=== PATIENT | female | born 1950 | race Caucasian/White ===

== ENCOUNTER 2020-04-04 06:54 | Outpatient (NON) | payer MEDICARE, OTHER, SELFPAY ==
[2020-04-04 18:28] LABS: SARS-CoV-2 RNA PCR Negative
== END 2020-04-04 06:55 ==
PROVIDERS: PCP Internal Medicine; Visit Provider Internal Medicine
DX: R68.89 Other general symptoms and signs (principal); Z20.828 Contact with and (suspected) exposure to other viral communicable diseases
CPT/HCPCS: 87635; C9803; U0003

== ENCOUNTER → 2020-04-06 13:54 | Outpatient (CLI) | payer MEDICARE, OTHER, SELFPAY ==
--- NOTE | ~2020-04-06 | XR_ITS ---
EXAMINATION: XR chest 2V DATE: 04/06/2020 14:58 INDICATION: Shortness of breath. TECHNIQUE: Frontal and lateral views of the chest were obtained. COMPARISON: Chest 2 views 04/06/2019, chest CT 11/01/2013 FINDINGS: A calcified left lung nodule is consistent with old granulomatous disease. There is mild at electasis in left lower lobe. No pleural effusion or pneumothorax. There is a large hiatal hernia. Th e heart size is normal. There is mild chronic anterior wedging of multiple lower thoracic vertebral b odies. IMPRESSION: 1. Large hiatal hernia. 2. Mild atelectasis in left lower lobe. Reviewed, dictated and finalized at location A.
== END ==
PROVIDERS: PCP Internal Medicine; Visit Provider Nurse Practitioner
DX: R06.02 Shortness of breath (principal)
CPT/HCPCS: 71046

== ENCOUNTER 2021-03-23 10:23 | Outpatient (CLI) | payer MEDICARE, OTHER, SELFPAY ==
--- NOTE | ~2021-03-23 | MR_ITS ---
EXAMINATION: MR brain IAC wo con DATE: 03/23/2021 11:34 INDICATION: Facial weakness. TECHNIQUE: Magnetic resonance imaging (MRI) of the brain, brainstem, and internal auditory canals was performed without intravenous contrast. Sequences included sagittal and axial T1-weighted FSE, axial diffusion-weighted FS EPI, axial T2*-weighted GRE, axial T2-weighted FLAIR Propeller, axial T2-weigh natalia Propeller, small [id number] coronal FIESTA, small bcifk-dw-lyrk coronal T1-weighted FSE, and s mall [id number] axial T1-weighted SPGR. Apparent diffusion coefficient (ADC) maps were created. COMPARISON: Brain MRI 06/17/2010 FINDINGS: There are scattered areas of nonspecific increased T2-weighted signal intensity in the cere bral white matter. There are old infarcts in right frontal and parietal lobes. There is old infarct i n left occipital lobe. There are old infarcts in the right cerebellum. There is no intracranial hemor rhage, acute infarction, or abnormal intracranial mass lesion. The ventricles are normal in size. The orbits are normal. The paranasal sinuses are clear. The mastoid air cells are normal. The trigeminal nerves are normal. No vascular loop compression. The internal auditory canals are normal. IMPRESSION: 1. 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 2. Mild nonspecific cerebral white matter disease, which likely represents chronic small vessel ische karma disease. Reviewed, dictated and finalized at location A. IMPRESSION: 1. 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 2. 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
== END 2021-03-23 10:24 | disposition home or self-care (01) ==
LOC: ANHIMG 10:25
PROVIDERS: PCP Internal Medicine; Visit Provider Psychiatry & Neurology Neurology
DX: R90.82 White matter disease, unspecified (principal); R29.810 Facial weakness; Z86.73 Personal history of transient ischemic attack (TIA), and cerebral infarction without residual deficits
CPT/HCPCS: 70551

== ENCOUNTER 2021-04-04 09:58 | Outpatient (CLI) | payer MEDICARE, OTHER, SELFPAY ==
--- NOTE | ~2021-04-04 | XR_ITS ---
EXAMINATION: XR lumbar spine 2-3V EXAM DATE: 04/04/2021 11:37 INDICATION: M54.5 - Low back pain . TECHNIQUE: Lumber spine frontal, lateral, lateral L5-S1 projections for interpretation. There is no prior study for comparison. FINDINGS: There is severe disc disease L4-5 with grade 2 anterolisthesis, but no L4 spondylolysis johnson spected. There may be partial or unilateral L5 spondylolysis. Moderate to severe disc disease L5-S1. Suspect partial fusion of the T12-L1 vertebral bodies. Moderate mid and lower lumbar facet arthropath y. Sacrum, sacroiliac joints, sacral arcuate lines are intact. There is left hip replacement. Moderat e right hip primary osteoarthritis. Sacrum, sacroiliac joints, sacral arcuate lines are intact. Sudhakar poonam soft tissue is unremarkable. Impression: lumbar spondylosis as above. Reviewed, dictated and finalized at location G. Impression: lumbar spondylosis as above.
--- NOTE | ~2021-04-04 | XR_ITS ---
EXAMINATION: XR_CERV2-3V_CR EXAM DATE: 04/04/2021 11:37 INDICATION: Spondylosis without myelopathy. TECHNIQUE: Cervical spine frontal, lateral, lateral swimmers, and open-mouth odontoid projections. There is no prior study for comparison. FINDINGS: There is osseous partial fusion of the C5-6 vertebral bodies. There is severe disc disease at C6-7. There is 3 mm anterolisthesis C4 on C5, degenerative. There is severe cervical arthropathy. Left upper lobe granuloma. Prevertebral soft tissue and pre-dens space are within normal limits. The odontoid process is intact. The lateral masses of C1 line up with C2. There are no acute fractures i dentified. IMPRESSION: Severe cervical arthropathy and C6-7 disc disease. Reviewed, dictated and finalized at location G.
--- NOTE | ~2021-04-04 | XR_ITS ---
EXAMINATION: XR thoracic spine 3V EXAM DATE: 04/04/2021 11:37 INDICATION: Thoracic back pain. TECHNIQUE: Frontal and lateral projections of the thoracic spine as well as lateral swimmers projecti on of the upper thoracic spine for interpretation. There is no prior study for comparison. FINDINGS: Massive hiatal hernia appears to contain transverse colon and probably the stomach. There is moderate to severe mid and lower thoracic disc disease. No endplate acute erosive change suspecte d. Vertebral body heights are maintained. There are no acute fractures identified. Paraspinal soft ti ssue is unremarkable. IMPRESSION: 1. Massive hiatal hernia. 2. Moderate to severe thoracolumbar spondylosis. Reviewed, dictated and finalized at location G.
--- NOTE | 2021-04-04 10:24 | ECHO_ITS ---
Patient Info Name: Lyndsey Mclean Age: 70 years : 1950 Gender: Female Ht: 60 in Wt: 195 lbs BSA: 1.98 m2 HR: 70 bpm BP: 158 / 85 mmHg Technical Quality: Good Exam Date: 04/04/2021 10:36 AM Exam Location: [facility] Patient Status: Outpatient Admit Date: 04/04/2021 Staff Ordering Physician: Blade Foster MD Mail Forwarding System Markup Clerk: Summer Vivas RDCS Attending Provider: Blade Foster MD Exam Type: CA echo doppler color flow Study Info Indications R01.1 - Cardiac murmur, unspecified Complete two-dimensional, color flow and Doppler transthoracic echocardiogram is performed. Summary 1. Complete two-dimensional, color flow and Doppler transthoracic echocardiogram is performed. 2. Left ventricular chamber dimension is mildly enlarged. 3. Left ventricular systolic function is normal, estimated at 60-65%. 4. The left ventricular diastolic function is grade I diastolic dysfunction. 5. E/e' 8 is minimally elevated. 6. Left atrial chamber dimension is severely enlarged. 7. There is moderate aortic valve sclerosis. 8. There is mild to moderate aortic valve stenosis with a peak velocity of 265 cm/s, mean gradient of 18 mmHg, and aortic valve area of 1.4 cm2. 9. There is moderate aortic valve regurgitation. 10. The mitral valve has moderately calcified annulus. 11. There is mild mitral valve regurgitation. 12. There is mild tricuspid valve regurgitation. 13. No pulmonary hypertension, estimated pulmonary arterial systolic pressure is 32 mmHg. Left Ventricle E/e' 8 is minimally elevated. Left ventricular chamber dimension is mildly enlarged. Left ventricular systolic function is normal, estimated at 60-65%. The left ventricular diastolic function is grade I diastolic dysfunction. Right Ventricle Right ventricular chamber dimension is normal. Right ventricular systolic function is normal. Left Atria Left atrial chamber dimension is severely enlarged. Right Atria Right atrial chamber dimension is normal. Aortic Valve The aortic valve is trileaflet. There is moderate aortic valve sclerosis. There is mild to moderate aortic valve stenosis with a peak velocity of 265 cm/s, mean gradient of 18 mmHg, and aortic valve area of 1.4 cm2. There is moderate aortic valve regurgitation. Pulmonic Valve There is no pulmonic regurgitation. Mitral Valve The mitral valve has moderately calcified annulus. There is no mitral valve stenosis. There is mild mitral valve regurgitation. Tricuspid Valve There is mild tricuspid valve regurgitation. No pulmonary hypertension, estimated pulmonary arterial systolic pressure is 32 mmHg. Pericardium/Pleural There is no pericardial effusion. Inferior Vena Cava Normal inferior vena cava with >50% collapse upon inspiration consistent with normal right atrial pressure, 5 mmHg. Aorta The aortic root size at the sinus of Valsalva is normal. Left Ventricular Outflow Tract Name Value Normal LVOT 2D LVOT Diameter 2.0 cm LVOT Doppler LVOT Peak Gradient 5 mmHg LVOT Mean Gradient 3 mmHg LVOT VTI
== END 2021-04-04 09:59 | disposition home or self-care (01) ==
LOC: ANHCARD 10:02
PROVIDERS: PCP Internal Medicine; Visit Provider Psychiatry & Neurology Neurology
DX: R01.1 Cardiac murmur, unspecified (principal); I34.0 Nonrheumatic mitral (valve) insufficiency; I36.1 Nonrheumatic tricuspid (valve) insufficiency; M47.817 Spondylosis without myelopathy or radiculopathy, lumbosacral region; K44.9 Diaphragmatic hernia without obstruction or gangrene; M47.815 Spondylosis without myelopathy or radiculopathy, thoracolumbar region; M47.813 Spondylosis without myelopathy or radiculopathy, cervicothoracic region
CPT/HCPCS: 72040; 72072; 72100; 93306

== ENCOUNTER 2021-07-09 15:22 | Emergency (ER) | payer MEDICARE, OTHER, SELFPAY ==
--- NOTE | ~2021-07-09 | XR_ITS ---
EXAMINATION: XR foot RT min 3V DATE: 07/09/2021 22:19 INDICATION: Lateral right foot pain and swelling TECHNIQUE: Dorsoplantar, two oblique and lateral views of the right foot were obtained. COMPARISON: Right ankle radiographs dated 02/23/2007 FINDINGS: Mild hallux valgus. Alignment is otherwise normal. No fracture. Again seen is severe osteoarthritis a t the poorly profiled subtalar joint. Additional mild osteoarthritis at the ankle and first metatarso phalangeal joints. There are scattered lucencies including at the posterior tuberosity of the calcane us, the medial head of the first metatarsal and at several of the tarsal bones including the cuboid, talus, calcaneus and distal fibula. Appearance of several suggests erosion such as in the setting of gout. Soft tissue swelling about the ankle and over the dorsum of the forefoot. No ankle joint effusi on. IMPRESSION: 1. No acute osseous abnormality. 2. Polyarticular osteoarthritis, severe at the subtalar joint and mild at the ankle and first metatar sophalangeal joints. 3. Few scattered lucent lesions throughout the foot, few with appearance suggesting erosions in the s etting of gout. Reviewed, dictated and finalized at location H. INE CAPTAIN IMPRESSION: 1. No acute osseous abnormality. 2. Polyarticular osteoarthritis, severe at the subtalar joint and mild at the a nkle and first metatarsophalangeal joints. 3. Few scattered lucent lesions throughout the foot, few with appearance sugges ting erosions in the setting of gout.
[2021-07-09 15:25] VITALS: BP 143/85; PULSE 82; RESP 16; TEMP 36.5; O2SAT 98
[2021-07-09 18:58] VITALS: BP 158/57; PULSE 82; RESP 16; O2SAT 97
[2021-07-09 21:40] LABS: Basophils Percent Auto 0.4 % (0.2-1.2); Eosinophils Percent Auto 0.4 % (0-4.4); Hematocrit 33.9 % (37.0-47.0); Hemoglobin 10.9 g/dL (12.0-15.0); Immature Granulocyte Absolute 0.02 K/mm3 (0.00-0.031); Immature Granulocyte Percent A 0.3 % (0-0.5); Lymphocytes Absolute Auto 0.75 K/mm3 (0.9-3.2); Lymphocytes Percent Auto 9.5 % (18.3-44.2); Mean Corpuscular HGB Conc 32.2 g/dl (32-36); Mean Corpuscular Hemoglobin 30.1 pg (26-34); Mean Corpuscular Volume 93.6 fl (80-100); Mean Platelet Volume 9.3 fl (7.4-10.4); Monocytes Absolute Auto 0.8 K/mm3 (0.1-0.6); Monocytes Percent Auto 10.4 % (2.6-8.5); Neutrophils Absolute Auto 6.3 K/mm3 (1.3-6.7); Platelet Count Result 325 k/mm3 (150-375); Red Blood Count 3.62 M/mm3 (4.2-5.4); Red Cell Distribution Width 13.3 % (11.5-14.5); White Blood Count 7.9 K/mm3 (4.5-10.0)
[2021-07-09 21:51] LABS: Alanine Aminotransferase 19 U/L (4-35); Albumin Level 4.1 g/dL (3.5-5.1); Alkaline Phosphatase 119 U/L (38-126); Anion Gap 7 mmol/L (8-16); Aspartate Amino Transferase 30 U/L (14-36); Bilirubin,Total 0.5 mg/dL (0.2-1.3); Blood Urea Nitrogen 21 mg/dL (7-17); Calcium 9.1 mg/dL (8.4-10.2); Carbon Dioxide 28 mmol/L (22-30); Chloride 95 mmol/L (98-107); Estimated CRCL calculation 45 ml/min; Estimated Glomerular Filt Rate 55; Glucose 102 mg/dL (65-110); Sodium 130 mmol/L (137-145)
--- NOTE | 2021-07-09 21:56 | ED.EXTPRO ---
HPI - Extremity Problem General Chief complaint: Extremity Problem,Nontraumatic Stated complaint: red, swollen foot Time Seen by Provider: 07/09/21 21:09 Source: patient Mode of arrival: ambulatory Limitations: no limitations History of Present Illness HPI Narrative: Patient is a 7-year-old female complaining of right foot redness and swelling that started 1 week ago. Patient denies any pain. Patient states that she spoke to her telecommunications specialist today and was told that she could have cellulitis and to go to the emergency room. Patient denies any calf pain or swelling. Patient denies any chest pain, shortness of breath, fever or chills. Related Data Home Medications Medication Instructions Recorded Confirmed estradiol 1 mg tablet 1 mg PO DAILY 06/22/19 07/03/21 gabapentin 100 mg capsule 100 mg PO DAILY 04/16/21 07/03/21 apixaban 5 mg tablet 5 mg PO BID 07/03/21 07/03/21 apixaban [Eliquis] mg 07/09/21 Allergies Allergy/AdvReac Type Severity Reaction Status Date / Time prednisone AdvReac Palpitation Verified 07/09/21 20:41 s Review of Systems Review of Systems: All systems reviewed & are unremarkable except as noted in HPI and below Constitutional: Constitutional: Denies body ache(s), Denies chills, Denies excessive sweating, Denies fatigue, Denies fever(s), Denies headache(s), Denies lethargy, Denies malaise, Denies weakness and Denies weight loss Eyes: Eyes: Denies blurry vision, Denies change in vision and Denies loss of vision ENT: Denies dizziness, Denies ear discharge, Denies headache(s), Denies lip swelling, Denies epistaxis, Denies nasal congestion, Denies neck pain, Denies throat swelling and Denies tongue swelling Cardiovascular: Cardiovascular: Denies chest pain, Denies chest pain at rest, Denies chest pain with activity, Denies diaphoresis, Denies rapid heart rate, Denies edema, Denies irregular heart rhythm, Denies lightheadedness, Denies palpitations, Denies dyspnea and Denies dyspnea on exertion Respiratory: Respiratory: Denies chest congestion, Denies cough, Denies hemoptysis, Denies dyspnea and Denies dyspnea on exertion Gastrointestinal: Gastrointestinal: Denies abdominal pain, Denies melena, Denies hematochezia, Denies diarrhea, Denies nausea, Denies vomiting and Denies hematemesis Musculoskeletal: Musculoskeletal: Denies abnormal gait, Denies deformity, Denies limited range of motion, Denies neck pain and Denies numbness Neurologic: Denies Abnormal speech present, Denies abnormal gait, Denies confusion, Denies dizziness, Denies headache(s), Denies focal weakness, Denies loss of vision, Denies numbness, Denies Other visual disturbances, Denies Sensory deficit (Neuro) and Denies weakness Psychiatric: Psychiatric: Denies confusion, Denies depression, Denies auditory hallucinations, Denies homicidal ideation and Denies suicidal ideation Endocrine: Endocrine: Denies cold intolerance, Denies excessive sweating, Denies fatigue, Denies heat intolerance and Denies palpitations Hematologic/Lymphatic: Hematologic/Lymphatic: Denies easy bleeding and Denies easy bruising Allergic/Immunologic: Allergic/Immunologic: Denies lip swelling, Denies throat swelling and Denies tongue swelling PMFSH Past Medical History Medical History Aortic stenosis, mild CVA (cerebral vascular accident) Diverticulosis of large intestine without hemorrhage Essential (primary) hypertension Iron deficiency anemia Paroxysmal atrial fibrillation Violaceous color toes Surgical History Surgical History History of left hip replacement Presence of unspecified artificial knee joint Family History Family History Mother Family history of diabetes mellitus in first degree relative Social History Social History Smoking sta
[2021-07-09] MEDS: CLINDAMYCIN 600 MG/D5W 50 ML 600 MG/50 ML PIGGYBACK 100 MG IVPB (22:37)
[2021-07-09 22:40] VITALS: BP 139/63; PULSE 83; RESP 17; O2SAT 97
== END 2021-07-09 23:38 | disposition home or self-care (01) ==
PROVIDERS: Emergency Provider Emergency Medicine; PCP Internal Medicine
DX: L03.115 Cellulitis of right lower limb (principal); I35.0 Nonrheumatic aortic (valve) stenosis; Z86.73 Personal history of transient ischemic attack (TIA), and cerebral infarction without residual deficits; I10 Essential (primary) hypertension; D50.9 Iron deficiency anemia, unspecified; I48.0 Paroxysmal atrial fibrillation; Z96.642 Presence of left artificial hip joint; Z96.659 Presence of unspecified artificial knee joint; Z79.01 Long term (current) use of anticoagulants
CPT/HCPCS: 36415; 73630; 80053; 85025; 96365; 99284

== ENCOUNTER → 2022-01-03 05:02 | Outpatient (CLI) | payer MEDICARE, OTHER, SELFPAY ==
[2022-01-03 12:00] LABS: SARS-CoV-2 RNA PCR Positive
== END ==
PROVIDERS: PCP Internal Medicine; Visit Provider Internal Medicine
DX: U07.1 COVID-19 (principal)
CPT/HCPCS: C9803; U0003; U0005

== ENCOUNTER 2022-05-22 16:22 | Outpatient (CLI) | payer MEDICARE, OTHER, SELFPAY ==
--- NOTE | ~2022-05-22 | XR_ITS ---
XR cervical spine 4-5V DATE: 05/22/2022 17:26 INDICATION: Neck pain TECHNIQUE: AP, lateral, open-mouth and swimmer views COMPARISON: None FINDINGS: There is straightening of cervical spine which may be due to muscle spasm. C1 and C2 are normally aligned and the odontoid process is intact. No fracture or dislocation or lock ed facet or prevertebral soft tissue swelling. There is 2 mm anterolisthesis at C3-4 and 3 mm anterolisthesis at C4-5. There is interbody spinal fusion at C5-6. There is severe degenerative disc disease at C6-7. There is degenerative change at the apophyseal joints. IMPRESSION: Straightening of the cervical spine 2 mm anterolisthesis at C3-4, 3 mm anterolisthesis at C4-5 Interbody fusion at C5-6 Severe degenerative disc disease at C6-7 Reviewed, dictated and finalized at location A.
--- NOTE | ~2022-05-22 | XR_ITS ---
XR shoulder RT min 2V DATE: 05/22/2022 17:26 INDICATION: Right shoulder pain. History of arthritis. TECHNIQUE: 4 views COMPARISON: None FINDINGS: There is obliteration of the right glenohumeral joint space, with spurring, consistent with severe osteoarthritis. There is evidence of rotator cuff atrophy No fracture or dislocation, periosteal reaction or bone destruction or abnormal soft tissue calcifica tion. IMPRESSION: Severe right glenohumeral osteoarthritis Rotator cuff atrophy Reviewed, dictated and finalized at location A.
--- NOTE | ~2022-05-22 | XR_ITS ---
XR lumbar spine min 4V DATE: 05/22/2022 17:26 INDICATION: Back pain TECHNIQUE: AP, lateral, coned lateral lumbosacral and bilateral oblique views COMPARISON: None FINDINGS: There is moderate right lumbar levoscoliosis. There is prominent degenerative disc disease in the lower thoracic spine. There is prominent degenerative change at the apophyseal joints. There is associated grade 2 anteroli sthesis at L4-5. There is severe degenerative disc disease at T12-L1, L4-5 and L5-S1 with obliteration of the interver tebral disc spaces at these 3 levels. No fracture or bone destruction is evident. The lumbar and included lower thoracic pedicles appear in tact. There is prominent degenerative change of the sacral iliac joints bilaterally. Status post left total hip arthroplasty. Prominent osteophytic change at the right hip joint. IMPRESSION: Severe degenerative disc disease of the lower thoracic and lower lumbar spine Grade 2 anterolisthesis at L4-5 Prominent right hip osteoid arthritis Status post left total hip arthroplasty Reviewed, dictated and finalized at location A. IMPRESSION: Severe degenerative disc disease of the lower thoracic and lower alicia mbar spine Grade 2 anterolisthesis at L4-5 Prominent right hip osteoid arthritis Status post left total hip arthroplasty
[2022-05-22 17:20] LABS: CRP 0.8 mg/dL (<1.0); Creatine Kinase 68 U/L (30-135)
[2022-05-22 17:31] LABS: Erythrocyte Sedimentation Rate 21 mm/hr (0-20)
[2022-05-27 01:16] LABS: Aldolase 3.9 U/L (<=8.1)
== END 2022-05-22 16:23 | disposition home or self-care (01) ==
PROVIDERS: PCP Internal Medicine; Visit Provider Internal Medicine
DX: M54.9 Dorsalgia, unspecified (principal); M19.90 Unspecified osteoarthritis, unspecified site; G89.29 Other chronic pain; M25.611 Stiffness of right shoulder, not elsewhere classified; M25.511 Pain in right shoulder; M62.81 Muscle weakness (generalized); M51.34 Other intervertebral disc degeneration, thoracic region; M51.36 Other intervertebral disc degeneration, lumbar region; M43.16 Spondylolisthesis, lumbar region; M16.11 Unilateral primary osteoarthritis, right hip; Z96.642 Presence of left artificial hip joint; M19.011 Primary osteoarthritis, right shoulder; M62.511 Muscle wasting and atrophy, not elsewhere classified, right shoulder; M53.82 Other specified dorsopathies, cervical region; M43.12 Spondylolisthesis, cervical region; Z98.1 Arthrodesis status; M50.323 Other cervical disc degeneration at C6-C7 level
CPT/HCPCS: 36415; 72050; 72110; 73030; 82085; 82550; 85652; 86140

== ENCOUNTER 2022-06-10 15:28 | Outpatient (CLI) | payer MEDICARE, OTHER, SELFPAY ==
--- NOTE | ~2022-06-10 | MR_ITS ---
EXAMINATION: MR shoulder LT wo con DATE: 06/10/2022 17:10 INDICATION: Chronic left shoulder pain TECHNIQUE: Magnetic resonance imaging (MRI) of the left shoulder was performed without intravenous co ntrast. Sequences included axial PD-weighted FS FSE, coronal oblique PD-weighted FS FSE, coronal obli que T2-weighted FS FSE, sagittal PD-weighted FS FSE, and sagittal T1-weighted SE. COMPARISON: None. FINDINGS: Coracoacromial arch: The acromion undersurface is flat in morphology (type I). The coracoacromial ligament is normal. Mild acromioclavicular osteoarthritis. Rotator cuff: The supraspinatus, infraspinatus and teres minor tendons are normal. The subscapularis tendon is norm al. Normal rotator cuff muscle bulk and signal. Biceps tendon, glenoid labrum and glenohumeral cartilage: Long head of the biceps tendon is normal. Advanced left glenohumeral osteoarthritis with remodeling o f the articular surfaces and prominent underlying subarticular cystic changes at both the humeral hea d and glenoid. There is diffuse degenerative tearing of the left glenoid labrum. Fluid: Small left glenohumeral joint effusion. Physiologic amount of fluid in the biceps tendon sheath. No loose osteochondral bodies. Small amount of fluid in the subacromial/subdeltoid bursa consistent with minimal bursitis. Bones: No fracture or pathologic marrow replacing process. IMPRESSION: 1. Advanced left glenohumeral osteoarthritis with diffuse labral degeneration. 2. Mild acromioclavicular osteoarthritis and minimal underlying subacromial/subdeltoid bursitis. Reviewed, dictated and finalized at location A. DER LOADER IMPRESSION: 1. Advanced left glenohumeral osteoarthritis with diffuse labral degeneration. 2. Mild acromioclavicular osteoarthritis and minimal underlying subacromial/sub deltoid bursitis.
--- NOTE | ~2022-06-10 | MR_ITS ---
EXAMINATION: MR shoulder RT wo con DATE: 06/10/2022 17:10 INDICATION: Chronic right shoulder pain TECHNIQUE: Magnetic resonance imaging (MRI) of the right shoulder was performed without intravenous c ontrast. Sequences included axial PD-weighted FS FSE, coronal oblique PD-weighted FS FSE, coronal obl ique T2-weighted FS FSE, sagittal PD-weighted FS FSE, and sagittal T1-weighted SE. COMPARISON: None. FINDINGS: Coracoacromial arch: The acromion undersurface is curved in morphology (type II). Small anterior subacromial spur at the a cromial insertion of the otherwise normal coracoacromial ligament. Moderate acromioclavicular osteoar thritis. Rotator cuff: Moderate supraspinatus tendinopathy with small full-thickness tear along the superior facet footplate measuring 7 mm AP and 1.2 cm medial to lateral. Mild tendinopathy without tear of the distal subscap ularis tendon and anterior infraspinatus tendon. The teres minor tendon is normal. Mild supraspinatus muscle atrophy with concave cephalad margin at level of the supraspinatus fossa. Biceps tendon, glenoid labrum and glenohumeral cartilage: Mild tendinopathy intra-articular portion of the long head biceps tendon. Advanced right glenohumeral osteoarthritis with articular surface remodeling and prominent subarticular changes at both the tianna oid and humeral head. Diffuse degenerative tearing of the glenoid labrum sparing the inferior labrum. Fluid: Moderate amount of fluid and mild synovitis in the subacromial/subdeltoid bursa likely combination of bursitis and extension of reactive glenohumeral joint effusion through the full-thickness rotator cu ff tear defect. Synovitis without significant fluid at the axillary and deep subscapular recess of th e glenohumeral joint space. No loose osteochondral bodies. Bones: No fracture or pathologic marrow replacing process. IMPRESSION: 1. Advanced right glenohumeral osteoarthritis with diffuse labral degeneration. 2. Moderate supraspinatus and mild subscapularis and infraspinatus tendinopathy with small full-thick ness tear of the distal supraspinatus tendon. 3. Mild tendinopathy without tear of the long head biceps tendon. 4. Moderate acromioclavicular osteoarthritis. 5. Mild synovitis a moderate amount of fluid at the subacromial/subdeltoid bursa likely combination o f bursitis and decompression of reactive glenohumeral joint effusion through the full-thickness rotat or cuff tear defect. Reviewed, dictated and finalized at location A. RECORDER IMPRESSION: 1. Advanced right glenohumeral osteoarthritis with diffuse labral degeneration. 2. Moderate supraspinatus and mild subscapularis and infraspinatus tendinopathy with small full-thickness tear of the distal supraspinatus tendon. 3. Mild tendinopathy without tear of the long head biceps tendon. 4. Moderate acromioclavicular osteoarthritis. 5. Mild synovitis a moderate amount of fluid at the subacromial/subdeltoid burs a likely combination of bursitis and decompression of reactive glenohumeral rosa nt effusion through the full-thickness rotator cuff tear defect.
== END 2022-06-10 15:29 | disposition home or self-care (01) ==
PROVIDERS: PCP Internal Medicine; Visit Provider Internal Medicine
DX: M19.012 Primary osteoarthritis, left shoulder (principal); M19.011 Primary osteoarthritis, right shoulder; M75.82 Other shoulder lesions, left shoulder; M75.81 Other shoulder lesions, right shoulder; M65.811 Other synovitis and tenosynovitis, right shoulder
CPT/HCPCS: 73221

== ENCOUNTER 2022-06-17 12:32 | Outpatient (CLI) | payer MEDICARE, OTHER, SELFPAY ==
--- NOTE | ~2022-06-17 | MR_ITS ---
EXAMINATION: MR cervical spine wo con DATE: 06/17/2022 14:01 INDICATION: Neck pain. Back pain. TECHNIQUE: Magnetic resonance imaging (MRI) of the cervical spine was performed without intravenous c ontrast. Sequences included sagittal T2-weighted FSE, sagittal T2-weighted FS FSE, sagittal T1-weight ed FSE, axial MERGE, and axial T2-weighted FSE. COMPARISON: Cervical spine radiographs 05/22/2022 FINDINGS: There is 8 degrees levocurvature of cervicothoracic spine. There is 2 mm anterolisthesis of C4 on C5 and 2 mm retrolisthesis of C5 on C6 and C6 on C7. There is mildly decreased disc height at C3-C4 and C4-C5. There is severely decreased disc height at C5-C6 with interbody fusion. There is sev erely decreased disc height at C6-C7 with endplate remodeling. The spinal cord signal intensity is no rmal, but motion artifact moderately decreased in sensitivity. The following disc levels are specific ally discussed: C2-C3: There is a central protrusion. There is no uncovertebral joint osteoarthritis. There is mild b ilateral facet joint osteoarthritis. There is no neural foraminal stenosis. There is no central canal stenosis. C3-C4: The disc is bulging. There is no uncovertebral joint osteoarthritis. There is severe right and moderate left facet joint osteoarthritis. There is mild bilateral neural foraminal stenosis. There i s mild central canal stenosis. C4-C5: The disc is bulging. There is no uncovertebral joint osteoarthritis. There is severe bilateral facet joint osteoarthritis. There is mild lateral neural foraminal stenosis. There is mild central c anal stenosis. C5-C6: There is mild bilateral uncovertebral joint hypertrophy. There is mild right and moderate left facet joint osteoarthritis. There is mild left neural foraminal stenosis. There is mild central brad l stenosis. C6-C7: The disc is bulging. There is severe bilateral uncovertebral joint osteoarthritis. There is se ko bilateral facet joint osteoarthritis. There is mild bilateral neural foraminal stenosis. There i s mild central canal stenosis. C7-T1: The disc does not extend beyond the endplate margin. There is no uncovertebral joint osteoarth ritis. There is severe right and moderate left facet joint osteoarthritis. There is mild right neural foraminal stenosis. There is no central canal stenosis. IMPRESSION: 1. Severe cervical spondylosis. 2. Anterior fusion at C5-C6. Reviewed, dictated and finalized at location A. NGUAL SPEECH LANGUAGE PATHOLOGIST
--- NOTE | ~2022-06-17 | MR_ITS ---
EXAMINATION: MR lumbar spine wo con DATE: 06/17/2022 14:01 INDICATION: Low back pain. TECHNIQUE: Magnetic resonance imaging (MRI) of the lumbar spine was performed without intravenous con trast. Sequences included sagittal T2-weighted FSE, sagittal T2-weighted FS FSE, sagittal T1-weighted FSE, and axial T2-weighted FSE. COMPARISON: None. FINDINGS: There is 7 mm anterolisthesis of L4 on L5 and 5 mm anterolisthesis of L5 on S1. There is mi ld chronic anterior wedging of T8-L1 vertebral bodies. There is moderately decreased disc height at T 7-T8 and T8-T9. There is severely decreased disc height from T9-T10 through T12-L1 with interbody fus ion at T9-T10 and T12-L1. There is severely decreased disc height at L4-L5 and L5-S1 with endplate re modeling. The distal spinal cord signal intensity is normal. The conus medullaris is at L2. The follo wing disc levels are specifically discussed: L1-L2: There is a central protrusion. There is mild bilateral facet joint osteoarthritis. There is no neural foraminal stenosis. There is mild central canal stenosis. L2-L3: The disc is bulging. There is mild bilateral facet joint osteoarthritis. There is mild bilater al neural foraminal stenosis. There is mild central canal stenosis. L3-L4: The disc is bulging. There is moderate bilateral facet joint osteoarthritis. There is mild irvin ateral neural foraminal stenosis. There is mild central canal stenosis. L4-L5: The disc is bulging and has an annular fissure. There is severe bilateral facet joint osteoart hritis. There is moderate right and mild left neural foraminal stenosis. There is mild central canal stenosis. L5-S1: The disc is bulging and has an annular fissure. There is severe bilateral facet joint osteoart hritis. There is mild bilateral neural foraminal stenosis. There is mild central canal stenosis. IMPRESSION: 1. Severe lumbar and thoracic spondylosis. Reviewed, dictated and finalized at location A. NEERING TEST MECHANIC
== END 2022-06-17 12:33 | disposition home or self-care (01) ==
PROVIDERS: PCP Internal Medicine; Visit Provider Internal Medicine
DX: M47.816 Spondylosis without myelopathy or radiculopathy, lumbar region (principal); M47.812 Spondylosis without myelopathy or radiculopathy, cervical region; Z98.1 Arthrodesis status; M43.04 Spondylolysis, thoracic region
CPT/HCPCS: 72141; 72148

== ENCOUNTER 2022-08-18 15:18 | Outpatient (CLI) | payer MEDICARE, OTHER, SELFPAY ==
[2022-08-18 16:11] LABS: Anion Gap 9 mmol/L (8-16); Blood Urea Nitrogen 32 mg/dL (7-17); Calcium 8.5 mg/dL (8.4-10.2); Carbon Dioxide 33 mmol/L (22-30); Chloride 79 mmol/L (98-107); Estimated Glomerular Filt Rate > 60; Glucose 111 mg/dL (65-110); Potassium 3.3 mmol/L (3.4-5.0); Sodium 121 mmol/L (137-145)
== END 2022-08-18 15:19 | disposition home or self-care (01) ==
PROVIDERS: PCP Internal Medicine; Visit Provider Internal Medicine
DX: I89.0 Lymphedema, not elsewhere classified (principal); Z79.899 Other long term (current) drug therapy
CPT/HCPCS: 36415; 80048

== ENCOUNTER 2022-08-25 17:09 | Inpatient (IN) | payer MEDICARE, OTHER, SELFPAY ==
[2022-08-25] VITALS (16 sets, daily range): BP systolic 90–141; BP diastolic 52–79; PULSE 95–111; RESP 14–27; TEMP 35–36.6; O2SAT 94–99; BMI 33.5
--- NOTE | ~2022-08-25 | XR_ITS ---
XR abdomen/kub 1V 09/04/2022 17:33 INDICATION: OG tube insertion TECHNIQUE: KUB COMPARISON: None FINDINGS: Bowel gas pattern is normal. Moderate gas throughout the colon. NG tube tip in the stomach. There is no evidence of free air, mass, organomegaly, ascites or obstruction. No abnormal calculi a re seen. The bones appear intact. There is a partially visualized catheter in the right pelvis. Ther e is a left hip arthroplasty. IMPRESSION: 1: No acute abdominal abnormality identified. 2: NG tube tip in the stomach. Reviewed, dictated and finalized at location A. AT OPERATOR
--- NOTE | ~2022-08-25 | CT_ITS ---
EXAMINATION: CT brain wo con DATE: 08/25/2022 18:17 INDICATION: Altered mental status TECHNIQUE: Computed tomography (CT) of the head was performed without intravenous contrast. Sagittal and coronal reconstructions were performed. The mA was adjusted according to patient size. Iterative reconstruction technique was employed. The dose-length product was 605.33 mGy-cm. COMPARISON: head CT dated 06/17/2010 and brain MR dated 04/22/2021 FINDINGS: Small regions of encephalomalacia in the right frontal lobe, right parietal lobe and at the head of t he right caudate nucleus consistent with sequela small old infarcts. No acute intracranial hemorrhage , acute infarction or abnormal extra axial fluid collection. There is additional mild to moderate sca ttered white matter hypoattenuation consistent with chronic small vessel ischemic disease. Symmetric prominence of the sulci consistent with mild age-appropriate diffuse cerebral volume loss. Ventricle s are normal and symmetric. No mass/mass effect. Intracranial calcified cerebral atherosclerosis is n oted. The orbits, paranasal sinuses and mastoid air cells are normal. IMPRESSION: 1. 3 small old infarcts in the right frontal and parietal lobes and at the head of the right caudate nucleus. No acute intracranial process. 2. Age-related changes including mild diffuse volume loss and mild to moderate scattered white matter hypoattenuation consistent with chronic small vessel ischemic disease. Reviewed, dictated and finalized at location A. NER OPERATOR IMPRESSION: 1. 3 small old infarcts in the right frontal and parietal lobes and at the head of the right caudate nucleus. No acute intracranial process. 2. Age-related changes including mild diffuse volume loss and mild to moderate scattered white matter hypoattenuation consistent with chronic small vessel isc hemic disease.
--- NOTE | ~2022-08-25 | CT_ITS ---
EXAMINATION: CT chest abdomen pelvis wo con DATE: 09/02/2022 15:34 INDICATION: Respiratory failure. Abdominal pain. TECHNIQUE: Computed tomography (CT) of the chest, abdomen, and pelvis was performed without intraveno us contrast. Automated exposure control and iterative reconstruction technique were employed. The dos e-length product was 1496.72 mGy-cm. COMPARISON: Chest CT 11/01/2013 FINDINGS: CHEST CT: There are patchy groundglass and airspace opacities and septal thickening involving all lobes. There are dependent airspace opacities in the lower lobes with volume loss, likely predominantly atelectasi s. There are moderate-sized right and small left pleural effusions. There is a large sliding hiatal h ernia that contains a portion of the colon. The nasogastric tube tip is in the stomach within the her manav. The endotracheal tube tip is in expected position above the keyla. The heart size is normal. Th ere are coronary artery calcifications. No pericardial effusion. There is severe thoracic spondylosis . There is mild chronic anterior wedging of multiple vertebral bodies. ABDOMEN/PELVIS CT: The liver is normal. Calcifications in the spleen are consistent with old granulomatous disease. Ther e is a gallstone in the gallbladder, which is normal in size. The pancreas and right adrenal gland ar e normal. There is chronic thickening of left adrenal gland, likely benign. There is cortical thinnin g of the kidneys. There is fat stranding adjacent to posterior aspect of right kidney, which may be e cecilio or fat necrosis. There is a catheter in the bladder. There is diverticulosis of the colon withou t evidence of diverticulitis. There are no dilated loops of bowel. The appendix is not visualized. Th ere are no pathologically enlarged lymph nodes. There is no free intraperitoneal fluid. There is miguel a in the perirectal fat. There is widespread edema in the body wall. There is a right groin catheter with tip in right external iliac vein. There is a total left hip arthroplasty. There is severe lumbar spondylosis. IMPRESSION: 1. Diffuse lung disease, consistent with pulmonary edema versus pneumonia. 2. Moderate-sized right and small left pleural effusions. 3. Large sliding hiatal hernia. Reviewed, dictated and finalized at location A. CLOSER
--- NOTE | ~2022-08-25 | XR_ITS ---
MODIFIED ESOPHAGRAM HISTORY: Possible aspiration TECHNIQUE: Modified barium esophagram was performed on 09/12/2022. I administered fluoroscopy and perf ormed the exam with speech pathologist. Patient was seated for lateral fluoroscopic imaging for flori stion of thin liquids, pudding, solids and quantified amounts, followed by thin liquids in uncontroll ed amounts. This was recorded on tape. A single fluoroscopic spot image was also recorded. The DAP fo r this procedure was 1.688 Gycm2. The amount of fluoroscopy time used during this procedure was 1.7 m inutes. FINDINGS: Oral stage: Adequate function. Pharyngeal stage: Pharyngeal dysphagia with reduced laryngeal elevation and adduction and reduced ton richar base retraction. There is moderate laryngeal penetration with some associated silent aspiration w ith uncontrolled thin and nectar thick liquids. Cervical/esophageal stage: Adequate function. IMPRESSION: Pharyngeal dysphagia with laryngeal penetration and silent aspiration with uncontrolled t hin and nectar thick liquids. Please correlate with speech pathologist findings and specific feeding recommendations. Reviewed, dictated and finalized at location A. OBEDIENCE INSTRUCTOR IMPRESSION: Pharyngeal dysphagia with laryngeal penetration and silent aspirati on with uncontrolled thin and nectar thick liquids. Please correlate with jacob vazquez pathologist findings and specific feeding recommendations.
--- NOTE | ~2022-08-25 | XR_ITS ---
EXAMINATION: XR chest 1V portable Exam Date/Time: 09/01/2022 17:17 DRAWING FRAME TENDER HISTORY: hypoxia Comparison: 08/28/2022. RESULT: Lines, tubes, and devices: None. Lungs and pleura: Patchy, diffuse bilateral airspace disease. Bilateral costophrenic angle blunting. Cardiomediastinal silhouette: Stable. Large hiatal hernia. Other: No acute osseous or upper abdominal finding. IMPRESSION: Increasing bilateral airspace disease, may represent worsening edema and/or pneumonia. Small bilatera l effusions. Reviewed, dictated and finalized at location K. ING FRAME TENDER IMPRESSION: Increasing bilateral airspace disease, may represent worsening edema and/or pne umonia. Small bilateral effusions.
--- NOTE | ~2022-08-25 | XR_ITS ---
EXAMINATION: XR chest 1V portable DATE: 09/04/2022 05:35 INDICATION: Intubated. TECHNIQUE: A single frontal view of the chest was obtained. COMPARISON: Chest single view 09/03/2022, chest CT 05/02/2023 FINDINGS: There are airspace opacities in all lung zones bilaterally. There is a small left pleural e ffusion. No pneumothorax. The heart size is normal. The endotracheal tube tip is 2.3 cm above the car fortino. There is a large hiatal hernia. The nasogastric tube tip is in the stomach. IMPRESSION: 1. Stable diffuse lung disease, consistent with pulmonary edema versus pneumonia. 2. Stable small left pleural effusion. 3. Large hiatal hernia. Reviewed, dictated and finalized at location A. NE ENGINE MACHINIST IMPRESSION: 1. Stable diffuse lung disease, consistent with pulmonary edema versus pneumoni a. 2. Stable small left pleural effusion. 3. Large hiatal hernia.
--- NOTE | ~2022-08-25 | XR_ITS ---
XR chest 1V portable 09/03/2022 06:23 Indication: Respiratory distress Procedure: AP portable chest Comparison: Comparison to multiple prior studies sequentially, with oldest reviewed study dated 08/28/2022. Findings: Endotracheal tube tip 2.2 cm above the keyla. There is bilateral airspace disease which ma y represent edema or pneumonia. No significant change. Elevated left diaphragm with large hiatal tim ia containing colon. NG tube in the stomach. No pneumothorax. Advanced osteoarthritis of the shoulder s. Impression: 1: Persistent bilateral airspace disease which may represent edema or pneumonia. Reviewed, dictated and finalized at location A. FOLDER Impression: 1: Persistent bilateral airspace disease which may represent edema or pneumonia .
--- NOTE | ~2022-08-25 | CT_ITS ---
CT head without contrast Indication: Altered mental status COMPARISON: 08/25/2019 Technique: Serial scans were obtained through the brain without the administration of contrast. Dose reduction technique was used on this scan by utilizing automated exposure control and iterative recon struction technique. The dose-length product (DLP) was 756.67 mGy-cm. Findings: There is no evidence of intracranial hemorrhage, mass lesion, or acute infarct. Probable fo khoa right frontal lobe infarct, unchanged. The ventricles and subarachnoid spaces are dilated, consis tent with mild atrophy. Low attenuation regions are seen within the periventricular white matter irvin aterally, likely representing changes from chronic microvascular ischemic disease. There is no eviden ce of edema, mass effect or midline shift. The visualized paranasal sinuses and mastoid air cells a re clear. Impression: No intracranial hemorrhage, mass, or acute infarct. Stable small chronic right frontal lobe infarct. Atrophy and chronic white matter changes, as above. Reviewed, dictated and finalized at location . CISE PHYSIOLOGIST Impression: No intracranial hemorrhage, mass, or acute infarct. Stable small chronic right frontal lobe infarct. Atrophy and chronic white matter changes, as above.
--- NOTE | ~2022-08-25 | XR_ITS ---
Portable chest x-ray Comparison: 09/10/2022 Clinical History: CHF Findings: Advanced pulmonary edema pattern is present, with small bilateral pleural effusions. Card iomediastinal silhouette is stable. Bones and soft tissues are unremarkable. Impression: Advanced pulmonary edema, with small pleural effusions. Reviewed, dictated and finalized at [facility]. F INVESTIGATOR Impression: Advanced pulmonary edema, with small pleural effusions.
--- NOTE | ~2022-08-25 | XR_ITS ---
Portable chest x-ray Comparison: 09/08/2022 Clinical History: CHF Findings: Endotracheal tube and NG tube are unchanged. Minimal left pleural effusion present. Modera te pulmonary edema pattern is unchanged. Cardiomediastinal silhouette is stable. Bones and soft tiss ues are unremarkable. Impression: Moderate pulmonary edema pattern is unchanged, probable minimal left pleural effusion. Support tubes are unchanged. NG tube is probably within a moderate to large hiatal hernia. Reviewed, dictated and finalized at location . E EXAMINER Impression: Moderate pulmonary edema pattern is unchanged, probable minimal left pleural ef fusion. Support tubes are unchanged. NG tube is probably within a moderate to large hia eben hernia.
--- NOTE | ~2022-08-25 | XR_ITS ---
XR chest ET placement DATE: 09/02/2022 00:20 INDICATION: Intubation TECHNIQUE: Portable AP chest on September 02, 2022 at 00 16 hours COMPARISON: September 01, 2022 portable AP chest at 1723 hours FINDINGS: ET tube in satisfactory position 2.6 cm above keyla. NG tube in gastric fundus. Diffuse prominent bilateral pulmonary infiltrates, increased since September 01, 2022 1723 hours, sugg esting pulmonary edema. Pneumonia is not excluded. Heart size is not optimally evaluated on AP projection because of magnification. Minimal if any pleur al effusion. No pneumothorax. Severe osteoarthritic change at both glenohumeral joints with evidence of bilateral rotator cuff atro phy. IMPRESSION: Diffuse increased bilateral pulmonary infiltrates since September 01, 2022 suggesting pulm onary edema ET and NG tubes in satisfactory position Reviewed, dictated and finalized at Location A. Reviewed, dictated and finalized at location A. T LICENSING CLERK IMPRESSION: Diffuse increased bilateral pulmonary infiltrates since August suggesting pulmonary edema ET and NG tubes in satisfactory position
--- NOTE | ~2022-08-25 | XR_ITS ---
EXAMINATION: XR chest 1V DATE: 08/25/2022 18:22 INDICATION: Altered mental status TECHNIQUE: frontal view of the chest was obtained. COMPARISON: Chest radiograph dated 04/06/20 FINDINGS: Bilateral perihilar opacities and more prominent airspace opacity right midlung zone. No pleural effu eric or pneumothorax. Cardiac silhouette is within normal limits for AP technique. Loop of gas contai vinay bowel extends into a large hiatal hernia. Severe left glenohumeral osteoarthritis. IMPRESSION: 1. Opacities in the right mid lung zone and bilateral perihilar regions which could represent pneumon ia or asymmetric pulmonary edema. 2. Large hiatal hernia. Reviewed, dictated and finalized at location A. ARCH PROGRAM COORDINATOR IMPRESSION: 1. Opacities in the right mid lung zone and bilateral perihilar regions which c ould represent pneumonia or asymmetric pulmonary edema. 2. Large hiatal hernia.
--- NOTE | ~2022-08-25 | XR_ITS ---
EXAMINATION: XR chest 1V portable DATE: 09/05/2022 06:28 INDICATION: Intubated. TECHNIQUE: A single frontal view of the chest was obtained. COMPARISON: Chest single view 09/04/2022 FINDINGS: There is a large hiatal hernia. There are airspace opacities in all lung zones bilaterally. There are small pleural effusions. No pneumothorax. The heart size is normal. The nasogastric tube t ip is in the stomach in the hiatal hernia. The endotracheal tube tip is 2.0 cm above the keyla. IMPRESSION: 1. Worsened diffuse lung disease, consistent with pulmonary edema versus pneumonia. 2. Worsened small pleural effusions. 3. Large hiatal hernia. Reviewed, dictated and finalized at location A. IGERATION ENGINEER IMPRESSION: 1. Worsened diffuse lung disease, consistent with pulmonary edema versus pneumo manav. 2. Worsened small pleural effusions. 3. Large hiatal hernia.
--- NOTE | ~2022-08-25 | XR_ITS ---
Portable chest x-ray Comparison: 09/14/2022 Clinical History: Pulmonary edema Findings: Right-sided PICC line is unchanged. Diffuse groundglass pulmonary disease unchanged. Card iomediastinal silhouette is stable. Stable large hiatal hernia containing transverse colon. Impression: Moderate to advanced pulmonary edema pattern is unchanged. Stable PICC line. Stable large hiatal hernia. Reviewed, dictated and finalized at [facility]. ECT CONSULTANT Impression: Moderate to advanced pulmonary edema pattern is unchanged. Stable PICC line. Stable large hiatal hernia.
--- NOTE | ~2022-08-25 | XR_ITS ---
EXAMINATION: XR chest 1V portable DATE: 09/22/2022 06:03 INDICATION: Shortness of breath TECHNIQUE: frontal view of the chest was obtained. COMPARISON: Chest radiograph dated 09/19/2022 FINDINGS: Right upper extremity peripherally inserted central venous catheter (PICC) tip at the superior cavoa trial junction. Persistent patchy bilateral perihilar predominant airspace opacities. Tiny right pleu ral effusion. No pneumothorax or definite left pleural effusion. The cardiomediastinal silhouette is within normal limits for AP technique. Oral contrast material within the transverse colon which exten ds into a large hiatal hernia. IMPRESSION: 1. Patchy bilateral perihilar predominant opacities which could represent pulmonary edema or pneumoni a. 2. Tiny right pleural effusion. 3. Large hiatal hernia. Reviewed, dictated and finalized at location A. UME DESIGNER IMPRESSION: 1. Patchy bilateral perihilar predominant opacities which could represent pulmo nary edema or pneumonia. 2. Tiny right pleural effusion. 3. Large hiatal hernia.
--- NOTE | ~2022-08-25 | XR_ITS ---
EXAMINATION: XR chest 1V portable INDICATION: Pneumonia TECHNIQUE: Portable AP chest at 1044 hours COMPARISON: 08/25/2022 FINDINGS: There is a large hiatal hernia. Diffuse opacities persist throughout all lung zones with sl ight improvement in the right upper lung zone. No pleural effusion or pneumothorax. The heart size is normal. IMPRESSION: 1. Diffuse lung disease with slight improvement in the right upper lung zone, consistent with pneumon ia versus pulmonary edema. 2. Large hiatal hernia. Reviewed, dictated and finalized at location L. ER HELPER IMPRESSION: 1. Diffuse lung disease with slight improvement in the right upper lung zone, c onsistent with pneumonia versus pulmonary edema. 2. Large hiatal hernia.
--- NOTE | ~2022-08-25 | XR_ITS ---
Portable chest x-ray Comparison: 09/11/2022 Clinical History: Pulmonary edema Findings: There is mild pulmonary edema pattern, significantly improved from prior exam. Probable mi nimal pleural effusions. Cardiomediastinal silhouette is stable. Hiatal hernia noted, containing port ion of the presumed transverse colon. Impression: Mild pulmonary edema, significantly improved from prior exam. Minimal pleural effusions. Moderate hiatal hernia, probably containing portion of the transverse colon. Reviewed, dictated and finalized at [facility]. SPECIALIST Impression: Mild pulmonary edema, significantly improved from prior exam. Minimal pleural effusions. Moderate hiatal hernia, probably containing portion of the transverse colon.
--- NOTE | ~2022-08-25 | XR_ITS ---
Portable chest x-ray Comparison: 09/16/2022 Clinical History: Shortness of breath Findings: Stable right-sided central venous catheter noted. There is central congestive change and mi ld to moderate pulmonary edema, with probable minimal improvement from prior exam. Probable minimal p leural effusions. Cardiomediastinal silhouette is stable. Stable large hiatal hernia. Impression: Mild to moderate pulmonary edema, minimally improved from prior exam. Minimal pleural effusions. Stable large hiatal hernia. Reviewed, dictated and finalized at location M. CH MAKER Impression: Mild to moderate pulmonary edema, minimally improved from prior exam. Minimal pleural effusions. Stable large hiatal hernia.
--- NOTE | ~2022-08-25 | XR_ITS ---
Portable chest x-ray Comparison: 09/07/2022 Clinical History: CHF Findings: Endotracheal tube in satisfactory position. NG tube is coiled over lower chest, personally contained within a moderate to large hiatal hernia. Extensive airspace disease compatible with moder ate pulmonary edema. Cardiomediastinal silhouette is stable. Bones and soft tissues are unremarkable . Impression: Moderate pulmonary edema. NG tube presumably within a moderate to large hiatal hernia. ET tube in satisfactory position. Reviewed, dictated and finalized at location . COATER Impression: Moderate pulmonary edema. NG tube presumably within a moderate to large hiatal hernia. ET tube in satisfactory position.
--- NOTE | ~2022-08-25 | XR_ITS ---
XR chest 1V portable 09/06/2022 08:25 Indication: Respiratory failure. Procedure: AP portable chest Comparison: Comparison to multiple prior studies sequentially, with oldest reviewed study dated 09/02. Findings: Improved diffuse bilateral airspace disease, likely resolving edema. NG tube in the stomach . There is a hiatal hernia. No pneumothorax. Moderate cardiomegaly is stable. There are degenerative changes of the shoulders. Impression: 1: Improving bilateral airspace disease, most likely resolving edema. 2: Cardiomegaly. Reviewed, dictated and finalized at location A. EMENT CLERKS MANAGER Impression: 1: Improving bilateral airspace disease, most likely resolving edema. 2: Cardiomegaly.
--- NOTE | ~2022-08-25 | XR_ITS ---
Portable chest x-ray Comparison: 09/09/2022 Clinical History: CHF Findings: Severe pulmonary edema pattern is present, worsened from prior exam. Probable small bilate ral pleural effusions. Cardiomediastinal silhouette is stable. Osseous structures are intact. There is an apparent large hiatal hernia, with transverse colon projecting over the heart.. Impression: Severe pulmonary edema pattern, worsened from prior exam. Small bilateral pleural effusions. Probable large hiatal hernia containing transverse colon. Reviewed, dictated and finalized at [facility]. AVING PATTERNMAKER Impression: Severe pulmonary edema pattern, worsened from prior exam. Small bilateral pleural effusions. Probable large hiatal hernia containing transverse colon.
--- NOTE | ~2022-08-25 | XR_ITS ---
XR chest 1V portable DATE: 09/13/2022 06:00 INDICATION: Pulmonary vascular congestion/edema TECHNIQUE: Portable upright AP chest on September 13, 2022 0519 hours COMPARISON: September 12, 2022 portable AP chest at 0444 hours FINDINGS: Severe bilateral pulmonary alveolar infiltrates, increased since September 12, 2022, likely due to pulmonary edema. Pneumonia is not excluded. Cardiomegaly. Aortic atherosclerosis. Possible small pleural effusions. No pneumothorax. Right upper extremity PIC catheter tip overlies upper right atrium. Osteoarthritis at the glenohumeral joints, more severe on the left. IMPRESSION: Severe bilateral pulmonary alveolar infiltrates suggesting pulmonary edema, increased in severity since September 12, 2022. Pneumonia is not excluded. Reviewed, dictated and finalized at location A. TMAN IMPRESSION: Severe bilateral pulmonary alveolar infiltrates suggesting pulmonar y edema, increased in severity since September 12, 2022. Pneumonia is not exclud ed.
--- NOTE | ~2022-08-25 | XR_ITS ---
EXAMINATION: XR foot RT min 3V DATE: 08/26/2022 14:23 INDICATION: Right foot hammertoes and cellulitis. TECHNIQUE: 4 views of right foot were obtained. COMPARISON: Right foot radiographs 07/09/2021 FINDINGS: There is mild valgus. No fracture. There is mild osteoarthritis of first metatarsophalangea l joint and some of the interphalangeal joints. There is severe osteoarthritis of subtalar joint. IMPRESSION: 1. Polyarticular osteoarthritis. 2. Mild hallux valgus. Reviewed, dictated and finalized at location A. LED TRADES TEACHER
--- NOTE | ~2022-08-25 | XR_ITS ---
EXAMINATION: XR barium swallow modified DATE: 09/18/2022 12:01 INDICATION: Dysphagia. TECHNIQUE: The patient was given barium-containing material of multiple consistencies to swallow by t jose speech pathologist while I performed fluoroscopy. Fluoroscopy exposure time was 1.2 minutes. The n umber of fluoroscopy images saved to the PACS was 1. Dose-area product was 1.18 Gy-cm^2. FINDINGS: There is reduced laryngeal elevation. There is inconsistent laryngeal penetration with uncontrolled t hin liquids. IMPRESSION: 1. Inconsistent laryngeal penetration with uncontrolled thin liquids. 2. Please refer to the speech therapy report for recommendations. Reviewed, dictated and finalized at location A. ATRIST
--- NOTE | ~2022-08-25 | XR_ITS ---
XR chest 1V portable DATE: 09/02/2022 06:13 INDICATION: Mechanical ventilation TECHNIQUE: Portable AP chest on September 02, 2022 at 0545 hours COMPARISON: September 02, 2022 portable AP chest at 0016 hours FINDINGS: ET tube in satisfactory position 2.5 cm above keyla. NG tube in gastric fundus. Large hiatal hernia containing transverse colon. Extensive bilateral pulmonary infiltrates with central prominence, suggesting pulmonary edema, mildly improved since 0016 hours. Pneumonia is not excluded. Heart size appears within normal range. Is aortic arch calcification. Bilateral severe glenohumeral osteoarthritis and probable bilateral chronic rotator cuff atrophy. IMPRESSION: Prominent bilateral pulmonary infiltrates, which more prominent centrally, but mildly imp roved since 0016 hours. Pulmonary edema is favored. Pneumonia is not excluded Large hiatal hernia containing transverse colon Aortic atherosclerosis ET and NG tubes Reviewed, dictated and finalized at location A. ROL ENGINEER IMPRESSION: Prominent bilateral pulmonary infiltrates, which more prominent char trally, but mildly improved since 0016 hours. Pulmonary edema is favored. Pneum onia is not excluded Large hiatal hernia containing transverse colon Aortic atherosclerosis ET and NG tubes
--- NOTE | ~2022-08-25 | XR_ITS ---
XR chest 1V portable 09/07/2022 06:03 Indication: CHF Procedure: AP portable chest Comparison: Comparison to multiple prior studies sequentially, with oldest reviewed study dated 09/03. Findings: Large hiatal hernia. NG tube contained in the stomach. Stable cardiomediastinal silhouette. No significant change to bilateral airspace disease, consistent with edema. Endotracheal tube tip 2.5 cm above the keyla. Impression: 1: Stable chest. No significant interval change. Reviewed, dictated and finalized at location A. TING AND SHIPPING SUPERVISOR Impression: 1: Stable chest. No significant interval change.
--- NOTE | ~2022-08-25 | XR_ITS ---
Portable chest x-ray Comparison: 09/15/2022 Clinical History: Pulmonary edema Findings: Right-sided PICC line unchanged. Moderate to severe pulmonary edema unchanged. Cardiomedi astinal silhouette is stable. Stable large hiatal hernia containing transverse colon. Impression: Moderate to severe pulmonary edema, unchanged. Stable support line. Stable large hiatal hernia. Reviewed, dictated and finalized at [facility]. NSTER RUG SETTER Impression: Moderate to severe pulmonary edema, unchanged. Stable support line. Stable large hiatal hernia.
--- NOTE | ~2022-08-25 | XR_ITS ---
XR chest 1V portable DATE: 09/14/2022 06:33 INDICATION: Pulmonary vascular congestion/edema TECHNIQUE: Portable upright AP chest on September 14, 2022 at 0533 hours COMPARISON: September 13, 2022 portable AP chest at 0519 hours FINDINGS: Extensive bilateral pulmonary infiltrates, more prominent centrally, suggesting pulmonary e cecilio. Bilateral pneumonia is not excluded. Small pleural effusions. Cardiomegaly. No pneumothorax. Right upper extremity PIC catheter tip is situated near the superior cavoatrial junction. Large hiatal hernia containing colon. IMPRESSION: Cardiomegaly, pulmonary edema, relatively stable since September 13, 2022 Large hiatal hernia containing colon Right upper extremity PIC catheter tip near superior cavoatrial junction Reviewed, dictated and finalized at location A. NG CONSULTANT
--- NOTE | ~2022-08-25 | XR_ITS ---
EXAMINATION: XR foot LT min 3V DATE: 08/26/2022 14:22 INDICATION: Left foot hammertoes and cellulitis. TECHNIQUE: 4 views of left foot were obtained. COMPARISON: None. FINDINGS: There is moderate hallux valgus. No fracture. There is severe osteoarthritis of subtalar reji int, fourth and fifth tarsometatarsal joints, and second metatarsophalangeal joint. There is mild ost eoarthritis of many of the midfoot joints and interphalangeal joints. There is moderate osteoarthriti s of first metatarsophalangeal joint. There are enthesophytes at the posterior and plantar aspects of calcaneal tuberosity. There is soft tissue swelling of the foot. IMPRESSION: 1. Polyarticular osteoarthritis. Reviewed, dictated and finalized at location A. INAL ATTORNEY
--- NOTE | ~2022-08-25 | XR_ITS ---
EXAM: XR abdomen NG/feed tube insert DATE: 09/07/2022 20:55 HISTORY: OG placement . COMPARISON: X-ray chest 09/07/2022, x-ray abdomen 09/04/2022, CT chest abdomen and pelvis 09/02/2022. FINDINGS: The tip and side port of the NG tube likely project over the lower thorax, likely within i n the intrathoracic stomach. Patchy bilateral pulmonary opacities. Intrathoracic bowel gas, otherwise normal bowel gas pattern. No organomegaly. No abnormal abdominal calcification. Regional bones and s oft tissues normal for age. IMPRESSION: Patchy bilateral pulmonary opacities. The NG tube appears to terminate in the intrathorac ic stomach. Reviewed, dictated and finalized at location K. TRONICS PARTS SALES REPRESENTATIVE IMPRESSION: Patchy bilateral pulmonary opacities. The NG tube appears to termin ate in the intrathoracic stomach.
--- NOTE | 2022-08-25 17:17 | ECG_ITS ---
Measurements Intervals Atkins Rate: 97 P: 65 OK: 215 QRS: 17 QRSD: 98 T: 109 QT: 358 QTc: 456 Interpretive Statements SINUS RHYTHM WITH FIRST DEGREE AV BLOCK WITH FREQUENT SUPRAVENTRICULAR PREMATURE COMPLEXES NONSPECIFIC T-WAVE ABNORMALITY COMPARED TO ECG 04/06/2019 12:52:05 SINUS RHYTHM NOW PRESENT FIRST DEGREE AV BLOCK NOW PRESENT Electronically Signed On 08-26-2022 14:48:02 APPRENTICE PAINTER HAND by Junior Iraheta M.D.
--- NOTE | 2022-08-25 17:34 | ED.GENADULT ---
HPI - General Adult General Chief complaint: Altered Mental Status Stated complaint: WEAKNESS Time Seen by Provider: 08/25/22 17:12 Source: RN notes reviewed History of Present Illness HPI narrative: Patient presents emergency department from home via EMS for weakness. Patient states he has been progressively more weak over the past several days. States that she has been generally fatigued and that secondary to this her called EMS today. She states that she has been feeling cold but always feels cold she denies any known fever she denies any chest pain shortness of breath abdominal pain nausea or vomiting. Patient does note some discoloration to her extremities and states that she is on Eliquis and is followed by Dr. Murray for atrial fibrillation Related Data Home Medications Medication Instructions Recorded Confirmed apixaban 5 mg tablet (Eliquis) 5 mg PO BID 07/03/21 08/19/22 acetaminophen 500 mg tablet 1,000 mg PO Q8H PRN 04/28/22 08/19/22 (Tylenol Extra Strength) black cohosh 200 mg capsule 200 mg PO DAILY 04/28/22 08/19/22 evening primrose oil 500 mg capsule 500 mg PO 4-6XD PRN 04/28/22 08/19/22 aspirin 81 mg tablet,delayed 81 mg PO DAILY 05/15/22 08/19/22 release (Adult Low Dose Aspirin) Allergies Allergy/AdvReac Type Severity Reaction Status Date / Time prednisone AdvReac Palpitation Verified 08/18/22 14:10 s Review of Systems Review of Systems: Gen.: Denies fevers or chills reports feeling cold ENT: Denies congestion Respiratory: Denies shortness of breath or cough CV: Denies chest pain GI: Denies abdominal pain nausea, emesis Musculoskeletal: Reports distal extremity pain Neuro: Reports weakness Skin: Denies rash Except as documented, all other systems reviewed and negative PMFSH Past Medical History Medical History A-fib BMI 34.0-34.9,adult BMI 35.0-35.9,adult BMI 36.0-36.9,adult BMI 38.0-38.9,adult BMI 39.0-39.9,adult Bruises easily Chronic edema COVID-19 CVA (cerebral vascular accident) Diverticulosis of large intestine without hemorrhage Encounter for Medicare annual wellness exam Encounter to establish care Essential (primary) hypertension Follow up Hypertension Impaired functional mobility, balance, gait, and endurance Iron deficiency anemia Iron deficiency anemia Low serum potassium level Low serum sodium Lymphedema Osteoporosis Paroxysmal atrial fibrillation Peripheral neuropathy Personal history of COVID-19 Right shoulder pain Violaceous color toes Vitamin B deficiency Surgical History Surgical History History of ankle surgery History of colonoscopy History of left hip replacement Presence of unspecified artificial knee joint Family History Family History Mother Family history of diabetes mellitus in first degree relative Social History Social History Smoking status: Never smoker Second hand tobacco smoke exposure: No Alcohol intake: never Substance use: never Substance use type: does not use Lack of Transportation: No Lack of Food: Never True Current Housing: I Have Housing Concerned About Future Housing: No Difficulty Paying Gas/Electric Bills: No Difficulty Paying for Meds: No Currently Unemployed: No Education: High School Diploma/GED Difficulty w/ Childcare or Family Care: No Gender identity (if verbalized by the patient): Female Exam Narrative: APPEARANCE: No acute distress, nontoxic, resting in bed EYES: EOMI PERRL HEENT: Normocephalic, atraumatic, OMM RESPIRATORY: No respiratory distress Clear to auscultation bilaterally with no rhonchi wheezing or rales. CARDIOVASCULAR: Regular rate and rhythm without murmurs rubs or gallops. ABDOMINAL: Soft, nontender, nondistended, no rebound or
[2022-08-25 17:52] LABS: Base Excess ABG 6.3 mEq/l (+/-2.0); Carboxyhemoglobin 1.7 % THb (0-2.0); Fractional Inspired Oxygen 21 %; HCO3 ABG 31.5 mEq/l (22.0-26.0); Methemoglobin ABG 0.2 %THb (0-1.5); Oxygen Saturation ABG 91.6 % (95.0-100.0); PO2 ABG 60.3 mmHg (80.0-100.0); PO2 FiO2 Ratio Arterial Blood 2.87 %; Reduced Hemoglobin 10.3 %THb (0-5.0); Total Hemoglobin 11.3 g/dL (12.0-18.0); pH ABG 7.435 (7.350-7.450)
[2022-08-25 17:54] LABS: Device ROOM AIR; Oxyhemoglobin 87.8 % THb (90.0-100.0); Site Drawn RIGHT BRACHIAL
[2022-08-25 18:16] LABS: Basophils Percent Auto 0.1 % (0.2-1.2); Eosinophils Percent Auto 0.2 % (0-4.4); Hematocrit 31.4 % (37.0-47.0); Hemoglobin 10.1 g/dL (12.0-15.0); Immature Granulocyte Percent A 0.9 % (0-0.5); Lymphocytes Absolute Auto 0.09 K/mm3 (0.9-3.2); Lymphocytes Percent Auto 0.8 % (18.3-44.2); Mean Corpuscular HGB Conc 32.2 g/dl (32-36); Mean Corpuscular Hemoglobin 25.9 pg (26-34); Mean Corpuscular Volume 80.5 fl (80-100); Mean Platelet Volume 8.8 fl (7.4-10.4); Monocytes Absolute Auto 0.8 K/mm3 (0.1-0.6); Monocytes Percent Auto 6.8 % (2.6-8.5); Neutrophils Absolute Auto 10.2 K/mm3 (1.3-6.7); Neutrophils Percent Auto 91.2 % (45.5-73.1); Nucleated Red Blood Cells Absolute Auto 0.4 K/mm3 (0.0-0.012); Nucleated Red Blood Cells Perc 3.4 % (0.0-0.2); Platelet Count Result 506 k/mm3 (150-375); Red Cell Distribution Width 17.2 % (11.5-14.5); White Blood Count 11.2 K/mm3 (4.5-10.0)
[2022-08-25 18:22] LABS: Appearance Urine Slightly Cloudy (Clear); Bilirubin Urine 1+ (Negative); Blood Urine Negative (Negative); Color Urine Yellow (Yellow); Glucose Urine UA Negative (Negative); Ketones Urine Trace mg/dL (Negative); Leukocyte Esterase Ur Negative LEU/UL (Negative); Nitrate Urine Negative (Negative); Protein Urine 1+ mg/dL (Negative); Urobilinogen Urine 0.2 mg/dL (<2.0); pH Urine 5.5 (5.0-9.0)
[2022-08-25 18:25] LABS: Lactic Acid Reflex 1.7 mmol/L (0.7-2.0)
--- NOTE | 2022-08-25 18:26 | PC.NURSE ---
Patient back from CT
[2022-08-25] MEDS: SODIUM CHLORIDE 0.9% IV 1,000 ML 999 ML IV CONT (18:27)
[2022-08-25 18:31] LABS: Alanine Aminotransferase 56 U/L (6-35); Albumin Level 4.3 g/dL (3.5-5.1); Alkaline Phosphatase 111 U/L (38-126); Anion Gap 9 mmol/L (8-16); Aspartate Amino Transferase 65 U/L (14-36); Bilirubin,Total 1.8 mg/dL (0.2-1.3); Blood Urea Nitrogen 36 mg/dL (7-17); Calcium 9.1 mg/dL (8.4-10.2); Carbon Dioxide 31 mmol/L (22-30); Chloride 76 mmol/L (98-107); Creatine Kinase 182 U/L (30-135); Estimated Glomerular Filt Rate > 60; Glucose 98 mg/dL (65-110); Lipase 152 U/L (23-300); Sodium 116 mmol/L (137-145)
[2022-08-25 18:38] LABS: NT Pro B Type Natriuretic Pept 6550 pg/mL (19.9-100); Troponin I 0.022 ng/mL (0.000-0.034)
[2022-08-25 18:39] LABS: Prothrombin Time 13.2 Seconds (11.1-14.7)
[2022-08-25 18:40] LABS: Partial Thromboplastin Time 29.5 SECONDS (22.3-36.8); Platelet Estimate Increased (Adequate)
[2022-08-25 18:41] LABS: Ovalocytes 1+ (NORMAL); Schistocytes None Seen (NORMAL)
--- NOTE | 2022-08-25 18:45 | PC.NURSE ---
Multiple blankets and steven huggar on remain on patient.
[2022-08-25 18:51] LABS: Influenza A QL RT-PCR Negative (Negative); Influenza B QL RT-PCR Negative (Negative); RSV RNA, RT-PCR Negative (Negative); SARS-CoV-2 RNA PCR Negative
[2022-08-25 19:17] LABS: Bacteria Urine Trace /hpf; Mucus Urine Rare /lpf; RBC Urine 0-2 /hpf (0-2); Squamous Epithelial Cell Urine Occasional /hpf (Few); WBC Urine 0-3 /hpf
[2022-08-25 19:20] LABS: Add Urine Microscopic? YES
--- NOTE | 2022-08-25 20:01 | PM.IMHP ---
H&P: HPI History of Present Illness Date/Time: 08/25/22 20:01 Chief Complaint: Generalized weakness Narrative: This is a 71-year-old female with past medical history significant for atrial fibrillation, chronic hyponatremia, patient is on chronic anticoagulation, rate control. Presents today to the emergency room due to generalized weakness, altered mentation according to the who is at bedside however patient was able to give me a good history states that she has been feeling weak for the last several days she uses a walker as an aid for ambulation but was too weak to get out of bed, patient denies any nausea, vomiting, diarrhea she has been having constipation on lately, denies any cough, sputum production, no chest pain, no lightheadedness, no syncope, no near syncope has had bilateral lower extremity swelling for the last 6 months or so and has been worse in the last few days. Preliminary workup was significant for chemistry panel with a sodium of 119 a brain natriuretic peptide was 6550, chest x-ray was reported as: FINDINGS: Bilateral perihilar opacities and more prominent airspace opacity right midlung zone. No pleural effusion or pneumothorax. Cardiac silhouette is within normal limits for AP technique. Loop of gas containing bowel extends into a large hiatal hernia. Severe left glenohumeral osteoarthritis. IMPRESSION: 1. Opacities in the right mid lung zone and bilateral perihilar regions which could represent pneumonia or asymmetric pulmonary edema. 2. Large hiatal hernia. Review of Systems Review of Systems: Generalized weakness, altered mental status, poor appetite. Constitutional: Constitutional: Denies chills, Reports daytime sleepiness, Denies fever(s), Denies frequent falls, Reports lethargy, Denies night sweats, Reports poor appetite and Reports weakness Eyes: Eyes: Denies change in vision ENT: Denies dysphagia, Denies vertigo, Denies dizziness, Denies nasal congestion, Denies nasal discharge and Denies odynophagia Cardiovascular: Cardiovascular: Denies chest pain, Denies syncope, Reports leg edema, Denies lightheadedness and Denies palpitations Respiratory: Respiratory: Denies chest congestion, Denies cough, Denies pain on inspiration and Denies dyspnea on exertion Gastrointestinal: Gastrointestinal: Denies abdominal pain, Reports constipation, Denies dyspepsia, Denies heartburn, Denies diarrhea, Denies nausea and Denies vomiting Genitourinary: Genitourinary: Denies dysuria Musculoskeletal: Musculoskeletal: Denies back pain, Denies joint swelling and Reports muscle weakness Integumentary/Breasts: Skin/Breast: Denies rash Neurologic: Denies focal weakness and Denies Sensory deficit (Neuro) Psychiatric: Psychiatric: Reports no additional psychiatric complaints and Reports as per HPI Endocrine: Endocrine: Denies cold intolerance, Denies flushing, Denies heat intolerance, Denies polyphagia, Denies polydipsia and Denies palpitations Hematologic/Lymphatic: Hematologic/Lymphatic: Reports no additional hematologic/lymphatic complaints and Reports as per HPI Allergic/Immunologic: Allergic/Immunologic: Reports no additional allergic/immunologic complaints and Reports as per HPI PMF Past Medical History Medical History A-fib BMI 34.0-34.9,adult BMI 35.0-35.9,adult BMI 36.0-36.9,adult BMI 38.0-38.9,adult BMI 39.0-39.9,adult Bruises easily Chronic edema COVID-19 CVA (cerebral vascular accident) Diverticulosis of large intestine without hemorrhage Encounter for Medicare annual wellness exam Encounter to establish care Essential (primary) hypertension Follow up Hypertension Impaired functional mobility, balance, gait, and endurance Iron deficiency anemia Iron deficiency anemia Low serum potassium level Low serum sodium Lymphedema Osteoporosis Paroxysmal atrial fibrillation Peripheral neuropathy Personal history of COVID-19 Right shoulder pain Violac
--- NOTE | 2022-08-25 21:33 | ADMGEN ---
This patient, Lyndsey Mclean, was admitted to IMU Room 206-02 at 2133. Patient/family oriented to hospital policies and general routines including ID bracelet, bed and alarms, visiting hours, pain management, procedures, bathroom and other care routines, personal items, smoking policy, room service/diet, and visiting hours. Information on how to activate the Rapid Response Team has been discussed. Patient/Family are encouraged to report perceived risks to care and to ask questions if they do not understand what they are told or what they should do.
[2022-08-25 22:08] LABS: Anion Gap 8 mmol/L (8-16); Blood Urea Nitrogen 34 mg/dL (7-17); Calcium 8.1 mg/dL (8.4-10.2); Carbon Dioxide 30 mmol/L (22-30); Chloride 81 mmol/L (98-107); Estimated CRCL calculation 66 ml/min; Estimated Glomerular Filt Rate > 60; Glucose 113 mg/dL (65-110); Potassium 3.8 mmol/L (3.4-5.0); Sodium 119 mmol/L (137-145)
[2022-08-26] VITALS (14 sets, daily range): BP systolic 114–131; BP diastolic 56–85; PULSE 63–105; RESP 16–21; TEMP 35.6–36.6; O2SAT 95–100
--- NOTE | 2022-08-26 | ECHO_ITS ---
Patient Info Name: Lyndsey Mclean Age: 71 years : 1950 Gender: Female Ht: 63 in Wt: 188 lbs BSA: 1.98 m2 HR: 96 bpm BP: 114 / 56 mmHg Heart Rhythm: Atrial Fibrillation Technical Quality: Fair Exam Date: 08/26/2022 9:54 AM Exam Location: [facility] Card Pulmonary Patient Status: Inpatient Admit Date: 08/26/2022 Staff Ordering Physician: Spencer Benavidez MD Lathe Set Up Operator: Eli Reyes RDCS Attending Provider: Shira Mcclellan MD Referring Physician: Pramod TUCKER; Exam Type: CA echo dop color flow w con Study Info Indications - elevated bnp Complete two-dimensional, color flow and Doppler transthoracic echocardiogram is performed with contrast to opacify the left ventricle and to improve the deliniation of the left ventricle endocardial borders. Contrast/Agitated Saline Contrast/Ag. Saline: Definity Amount: 3.00 ml Administered By: Eli Reyes RDCS Existing IV Access: Yes IV Access Condition: patent with no signs of infiltration Summary 1. Left ventricular chamber dimension is moderately enlarged. 2. Definity contrast administered improved wall motion interpretation. 3. Left ventricular systolic function is moderately globally reduced, estimated at 35-40%. 4. The left ventricular diastolic function is normal. 5. E/e' 9 is minimally elevated. 6. Left atrial chamber dimension is moderately enlarged. 7. Right atrial chamber dimension is mildly enlarged. 8. The aortic valve is not well visualized. Cannot determine number of aortic valve leaflets. 9. There is moderate aortic valve sclerosis. 10. There is moderate to severe aortic valve stenosis based on a peak velocity of 279.27 cm/s, mean gradient of 19 mmHg, and aortic valve area of 0.91 cm2. 11. There is moderate aortic valve regurgitation. 12. The mitral valve has mildly thickened leaflets and moderately calcified annulus. 13. There is moderate mitral valve regurgitation. 14. There is mild tricuspid valve regurgitation. 15. Moderate pulmonary hypertension, estimated pulmonary arterial systolic pressure is 51 mmHg. 16. Small atheroma in anterior and posterior aortic root. 17. Dilated inferior vena cava with <50% collapse upon inspiration consistent with significantly elevated right atrial pressure, 15 mmHg. Left Ventricle Left ventricular systolic function is moderately globally reduced, estimated at 35-40%. E/e' 9 is minimally elevated. Definity contrast administered improved wall motion interpretation. Left ventricular chamber dimension is moderately enlarged. The left ventricular diastolic function is normal. Right Ventricle Right ventricular systolic function is normal and with normal TAPSE 1.8 cm. Right ventricular chamber dimension is normal. Left Atria Left atrial chamber dimension is moderately enlarged. Right Atria Right atrial chamber dimension is mildly enlarged. Aortic Valve The aortic valve is not well visualized. Cannot determine number of aortic valve leaflets. There is moderate to severe aortic valve stenosis based on a peak velocity of 279.27 cm/s, mean gradient of 19 mmHg, and aortic valve area of 0.91 cm2. There is moderate aortic valve sclerosis. There is moderate aortic valve regurgitation. Pulmonic Valve There is no pulmonic regurgitation. Mitral Valve The mitral valve has mildly thickened leaflets and moderately calcified annulus. There is no mitral valve stenosis. There is moderate mitral valve regurgitation.
[2022-08-26] MEDS: SODIUM CHLORIDE 0.9% IV 1,000 ML 75 ML IV CONT (00:28)
[2022-08-26] MEDS: APIXABAN 5 MG TABLET PO ×3 (00:28→20:02)
--- NOTE | 2022-08-26 00:54 | ECG_ITS ---
Measurements Intervals [place] Rate: 97 P: ID: 0 QRS: 29 QRSD: 103 T: 111 QT: 364 QTc: 464 Interpretive Statements WANDERING ATRIAL PACEMAKER NONSPECIFIC T-WAVE ABNORMALITY ABNORMAL ECG COMPARED TO ECG 08/25/2022 17:17:38 WANDERING ATRIAL PACEMAKER IS PRESENT Electronically Signed On 08-27-2022 14:59:18 ELECTRIC WELDER by Hardik Naranjo M.D.
[2022-08-26 05:14] LABS: Eosinophils Percent Auto 0.1 % (0-4.4); Hematocrit 29.6 % (37.0-47.0); Hemoglobin 9.5 g/dL (12.0-15.0); Immature Granulocyte Absolute 0.09 K/mm3 (0.00-0.031); Lymphocytes Absolute Auto 0.26 K/mm3 (0.9-3.2); Lymphocytes Percent Auto 2.9 % (18.3-44.2); Mean Corpuscular HGB Conc 32.1 g/dl (32-36); Mean Corpuscular Volume 81.1 fl (80-100); Mean Platelet Volume 8.8 fl (7.4-10.4); Monocytes Absolute Auto 0.9 K/mm3 (0.1-0.6); Monocytes Percent Auto 10.5 % (2.6-8.5); Neutrophils Absolute Auto 7.6 K/mm3 (1.3-6.7); Neutrophils Percent Auto 85.5 % (45.5-73.1); Nucleated Red Blood Cells Absolute Auto 0.3 K/mm3 (0.0-0.012); Nucleated Red Blood Cells Perc 3.3 % (0.0-0.2); Platelet Count Result 439 k/mm3 (150-375); Red Blood Count 3.65 M/mm3 (4.2-5.4); Red Cell Distribution Width 17.3 % (11.5-14.5); White Blood Count 8.9 K/mm3 (4.5-10.0)
[2022-08-26 05:35] LABS: Albumin Level 3.8 g/dL (3.5-5.1); Anion Gap 6 mmol/L (8-16); Blood Urea Nitrogen 30 mg/dL (7-17); Calcium 8.5 mg/dL (8.4-10.2); Carbon Dioxide 34 mmol/L (22-30); Chloride 79 mmol/L (98-107); Estimated CRCL calculation 52 ml/min; Estimated Glomerular Filt Rate > 60; Glucose 88 mg/dL (65-110); Phosphorus 4.1 mg/dL (2.5-4.5); Potassium 3.9 mmol/L (3.4-5.0); Sodium 119 mmol/L (137-145)
[2022-08-26 05:42] LABS: Alanine Aminotransferase 52 U/L (6-35); Aspartate Amino Transferase 56 U/L (14-36); Bilirubin,Total 1.2 mg/dL (0.2-1.3)
[2022-08-26 05:43] LABS: Alkaline Phosphatase 98 U/L (38-126); Total Protein 6.5 g/dL (6.3-8.2)
[2022-08-26 09:18] LABS: Calcium 8.6 mg/dL (8.4-10.2); Chloride 79 mmol/L (98-107); Estimated Glomerular Filt Rate > 60; Potassium 4.1 mmol/L (3.4-5.0)
--- NOTE | 2022-08-26 09:55 | PM.CNNEP ---
Assessment and Plan Assessment and plan (1) Hyponatremia: Code(s): E87.1 - Hypo-osmolality and hyponatremia Status: Acute Assessment and Plan: apparently a new finding/issue related to diuretics versus heart failure versus volume depletion possible intravascularly dry despite evidence of volume overload (swelling/edema)? sodium did improve with IVF bolus in ER.... check urine electrolytes, TSH, cortisol, UPEP, SPEP, and serum/urine osmo no culprit medications noted (SSRIs, narcotics, thiazide diuretics....etc) no reported history of malignancy no overt lung disease noted fluid restriction consider normal saline IVFs depending on urine studies.... follow trend of repeat sodium levels (2) Community acquired pneumonia: Code(s): J18.9 - Pneumonia, unspecified organism Status: Acute Assessment and Plan: as suggested by CXR this could be partly responsible for #1 on antibiotics follow culture data (3) Paroxysmal atrial fibrillation: Code(s): I48.0 - Paroxysmal atrial fibrillation Status: Acute Assessment and Plan: rate control strategy on anticoagulation (4) Impaired functional mobility, balance, gait, and endurance: Code(s): Z74.09 - Other reduced mobility Status: Acute Assessment and Plan: suspect related to acute medical issues PT/OT as tolerated Will continue to follow. History of Present Illness Reason for Consult Consult date: 08/26/22 Reason for consult: hyponatremia Chief Complaint Chief complaint: Hyponatremia,Community-acquired Pneumonia,[place] History of Present Illness Narrative: The patient is a 71-year-old female with a past medical history as outlined below who presented to [facility] Emergency room due to generalized weakness and altered mental status. According to the patient and review of the electronic medical records, the patient has been feeling weak for last several days. She is usually able to use a walker and cane for ambulation but recently has been too weak to even get out of bed to even ambulate. She denies any other subjective symptoms with regard to fevers, chills, nausea, vomiting, diarrhea, cough, lightheadedness, syncope, or palpitations. She does report bilateral lower extremity edema/swelling for last six months or so and thinks it may be a bit worse in the last few days. Her reported in the ER that her mental status is also somewhat altered but the patient did not report this at the time of my visit. Given these constellation of symptoms, she presented to the ER for further assessment. Workup and evaluation in the emergency room demonstrated the patient to be hemodynamically stable and routine blood tests were significant for a sodium of 119 in association with an elevated BNP of 6550. Her CBC was unremarkable and she had no other critical electrolyte abnormalities. Her chest x-ray demonstrated opacities in the right mid lung zone and bilateral perihilar regions which could represent pneumonia or asymmetric pulmonary edema. Given her laboratory abnormalities and the concern for possible pneumonia, appropriate cultures were obtained and she was started on an IV antibiotic therapy with subsequent close monitoring of her sodium level with ongoing further evaluation and therapy. Renal consultation was requested due to her acute hyponatremia.. There was concern that her hyponatremia may account for the a for mentioned altered mental status as noted by her . Since her admission, her hyponatremia has not changed significantly but her mentation seems relatively stable at least on my visit with her but I am unclear on what her baseline mentation normally runs. As far as the patient is aware, she has never had this issue or problem in the past and she has not entirely clear on what cause in the 1st place although as mentioned recently, given her issues with lower extremity swel
[2022-08-26] MEDS: PERFLUTREN LIPID MICROSPHERES 1.5 ML VIAL DILUTED TO 10 ML TOTAL VOLUME IV PUSH (10:48)
--- NOTE | 2022-08-26 10:49 | IVDEFINITY ---
Prior to administration of IV Definity the patient was educated on the risks and benefits of the imaging enhancing agent including potential adverse side effects. The patient verbalized understanding. Allergies were verified. No exclusion criteria were identified and at least one of the following inclusion criteria were met: 1) physician request, 2) patient technically difficult to image (per the [place] [employer] guidelines of two or more segments not discernable within the apical view), or 3) questionable left ventricular function. ?
[2022-08-26] MEDS: ASPIRIN 81 MG ENTERIC TABLET PO (12:46)
[2022-08-26 13:25] LABS: Anion Gap 9 mmol/L (8-16); Blood Urea Nitrogen 31 mg/dL (7-17); Carbon Dioxide 30 mmol/L (22-30); Estimated CRCL calculation 58 ml/min; Glucose 78 mg/dL (65-110); Sodium 118 mmol/L (137-145)
[2022-08-26] MEDS: cefTRIAXone 2 GM in SODIUM CHLORIDE 0.9% IV 100 ML 200 ML IVPB ×2 (13:32→20:00)
[2022-08-26 13:56] LABS: Anion Gap 6 mmol/L (8-16); Blood Urea Nitrogen 31 mg/dL (7-17); Calcium 8.5 mg/dL (8.4-10.2); Carbon Dioxide 32 mmol/L (22-30); Chloride 79 mmol/L (98-107); Estimated CRCL calculation 66 ml/min; Estimated Glomerular Filt Rate > 60; Glucose 73 mg/dL (65-110); Potassium 4.2 mmol/L (3.4-5.0); Sodium 117 mmol/L (137-145)
--- NOTE | 2022-08-26 16:05 | PM.IMPN ---
Progress Note: A&P Assessment and Plan (1) Infiltrate of lung present on chest x-ray: Code(s): R91.8 - Other nonspecific abnormal finding of lung field Status: Acute Assessment and Plan: Patient started on Rocephin and Zithromax Cultures in progress 08/26/2022 interval history: patient continued to complain to be weak and tired patient does have hyponatremia and chest x-ray showing pneumonia most likely patient has community-acquired pneumonia and being treated ceftriaxone and azithromycin, upon arrival patient has significant hyponatremia sodium of 116 most likely cause of generalized weakness, and seen by Nephrology workup is in progress continue to monitor, patient bilateral toes appears erythematous will continue ceftriaxone will consult Orthopedic further recommendation, will have a PT OT evaluate the patient patient will benefit going to acute rehab. (2) Paroxysmal atrial fibrillation: Code(s): I48.0 - Paroxysmal atrial fibrillation Status: Acute Assessment and Plan: Patient is rate controlled and anticoagulated (3) Aortic stenosis: Code(s): I35.0 - Nonrheumatic aortic (valve) stenosis Status: Acute Assessment and Plan: Moderate aortic stenosis as per echocardiogram Follow-up in outpatient setting (4) Hyponatremia: Code(s): E87.1 - Hypo-osmolality and hyponatremia Status: Acute Assessment and Plan: I believe this is multifactorial as patient has acute on chronic congestive heart failure however also on diuretics at home Patient also has 3rd spacing however appears dry in her mucosa Will give NS 0.9% Daily BMP (5) Acute on chronic congestive heart failure: Code(s): I50.9 - Heart failure, unspecified Status: Acute Assessment and Plan: Gentle diuresis Repeat echocardiogram in a.m. (6) Lymphedema: Code(s): I89.0 - Lymphedema, not elsewhere classified Status: Acute Assessment and Plan: Compression stocking (7) Impaired functional mobility, balance, gait, and endurance: Code(s): Z74.09 - Other reduced mobility Status: Acute Assessment and Plan: Patient uses walker at home Subjective Date/time seen: 08/26/22 16:05 Generalized weakness Narrative: This is a 71-year-old female with past medical history significant for atrial fibrillation, chronic hyponatremia, patient is on chronic anticoagulation, rate control.? Presents today to the emergency room due to generalized weakness, altered mentation according to the who is at bedside however patient was able to give me a good history states that she has been feeling weak for the last several days she uses a walker as an aid for ambulation but was too weak to get out of bed, patient denies any nausea, vomiting, diarrhea she has been having constipation on lately, denies any cough, sputum production, no chest pain, no lightheadedness, no syncope, no near syncope has had bilateral lower extremity swelling for the last 6 months or so and has been worse in the last few days.? Preliminary workup was significant for chemistry panel with a sodium of 119 a brain natriuretic peptide was 6550, chest x-ray was reported as: FINDINGS: Bilateral perihilar opacities and more prominent airspace opacity right midlung zone. No pleural effusion or pneumothorax. Cardiac silhouette is within normal limits for AP technique. Loop of gas containing bowel extends into a large hiatal hernia. Severe left glenohumeral osteoarthritis. IMPRESSION: 1. Opacities in the right mid lung zone and bilateral perihilar regions which could represent pneumonia or asymmetric pulmonary edema. 2. Large hiatal hernia. 08/26/2022 interval history: patient continued to complain to be weak and tired patient does have hyponatremia and chest x-ray showing pneumonia most likely patient has community-acquired pneumonia and being treated ceftriaxone and azithromycin, upon arrival patient has significa
[2022-08-26 18:38] LABS: Sodium 118 mmol/L (137-145)
[2022-08-26 19:32] LABS: Creatinine Urine 75.1 mg/dL; Total Protein Urine Random 84 mg/dL; Ur Ttl Prot Creatinine Ratio 1.12 mg/mg (0-0.20); Urea Random Urine 1025 MG/DL
[2022-08-26] MEDS: SODIUM CHLORIDE 0.9% IV 1,000 ML 50 ML IV CONT (19:56)
[2022-08-26 20:00] LABS: Sodium Urine Random < 5 meq/L
[2022-08-27] VITALS (13 sets, daily range): BP systolic 109–138; BP diastolic 63–93; PULSE 88–114; RESP 16–24; TEMP 36.1–36.6; O2SAT 93–100; BMI 29.8
[2022-08-27 01:08] LABS: Sodium 118 mmol/L (137-145)
[2022-08-27 05:10] LABS: Hematocrit 28.7 % (37.0-47.0); Hemoglobin 8.9 g/dL (12.0-15.0); Mean Corpuscular Hemoglobin 26.3 pg (26-34); Mean Corpuscular Volume 84.7 fl (80-100); Mean Platelet Volume 8.7 fl (7.4-10.4); Platelet Count Result 417 k/mm3 (150-375); Red Blood Count 3.39 M/mm3 (4.2-5.4); Red Cell Distribution Width 17.5 % (11.5-14.5)
[2022-08-27 05:26] LABS: Albumin Level 3.5 g/dL (3.5-5.1); Anion Gap 9 mmol/L (8-16); Blood Urea Nitrogen 25 mg/dL (7-17); Calcium 8.4 mg/dL (8.4-10.2); Carbon Dioxide 33 mmol/L (22-30); Chloride 83 mmol/L (98-107); Estimated CRCL calculation 58 ml/min; Estimated Glomerular Filt Rate > 60; Glucose 90 mg/dL (65-110); Phosphorus 3.3 mg/dL (2.5-4.5); Potassium 3.8 mmol/L (3.4-5.0); Sodium 125 mmol/L (137-145)
[2022-08-27 09:05] LABS: Sodium 120 mmol/L (137-145)
--- NOTE | 2022-08-27 09:26 | PCOTNOTE ---
Attempted to see patient for OT evaluation. Patient adamantly declining any/all activity despite encouragement and education on benefits of therapy. Will continue to attempt.
[2022-08-27] MEDS: SODIUM CHLORIDE 0.9% IV 1,000 ML 50 ML IV CONT (10:10)
[2022-08-27] MEDS: cefTRIAXone 2 GM in SODIUM CHLORIDE 0.9% IV 100 ML 200 ML IVPB ×2 (10:11→20:00)
--- NOTE | 2022-08-27 10:54 | PM.IMPN ---
Progress Note: A&P Assessment and Plan (1) Infiltrate of lung present on chest x-ray: Code(s): R91.8 - Other nonspecific abnormal finding of lung field Status: Acute Assessment and Plan: Patient started on Rocephin and Zithromax Cultures in progress 08/27/2022 interval history: today patient is more Somnolent, patient continued to complain to be weak and tired patient does have hyponatremia and chest x-ray showing pneumonia most likely patient has community-acquired pneumonia and being treated ceftriaxone and azithromycin, upon arrival patient has significant hyponatremia sodium of 116 most likely cause of generalized weakness, and seen by Nephrology workup is in progress continue to monitor, a sodium today is 120, patient being gently hydrated, patient bilateral toes appears erythematous will continue ceftriaxone, x-ray of the toe shows severe osteoarthritis, will consult Orthopedic further recommendation, will have a PT OT evaluate the patient patient will benefit going to acute rehab. (2) Paroxysmal atrial fibrillation: Code(s): I48.0 - Paroxysmal atrial fibrillation Status: Acute Assessment and Plan: Patient is rate controlled and anticoagulated (3) Aortic stenosis: Code(s): I35.0 - Nonrheumatic aortic (valve) stenosis Status: Acute Assessment and Plan: Moderate aortic stenosis as per echocardiogram Follow-up in outpatient setting (4) Hyponatremia: Code(s): E87.1 - Hypo-osmolality and hyponatremia Status: Acute Assessment and Plan: I believe this is multifactorial as patient has acute on chronic congestive heart failure however also on diuretics at home Patient also has 3rd spacing however appears dry in her mucosa Will give NS 0.9% Daily BMP (5) Acute on chronic congestive heart failure: Code(s): I50.9 - Heart failure, unspecified Status: Acute Assessment and Plan: Gentle diuresis Repeat echocardiogram in a.m. (6) Lymphedema: Code(s): I89.0 - Lymphedema, not elsewhere classified Status: Acute Assessment and Plan: Compression stocking (7) Impaired functional mobility, balance, gait, and endurance: Code(s): Z74.09 - Other reduced mobility Status: Acute Assessment and Plan: Patient uses walker at home Subjective Date/time seen: 08/27/22 10:54 08/27/2022 interval history: today patient is more Somnolent, patient continued to complain to be weak and tired patient does have hyponatremia and chest x-ray showing pneumonia most likely patient has community-acquired pneumonia and being treated ceftriaxone and azithromycin, upon arrival patient has significant hyponatremia sodium of 116 most likely cause of generalized weakness, and seen by Nephrology workup is in progress continue to monitor, a sodium today is 120, patient being gently hydrated, patient bilateral toes appears erythematous will continue ceftriaxone, x-ray of the toe shows severe osteoarthritis, will consult Orthopedic further recommendation, will have a PT OT evaluate the patient patient will benefit going to acute rehab. Exam Narrative: moderately obese Patient is comfortable, NAD HEENT: eyes are clear and none icteric LUNGS: normal respiratory effort ABD:ditended Lower extremities: no edema SKIN: nonjaundiced Neuro: grossly intact. Objective Data Vital Signs Vital Signs: Vital Signs - 24 hr 08/26/22 12:00 08/26/22 12:00 08/26/22 12:00 Temperature 97.5 F L Pulse Rate 63 95 82 Respiratory Rate 20 21 H Blood Pressure 126/69 Pulse Oximetry 100 97 Oxygen Delivery Nasal Cannula Oxygen Flow Rate 2 08/26/22 14:00 08/26/22 16:00 08/26/22 16:00 Temperature 97.9 F Pulse Rate 85 69 100 Respiratory Rate 16 Blood Pressure 131/80 Pulse Oximetry 100 Oxygen Delivery Oxygen Flow Rate 08/26/22 16:00 08/26/22 18:00 08/26/22 20:00 Temperature 97.1 F L Pulse Rate 82 90 100 Resp
--- NOTE | 2022-08-27 13:00 | P.PNNP_ITS ---
Progress Note: A&P Assessment and Plan (1) Hyponatremia: Code(s): E87.1 - Hypo-osmolality and hyponatremia Status: Acute Assessment and Plan: * slow improvement * apparently a new finding/issue * related to diuretics versus heart failure versus volume depletion * possible intravascularly dry despite evidence of volume overload (swelling/edema)? * sodium did improve with IVF bolus in ER.... * evaluation to date: * TSH and cortisol okay * urine electrolytes prerenal * SPEP, UPEP, and serum/urine osmo pending * no culprit medications noted (SSRIs, narcotics, thiazide diuretics....etc) * no reported history of malignancy * no overt lung disease noted * CXR and head CT noted * reate of change of 6 - 8mmol/L in 24 hours being achieved * fluid restriction * gentle normal saline IVFs. * follow trend of repeat sodium levels (2) Community acquired pneumonia: Code(s): J18.9 - Pneumonia, unspecified organism Status: Acute Assessment and Plan: * as suggested by CXR * this could be partly responsible for #1 * on antibiotics * follow culture data (3) Altered mental status: Code(s): R41.82 - Altered mental status, unspecified Status: Acute Assessment and Plan: * etiology not clear * initially thought to be secondary to #1 (but not clear if this is really the case) * follow mentation * head CT noted * consider Neurology consultation (?) (4) Paroxysmal atrial fibrillation: Code(s): I48.0 - Paroxysmal atrial fibrillation Status: Acute Assessment and Plan: * rate control strategy * on anticoagulation (5) Impaired functional mobility, balance, gait, and endurance: Code(s): Z74.09 - Other reduced mobility Status: Acute Assessment and Plan: * suspect related to acute medical issues * PT/OT as tolerated Will continue to follow. Subjective Date/time seen: 08/27/22 13:00 Mentation seems to wax and wane; improvement in sodium with fluid restriction and normal saline IVFs; no other acute issues noted; at bedside and we discussed the situation. Exam Narrative: General: WD/WN female in NAD Heart: normal S1 and S2; no rub Lungs: decreased at bases Abdomen: soft, nontender, nondistended, positive bowel sounds Extremities: no cyanosis or clubbing; trace - 1+ edema Skin: warm and dry Objective Data Vital Signs Vital Signs: Vital Signs Temp Pulse Resp BP Pulse Ox O2 Del Method O2 Flow Rate 08/27/22 12:00 96 Nasal Cannula 2 08/27/22 12:00 96 08/27/22 12:00 97.1 F L 96 20 109/93 H 100 08/27/22 10:00 98 08/27/22 08:00 98 08/27/22 10:32 93 Nasal Cannula 2 08/27/22 08:00 97.0 F L 99 24 H 112/63 100 08/27/22 06:00 90 08/27/22 04:00 96.9 F L 91 16 138/72 96 08/27/22 04:00 102 H 08/27/22 02:00 88 08/27/22 00:00 108 H 08/26/22 22:00 99 08/27/22 00:00 97.9 F 114 H 16 120/68 98 08/26/22 20:00 105 H 08/26/22 20:00 97.1 F L 100 18 119/76 99 08/26/22 18:00 90 Intake/Output Intake/Output: Intake & Output 08/24/22 08/25/22 08/26/22 08/27/22
--- NOTE | 2022-08-27 13:00 | PM.PNNEP ---
Progress Note: A&P Assessment and Plan (1) Hyponatremia: Code(s): E87.1 - Hypo-osmolality and hyponatremia Status: Acute Assessment and Plan: slow improvement apparently a new finding/issue related to diuretics versus heart failure versus volume depletion possible intravascularly dry despite evidence of volume overload (swelling/edema)? sodium did improve with IVF bolus in ER.... evaluation to date: TSH and cortisol okay urine electrolytes prerenal SPEP, UPEP, and serum/urine osmo pending no culprit medications noted (SSRIs, narcotics, thiazide diuretics....etc) no reported history of malignancy no overt lung disease noted CXR and head CT noted reate of change of 6 - 8mmol/L in 24 hours being achieved fluid restriction gentle normal saline IVFs. follow trend of repeat sodium levels (2) Community acquired pneumonia: Code(s): J18.9 - Pneumonia, unspecified organism Status: Acute Assessment and Plan: as suggested by CXR this could be partly responsible for #1 on antibiotics follow culture data (3) Altered mental status: Code(s): R41.82 - Altered mental status, unspecified Status: Acute Assessment and Plan: etiology not clear initially thought to be secondary to #1 (but not clear if this is really the case) follow mentation head CT noted consider Neurology consultation (?) (4) Paroxysmal atrial fibrillation: Code(s): I48.0 - Paroxysmal atrial fibrillation Status: Acute Assessment and Plan: rate control strategy on anticoagulation (5) Impaired functional mobility, balance, gait, and endurance: Code(s): Z74.09 - Other reduced mobility Status: Acute Assessment and Plan: suspect related to acute medical issues PT/OT as tolerated Will continue to follow. Subjective Date/time seen: 08/27/22 13:00 Mentation seems to wax and wane; improvement in sodium with fluid restriction and normal saline IVFs; no other acute issues noted; at bedside and we discussed the situation. Exam Narrative: General: WD/WN female in NAD Heart: normal S1 and S2; no rub Lungs: decreased at bases Abdomen: soft, nontender, nondistended, positive bowel sounds Extremities: no cyanosis or clubbing; trace - 1+ edema Skin: warm and dry Objective Data Vital Signs Vital Signs: Vital Signs Temp Pulse Resp BP Pulse Ox O2 Del Method O2 Flow Rate 08/27/22 12:00 96 Nasal Cannula 2 08/27/22 12:00 96 08/27/22 12:00 97.1 F L 96 20 109/93 H 100 08/27/22 10:00 98 08/27/22 08:00 98 08/27/22 10:32 93 Nasal Cannula 2 08/27/22 08:00 97.0 F L 99 24 H 112/63 100 08/27/22 06:00 90 08/27/22 04:00 96.9 F L 91 16 138/72 96 08/27/22 04:00 102 H 08/27/22 02:00 88 08/27/22 00:00 108 H 08/26/22 22:00 99 08/27/22 00:00 97.9 F 114 H 16 120/68 98 08/26/22 20:00 105 H 08/26/22 20:00 97.1 F L 100 18 119/76 99 08/26/22 18:00 90 Intake/Output Intake/Output: Intake & Output 08/24/22 08/25/22 08/26/22 08/27/22 23:59 23:59 23:59 23:59 Intake Total 1050 1180 600 Output Total 850 225 Balance 1050 330 375 Meds/Results Medications: Active Medications Generic Name Dose Route Start Last Admin Trade Name Lauren PRN Reason Stop Dose Admin Acetaminophen 1,000 mg 08/25/22 23:27 Acetaminophen 500 Mg Tablet PO Q8H PRN Pain (Scale Score 1-3) Apixaban 5 mg 08/25/22 23:40 08/26/22 20:02 Apixaban 5 Mg Tablet PO 5 mg Q12HR OLGA Administration Aspirin 81 mg 08/26/22 09:00 08/26/22 12:46 Aspirin 81 Mg Enteric Tablet PO 81 mg DAILY OLGA Administration Azithromycin 500 mg in 250 mls @ 250 mls/hr 08/26/22 21:00 08/26/22 21:57 Zithromax IVPB Infused Q24H OLGA Infusion Ceftriaxone Sodium 2 gm/ 100 mls @ 200 mls/hr
[2022-08-27 13:16] LABS: Sodium 124 mmol/L (137-145)
--- NOTE | 2022-08-27 15:03 | PM.CNOR ---
Assessment and Plan Assessment and plan (1) Foot pain, bilateral: Code(s): M79.671 - Pain in right foot; M79.672 - Pain in left foot Status: Acute Assessment and Plan: asked to see patient for bilateral toe redness. On exam all toes exhibit rubor that is not gravity dependent. There is a fairly clear demarcation line at the distal metatarsal level bilaterally with all toes involved. Unsure of etiology. She has good palpable pulses and arterial insufficiency seems unlikely. She does have a history of lymphedema and this may be sequela from long-term swelling. Does not appear to be infectious in nature or cellulitic as it involves all the toes of both feet and ends at a fairly clear level. May be inflammatory in nature or autoimmune. Radiographs show no acute changes. The color of her skin is certainly not coming from the hammertoe and bunion deformity that she has bilaterally. At this point no further treatment recommendations as unsure of the etiology. It does appear stable and does not appear to be causing any other problems. Agree with prophylactic antibiotic, elevation and observation at this time. Probably okay to be weight-bearing and active. We will continue to see how she does. (2) Lymphedema: Code(s): I89.0 - Lymphedema, not elsewhere classified Status: Acute (3) Hammertoe, bilateral: Code(s): M20.41 - Other hammer toe(s) (acquired), right foot; M20.42 - Other hammer toe(s) (acquired), left foot Status: Acute History of Present Illness HPI Consult date: 08/27/22 Requesting physician: Shira Mcclellan MD Chief complaint: Hyponatremia,Community-acquired Pneumonia,[place] Narrative: Asked to see patient for bilateral toe redness. Patient seen and examined. 71 year old woman admitted for community pneumonia. Found to have bilateral toe redness and deformity. Patient denies injury. No new problems that patient remembers with feet or toes. Not sure when color changes happened. Does not really have any pain associated with it. Review of Systems Constitutional: Constitutional: Denies fever(s) Eyes: Eyes: Denies blurry vision ENT: Reports Normal hearing present Cardiovascular: Cardiovascular: Denies chest pain and Denies dyspnea Respiratory: Respiratory: Denies dyspnea and Denies wheezing Gastrointestinal: Gastrointestinal: Denies abdominal pain Genitourinary: Genitourinary: Denies urinary urgency Musculoskeletal: Musculoskeletal: Reports as per HPI and Denies numbness Integumentary/Breasts: Skin/Breast: Denies changing lesions and Denies sores Neurologic: Reports Normal hearing present, Denies behavioral changes, Denies confusion, Denies numbness and Denies convulsions Psychiatric: Psychiatric: Denies behavioral changes, Denies confusion and Denies hallucinations Endocrine: Endocrine: Denies heat intolerance Hematologic/Lymphatic: Hematologic/Lymphatic: Denies easy bleeding Allergic/Immunologic: Allergic/Immunologic: Denies wheezing PMFSH Past Medical History Medical History (Updated 08/27/22 @ 15:06 by Tavares Gonzalez MD) A-fib BMI 34.0-34.9,adult BMI 35.0-35.9,adult BMI 36.0-36.9,adult BMI 38.0-38.9,adult BMI 39.0-39.9,adult Bruises easily Chronic edema COVID-19 CVA (cerebral vascular accident) Diverticulosis of large intestine without hemorrhage Encounter for Medicare annual wellness exam Encounter to establish care Essential (primary) hypertension Follow up Hammertoe, bilateral Hypertension Impaired functional mobility, balance, gait, and endurance Iron deficiency anemia Iron deficiency anemia Low serum potassium level Low serum sodium Lymphedema Osteoporosis Paroxysmal atrial fibrillation Peripheral neuropathy Personal history of COVID-19 Right shoulder pain Violaceous color toes Vitamin B deficiency Surgical History Surgical History History of ankle surgery History of colonos
[2022-08-27 18:48] LABS: Sodium 125 mmol/L (137-145)
[2022-08-27] MEDS: APIXABAN 5 MG TABLET PO (19:58)
[2022-08-28] VITALS (12 sets, daily range): BP systolic 119–137; BP diastolic 59–82; PULSE 78–114; RESP 16–26; TEMP 36–36.3; O2SAT 97–100
[2022-08-28 00:09] LABS: Sodium 123 mmol/L (137-145)
[2022-08-28 04:47] LABS: Hematocrit 27.1 % (37.0-47.0); Hemoglobin 8.2 g/dL (12.0-15.0); Mean Corpuscular HGB Conc 30.3 g/dl (32-36); Mean Corpuscular Hemoglobin 25.7 pg (26-34); Mean Platelet Volume 8.8 fl (7.4-10.4); Platelet Count Result 343 k/mm3 (150-375); Red Blood Count 3.19 M/mm3 (4.2-5.4); Red Cell Distribution Width 17.5 % (11.5-14.5); White Blood Count 7.7 K/mm3 (4.5-10.0)
[2022-08-28 05:01] LABS: Albumin Level 3.3 g/dL (3.5-5.1); Anion Gap 6 mmol/L (8-16); Blood Urea Nitrogen 21 mg/dL (7-17); Carbon Dioxide 32 mmol/L (22-30); Chloride 86 mmol/L (98-107); Estimated CRCL calculation 62 ml/min; Estimated Glomerular Filt Rate > 60; Glucose 88 mg/dL (65-110); Magnesium 1.9 mg/dL (1.6-2.3); Phosphorus 3.2 mg/dL (2.5-4.5); Potassium 3.8 mmol/L (3.4-5.0); Sodium 124 mmol/L (137-145)
[2022-08-28] MEDS: cefTRIAXone 2 GM in SODIUM CHLORIDE 0.9% IV 100 ML 200 ML IVPB ×2 (08:24→20:00)
[2022-08-28] MEDS: APIXABAN 5 MG TABLET PO (08:24)
[2022-08-28] MEDS: ASPIRIN 81 MG ENTERIC TABLET PO (08:24)
[2022-08-28] MEDS: SODIUM CHLORIDE 500 MG TABLET PO (08:24)
--- NOTE | 2022-08-28 09:43 | P.CDI_ITS ---
CDI Query Clarified Diagnosis Clarified Diagnosis: Documented history of CHF. CHF noted in the assessment and plan. Elevated BNP on 08/25/22 lab work. Chest Xray from 08/25 notes pulmonary edema. Pt takes Furosemide as a home medication. Please specify type and acuity of heart failure if known. 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
[2022-08-28 10:08] LABS: Sodium 124 mmol/L (137-145)
--- NOTE | 2022-08-28 10:09 | PCOTNOTE ---
Attempted OT evaluation this AM. Per nursing, the patent is doing much better today and fed herself breakfast. Attempted to work with patient at 1000 and she is not opening eyes to verbal or tactile stimuli. Eyes are fluttering like she is purposefully keeping them closed. Not responding to passive ROM of the UEs. Not appropriate at this time. Will attempt tomorrow.
--- NOTE | 2022-08-28 13:11 | P.PNNP_ITS ---
Progress Note: A&P Assessment and Plan (1) Hyponatremia: Code(s): E87.1 - Hypo-osmolality and hyponatremia Status: Acute Assessment and Plan: * slow improvement * apparently a new finding/issue * related to diuretics versus heart failure versus volume depletion * possible intravascularly dry despite evidence of volume overload (swelling/edema)? * urine electrolytes seem to support this... * AND, sodium did improve with IVF bolus in ER.... * evaluation to date: * TSH and cortisol okay * urine electrolytes prerenal * SPEP, UPEP, and serum/urine osmo pending * no culprit medications noted (SSRIs, narcotics, thiazide diuretics....etc) * no reported history of malignancy * no overt lung disease noted * CXR and head CT noted * continue fluid restriction * gentle normal saline IVFs * follow trend of repeat sodium levels (2) Community acquired pneumonia: Code(s): J18.9 - Pneumonia, unspecified organism Status: Acute Assessment and Plan: * as suggested by CXR * this could be partly responsible for #1 * on antibiotics * follow culture data (3) Altered mental status: Code(s): R41.82 - Altered mental status, unspecified Status: Acute Assessment and Plan: * etiology not clear * initially thought to be secondary to #1 (but not clear if this is really the case) * follow mentation * head CT noted * consider Neurology consultation (?) (4) Paroxysmal atrial fibrillation: Code(s): I48.0 - Paroxysmal atrial fibrillation Status: Acute Assessment and Plan: * rate control strategy * on anticoagulation (5) Impaired functional mobility, balance, gait, and endurance: Code(s): Z74.09 - Other reduced mobility Status: Acute Assessment and Plan: * suspect related to acute medical issues * PT/OT as tolerated Will continue to follow. Subjective Date/time seen: 08/28/22 13:11 Mentation seems a bit worse -- not really conversing much and per nursing, there times where she almost appears catatonic so it is difficult to give her medications (and hence by default, she is not really taking the salt tablets); sodium relatively stable if not better. Exam Narrative: General: WD/WN female in NAD Heart: normal S1 and S2; no rub Lungs: decreased at bases Abdomen: soft, nontender, nondistended, positive bowel sounds Extremities: no cyanosis or clubbing; trace - 1+ edema Skin: warm and intact Objective Data Vital Signs Vital Signs: Vital Signs Temp Pulse Resp BP Pulse Ox O2 Del Method O2 Flow Rate 08/28/22 12:00 96.8 F L 93 24 H 125/60 100 08/28/22 12:00 96.9 F L 99 20 119/67 100 08/28/22 12:00 Room Air 08/28/22 12:00 97 08/28/22 10:00 78 08/28/22 08:00 Room Air 08/28/22 08:00 99 08/28/22 08:00 96.9 F L 99 20 119/67 100 08/28/22 06:00 93 08/28/22 04:00 97 F L 97 16 137/82 100 08/28/22 04:00 95 08/28/22 02:00 95 08/28/22 00:00 97.4 F L 107 H 18 131/73 97 08/28/22 00:00 104 H 08/27/22 22:00 106 H 08/27/22 20:00 113 H 08/27/22 20:00 96.9 F L 95 20 123/69 100 08/27/22 18:00 91 08/27/22 16:00
--- NOTE | 2022-08-28 13:11 | PM.PNNEP ---
Progress Note: A&P Assessment and Plan (1) Hyponatremia: Code(s): E87.1 - Hypo-osmolality and hyponatremia Status: Acute Assessment and Plan: slow improvement apparently a new finding/issue related to diuretics versus heart failure versus volume depletion possible intravascularly dry despite evidence of volume overload (swelling/edema)? urine electrolytes seem to support this... AND, sodium did improve with IVF bolus in ER.... evaluation to date: TSH and cortisol okay urine electrolytes prerenal SPEP, UPEP, and serum/urine osmo pending no culprit medications noted (SSRIs, narcotics, thiazide diuretics....etc) no reported history of malignancy no overt lung disease noted CXR and head CT noted continue fluid restriction gentle normal saline IVFs follow trend of repeat sodium levels (2) Community acquired pneumonia: Code(s): J18.9 - Pneumonia, unspecified organism Status: Acute Assessment and Plan: as suggested by CXR this could be partly responsible for #1 on antibiotics follow culture data (3) Altered mental status: Code(s): R41.82 - Altered mental status, unspecified Status: Acute Assessment and Plan: etiology not clear initially thought to be secondary to #1 (but not clear if this is really the case) follow mentation head CT noted consider Neurology consultation (?) (4) Paroxysmal atrial fibrillation: Code(s): I48.0 - Paroxysmal atrial fibrillation Status: Acute Assessment and Plan: rate control strategy on anticoagulation (5) Impaired functional mobility, balance, gait, and endurance: Code(s): Z74.09 - Other reduced mobility Status: Acute Assessment and Plan: suspect related to acute medical issues PT/OT as tolerated Will continue to follow. Subjective Date/time seen: 08/28/22 13:11 Mentation seems a bit worse -- not really conversing much and per nursing, there times where she almost appears catatonic so it is difficult to give her medications (and hence by default, she is not really taking the salt tablets); sodium relatively stable if not better. Exam Narrative: General: WD/WN female in NAD Heart: normal S1 and S2; no rub Lungs: decreased at bases Abdomen: soft, nontender, nondistended, positive bowel sounds Extremities: no cyanosis or clubbing; trace - 1+ edema Skin: warm and intact Objective Data Vital Signs Vital Signs: Vital Signs Temp Pulse Resp BP Pulse Ox O2 Del Method O2 Flow Rate 08/28/22 12:00 96.8 F L 93 24 H 125/60 100 08/28/22 12:00 96.9 F L 99 20 119/67 100 08/28/22 12:00 Room Air 08/28/22 12:00 97 08/28/22 10:00 78 08/28/22 08:00 Room Air 08/28/22 08:00 99 08/28/22 08:00 96.9 F L 99 20 119/67 100 08/28/22 06:00 93 08/28/22 04:00 97 F L 97 16 137/82 100 08/28/22 04:00 95 08/28/22 02:00 95 08/28/22 00:00 97.4 F L 107 H 18 131/73 97 08/28/22 00:00 104 H 08/27/22 22:00 106 H 08/27/22 20:00 113 H 08/27/22 20:00 96.9 F L 95 20 123/69 100 08/27/22 18:00 91 08/27/22 16:00 96 Nasal Cannula 2 08/27/22 16:00 106 H 08/27/22 16:00 97.2 F L 91 20 109/74 100 08/27/22 14:00 97 Intake/Output Intake/Output: Intake & Output 08/25/22 08/26/22 08/27/22 08/28/22 23:59 23:59 23:59 23:59 Intake Total 1050 1180 1540 100 Output Total 850 425 200 Balance 1050 129 7375 -100 Meds/Results Medications: Active Medications Generic Name Dose Route Start Last Admin Trade Name Freq PRN Reason Stop Dose Admin Acetaminophen 1,000 mg 08/25/22 23:27 Acetaminophen 500 Mg Tablet PO Q8H PRN Pain (Scale Score 1-3) Apixaban 5 mg 08/25/22 23:40 08/28/22 08:24 Apixaban 5 Mg Tablet PO 5 mg Q12HR OLGA Administration Aspirin 81 mg 02
[2022-08-28 13:48] LABS: Sodium 127 mmol/L (137-145)
--- NOTE | 2022-08-28 14:22 | PM.IMPN ---
Progress Note: A&P Assessment and Plan (1) Infiltrate of lung present on chest x-ray: Code(s): R91.8 - Other nonspecific abnormal finding of lung field Status: Acute Assessment and Plan: Patient started on Rocephin and Zithromax Cultures in progress 08/28/2022 interval history: today patient is little more awake and response appropriately, patient continued to complain to be weak and tired patient does have hyponatremia and chest x-ray showing pneumonia repeat CXR shows improvement but pneumonia still persist, most likely patient has community-acquired pneumonia and being treated ceftriaxone and azithromycin, upon arrival patient has significant hyponatremia sodium of 116 most likely cause of generalized weakness, and seen by Nephrology workup is in progress continue to monitor, a sodium today is 127, patient being gently hydrated, patient bilateral toes appears erythematous will continue ceftriaxone, x-ray of the toe shows severe osteoarthritis, seen by Orthopedic does not need any surgical intervention further recommendation, will have a PT OT evaluate the patient patient will benefit going to acute rehab. (2) Paroxysmal atrial fibrillation: Code(s): I48.0 - Paroxysmal atrial fibrillation Status: Acute Assessment and Plan: Patient is rate controlled and anticoagulated (3) Aortic stenosis: Code(s): I35.0 - Nonrheumatic aortic (valve) stenosis Status: Acute Assessment and Plan: Moderate aortic stenosis as per echocardiogram Follow-up in outpatient setting (4) Hyponatremia: Code(s): E87.1 - Hypo-osmolality and hyponatremia Status: Acute Assessment and Plan: I believe this is multifactorial as patient has acute on chronic congestive heart failure however also on diuretics at home Patient also has 3rd spacing however appears dry in her mucosa Will give NS 0.9% Daily BMP (5) Acute on chronic congestive heart failure: Code(s): I50.9 - Heart failure, unspecified Status: Acute Assessment and Plan: Gentle diuresis Repeat echocardiogram in a.m. (6) Lymphedema: Code(s): I89.0 - Lymphedema, not elsewhere classified Status: Acute Assessment and Plan: Compression stocking (7) Impaired functional mobility, balance, gait, and endurance: Code(s): Z74.09 - Other reduced mobility Status: Acute Assessment and Plan: Patient uses walker at home Subjective Date/time seen: 08/28/22 14:22 08/28/2022 interval history: today patient is little more awake and response appropriately, patient continued to complain to be weak and tired patient does have hyponatremia and chest x-ray showing pneumonia repeat CXR shows improvement but pneumonia still persist, most likely patient has community-acquired pneumonia and being treated ceftriaxone and azithromycin, upon arrival patient has significant hyponatremia sodium of 116 most likely cause of generalized weakness, and seen by Nephrology workup is in progress continue to monitor, a sodium today is 127, patient being gently hydrated, patient bilateral toes appears erythematous will continue ceftriaxone, x-ray of the toe shows severe osteoarthritis, seen by Orthopedic does not need any surgical intervention further recommendation, will have a PT OT evaluate the patient patient will benefit going to acute rehab. Review of Systems Constitutional: Constitutional: Denies chills, Reports daytime sleepiness, Denies fever(s), Denies frequent falls, Reports lethargy, Denies night sweats, Reports poor appetite and Reports weakness Exam Narrative: moderately obese Patient is comfortable, NAD HEENT: eyes are clear and none icteric LUNGS: normal respiratory effort ABD:ditended Lower extremities: no edema SKIN: nonjaundiced Neuro: grossly intact. Objective Data Vital Signs Vital Signs: Vital Signs - 24 hr 08/27/22 16:00 08/27/22 16:00 08/27/22 16:00 Temperature 97.2
[2022-08-28 14:37] LABS: Base Excess ABG 1.6 mEq/l (+/-2.0); Fractional Inspired Oxygen 21 %; HCO3 ABG 28.2 mEq/l (22.0-26.0); Oxygen Content ABG 13.5 %vol (16.0-22.0); Oxygen Saturation ABG 97.2 % (95.0-100.0); Oxyhemoglobin 96.4 % THb (90.0-100.0); PCO2 ABG 55.4 mmHg (35.0-45.0); PO2 FiO2 Ratio Arterial Blood 4.86 %; Total Hemoglobin 9.8 g/dL (12.0-18.0); pH ABG 7.325 (7.350-7.450)
[2022-08-28 14:41] LABS: Modified Allen's Test Pass; Site Drawn RIGHT RADIAL
[2022-08-28] MEDS: SODIUM CHLORIDE 0.9% IV 1,000 ML 75 ML IV CONT (20:04)
[2022-08-28 20:07] LABS: Sodium 128 mmol/L (137-145)
[2022-08-29] VITALS (13 sets, daily range): BP systolic 115–125; BP diastolic 59–75; PULSE 71–132; RESP 16–20; TEMP 36.1–37; O2SAT 97–100; BMI 11.0
--- NOTE | 2022-08-29 01:02 | PC.NURSE ---
Received shift report on patient and told patient has been in what appears to be a catatonic state since 1200 on 08/28/2022. This RN assessed patient with outgoing RN and patient eyes were spontaneously open and closed when this RN tried to assess pupils. Attempted to open eyes, patient shut eyes tight. Patient not following commands but grimaced and withdrew to painful stimuli. Attempted to lift patients arms and legs and patient pulled extremities back to self, not allowing movement. Off-going RN stated dayshift hospitalists and following MDs aware of state. At 0100 08/29/2022 patient still appears to be in a catatonic state with no changes to assessment. Called night hospitalist to update on patient condition and no new orders were received.
[2022-08-29 04:53] LABS: Hematocrit 28.4 % (37.0-47.0); Hemoglobin 8.5 g/dL (12.0-15.0); Mean Corpuscular HGB Conc 29.9 g/dl (32-36); Mean Corpuscular Hemoglobin 26.1 pg (26-34); Mean Corpuscular Volume 87.1 fl (80-100); Mean Platelet Volume 8.9 fl (7.4-10.4); Platelet Count Result 349 k/mm3 (150-375); Red Blood Count 3.26 M/mm3 (4.2-5.4)
[2022-08-29 04:56] LABS: Albumin Level 3.5 g/dL (3.5-5.1); Anion Gap 4 mmol/L (8-16); Blood Urea Nitrogen 20 mg/dL (7-17); Calcium 8.3 mg/dL (8.4-10.2); Carbon Dioxide 33 mmol/L (22-30); Chloride 88 mmol/L (98-107); Estimated CRCL calculation 62 ml/min; Estimated Glomerular Filt Rate > 60; Glucose 102 mg/dL (65-110); Magnesium 1.9 mg/dL (1.6-2.3); Potassium 4.2 mmol/L (3.4-5.0); Sodium 125 mmol/L (137-145)
--- NOTE | 2022-08-29 08:08 | PCOTNOTE ---
Addendum entered by Wesly Blevins, OTR/Tanna, CHT 08/29/22 08:24: Spoke with Dr. Mcclellan who recommends we continue to attempt to see the patient. Will continue to attempt. Original Note: Attempted OT evaluation this AM. Patient continues to be nonresponsive to sternal rubs and verbal stimulation. Today is the 3rd day in a row therapy has been unable to see her. The past two days she has been medically inappropriate. Will be contacting Dr. Mcclellan today to discuss discharge orders until patient is more medically appropriate.
[2022-08-29] MEDS: cefTRIAXone 2 GM in SODIUM CHLORIDE 0.9% IV 100 ML 200 ML IVPB ×2 (08:21→21:04)
--- NOTE | 2022-08-29 09:28 | PCPTNOTE ---
Attempted PT evaluation, pt unarousable/unable to follow therapist instructions to participate in skilled therapy this date. Will follow.
--- NOTE | 2022-08-29 10:32 | PC.NURSE ---
Addendum entered by Jocelyn Alvarado RN 08/29/22 10:39: [address] with this RN and transport. Original Note: 0700 Patient opened eyes and responded to voice after sternal rub during shift change. 07 Patient catatonic again. [address] Mcclellan. No answer. Waiting for call back. 09 updated on condition of . 937 Dr. Mcclellan on floor. Updated on patient status and concern for neuro status. Orders for CT of brain w/o contrast and consult to neurology.
--- NOTE | 2022-08-29 11:15 | PM.PNNEP ---
Progress Note: A&P Assessment and Plan (1) Hyponatremia: Code(s): E87.1 - Hypo-osmolality and hyponatremia Status: Acute Assessment and Plan: slow improvement apparently a new finding/issue related to diuretics +/- heart failure versus volume depletion - favor the later possible intravascularly dry despite evidence of volume overload (swelling/edema)? urine electrolytes seem to support this... AND, sodium did improve with IVF bolus in ER slow improvement in sodium with nornal saline IVFs evaluation to date: TSH and cortisol okay urine electrolytes prerenal SPEP, UPEP, and serum/urine osmo pending no culprit medications noted (SSRIs, narcotics, thiazide diuretics....etc) no reported history of malignancy no overt lung disease noted CXR and head CT noted continue fluid restriction (NPO at this time) gentle normal saline IVFs follow trend of repeat sodium levels (2) Community acquired pneumonia: Code(s): J18.9 - Pneumonia, unspecified organism Status: Acute Assessment and Plan: as suggested by CXR this could be partly responsible for #1 on antibiotics follow culture data (3) Altered mental status: Code(s): R41.82 - Altered mental status, unspecified Status: Acute Assessment and Plan: etiology not clear initially thought to be secondary to #1 (but no improvement with improving sodium level) follow mentation head CT noted Neurology consulted (4) Paroxysmal atrial fibrillation: Code(s): I48.0 - Paroxysmal atrial fibrillation Status: Acute Assessment and Plan: rate control strategy on anticoagulation (5) Impaired functional mobility, balance, gait, and endurance: Code(s): Z74.09 - Other reduced mobility Status: Acute Assessment and Plan: suspect related to acute medical issues PT/OT as tolerated Will continue to follow. Subjective Date/time seen: 08/29/22 11:15 Mentation continues to wax and wane -- more sleepy/lethargic/somnolent at the time of my visit; slow improvement in sodium noted with normal saline IVFs; Neurology consulted due to persistent altered mental status in the last 24 - 48 hours. Exam Narrative: General: WD/WN female in NAD Heart: normal S1 and S2; no rub Lungs: decreased at bases Abdomen: soft, nontender, nondistended, positive bowel sounds Extremities: no cyanosis or clubbing; trace - 1+ edema Skin: no rash Objective Data Vital Signs Vital Signs: Vital Signs Temp Pulse Resp BP Pulse Ox O2 Del Method O2 Flow Rate 08/29/22 10:00 104 H 08/29/22 08:00 122 H 08/29/22 08:00 97.5 F L 115 H 20 120/59 L 100 08/29/22 06:00 100 08/29/22 04:00 97.3 F L 124 H 20 125/67 100 08/29/22 04:00 94 08/29/22 02:00 105 H 08/29/22 00:00 120 H 08/29/22 00:00 97 F L 71 20 118/70 100 08/28/22 22:00 105 H 08/28/22 20:00 101 H 08/28/22 20:00 97.1 F L 114 H 20 126/59 L 100 08/28/22 18:00 106 H 08/28/22 16:00 108 H 08/28/22 14:00 102 H 08/28/22 16:00 98 Nasal Cannula 2 08/28/22 16:00 96.8 F L 110 H 26 H 128/77 100 08/28/22 12:00 96.8 F L 93 24 H 125/60 100 08/28/22 12:00 96.9 F L 99 20 119/67 100 08/28/22 12:00 Room Air 08/28/22 12:00 97 Intake/Output Intake/Output: Intake & Output 08/26/22 08/27/22 08/28/22 08/29/22 23:59 23:59 23:59 23:59 Intake Total 1180 1540 1710 Output Total 850 425 750 250 Balance 330 1115 960 -250 Meds/Results Medications: Active Medications Generic Name Dose Route Start Last Admin Trade Name Freq PRN Reason Stop Dose Admin Acetaminophen 1,000 mg 08/25/22 23:27 Acetaminophen 500 Mg Tablet PO Q8H PRN Pain (Scale Score 1-3) Apixaban 5 mg 08/25/22 23:40 08/29/22 08:23 Apixaban 5 Mg Tablet PO Not Given Q12HR OLGA
--- NOTE | 2022-08-29 11:15 | P.PNNP_ITS ---
Progress Note: A&P Assessment and Plan (1) Hyponatremia: Code(s): E87.1 - Hypo-osmolality and hyponatremia Status: Acute Assessment and Plan: * slow improvement * apparently a new finding/issue * related to diuretics +/- heart failure versus volume depletion - favor the later * possible intravascularly dry despite evidence of volume overload (swelling/edema)? * urine electrolytes seem to support this... * AND, sodium did improve with IVF bolus in ER * slow improvement in sodium with nornal saline IVFs * evaluation to date: * TSH and cortisol okay * urine electrolytes prerenal * SPEP, UPEP, and serum/urine osmo pending * no culprit medications noted (SSRIs, narcotics, thiazide diuretics....etc) * no reported history of malignancy * no overt lung disease noted * CXR and head CT noted * continue fluid restriction (NPO at this time) * gentle normal saline IVFs * follow trend of repeat sodium levels (2) Community acquired pneumonia: Code(s): J18.9 - Pneumonia, unspecified organism Status: Acute Assessment and Plan: * as suggested by CXR * this could be partly responsible for #1 * on antibiotics * follow culture data (3) Altered mental status: Code(s): R41.82 - Altered mental status, unspecified Status: Acute Assessment and Plan: * etiology not clear * initially thought to be secondary to #1 (but no improvement with improving sodium level) * follow mentation * head CT noted * Neurology consulted (4) Paroxysmal atrial fibrillation: Code(s): I48.0 - Paroxysmal atrial fibrillation Status: Acute Assessment and Plan: * rate control strategy * on anticoagulation (5) Impaired functional mobility, balance, gait, and endurance: Code(s): Z74.09 - Other reduced mobility Status: Acute Assessment and Plan: * suspect related to acute medical issues * PT/OT as tolerated Will continue to follow. Subjective Date/time seen: 08/29/22 11:15 Mentation continues to wax and wane -- more sleepy/lethargic/somnolent at the time of my visit; slow improvement in sodium noted with normal saline IVFs; Neurology consulted due to persistent altered mental status in the last 24 - 48 hours. Exam Narrative: General: WD/WN female in NAD Heart: normal S1 and S2; no rub Lungs: decreased at bases Abdomen: soft, nontender, nondistended, positive bowel sounds Extremities: no cyanosis or clubbing; trace - 1+ edema Skin: no rash Objective Data Vital Signs Vital Signs: Vital Signs Temp Pulse Resp BP Pulse Ox O2 Del Method O2 Flow Rate 08/29/22 10:00 104 H 08/29/22 08:00 122 H 08/29/22 08:00 97.5 F L 115 H 20 120/59 L 100 08/29/22 06:00 100 08/29/22 04:00 97.3 F L 124 H 20 125/67 100 08/29/22 04:00 94 08/29/22 02:00 105 H 08/29/22 00:00 120 H 08/29/22 00:00 97 F L 71 20 118/70 100 08/28/22 22:00 105 H 08/28/22 20:00 101 H 08/28/22 20:00 97.1 F L 114 H 20 126/59 L 100 08/28/22 18:00 106 H 08/28/22 16:00 108 H 08/28/22 14:00 102 H 08/28/22 16:00 98 Nasal Cannula 2 08/28/22 16:00 96.8 F L 110 H 26 H 128/77 100
--- NOTE | 2022-08-29 11:56 | WPDNEURCNPN ---
Assessment and Plan Assessment and plan (1) Altered mental status: Code(s): R41.82 - Altered mental status, unspecified Status: Acute (2) Acute on chronic congestive heart failure: Code(s): I50.9 - Heart failure, unspecified Status: Acute (3) Hyponatremia: Code(s): E87.1 - Hypo-osmolality and hyponatremia Status: Acute (4) Aortic stenosis: Code(s): I35.0 - Nonrheumatic aortic (valve) stenosis Status: Acute Plan considering the negative CT scan of the head and the clinical examination will obtain the EEG though she still have sodium only 131, rule out the possibility of paroxysmal phenomenon Consult date: 08/29/22 HPI: Lyndsey Mclean is a 71 year old female admitted to the hospital through the emergency room for the complaints of change in the mental status and also with the information the patient has been progressively getting weak over the last several days and finally EMS were called to the scene by the . Patient has been taking multiple medications such as apixaban 5 mg twice a day in addition to aspirin 81 mg daily he also have ongoing history of left hip replacement but no history of alcohol intake or smoking initial exam in the emergency room was grossly nonfocal vital signs were normal CBC was abnormal so as the BMP with sodium only 116 she was negative for influenza AB and RSV and also COVID a CT scan of the head revealed 3 small old infarct in the right frontal and parietal lobes and at the head of the right caudate nucleus but no bleed and EKG without atrial fibrillation she was admitted to the hospital with the diagnosis of a tree me a hypothermia and acute metabolic encephalopathy with community-acquired pneumonia and congestive heart failure during the hospitalization she has been seen by the medical anthropologist and family preservation officer [facility] Past Medical History Medical History (Updated 08/29/22 @ 05:47 by Melisa Henderson MD) A-fib BMI 34.0-34.9,adult BMI 35.0-35.9,adult BMI 36.0-36.9,adult BMI 38.0-38.9,adult BMI 39.0-39.9,adult Bruises easily Chronic edema COVID-19 CVA (cerebral vascular accident) Diverticulosis of large intestine without hemorrhage Encounter for Medicare annual wellness exam Encounter to establish care Essential (primary) hypertension Follow up [place], bilateral Hypertension Impaired functional mobility, balance, gait, and endurance Iron deficiency anemia Iron deficiency anemia Low serum potassium level Low serum sodium Lymphedema Osteoporosis Paroxysmal atrial fibrillation Peripheral neuropathy Personal history of COVID-19 Right shoulder pain Violaceous color toes Vitamin B deficiency Surgical History Surgical History History of ankle surgery History of colonoscopy History of left hip replacement Presence of unspecified artificial knee joint Family History Family History Mother Family history of diabetes mellitus in first degree relative Sibling Family history of diabetes mellitus in first degree relative Father Pancreatic cancer Social History Social History Smoking status: Never smoker Second hand tobacco smoke exposure: No Alcohol intake: never Substance use: never Substance use type: does not use Lack of Transportation: No Lack of Food: Never True Current Housing: I Have Housing Concerned About Future Housing: No Difficulty Paying Gas/Electric Bills: No Difficulty Paying for Meds: No Currently Unemployed: No Education: High School Diploma/GED Difficulty w/ Childcare or Family Care: No Gender identity (if verbalized by the patient): Female Spiritual care concerns: No Meds Home Medications and Allergies Home Medications Medication Instructions Recorded Confirmed Type apixaban 5 mg tablet (Eliquis) 5 mg PO BID
[2022-08-29 12:03] LABS: Sodium 131 mmol/L (137-145)
--- NOTE | 2022-08-29 13:24 | PM.IMPN ---
Progress Note: A&P Assessment and Plan (1) Infiltrate of lung present on chest x-ray: Code(s): R91.8 - Other nonspecific abnormal finding of lung field Status: Acute Assessment and Plan: Patient started on Rocephin and Zithromax Cultures in progress 08/28/2022 interval history: today patient is little more awake and response appropriately, patient continued to complain to be weak and tired patient does have hyponatremia and chest x-ray showing pneumonia repeat CXR shows improvement but pneumonia still persist, most likely patient has community-acquired pneumonia and being treated ceftriaxone and azithromycin, upon arrival patient has significant hyponatremia sodium of 116 most likely cause of generalized weakness, and seen by Nephrology workup is in progress continue to monitor, a sodium today is 127, patient being gently hydrated, patient bilateral toes appears erythematous will continue ceftriaxone, x-ray of the toe shows severe osteoarthritis, seen by Orthopedic does not need any surgical intervention further recommendation, will have a PT OT evaluate the patient patient will benefit going to acute rehab. (2) Paroxysmal atrial fibrillation: Code(s): I48.0 - Paroxysmal atrial fibrillation Status: Acute Assessment and Plan: Patient is rate controlled and anticoagulated (3) Aortic stenosis: Code(s): I35.0 - Nonrheumatic aortic (valve) stenosis Status: Acute Assessment and Plan: Moderate aortic stenosis as per echocardiogram Follow-up in outpatient setting (4) Hyponatremia: Code(s): E87.1 - Hypo-osmolality and hyponatremia Status: Acute Assessment and Plan: I believe this is multifactorial as patient has acute on chronic congestive heart failure however also on diuretics at home Patient also has 3rd spacing however appears dry in her mucosa Will give NS 0.9% Daily BMP (5) Acute on chronic congestive heart failure: Code(s): I50.9 - Heart failure, unspecified Status: Acute Assessment and Plan: Gentle diuresis Repeat echocardiogram in a.m. (6) Lymphedema: Code(s): I89.0 - Lymphedema, not elsewhere classified Status: Acute Assessment and Plan: Compression stocking (7) Impaired functional mobility, balance, gait, and endurance: Code(s): Z74.09 - Other reduced mobility Status: Acute Assessment and Plan: Patient uses walker at home Subjective Date/time seen: 08/29/22 13:24 08/29/2022 interval history: today today patient remains more summary however she seemed to be awake, with persistent somnolence CT scan of the head was done negative for any acute injury, will consult neurologist for further recommendation, patient continued to complain to be weak and tired patient does have hyponatremia and chest x-ray showing pneumonia repeat CXR shows improvement but pneumonia still persist, most likely patient has community-acquired pneumonia and being treated ceftriaxone and azithromycin, upon arrival patient has significant hyponatremia sodium of 116 most likely cause of generalized weakness, and seen by Nephrology workup is in progress continue to monitor, a sodium today is 131, patient being gently hydrated, patient bilateral toes appears erythematous will continue ceftriaxone, x-ray of the toe shows severe osteoarthritis, seen by Orthopedic does not need any surgical intervention further recommendation, will have a PT OT evaluate the patient patient will benefit going to acute rehab. Exam Narrative: moderately obese Patient is comfortable, NAD HEENT: eyes are clear and none icteric LUNGS: normal respiratory effort ABD:ditended Lower extremities: no edema SKIN: nonjaundiced Neuro: grossly intact. Objective Data Vital Signs Vital Signs: Vital Signs - 24 hr 08/28/22 16:00 08/28/22 16:00 08/28/22 14:00 Temperature 96.8 F L Pulse Rate 110 H 102 H Respiratory Rate 26 H Bloo
--- NOTE | 2022-08-29 14:25 | P.NEURO_ITS ---
Neurology EEG Report General Information Date of Study: 08/29/22 TEST eeg DIAGNOSIS Altered mental status CONDITION OF RECORDING patient did not wake up throughout the whole set up a recording and no particular history was available to the ophthalmology technician EEG NUMBER [id number] CLINICAL HISTORY unresponsive EEG DESCRIPTION whole record consists of 5 to 7 hertz per 2nd theta admixed with 2 to 3 hertz per 2nd delta activity without any evidence of paroxysmal discharge throughout the tracing. Non paroxysmal. Nonfocal. Non lateralizing. IMPRESSION Abnormal record due to the presence of bihemispheric slow activity without any paroxysmal discharge. These abnormalities are suggestive of underlying organic or metabolic encephalopathy in addition to the possibility of the postictal state or neurodegenerative process clinical correlation recommended.
[2022-08-29] MEDS: SODIUM CHLORIDE 0.9% IV 1,000 ML 75 ML IV CONT (15:29)
[2022-08-30] VITALS (19 sets, daily range): BP systolic 98–137; BP diastolic 57–85; PULSE 81–162; RESP 16–28; TEMP 36.4–37.6; O2SAT 90–100
[2022-08-30] MEDS: dilTIAZem HCl INJ 25 MG/5 ML VIAL 20 MG IV PUSH (01:43)
[2022-08-30] MEDS: dilTIAZem 100 MG/100 ML 100 MG/100 ML BAG IV CONT (02:36)
[2022-08-30 04:58] LABS: Hematocrit 28.7 % (37.0-47.0); Hemoglobin 8.5 g/dL (12.0-15.0); Mean Corpuscular HGB Conc 29.6 g/dl (32-36); Mean Corpuscular Hemoglobin 26.3 pg (26-34); Mean Corpuscular Volume 88.9 fl (80-100); Platelet Count Result 339 k/mm3 (150-375); Red Blood Count 3.23 M/mm3 (4.2-5.4); Red Cell Distribution Width 18.2 % (11.5-14.5)
[2022-08-30 05:14] LABS: Albumin Level 3.6 g/dL (3.5-5.1); Anion Gap 10 mmol/L (8-16); Blood Urea Nitrogen 25 mg/dL (7-17); Calcium 8.4 mg/dL (8.4-10.2); Carbon Dioxide 25 mmol/L (22-30); Chloride 92 mmol/L (98-107); Estimated CRCL calculation 63 ml/min; Estimated Glomerular Filt Rate > 60; Glucose 107 mg/dL (65-110); Magnesium 2.1 mg/dL (1.6-2.3); Phosphorus 2.7 mg/dL (2.5-4.5); Potassium 4.8 mmol/L (3.4-5.0); Sodium 127 mmol/L (137-145)
[2022-08-30] MEDS: SODIUM CHLORIDE 0.9% IV 1,000 ML 75 ML IV CONT (06:11)
[2022-08-30] MEDS: cefTRIAXone 2 GM in SODIUM CHLORIDE 0.9% IV 100 ML 200 ML IVPB ×2 (10:00→20:57)
--- NOTE | 2022-08-30 10:00 | P.PNNP_ITS ---
Progress Note: A&P Assessment and Plan (1) Hyponatremia: Code(s): E87.1 - Hypo-osmolality and hyponatremia Status: Acute Assessment and Plan: * Hyponatremia. * apparently a new finding/issue * related to diuretics +/- heart failure versus volume depletion - favor the later * possible intravascularly dry despite evidence of volume overload (swelling/edema)? * urine electrolytes seem to support this... * AND, sodium did improve with IVF bolus in ER * slow improvement in sodium with nornal saline IVFs * evaluation to date: * TSH and cortisol okay * urine electrolytes prerenal * No suspicious medications. * SPEP, UPEP, and serum/urine osmo pending * No pulmonary issues. * Central nervous system imaging is unremarkable * Etiology is most likely related to pre renal azotemia due to dehydration +/- heart failure, pneumonia, and diuretics. Whether her [employer] LO[employer] issues are enough to contribute to the is low-sodium is unclear. * Currently she is getting gentle normal saline IVFs * She is NPO so therefore fluid restricted. * Sodium level is up and down in the high 120s. * She does have some swelling now. She probably is no longer dehydrated, however she does have moderate to severe aortic stenosis and so could have some pre renal azotemia on that basis. If we do not give her IV fluids, since she is NPO, she will become dehydrated again. Will decrease the IV fluids to 50 an hour and add salt tablets to help correct her sodium. (2) Community acquired pneumonia: Code(s): J18.9 - Pneumonia, unspecified organism Status: Acute Assessment and Plan: * as suggested by CXR * Her WBC has come down. * on antibiotics * Blood cultures are negative (3) Altered mental status: Code(s): R41.82 - Altered mental status, unspecified Status: Acute Assessment and Plan: * etiology not clear * initially thought to be secondary to #1 (but no improvement with improving sodium level) * follow mentation * head CT noted * Neurology consulted (4) Paroxysmal atrial fibrillation: Code(s): I48.0 - Paroxysmal atrial fibrillation Status: Acute Assessment and Plan: * rate control strategy * on anticoagulation (5) Impaired functional mobility, balance, gait, and endurance: Code(s): Z74.09 - Other reduced mobility Status: Acute Assessment and Plan: * suspect related to acute medical issues * PT/OT as tolerated Subjective Date/time seen: 08/30/22 10:00 Interval history: Patient is not responsive. Discussed with nursing. This has been her state for the last few days. Exam Narrative: General: WD/WN female unresponsive Heart: normal S1 and S2; no rub or gallop Lungs: decreased at bases Abdomen: soft, nontender, nondistended, positive bowel sounds Extremities: 1+ bilateral edema Skin: no rash or subQ nodules Objective Data Vital Signs Vital Signs: Vital Signs - 24 hr 08/29/22 12:00 08/29/22 12:00 08/29/22 14:00 Temperature 97.0 F L Pulse Rate 119 H 105 H 106 H Respiratory Rate 20 Blood Pressure 120/75 Pulse Oximetry 100 Oxygen Delivery Oxygen Flow Rate 08/29/22 16:00 08/29/22 16:00 08/29/22 18:00 Temperature 98.6 F Pulse Rate 107 H 106 H 118 H Respiratory Rate 20 Bloo
--- NOTE | 2022-08-30 10:00 | PM.PNNEP ---
Progress Note: A&P Assessment and Plan (1) Hyponatremia: Code(s): E87.1 - Hypo-osmolality and hyponatremia Status: Acute Assessment and Plan: Hyponatremia. apparently a new finding/issue related to diuretics +/- heart failure versus volume depletion - favor the later possible intravascularly dry despite evidence of volume overload (swelling/edema)? urine electrolytes seem to support this... AND, sodium did improve with IVF bolus in ER slow improvement in sodium with nornal saline IVFs evaluation to date: TSH and cortisol okay urine electrolytes prerenal No suspicious medications. SPEP, UPEP, and serum/urine osmo pending No pulmonary issues. Central nervous system imaging is unremarkable Etiology is most likely related to pre renal azotemia due to dehydration +/-heart failure, pneumonia, and diuretics. Whether her [employer]UM [employer] issues are enough to contribute to the is low-sodium is unclear. Currently she is getting gentle normal saline IVFs She is NPO so therefore fluid restricted. Sodium level is up and down in the high 120s. She does have some swelling now. She probably is no longer dehydrated, however she does have moderate to severe aortic stenosis and so could have some pre renal azotemia on that basis. If we do not give her IV fluids, since she is NPO, she will become dehydrated again. Will decrease the IV fluids to 50 an hour and add salt tablets to help correct her sodium. (2) Community acquired pneumonia: Code(s): J18.9 - Pneumonia, unspecified organism Status: Acute Assessment and Plan: as suggested by CXR Her WBC has come down. on antibiotics Blood cultures are negative (3) Altered mental status: Code(s): R41.82 - Altered mental status, unspecified Status: Acute Assessment and Plan: etiology not clear initially thought to be secondary to #1 (but no improvement with improving sodium level) follow mentation head CT noted Neurology consulted (4) Paroxysmal atrial fibrillation: Code(s): I48.0 - Paroxysmal atrial fibrillation Status: Acute Assessment and Plan: rate control strategy on anticoagulation (5) Impaired functional mobility, balance, gait, and endurance: Code(s): Z74.09 - Other reduced mobility Status: Acute Assessment and Plan: suspect related to acute medical issues PT/OT as tolerated Subjective Date/time seen: 08/30/22 10:00 Interval history: Patient is not responsive. Discussed with nursing. This has been her state for the last few days. Exam Narrative: General: WD/WN female unresponsive Heart: normal S1 and S2; no rub or gallop Lungs: decreased at bases Abdomen: soft, nontender, nondistended, positive bowel sounds Extremities: 1+ bilateral edema Skin: no rash or subQ nodules Objective Data Vital Signs Vital Signs: Vital Signs - 24 hr 08/29/22 12:00 08/29/22 12:00 08/29/22 14:00 Temperature 97.0 F L Pulse Rate 119 H 105 H 106 H Respiratory Rate 20 Blood Pressure 120/75 Pulse Oximetry 100 Oxygen Delivery Oxygen Flow Rate 08/29/22 16:00 08/29/22 16:00 08/29/22 18:00 Temperature 98.6 F Pulse Rate 107 H 106 H 118 H Respiratory Rate 20 Blood Pressure 118/65 Pulse Oximetry 100 Oxygen Delivery Oxygen Flow Rate 08/29/22 20:00 08/29/22 20:00 08/29/22 23:00 Temperature 97.8 F 97.9 F Pulse Rate 109 H 109 H 130 H Respiratory Rate 16 16 16 Blood Pressure 115/75 118/72 Pulse Oximetry 97 97 98 Oxygen Delivery Nasal Cannula Oxygen Flow Rate 2 08/29/22 20:00 08/29/22 22:00 08/30/22 00:00 Temperature Pulse Rate 119 H 132 H 130 H Respiratory Rate 16 Blood Pressure Pulse Oximetry 98 Oxygen Delivery Nasal Cannula Oxygen Flow Rate 2 08/30/22 00:00 08/30/22 01:28 08/30/22 02:36 Temperature Pulse Rate 125 H 162 H 158 H Respiratory Rate Blood Pressure 118/72
--- NOTE | 2022-08-30 11:49 | PCPTNOTE ---
attempted PT evaluation, pt did not arouse to stimulus/ unresponsive. Unable to perform evaluation. Discussed pt with RN.
--- NOTE | 2022-08-30 12:09 | PM.IMPN ---
Progress Note: A&P Assessment and Plan (1) Infiltrate of lung present on chest x-ray: Code(s): R91.8 - Other nonspecific abnormal finding of lung field Status: Acute Assessment and Plan: Patient started on Rocephin and Zithromax Cultures in progress (2) Paroxysmal atrial fibrillation: Code(s): I48.0 - Paroxysmal atrial fibrillation Status: Acute Assessment and Plan: Rate is not controlled. On Cardizem drip. On anticoagulation. Consult Cardiology (3) Aortic stenosis: Code(s): I35.0 - Nonrheumatic aortic (valve) stenosis Status: Acute Assessment and Plan: Moderate aortic stenosis as per echocardiogram Follow-up in outpatient setting (4) Hyponatremia: Code(s): E87.1 - Hypo-osmolality and hyponatremia Status: Acute Assessment and Plan: Monitor. (5) Acute on chronic congestive heart failure: Code(s): I50.9 - Heart failure, unspecified Status: Acute Assessment and Plan: Monitor volume status. Repeat echocardiogram in a.m. (6) Lymphedema: Code(s): I89.0 - Lymphedema, not elsewhere classified Status: Acute Assessment and Plan: Compression stocking (7) Impaired functional mobility, balance, gait, and endurance: Code(s): Z74.09 - Other reduced mobility Status: Acute Assessment and Plan: Patient uses walker at home Subjective Date/time seen: 08/30/22 12:09 Still not alert Apparently this is her baseline from yesterday. Exam Narrative: moderately obese Patient is comfortable, NAD HEENT: eyes are clear and none icteric LUNGS: normal respiratory effort ABD:ditended Lower extremities: no edema SKIN: nonjaundiced Neuro: grossly intact. Objective Data Vital Signs Vital Signs: Vital Signs - 24 hr 08/29/22 14:00 08/29/22 16:00 08/29/22 16:00 Temperature 98.6 F Pulse Rate 106 H 107 H 106 H Respiratory Rate 20 Blood Pressure 118/65 Pulse Oximetry 100 Oxygen Delivery Oxygen Flow Rate 08/29/22 18:00 08/29/22 20:00 08/29/22 20:00 Temperature 97.8 F Pulse Rate 118 H 109 H 109 H Respiratory Rate 16 16 Blood Pressure 115/75 Pulse Oximetry 97 97 Oxygen Delivery Nasal Cannula Oxygen Flow Rate 2 08/29/22 23:00 08/29/22 20:00 02/10/23 22:00 Temperature 97.9 F Pulse Rate 130 H 119 H 132 H Respiratory Rate 16 Blood Pressure 118/72 Pulse Oximetry 98 Oxygen Delivery Oxygen Flow Rate 08/30/22 00:00 08/30/22 00:00 08/30/22 01:28 Temperature Pulse Rate 130 H 125 H 162 H Respiratory Rate 16 Blood Pressure Pulse Oximetry 98 Oxygen Delivery Nasal Cannula Oxygen Flow Rate 2 08/30/22 02:36 08/30/22 04:00 08/30/22 04:00 Temperature 97.5 F L Pulse Rate 158 H 86 86 Respiratory Rate 20 20 Blood Pressure 118/72 137/85 Pulse Oximetry 99 99 Oxygen Delivery Nasal Cannula Oxygen Flow Rate 2 08/30/22 04:00 08/30/22 05:38 08/30/22 06:12 Temperature Pulse Rate 159 H 157 H 159 H Respiratory Rate Blood Pressure 137/85 Pulse Oximetry Oxygen Delivery Oxygen Flow Rate 08/30/22 08:00 Temperature 99.6 F Pulse Rate 114 H Respiratory Rate 28 H Blood Pressure 98/57 L Pulse Oximetry 96 Oxygen Delivery Oxygen Flow Rate Intake/Output Intake/Output: Intake & Output 08/27/22 08/28/22 08/29/22 08/30/22 23:59 23:59 23:59 23:59 Intake Total 1540 1710 1450 1000 Output Total 425 750 475 150 Balance 1115 960 975 850 Meds/Results Medications: Active Medications Generic Name Dose Route Start Last Admin Trade Name Freq PRN Reason Stop Dose Admin Acetaminophen 1,000 mg 08/25/22 23:27 Acetaminophen 500 Mg Tablet PO Q8H PRN Pain (Scale Score 1-3) Apixaban 5 mg 08/25/22 23:40 08/29/22 21:03 Apixaban 5 Mg Tablet PO Not Given Q12HR OLGA Aspirin 81 mg 08/26/22 09:00 08/29/22 08:22 Aspirin 81 Mg Enteric Tablet PO Not Given DAILY OLGA
[2022-08-30 12:35] LABS: Kappa\\Lambda Light Chains 1.74 (0.26-1.65); Lambda Light Chain 9.8 mg/L (5.7-26.3)
[2022-08-30] MEDS: dilTIAZem 100 MG/100 ML 100 MG/100 ML BAG 10 MG IV CONT ×2 (13:34→23:45)
--- NOTE | 2022-08-30 15:08 | PM.CNCAR ---
Assessment and Plan Assessment and plan (1) Paroxysmal atrial fibrillation: Code(s): I48.0 - Paroxysmal atrial fibrillation Status: Acute Assessment and Plan: history of paroxysmal AFib and atrial flutter, present during this admission, recently with rapid ventricular response. -- Perhaps aggravated by her acute heart failure -- heart rate control with Cardizem 10 mg IV; will continue same since patient is not taking p.o. well. --Try adding metoprolol 25 mg BID; follow BP. -- anticoagulated with Eliquis -- any specific need for the aspirin; can it be discontinued? (2) Acute on chronic combined systolic and diastolic CHF (congestive heart failure): Code(s): I50.43 - Acute on chronic combined systolic (congestive) and diastolic (congestive) heart failure Status: Acute Assessment and Plan: Acute on chronic systolic and diastolic heart failure. Patient has developed a new cardiomyopathy with her ejection fraction Declining from 51% to 35-40%. -- Was given 1 dose of furosemide 40 mg IV push today -- remains on normal saline 50 cc an hour as well as sodium chloride 1 g b.i.d. -- daily BMP -- hopefully her sodium will tolerate the furosemide and we can continue IV diuretics -- agree with fluid restriction but the patient is not eating or drinking anything now anyway. -- Try metoprolol 25 mg BID. -- Later will try adding Entresto 24/26 mg half tablet (3) Low serum sodium: Code(s): R79.89 - Other specified abnormal findings of blood chemistry Status: Acute Assessment and Plan: Severe hyponatremia with mental status changes -- somewhat improved since admission (4) Aortic stenosis, moderate: Code(s): I35.0 - Nonrheumatic aortic (valve) stenosis Status: Inactive Assessment and Plan: Has known moderate aortic stenosis, now moderate to severe for this admission. -- Mean gradient only 19 mmHg , suggesting aortic stenosis more mild to moderate. However her calculated valve area was 0.9 cm2 suggesting severe . On exam she has a well-preserved S2 so I doubt this is severe . -- Not contributing to her heart failure or current situation; will follow-up in the office History of Present Illness History of Present Illness Consult date/time: 08/30/22 15:08 Lyndsey Yeung is a 71-year-old male whom we were asked to see at the request of Dr. Whitehead for our advice and opinion regarding her atrial flutter RVR in consultation. The patient is followed by Dr. Murray for her paroxysmal atrial fibrillation. On her last office appointment on 07/31/2022 she appeared stable and in sinus rhythm clinically; was not on any rate-controlling meds. She has had episodes of PAF which seem to be triggered by COPD exacerbation bronchodilator treatment. Apparently she has had been free of episodes for long time and her anticoagulation was discontinued. she also has aortic stenosis. The patient was admitted on 08/25/2022 for weakness and altered mental status for 2 or 3 days. She was found to be hyponatremic, sodium 117. The patient's , who was at the bedside, said the patient has not awakened or had anything to eat or drink for the last 2 days. No shortness of breath, palpitations or chest pain at home, Just confused and weak. Followed by Dr. Laura , gently hydrated. She is being treated for pneumonia. She went into atrial fibrillation and flutter, which later developed into a RVR and was started on a Cardizem drip at 10 milligrams/hour. heart rate is now in the 80s. Echo showed EF of 35% as below. Chest x-ray suggests CHF. Reason For Visit: Hyponatremia,Community-acquired Pneumonia,[place] Review of Systems Constitutional: Constitutional: Denies fever(s) Eyes: Eyes: Reports no additional eye complaints Cardiovascular: Cardiovascular: Denies chest pain, Denies pedal edema, Denies lightheadedness and Denies dyspnea Respiratory: Respiratory: Denies chest albino
[2022-08-30] MEDS: FUROSEMIDE INJ 40 MG/4 ML VIAL IV PUSH (18:00)
[2022-08-30 20:21] LABS: Albumin 3.4 g/dL (3.8-4.8); Alpha 1 Globulin 0.6 g/dL (0.2-0.3); Alpha 2 Globulin 0.7 g/dL (0.5-0.9); Beta 1 Globulin 0.5 g/dL (0.4-0.6); Gamma Globulin 0.5 g/dL (0.8-1.7); Protein, Total 5.9 g/dL (6.1-8.1)
[2022-08-30] MEDS: APIXABAN 5 MG TABLET PO (21:00)
[2022-08-30] MEDS: METOPROLOL TARTRATE 25 MG TABLET PO (21:00)
[2022-08-31] VITALS (20 sets, daily range): BP systolic 93–127; BP diastolic 48–90; PULSE 63–124; RESP 16–24; TEMP 36.3–36.9; O2SAT 90–99; BMI 10.0
[2022-08-31] MEDS: SODIUM CHLORIDE 0.9% IV 1,000 ML 50 ML IV CONT ×2 (01:38→22:37)
[2022-08-31 04:40] LABS: Hemoglobin 8.8 g/dL (12.0-15.0); Mean Corpuscular HGB Conc 29.3 g/dl (32-36); Mean Corpuscular Hemoglobin 26.2 pg (26-34); Mean Corpuscular Volume 89.3 fl (80-100); Mean Platelet Volume 9.5 fl (7.4-10.4); Platelet Count Result 287 k/mm3 (150-375); Red Blood Count 3.36 M/mm3 (4.2-5.4); Red Cell Distribution Width 18.6 % (11.5-14.5); White Blood Count 9.4 K/mm3 (4.5-10.0)
[2022-08-31 04:50] LABS: Albumin Level 3.6 g/dL (3.5-5.1); Anion Gap 8 mmol/L (8-16); Blood Urea Nitrogen 36 mg/dL (7-17); Calcium 8.3 mg/dL (8.4-10.2); Carbon Dioxide 28 mmol/L (22-30); Chloride 95 mmol/L (98-107); Estimated CRCL calculation 50 ml/min; Estimated Glomerular Filt Rate > 60; Glucose 105 mg/dL (65-110); Magnesium 2.1 mg/dL (1.6-2.3); Phosphorus 3.3 mg/dL (2.5-4.5); Potassium 4.2 mmol/L (3.4-5.0); Sodium 131 mmol/L (137-145)
[2022-08-31] MEDS: dilTIAZem 100 MG/100 ML 100 MG/100 ML BAG 10 MG IV CONT ×2 (10:13→20:51)
[2022-08-31] MEDS: METOPROLOL TARTRATE 25 MG TABLET PO ×2 (10:15→20:54)
[2022-08-31] MEDS: SODIUM CHLORIDE 1 GM TABLET PO ×2 (10:15→16:51)
[2022-08-31] MEDS: cefTRIAXone 2 GM in SODIUM CHLORIDE 0.9% IV 100 ML 200 ML IVPB ×2 (10:15→20:52)
[2022-08-31] MEDS: APIXABAN 5 MG TABLET PO ×2 (10:15→20:54)
--- NOTE | 2022-08-31 11:22 | P.PNNP_ITS ---
Progress Note: A&P Assessment and Plan (1) Hyponatremia: Code(s): E87.1 - Hypo-osmolality and hyponatremia Status: Acute Assessment and Plan: * Hyponatremia. * apparently a new finding/issue * related to diuretics +/- heart failure versus volume depletion - favor the later * possible intravascularly dry despite evidence of volume overload (swelling/edema)? * urine electrolytes seem to support this... * AND, sodium did improve with IVF bolus in ER * slow improvement in sodium with nornal saline IVFs * evaluation to date: * TSH and cortisol okay * urine electrolytes prerenal * No suspicious medications. * SPEP, UPEP, and serum/urine osmo all still pending * No pulmonary issues. * Central nervous system imaging is unremarkable * Etiology is most likely related to pre renal azotemia due to dehydration +/-heart failure, pneumonia, and diuretics. Whether her [employer] issues are enough to contribute to the is low-sodium is unclear. * Currently she is getting gentle normal saline IVFs at50cc an hour, and salt tablets. * She is NPO so therefore fluid restricted. * Sodium level is Improved today. * She does have some swelling now. She probably is no longer dehydrated, however she does have moderate to severe aortic stenosis and so could have some pre renal azotemia on that basis. (2) Community acquired pneumonia: Code(s): J18.9 - Pneumonia, unspecified organism Status: Acute Assessment and Plan: * as suggested by CXR * Her WBC is now normal * on Ceftriaxone * Blood cultures are negative (3) Altered mental status: Code(s): R41.82 - Altered mental status, unspecified Status: Acute Assessment and Plan: * etiology not clear * initially thought to be secondary to #1 (but no improvement with improving s odium level) * follow mentation. Today she is definitely more awake but far from normal. * head CT noted * Neurology consulted (4) Paroxysmal atrial fibrillation: Code(s): I48.0 - Paroxysmal atrial fibrillation Status: Acute Assessment and Plan: * rate control strategy * on anticoagulation (5) Impaired functional mobility, balance, gait, and endurance: Code(s): Z74.09 - Other reduced mobility Status: Acute Assessment and Plan: * suspect related to acute medical issues * PT/OT as tolerated Subjective Date/time seen: 08/31/22 11:22 Interval history: Patient is more awake and talking but repeats the same phrases over and over. Exam Narrative: General: WD/WN female repeating the same phrases. Heart: normal S1 and S2; no rub or gallop Lungs: decreased at bases Abdomen: soft, nontender, nondistended, positive bowel sounds Extremities: 1+ bilateral edema Skin: no rash or subQ nodules Objective Data Vital Signs Vital Signs: Vital Signs - 24 hr 08/30/22 12:00 08/30/22 13:33 08/30/22 13:34 Temperature 98.2 F Pulse Rate 89 102 H 92 Respiratory Rate 28 H Blood Pressure 112/63 Pulse Oximetry 96 Oxygen Delivery Oxygen Flow Rate 08/30/22 13:38 08/30/22 16:00 08/30/22 12:00 Temperature 98.4 F Pulse Rate 88 89 Respiratory Rate 28 H Blood Pressure 115/71 Pulse Oximetry 90 92 Oxygen Delivery Nasal Cannula
--- NOTE | 2022-08-31 11:22 | PM.PNNEP ---
Progress Note: A&P Assessment and Plan (1) Hyponatremia: Code(s): E87.1 - Hypo-osmolality and hyponatremia Status: Acute Assessment and Plan: Hyponatremia. apparently a new finding/issue related to diuretics +/- heart failure versus volume depletion - favor the later possible intravascularly dry despite evidence of volume overload (swelling/edema)? urine electrolytes seem to support this... AND, sodium did improve with IVF bolus in ER slow improvement in sodium with nornal saline IVFs evaluation to date: TSH and cortisol okay urine electrolytes prerenal No suspicious medications. SPEP, UPEP, and serum/urine osmo all still pending No pulmonary issues. Central nervous system imaging is unremarkable Etiology is most likely related to pre renal azotemia due to dehydration +/-heart failure, pneumonia, and diuretics. 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 Currently she is getting gentle normal saline IVFs at50cc an hour, and salt tablets. She is NPO so therefore fluid restricted. Sodium level is Improved today. She does have some swelling now. She probably is no longer dehydrated, however she does have moderate to severe aortic stenosis and so could have some pre renal azotemia on that basis. (2) Community acquired pneumonia: Code(s): J18.9 - Pneumonia, unspecified organism Status: Acute Assessment and Plan: as suggested by CXR Her WBC is now normal on Ceftriaxone Blood cultures are negative (3) Altered mental status: Code(s): R41.82 - Altered mental status, unspecified Status: Acute Assessment and Plan: etiology not clear initially thought to be secondary to #1 (but no improvement with improving sodium level) follow mentation. Today she is definitely more awake but far from normal. head CT noted Neurology consulted (4) Paroxysmal atrial fibrillation: Code(s): I48.0 - Paroxysmal atrial fibrillation Status: Acute Assessment and Plan: rate control strategy on anticoagulation (5) Impaired functional mobility, balance, gait, and endurance: Code(s): Z74.09 - Other reduced mobility Status: Acute Assessment and Plan: suspect related to acute medical issues PT/OT as tolerated Subjective Date/time seen: 08/31/22 11:22 Interval history: Patient is more awake and talking but repeats the same phrases over and over. Exam Narrative: General: WD/WN female repeating the same phrases. Heart: normal S1 and S2; no rub or gallop Lungs: decreased at bases Abdomen: soft, nontender, nondistended, positive bowel sounds Extremities: 1+ bilateral edema Skin: no rash or subQ nodules Objective Data Vital Signs Vital Signs: Vital Signs - 24 hr 08/30/22 12:00 08/30/22 13:33 08/30/22 13:34 Temperature 98.2 F Pulse Rate 89 102 H 92 Respiratory Rate 28 H Blood Pressure 112/63 Pulse Oximetry 96 Oxygen Delivery Oxygen Flow Rate 08/30/22 13:38 08/30/22 16:00 08/30/22 12:00 Temperature 98.4 F Pulse Rate 88 89 Respiratory Rate 28 H Blood Pressure 115/71 Pulse Oximetry 90 92 Oxygen Delivery Nasal Cannula Oxygen Flow Rate 2 08/30/22 16:00 08/30/22 12:00 08/30/22 16:00 Temperature Pulse Rate 88 Respiratory Rate Blood Pressure Pulse Oximetry 98 98 Oxygen Delivery Nasal Cannula Nasal Cannula Oxygen Flow Rate 2 2 08/30/22 18:00 08/30/22 20:00 08/30/22 21:00 Temperature 98.1 F Pulse Rate 88 81 91 Respiratory Rate 20 Blood Pressure 113/64 Pulse Oximetry 100 Oxygen Delivery Oxygen Flow Rate 08/30/22 20:00 08/30/22 20:00 08/30/22 22:00 Temperature Pulse Rate 81 84 93 Respiratory Rate 20 Blood Pressure Pulse Oximetry 100 Oxygen Delivery Nasal Cannula Oxygen Flow Rate 2 08/30/22 23:39 08/30/22 20:00 08/30/22 23:45 Temperature
--- NOTE | 2022-08-31 11:52 | PM.IMPN ---
Progress Note: A&P Assessment and Plan (1) Infiltrate of lung present on chest x-ray: Code(s): R91.8 - Other nonspecific abnormal finding of lung field Status: Acute Assessment and Plan: Patient started on Rocephin and Zithromax Cultures in progress (2) Paroxysmal atrial fibrillation: Code(s): I48.0 - Paroxysmal atrial fibrillation Status: Acute Assessment and Plan: Rate is not controlled. On Cardizem drip. Also on beta-rod On anticoagulation. Appreciate cardiology input (3) Aortic stenosis: Code(s): I35.0 - Nonrheumatic aortic (valve) stenosis Status: Acute Assessment and Plan: Moderate aortic stenosis as per echocardiogram Follow-up in outpatient setting (4) Hyponatremia: Code(s): E87.1 - Hypo-osmolality and hyponatremia Status: Acute Assessment and Plan: Monitor. (5) Acute on chronic congestive heart failure: Code(s): I50.9 - Heart failure, unspecified Status: Acute Assessment and Plan: Monitor volume status. Repeat echocardiogram in a.m. (6) Lymphedema: Code(s): I89.0 - Lymphedema, not elsewhere classified Status: Acute Assessment and Plan: Compression stocking (7) Impaired functional mobility, balance, gait, and endurance: Code(s): Z74.09 - Other reduced mobility Status: Acute Assessment and Plan: Patient uses walker at home Subjective Date/time seen: 08/31/22 11:52 More alert today Heart rate better controlled Exam Narrative: moderately obese Patient is comfortable, NAD HEENT: eyes are clear and none icteric LUNGS: normal respiratory effort ABD:ditended Lower extremities: no edema SKIN: nonjaundiced Neuro: grossly intact. Objective Data Vital Signs Vital Signs: Vital Signs - 24 hr 08/30/22 12:00 08/30/22 13:33 08/30/22 13:34 Temperature 98.2 F Pulse Rate 89 102 H 92 Respiratory Rate 28 H Blood Pressure 112/63 Pulse Oximetry 96 Oxygen Delivery Oxygen Flow Rate 08/30/22 13:38 08/30/22 16:00 08/30/22 12:00 Temperature 98.4 F Pulse Rate 88 89 Respiratory Rate 28 H Blood Pressure 115/71 Pulse Oximetry 90 92 Oxygen Delivery Nasal Cannula Oxygen Flow Rate 2 08/30/22 16:00 08/30/22 12:00 08/30/22 16:00 Temperature Pulse Rate 88 Respiratory Rate Blood Pressure Pulse Oximetry 98 98 Oxygen Delivery Nasal Cannula Nasal Cannula Oxygen Flow Rate 2 2 08/30/22 18:00 08/30/22 20:00 08/30/22 21:00 Temperature 98.1 F Pulse Rate 88 81 91 Respiratory Rate 20 Blood Pressure 113/64 Pulse Oximetry 100 Oxygen Delivery Oxygen Flow Rate 08/30/22 20:00 08/30/22 20:00 08/30/22 22:00 Temperature Pulse Rate 81 84 93 Respiratory Rate 20 Blood Pressure Pulse Oximetry 100 Oxygen Delivery Nasal Cannula Oxygen Flow Rate 2 08/30/22 23:39 08/30/22 20:00 08/30/22 23:45 Temperature Pulse Rate 86 81 86 Respiratory Rate 18 Blood Pressure 113/64 115/60 Pulse Oximetry 100 Oxygen Delivery Nasal Cannula Oxygen Flow Rate 1 08/30/22 23:45 08/31/22 00:00 08/30/22 23:57 Temperature 97.6 F Pulse Rate 86 88 82 Respiratory Rate 18 Blood Pressure 115/60 Pulse Oximetry 100 Oxygen Delivery Oxygen Flow Rate 08/31/22 02:00 08/31/22 04:00 08/31/22 03:38 Temperature 97.4 F L Pulse Rate 76 104 H 104 H Respiratory Rate 20 20 Blood Pressure 106/48 L Pulse Oximetry 99 99 Oxygen Delivery Nasal Cannula Oxygen Flow Rate 1 08/31/22 04:00 08/31/22 05:48 08/31/22 08:00 Temperature 97.9 F Pulse Rate 76 74 124 H Respiratory Rate 24 H Blood Pressure 107/54 L Pulse Oximetry 90 Oxygen Delivery Oxygen Flow Rate 08/31/22 08:00 08/31/22 09:45 08/31/22 10:13 Temperature Pulse Rate 83 82 82 Respiratory Rate 24 H Blood Pressure 107/54 L Pulse Oximetry 90 Oxygen Delivery Nasal Cannula Oxygen Flow Rate 1
[2022-08-31] MEDS: ACETAMINOPHEN 500 MG TABLET 1000 MG PO (13:36)
--- NOTE | 2022-08-31 13:55 | PM.PNCARD ---
Progress Note: A&P Assessment and Plan (1) Paroxysmal atrial fibrillation: Code(s): I48.0 - Paroxysmal atrial fibrillation Status: Acute Assessment and Plan: Paroxysmal AFib and atrial flutter, present during this admission, recently with rapid ventricular response, Perhaps aggravated by her acute heart failure -- anticoagulated with Eliquis -- Converted to sinus rhythm 08/31/2022 -- continue metoprolol 25 mg b.i.d. -- discontinue Cardizem drip (2) Acute on chronic combined systolic and diastolic CHF (congestive heart failure): Code(s): I50.43 - Acute on chronic combined systolic (congestive) and diastolic (congestive) heart failure Status: Acute Assessment and Plan: Acute on chronic systolic and diastolic heart failure. Patient has developed a new cardiomyopathy with her ejection fraction declining from 51% to 35-40%. -- Was given 1 dose of furosemide 40 mg IV push 08/30/2022 with improvement -- remains on normal saline 50 cc an hour as well as sodium chloride 1 g b.i.d. -- daily BMP -- Cont metoprolol. -- BP still soft. Later may try adding other CHF meds such as Entresto 24/26 mg half tablet BID. (3) Low serum sodium: Code(s): R79.89 - Other specified abnormal findings of blood chemistry Status: Acute Assessment and Plan: Severe hyponatremia with mental status changes -- Improved Na+ and mental status, though still not at baseline (4) Aortic stenosis, moderate: Code(s): I35.0 - Nonrheumatic aortic (valve) stenosis Status: Inactive Assessment and Plan: Has known moderate aortic stenosis, now moderate to severe for this admission. -- Mean gradient only 19 mmHg , suggesting aortic stenosis more mild to moderate. However her calculated valve area was 0.9 cm2 suggesting severe . On exam she has a well-preserved S2 so I doubt this is severe . -- Doubt contributing to her heart failure or current situation; will follow-up in the office Subjective Date/time seen: Follow-up for Paroxysmal AFib RVR, acute on chronic combined systolic and diastolic heart failure. EF has declined, from 51% now down to 35-40%. Also admitted with low sodium with altered mental status, down to 117 and has a history of COPD , Possible pneumonia,moderate to severe aortic stenosis, moderate AI/MR. 08/30/2022: Patient very somnolent and not taking p.o. well, heart rate was controlled with IV Cardizem 10 milligrams/hour. Added metoprolol 25 mg b.i.d.. Furosemide 40 mg IV push x1. However also getting normal saline 50 cc/hour. 08/31/22 13:55 Mentation better today. Converted to sinus rhythm this morning, Pulse generally in 80s. On 1 L of O2. Sodium up to 131 today. at the bedside Review of Systems Review of Systems: no chest pain, shortness of breath, abdominal pain, bleeding, but mentation not back to normal. Exam Const: General: comfortable and confusion Orientation/consciousness: oriented to person and confusion HENMT: Mouth: Yes moist mucous membranes Eyes: Sclera: sclerae normal EOM: EOMs intact bilaterally Neck: Neck: supple Resp: Effort & Inspection: normal respiratory effort Auscultation: clear to auscultation bilaterally Cardio: Rate: regular rate Rhythm: regular rhythm Heart sounds: Murmur heart sound present ( 2/6 harsh KATHRIN upper sternal borders, preserved S2) GI: Inspection: normal to inspection Skin: General skin exam: lesion ( ecchymosis over arms, patient's states due to Eliquis) Lesions: lesion noted ( ecchymosis over arms, patient's states due to Eliquis) Neuro: General: No oriented to person, No patient oriented x3 and confusion Cognition (Neuro): abnormal cognition Speech: Abnormal speech present ( Was not making sense ) Other: Awake and smiling, repeats all the way and I do not care frequently. Confused.Can tell me her name and her 's name, follows commands. Extrem: Right
[2022-09-01] VITALS (22 sets, daily range): BP systolic 87–124; BP diastolic 45–65; PULSE 46–90; RESP 18–26; TEMP 36.3–36.6; O2SAT 92–100
[2022-09-01 04:13] LABS: Hematocrit 29.4 % (37.0-47.0); Hemoglobin 8.5 g/dL (12.0-15.0); Mean Corpuscular HGB Conc 28.9 g/dl (32-36); Mean Corpuscular Hemoglobin 25.9 pg (26-34); Mean Corpuscular Volume 89.6 fl (80-100); Mean Platelet Volume 8.8 fl (7.4-10.4); Platelet Count Result 298 k/mm3 (150-375); Red Blood Count 3.28 M/mm3 (4.2-5.4); Red Cell Distribution Width 18.5 % (11.5-14.5); White Blood Count 10.2 K/mm3 (4.5-10.0)
[2022-09-01 04:36] LABS: Albumin Level 3.4 g/dL (3.5-5.1); Anion Gap 7 mmol/L (8-16); Blood Urea Nitrogen 41 mg/dL (7-17); Calcium 8.1 mg/dL (8.4-10.2); Carbon Dioxide 30 mmol/L (22-30); Chloride 102 mmol/L (98-107); Estimated CRCL calculation 41 ml/min; Estimated Glomerular Filt Rate 49; Glucose 115 mg/dL (65-110); Magnesium 2.1 mg/dL (1.6-2.3); Phosphorus 3.2 mg/dL (2.5-4.5); Sodium 139 mmol/L (137-145)
[2022-09-01] MEDS: dilTIAZem 100 MG/100 ML 100 MG/100 ML BAG 10 MG IV CONT (06:31)
--- NOTE | 2022-09-01 08:40 | P.PNNP_ITS ---
Progress Note: A&P Assessment and Plan (1) Hyponatremia: Code(s): E87.1 - Hypo-osmolality and hyponatremia Status: Acute Assessment and Plan: * improved * apparently a new finding/issue * related to diuretics +/- heart failure versus volume depletion - favor the later * possible intravascularly dry despite evidence of volume overload (swelling/edema)? * urine electrolytes seem to support this... * AND, sodium did improve with IVF bolus in ER * slow improvement in sodium with nornal saline IVFs * evaluation to date: * TSH and cortisol okay * urine electrolytes prerenal * no suspicious medications. * SPEP, UPEP, and serum/urine osmo all still pending * no pulmonary issues/overt lung disease. * central nervous system imaging is unremarkable * suspect etiology is most likely related to pre renal azotemia due to dehydration +/- heart failure, pneumonia, and diuretics * despite her swelling, she also has a depressed EF as well as moderate to severe aortic stenosis - likely has pre renal azotemia on that basis * whether her [employer] issues are enough to contribute to the low sodium is unclear. * receiving gentle normal saline IVFs at 50cc an hour + salt tablets * fluid restricted by her NPO status * sodium better - will d/c IVFs * given her depressed EF, suspect eventually she will need to restart diuretic therap (2) Community acquired pneumonia: Code(s): J18.9 - Pneumonia, unspecified organism Status: Acute Assessment and Plan: * as suggested by CXR * Her WBC is now normal * on Ceftriaxone * blood cultures are negative (3) Altered mental status: Code(s): R41.82 - Altered mental status, unspecified Status: Acute Assessment and Plan: * etiology not clear * initially thought to be secondary to #1 (but no improvement with improving sodium level) * follow mentation * head CT noted * Neurology following (4) Acute on chronic combined systolic and diastolic CHF (congestive heart failure): Code(s): I50.43 - Acute on chronic combined systolic (congestive) and diastolic (congestive) heart failure Status: Acute Assessment and Plan: * repeat Echo results noted -- decrease in EF noted * Cardiology following * will likely need to restart diuretics eventually (5) Paroxysmal atrial fibrillation: Code(s): I48.0 - Paroxysmal atrial fibrillation Status: Acute Assessment and Plan: * rate control strategy * on anticoagulation (6) Impaired functional mobility, balance, gait, and endurance: Code(s): Z74.09 - Other reduced mobility Status: Acute Assessment and Plan: * suspect related to acute medical issues * PT/OT as tolerated Will continue to follow. Subjective Date/time seen: 09/01/22 08:40 Chart reviewed since last seen -- seems a bit more awake this AM but not making much sense when I am talking to her (repeat phrases that are not related to the questions I ask her); no acute distress noted. Exam Narrative: General: WD/WN female in NAD Heart: normal S1 and S2; no rub Lungs: decreased at bases Abdomen: soft, nontender, nondistended, positive bowel sounds Extremities: 1+ bilateral edema Skin: warm and dry Objective Data Vital Signs Vital Signs: Vital Signs Temp Pulse Resp BP Pulse Ox O2 Del Method O2 Flow Rate
--- NOTE | 2022-09-01 08:40 | PM.PNNEP ---
Progress Note: A&P Assessment and Plan (1) Hyponatremia: Code(s): E87.1 - Hypo-osmolality and hyponatremia Status: Acute Assessment and Plan: improved apparently a new finding/issue related to diuretics +/- heart failure versus volume depletion - favor the later possible intravascularly dry despite evidence of volume overload (swelling/edema)? urine electrolytes seem to support this... AND, sodium did improve with IVF bolus in ER slow improvement in sodium with nornal saline IVFs evaluation to date: TSH and cortisol okay urine electrolytes prerenal no suspicious medications. SPEP, UPEP, and serum/urine osmo all still pending no pulmonary issues/overt lung disease. 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 receiving gentle normal saline IVFs at 50cc an hour + salt tablets fluid restricted by her NPO status sodium better - will d/c IVFs given her depressed EF, suspect eventually she will need to restart diuretic therap (2) Community acquired pneumonia: Code(s): J18.9 - Pneumonia, unspecified organism Status: Acute Assessment and Plan: as suggested by CXR Her WBC is now normal on Ceftriaxone blood cultures are negative (3) Altered mental status: Code(s): R41.82 - Altered mental status, unspecified Status: Acute Assessment and Plan: etiology not clear initially thought to be secondary to #1 (but no improvement with improving sodium level) follow mentation head CT noted Neurology following (4) Acute on chronic combined systolic and diastolic CHF (congestive heart failure): Code(s): I50.43 - Acute on chronic combined systolic (congestive) and diastolic (congestive) heart failure Status: Acute Assessment and Plan: repeat Echo results noted -- decrease in EF noted Cardiology following will likely need to restart diuretics eventually (5) Paroxysmal atrial fibrillation: Code(s): I48.0 - Paroxysmal atrial fibrillation Status: Acute Assessment and Plan: rate control strategy on anticoagulation (6) Impaired functional mobility, balance, gait, and endurance: Code(s): Z74.09 - Other reduced mobility Status: Acute Assessment and Plan: suspect related to acute medical issues PT/OT as tolerated Will continue to follow. Subjective Date/time seen: 09/01/22 08:40 Chart reviewed since last seen -- seems a bit more awake this AM but not making much sense when I am talking to her (repeat phrases that are not related to the questions I ask her); no acute distress noted. Exam Narrative: General: WD/WN female in NAD Heart: normal S1 and S2; no rub Lungs: decreased at bases Abdomen: soft, nontender, nondistended, positive bowel sounds Extremities: 1+ bilateral edema Skin: warm and dry Objective Data Vital Signs Vital Signs: Vital Signs Temp Pulse Resp BP Pulse Ox O2 Del Method O2 Flow Rate 09/01/22 08:00 97.8 F 90 18 113/62 92 09/01/22 06:31 75 121/63 09/01/22 06:00 68 09/01/22 04:00 74 09/01/22 04:00 67 20 98 Nasal Cannula 2 09/01/22 04:00 97.7 F 67 20 121/63 98 09/01/22 01:34 70 09/01/22 00:00 71 08/31/22 23:36 72 20 99 Nasal Cannula 2 08/31/22 23:30 97.4 F L 72 20 107/58 L 99 08/31/22 22:00 70 08/31/22 20:00 69 08/31/22 20:54 75 08/31/22 20:51 75 113/58 L 08/31/22 20:00 75 20 98 Nasal Cannula 2 08/31/22 20:00 97.4 F L 75 20 113/58 L 98 08/31/22 18:00 80 02
[2022-09-01] MEDS: APIXABAN 5 MG TABLET PO (08:42)
[2022-09-01] MEDS: METOPROLOL TARTRATE 25 MG TABLET PO (08:42)
[2022-09-01] MEDS: cefTRIAXone 2 GM in SODIUM CHLORIDE 0.9% IV 100 ML 200 ML IVPB (08:43)
[2022-09-01] MEDS: SODIUM CHLORIDE 1 GM TABLET PO (08:43)
--- NOTE | 2022-09-01 11:14 | PM.IMPN ---
Progress Note: A&P Assessment and Plan (1) Infiltrate of lung present on chest x-ray: Code(s): R91.8 - Other nonspecific abnormal finding of lung field Status: Acute Assessment and Plan: Currently on antibiotics. Cultures in progress (2) Paroxysmal atrial fibrillation: Code(s): I48.0 - Paroxysmal atrial fibrillation Status: Acute Assessment and Plan: Rate is not controlled. Rate now controlled still a flutter. Will DC Cardizem (3) Aortic stenosis: Code(s): I35.0 - Nonrheumatic aortic (valve) stenosis Status: Acute Assessment and Plan: Moderate aortic stenosis as per echocardiogram Follow-up in outpatient setting (4) Hyponatremia: Code(s): E87.1 - Hypo-osmolality and hyponatremia Status: Acute Assessment and Plan: Monitor. (5) Acute on chronic congestive heart failure: Code(s): I50.9 - Heart failure, unspecified Status: Acute Assessment and Plan: Monitor volume status. Echo shows EF 35-40% Appreciate cardiology input Will start on Entresto DC Cardizem (6) Lymphedema: Code(s): I89.0 - Lymphedema, not elsewhere classified Status: Acute Assessment and Plan: Compression stocking (7) Impaired functional mobility, balance, gait, and endurance: Code(s): Z74.09 - Other reduced mobility Status: Acute Assessment and Plan: Patient uses walker at home Subjective Date/time seen: 09/01/22 11:14 More alert but still not making a whole lot of sense. Question baseline. Vital signs stable. Exam Narrative: moderately obese Patient is comfortable, NAD HEENT: eyes are clear and none icteric LUNGS: normal respiratory effort ABD:ditended Lower extremities: no edema SKIN: nonjaundiced Neuro: grossly intact. Objective Data Vital Signs Vital Signs: Vital Signs - 24 hr 08/31/22 12:00 08/31/22 12:00 08/31/22 12:00 Temperature 98.5 F Pulse Rate 63 78 70 Respiratory Rate 16 Blood Pressure 127/90 Pulse Oximetry 90 90 Oxygen Delivery Nasal Cannula Oxygen Flow Rate 1 08/31/22 14:00 08/31/22 16:00 08/31/22 16:00 Temperature Pulse Rate 71 68 Respiratory Rate Blood Pressure Pulse Oximetry 90 Oxygen Delivery Nasal Cannula Oxygen Flow Rate 1 08/31/22 16:00 08/31/22 18:00 02/12/23 20:00 Temperature 97.3 F L 97.4 F L Pulse Rate 70 80 75 Respiratory Rate 24 H 20 Blood Pressure 93/48 L 113/58 L Pulse Oximetry 91 98 Oxygen Delivery Oxygen Flow Rate 08/31/22 20:00 08/31/22 20:51 08/31/22 20:54 Temperature Pulse Rate 75 75 75 Respiratory Rate 20 Blood Pressure 113/58 L Pulse Oximetry 98 Oxygen Delivery Nasal Cannula Oxygen Flow Rate 2 08/31/22 20:00 08/31/22 22:00 08/31/22 23:30 Temperature 97.4 F L Pulse Rate 69 70 72 Respiratory Rate 20 Blood Pressure 107/58 L Pulse Oximetry 99 Oxygen Delivery Oxygen Flow Rate 08/31/22 23:36 09/01/22 00:00 09/01/22 01:34 Temperature Pulse Rate 72 71 70 Respiratory Rate 20 Blood Pressure Pulse Oximetry 99 Oxygen Delivery Nasal Cannula Oxygen Flow Rate 2 09/01/22 04:00 09/01/22 04:00 09/01/22 04:00 Temperature 97.7 F Pulse Rate 67 67 74 Respiratory Rate 20 20 Blood Pressure 121/63 Pulse Oximetry 98 98 Oxygen Delivery Nasal Cannula Oxygen Flow Rate 2 09/01/22 06:00 09/01/22 06:31 09/01/22 08:00 Temperature 97.8 F Pulse Rate 68 75 90 Respiratory Rate 18 Blood Pressure 121/63 113/62 Pulse Oximetry 92 Oxygen Delivery Oxygen Flow Rate 09/01/22 08:42 Temperature Pulse Rate 77 Respiratory Rate Blood Pressure Pulse Oximetry Oxygen Delivery Oxygen Flow Rate Intake/Output Intake/Output: Intake & Output 08/29/22 08/30/22 08/31/22 09/01/22 23:59 23:59 23:59 23:59 Intake Total 1450 2880 1640 100 Output Total 897 850 5590 200 Balance 975 2430 -410 -100 Meds/Results Medications
--- NOTE | 2022-09-01 13:11 | PCNFU ---
Nutrition Follow-Up Complete: Severe protein calorie malnutrition related to loss of appetite as evidenced by weight loss -9%/3 months and poor intake <75% meals >1 month. Goal: improve PO intake to at least 50% meals and supplement. Pt no meeting goal, continue with current goal Pt current nutrition is heart healthy, Ensure compact BID, 1400ml fluid restriction. Nutrition recommendation: Continue with current plan of care Last recorded weight is 77.6 kg. Bowel Motility: +BM 08/31 Labs Reviewed: Hgb:8.5, HCT:29.4, Alb:3.4, BUN:41, Cr:1.1 Meds Noted: Eliquis Skin: lymphedema Additional Notes: Pt continues on a heart healthy diet, intake decreased to 10% of meals, Ensure compact BID in place and noted 1400ml fluid restriction. Family at bedside assisting with meals. Encourage good po intake, encourage supplements. Monitor intakes, weights, labs, plan of care, supplement tolerance Follow up in 5 days
--- NOTE | 2022-09-01 13:58 | PM.PNCARD ---
Progress Note: A&P Assessment and Plan (1) Paroxysmal atrial fibrillation: Code(s): I48.0 - Paroxysmal atrial fibrillation Status: Acute Assessment and Plan: Paroxysmal AFib and atrial flutter, present during this admission, recently with rapid ventricular response, Perhaps aggravated by her acute heart failure -- anticoagulated with Eliquis -- Converted to sinus rhythm 08/31/2022, not ack in atrial flutter with controlled rate -- continue metoprolol 25 mg b.i.d. (2) Acute on chronic combined systolic and diastolic CHF (congestive heart failure): Code(s): I50.43 - Acute on chronic combined systolic (congestive) and diastolic (congestive) heart failure Status: Acute Assessment and Plan: Acute on chronic systolic and diastolic heart failure. Patient has developed a new cardiomyopathy with her ejection fraction declining from 51% to 35-40%. -- Was given 1 dose of furosemide 40 mg IV push 08/30/2022 with improvement -- daily BMP -- Cont metoprolol. -- BP still soft. Later may try adding other CHF meds such as Entresto 24/26 mg half tablet BID. (3) Low serum sodium: Code(s): R79.89 - Other specified abnormal findings of blood chemistry Status: Acute Assessment and Plan: Severe hyponatremia with mental status changes -- Improved Na+ and mental status, though still not at baseline (4) Aortic stenosis, moderate: Code(s): I35.0 - Nonrheumatic aortic (valve) stenosis Status: Inactive Assessment and Plan: Has known moderate aortic stenosis, now moderate to severe for this admission. -- Mean gradient only 19 mmHg , suggesting aortic stenosis more mild to moderate. However her calculated valve area was 0.9 cm2 suggesting severe . On exam she has a well-preserved S2 so I doubt this is severe . -- Doubt contributing to her heart failure or current situation; will follow-up in the office Subjective Date/time seen: 09/01/22 13:58 Cardiology follow up for atrial flutter Interval history: She is back in atrial flutter today, rate controlled. She is alert but not oriented and repeats the same words and phrases over and over. is at the bedside. Review of Systems Constitutional: Constitutional: Denies fever(s) Eyes: Eyes: Reports no additional eye complaints Cardiovascular: Cardiovascular: Denies chest pain, Denies pedal edema, Denies lightheadedness and Denies dyspnea Respiratory: Respiratory: Denies chest congestion, Denies cough and Denies dyspnea Gastrointestinal: Gastrointestinal: Denies abdominal pain and Denies hematochezia Genitourinary: Genitourinary: Reports no additional female genitourinary complaints Musculoskeletal: Musculoskeletal: Reports no additional musculoskeletal complaints Integumentary/Breasts: Skin/Breast: Reports system reviewed and no additional complaints, except as docu Neurologic: Reports Abnormal speech present ( Was not making sense ), Denies behavioral changes and Reports confusion Psychiatric: Psychiatric: Denies behavioral changes and Reports confusion Exam Const: General: comfortable and confusion Orientation/consciousness: No patient oriented x3 and confusion Limitations: altered mental status HENMT: Mouth: Yes moist mucous membranes Eyes: Sclera: sclerae normal EOM: EOMs intact bilaterally Neck: Neck: supple Resp: Effort & Inspection: normal respiratory effort Auscultation: clear to auscultation bilaterally Cardio: Rate: regular rate Rhythm: abnormal rhythm Heart sounds: Murmur heart sound present systolic harsh and II/ GI: Inspection: normal to inspection Skin: General skin exam: lesion ( ecchymosis over arms, patient's states due to Eliquis) Lesions: lesion noted ( ecchymosis over arms, patient's states due to Eliquis) Neuro: General: No patient oriented x3 and confusion Cognition (Neuro): abnormal cognition Speech: Abnormal speech present ( Was not making se
[2022-09-01] MEDS: SACUBITRIL/VALSARTAN 24-26 MG TABLET 1 TAB PO (14:08)
[2022-09-01 15:53] LABS: Osmolality, Urine 501 mOsm/kg (50-1200)
[2022-09-01 17:40] LABS: Alveolar/Arterial O2 Gradient 242.9 mmHg; Base Excess ABG 3.7 mEq/l (+/-2.0); Fractional Inspired Oxygen 60 %; HCO3 ABG 30.6 mEq/l (22.0-26.0); Oxygen Content ABG 13.5 %vol (16.0-22.0); Oxyhemoglobin 96.3 % THb (90.0-100.0); PCO2 ABG 59.6 mmHg (35.0-45.0); PO2 ABG 119.3 mmHg (80.0-100.0); PO2 FiO2 Ratio Arterial Blood 1.99 %; Total Hemoglobin 9.8 g/dL (12.0-18.0); pH ABG 7.329 (7.350-7.450)
[2022-09-01 17:42] LABS: Device HIGH FLOW NASAL CANN; Modified Allen's Test Pass; Site Drawn RIGHT RADIAL
--- NOTE | 2022-09-01 20:04 | ECG_ITS ---
Measurements Intervals [place] Rate: 90 P: RI: 0 QRS: 44 QRSD: 88 T: 96 QT: 371 QTc: 455 Interpretive Statements ATRIAL FLUTTER/TACHYCARDIA NONSPECIFIC T-WAVE ABNORMALITY ABNORMAL RHYTHM ECG COMPARED TO ECG 08/26/2022 01:03:49 ATRIAL FLUTTER NOW PRESENT Electronically Signed On 09-02-2022 11:26:58 INVENTORY CONTROL SUPERVISOR by Rohini Reyes M.D.
--- NOTE | 2022-09-01 21:17 | PCRCNOTE ---
BIPAP ordered- due to pt status (weak/confused/unable to take off and hypotensive) BIPAP placed in SB in room.
[2022-09-01] MEDS: SODIUM CHLORIDE 0.9% IV 250 ML 100 ML IV CONT (22:54)
[2022-09-01 23:02] LABS: Alveolar/Arterial O2 Gradient 199.4 mmHg; Base Excess ABG 2.8 mEq/l (+/-2.0); Carboxyhemoglobin 0.3 % THb (0-2.0); Fractional Inspired Oxygen 60 %; HCO3 ABG 31.5 mEq/l (22.0-26.0); Methemoglobin ABG 0.4 %THb (0-1.5); Oxygen Saturation ABG 98.3 % (95.0-100.0); Oxyhemoglobin 97.3 % THb (90.0-100.0); PO2 FiO2 Ratio Arterial Blood 2.42 %; Total Hemoglobin 9.3 g/dL (12.0-18.0)
[2022-09-01 23:03] LABS: PCO2 ABG 75.8 mmHg (35.0-45.0); pH ABG 7.236 (7.350-7.450)
[2022-09-01 23:04] LABS: Device NON-INVASIVE VENT; Modified Allen's Test Unable to perform; Non-Invasive Expiratory Pressure 6 CMH2O; Non-Invasive Inspiratory Pressure 18 CMH2O; Non-Invasive Vent Rate 20 /MIN; Site Drawn RIGHT RADIAL
[2022-09-01] MEDS: ETOMIDATE 20 MG/10 ML AMPUL IV PUSH (23:26)
[2022-09-01] MEDS: ROCURONIUM BROMIDE 50 MG/5 ML VIAL 20 MG IV PUSH (23:27)
--- NOTE | 2022-09-01 23:29 | PC.NURSE ---
Patient transferred to ICU. Family notified, belongings sent with patient.
[2022-09-01] MEDS: FENTANYL 2,500MCG/NS250ML(*CRX 2,500 MCG/250 ML BAG IV CONT (23:51)
[2022-09-02] VITALS (44 sets, daily range): BP systolic 74–143; BP diastolic 36–124; PULSE 72–102; RESP 14–22; TEMP 36.6–37.2; O2SAT 95–100; BMI 32.4
[2022-09-02] MEDS: NOREPINEPHRINE 8 MG/D5W 250 ML 8 MG/250 ML BAG 9.38 MG IV CONT
--- NOTE | 2022-09-02 00:10 | PM.CCN ---
Critical Care Event Note Summary Code activated: No Narrative: 09/01/22 0517 the patient continue to deteriorate in IMU. Her heart rate was anywhere from 60 down to 20. The patient was unresponsive. The patient was noted to have purple bruising on her chest. The patient has petechiae to her bilateral growing area. The patient was not responding to verbal stimuli. I placed her on a BiPAP and she was not able to have a tidal volume above 300. She was on 04/01. The patient was having stridor. The patient has a pH is 7.236 pCO2 of 75.8. Patient has pulmonary edema and was unable to receive any Lasix or Entresto due to her low blood pressure patient had a map of 55 her less. The centrifugal station operator was notified and the patient was moved to ICU where she was intubated a central line was placed. Please see documentation for central line and intubation. This case had a high probability of a clinically significant, sudden, or life threatening deterioration of this patient's condition which required my full and direct attention, intervention and personal management. Critical care time: 30 - 74 mins
--- NOTE | 2022-09-02 00:12 | WPDPROCEDUR ---
Procedures Intubation Intubation Date: 09/01/22 Intubation Time: 23:30 Sedative: etomidate Mg given: 20 Paralytic: rocuronium Mg given: 20 Laryngoscope: fiber optic video scope Assist device used: fiber optic device ET tube size: 7.5 Tube secured depth (cm): 22 Tube secured location: lips Tube placement confirmation: visualized tube passing through cords, equal breath sounds bilaterally, no breath sounds over epigastrium and confirmation by capnometry Patient tolerated procedure: well and no complications Intubation complications: none Additional comments: See x-ray for confirmation 3 cm above the keyla
--- NOTE | 2022-09-02 00:14 | WPDPROCEDUR ---
Procedures Central Line Placement Right Femoral: Central Line Date: 09/01/22 Central Line Time: 23:45 Discussed w/ the patient/family/POA,the placement of a central venous catheter, including its clinical necessity/indication & associated potential risks, benifits and alternatives.: Yes Consent: I have discussed with the patient and/or surrogate, the non-emergent placement of a central venous catheter, including its clinical necessity/indication and associated potential risks and complications. The patient and/or surrogate understand(s) and acknowledge(s) the need to proceed with central venous catheter insertion as an important element of the patient's clinical management. Time Out Performed: Yes Patient Position: supine Patient placed on monitor/pulse ox: Yes Provider Prep: Max. sterile barrier precautions Central line prep: 2% Chlorhexidine scrub Local anesthesia used: lidocaine 1% Amount of anesthesia used (ml): 10 Sterile US Technique with sterile gel/sterile probe covers: Yes Central line lumen inserted: triple [place]: 7 Length (cm): 16 Depth of Insertion (cm): 16 Post Procedure: sutured in place, good blood return, all ports aspirated, flushed, capped and transparent dressing Additional comments: No postprocedure x-ray performed as this is a femoral line
[2022-09-02 02:00] LABS: Alveolar/Arterial O2 Gradient 160.3 mmHg; Base Excess ABG 5.9 mEq/l (+/-2.0); Carboxyhemoglobin 0.3 % THb (0-2.0); Fractional Inspired Oxygen 50 %; HCO3 ABG 28.3 mEq/l (22.0-26.0); Methemoglobin ABG 0.4 %THb (0-1.5); Oxygen Content ABG 14.3 %vol (16.0-22.0); Oxygen Saturation ABG 99.3 % (95.0-100.0); PCO2 ABG 32.7 mmHg (35.0-45.0); PO2 ABG 159.4 mmHg (80.0-100.0); PO2 FiO2 Ratio Arterial Blood 3.19 %; Reduced Hemoglobin 1.3 %THb (0-5.0); Total Hemoglobin 10.1 g/dL (12.0-18.0)
[2022-09-02 02:02] LABS: Device VENTILATOR; Modified Allen's Test Unable to perform; Site Drawn RIGHT RADIAL; pH ABG 7.555 (7.350-7.450)
[2022-09-02 02:03] LABS: Arterial Blood Gas Vent Mode CMV; Arterial Blood Gas Ventilator rate 20 /MIN
[2022-09-02 02:04] LABS: Arterial Blood Gas PEEP 20 cmH2O; Arterial Blood Gas Tidal Volume 400 ml
[2022-09-02] MEDS: PIPERACILLIN/TAZOBACTAM SOD 4.5 GM in SODIUM CHLORIDE 0.9% IV 100 ML 200 ML IVPB ×4 (03:08→20:31)
[2022-09-02 05:14] LABS: Hemoglobin 8.3 g/dL (12.0-15.0); Mean Corpuscular HGB Conc 29.6 g/dl (32-36); Mean Corpuscular Hemoglobin 25.9 pg (26-34); Mean Corpuscular Volume 87.2 fl (80-100); Mean Platelet Volume 8.8 fl (7.4-10.4); Platelet Count Result 270 k/mm3 (150-375); Red Blood Count 3.21 M/mm3 (4.2-5.4); Red Cell Distribution Width 18.5 % (11.5-14.5); White Blood Count 9.8 K/mm3 (4.5-10.0)
[2022-09-02 05:25] LABS: Albumin Level 3.1 g/dL (3.5-5.1); Anion Gap 7 mmol/L (8-16); Blood Urea Nitrogen 47 mg/dL (7-17); Calcium 8.4 mg/dL (8.4-10.2); Carbon Dioxide 31 mmol/L (22-30); Chloride 103 mmol/L (98-107); Estimated CRCL calculation 38 ml/min; Estimated Glomerular Filt Rate 44; Glucose 106 mg/dL (65-110); Phosphorus 1.6 mg/dL (2.5-4.5); Potassium 3.3 mmol/L (3.4-5.0); Sodium 141 mmol/L (137-145)
[2022-09-02] MEDS: CENTRAL LINE FLUSH 10 ML IV PUSH ×4 (05:30→20:34)
[2022-09-02 05:39] LABS: Alveolar/Arterial O2 Gradient 81.9 mmHg; Base Excess ABG 6.2 mEq/l (+/-2.0); Carboxyhemoglobin 1.1 % THb (0-2.0); Fractional Inspired Oxygen 30 %; HCO3 ABG 29.6 mEq/l (22.0-26.0); Methemoglobin ABG 0.4 %THb (0-1.5); Oxygen Content ABG 12.9 %vol (16.0-22.0); Oxygen Saturation ABG 97.4 % (95.0-100.0); Oxyhemoglobin 95.4 % THb (90.0-100.0); PCO2 ABG 37.8 mmHg (35.0-45.0); PO2 ABG 87.6 mmHg (80.0-100.0); PO2 FiO2 Ratio Arterial Blood 2.92 %; Reduced Hemoglobin 3.1 %THb (0-5.0); Total Hemoglobin 9.5 g/dL (12.0-18.0)
[2022-09-02 05:40] LABS: Arterial Blood Gas PEEP 5 cmH2O; Arterial Blood Gas Tidal Volume 350 ml; Arterial Blood Gas Vent Mode CMV; Arterial Blood Gas Ventilator rate 16 /MIN; Device VENTILATOR; Modified Allen's Test Unable to perform; Site Drawn RIGHT RADIAL; pH ABG 7.512 (7.350-7.450)
[2022-09-02] MEDS: APIXABAN 5 MG TABLET PO (08:17)
--- NOTE | 2022-09-02 09:30 | P.PNNP_ITS ---
Progress Note: A&P Assessment and Plan (1) Acute kidney injury: Code(s): N17.9 - Acute kidney failure, unspecified Status: Acute Assessment and Plan: * likely due to hypotension in the context of diuretic therapy and CHF * check renal ultrasound and CPK as well as urine electrolytes * follow trend of hemodynamics * follow repeat labs and UOP (2) Acute respiratory failure: Code(s): J96.00 - Acute respiratory failure, unspecified whether with hypoxia or hy percapnia Status: Acute Assessment and Plan: * suspect due to combo of pulmonary edema, CHF, and pneumonia * on empiric antibiotics * follow culture data * repeat imaging ordered (3) Shock: Code(s): R57.9 - Shock, unspecified Status: Acute Assessment and Plan: * etiology? * new infection? * possibly related to CHF and aortic stenosis * on vasopressor support * follow repeat imaging and culture data (4) Hyponatremia: Code(s): E87.1 - Hypo-osmolality and hyponatremia Status: Acute Assessment and Plan: * improved * apparently a new finding/issue * related to diuretics +/- heart failure versus volume depletion.. * evaluation to date: * TSH and cortisol okay * urine electrolytes prerenal * no suspicious medications. * SPEP, UPEP, and serum/urine osmo all still pending * no pulmonary issues/overt lung disease. * central nervous system imaging is unremarkable * suspect etiology is most likely related to pre renal azotemia due to dehydration +/- heart failure, pneumonia, and diuretics * urine electrolytes seem to support this... 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 to contribute to the low sodium is unclear * off IVFs and salt tabs at this time * fluid restricted by her NPO status * given her depressed EF, suspect eventually she will need to restart diuretic therapy (if her hemodynamics can tolerate) (5) Community acquired pneumonia: Code(s): J18.9 - Pneumonia, unspecified organism Status: Acute Assessment and Plan: * as suggested by CXR on admission * was on antibiotics on admission; blood cultures were negative * repeat imaging and culture ordered * restarted on antibioics (6) Altered mental status: Code(s): R41.82 - Altered mental status, unspecified Status: Acute Assessment and Plan: * etiology not clear * initially thought to be secondary to #1 (but no improvement with improving sodium level) * follow mentation * head CT noted * Neurology following (7) Acute on chronic combined systolic and diastolic CHF (congestive heart failure): Code(s): I50.43 - Acute on chronic combined systolic (congestive) and diastolic (congestive) heart failure Status: Acute Assessment and Plan: * repeat Echo results noted -- decrease in EF noted * Cardiology following * will likely need to restart diuretics eventually (8) Paroxysmal atrial fibrillation: Code(s): I48.0 - Paroxysmal atrial fibrillation Status: Acute Assessment and Plan: * rate control strategy but metoprolol on hold currently * on anticoagulation Will continue to follow. Subjective Date/time seen: 09/02/22 09:30 Events noted overnight -
--- NOTE | 2022-09-02 09:30 | PM.PNNEP ---
Progress Note: A&P Assessment and Plan (1) Acute kidney injury: Code(s): N17.9 - Acute kidney failure, unspecified Status: Acute Assessment and Plan: likely due to hypotension in the context of diuretic therapy and CHF check renal ultrasound and CPK as well as urine electrolytes follow trend of hemodynamics follow repeat labs and UOP (2) Acute respiratory failure: Code(s): J96.00 - Acute respiratory failure, unspecified whether with hypoxia or hypercapnia Status: Acute Assessment and Plan: suspect due to combo of pulmonary edema, CHF, and pneumonia on empiric antibiotics follow culture data repeat imaging ordered (3) Shock: Code(s): R57.9 - Shock, unspecified Status: Acute Assessment and Plan: etiology? new infection? possibly related to CHF and aortic stenosis on vasopressor support follow repeat imaging and culture data (4) Hyponatremia: Code(s): E87.1 - Hypo-osmolality and hyponatremia Status: Acute Assessment and Plan: improved apparently a new finding/issue related to diuretics +/- heart failure versus volume depletion.. evaluation to date: TSH and cortisol okay urine electrolytes prerenal no suspicious medications. SPEP, UPEP, and serum/urine osmo all still pending no pulmonary issues/overt lung disease. central nervous system imaging is unremarkable suspect etiology is most likely related to pre renal azotemia due to dehydration +/- heart failure, pneumonia, and diuretics urine electrolytes seem to support this... 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 are enough to contribute to the low sodium is unclear off IVFs and salt tabs at this time fluid restricted by her NPO status given her depressed EF, suspect eventually she will need to restart diuretic therapy (if her hemodynamics can tolerate) (5) Community acquired pneumonia: Code(s): J18.9 - Pneumonia, unspecified organism Status: Acute Assessment and Plan: as suggested by CXR on admission was on antibiotics on admission; blood cultures were negative repeat imaging and culture ordered restarted on antibioics (6) Altered mental status: Code(s): R41.82 - Altered mental status, unspecified Status: Acute Assessment and Plan: etiology not clear initially thought to be secondary to #1 (but no improvement with improving sodium level) follow mentation head CT noted Neurology following (7) Acute on chronic combined systolic and diastolic CHF (congestive heart failure): Code(s): I50.43 - Acute on chronic combined systolic (congestive) and diastolic (congestive) heart failure Status: Acute Assessment and Plan: repeat Echo results noted -- decrease in EF noted Cardiology following will likely need to restart diuretics eventually (8) Paroxysmal atrial fibrillation: Code(s): I48.0 - Paroxysmal atrial fibrillation Status: Acute Assessment and Plan: rate control strategy but metoprolol on hold currently on anticoagulation Will continue to follow. Subjective Date/time seen: 09/02/22 09:30 Events noted overnight -- worsening clinical status with regard to altered mental status, relatively hypotension, and respiratory status; moved to ICU with subsequent intubation and central line placement; requiring vasopressor therapy at this time to maintain MAP/blood pressure; at bedside and we discussed the situation. Exam Narrative: General: WD/WN female intubated and on mechanical ventilation Heart: normal S1 and S2; no rub Lungs: coarse breath sounds Abdomen: soft, nontender, nondistended, positive bowel jesus
[2022-09-02 10:38] LABS: Appearance Urine Clear (Clear); Bilirubin Urine Negative (Negative); Blood Urine 1+ (Negative); Color Urine Yellow (Yellow); Glucose Urine UA Negative (Negative); Ketones Urine Trace mg/dL (Negative); Leukocyte Esterase Ur Negative LEU/UL (Negative); Nitrate Urine Negative (Negative); Protein Urine 1+ mg/dL (Negative); Urobilinogen Urine 0.2 mg/dL (<2.0); pH Urine 5.5 (5.0-9.0)
[2022-09-02 10:41] LABS: Calcium Oxalate Crystals Urine Present /hpf; WBC Urine 0-3 /hpf
[2022-09-02 10:42] LABS: Add Urine Microscopic? YES
[2022-09-02 11:17] LABS: Creatine Kinase 57 U/L (30-135)
[2022-09-02 11:27] LABS: NT Pro B Type Natriuretic Pept 14500 pg/mL (19.9-100)
[2022-09-02 11:43] LABS: Procalcitonin 0.1 ng/mL
--- NOTE | 2022-09-02 11:47 | WPDCNINT ---
Assessment and Plan Assessment and plan (1) Acute respiratory failure: Code(s): J96.00 - Acute respiratory failure, unspecified whether with hypoxia or hypercapnia Status: Acute Assessment and Plan: Acute on chronic hypoxic and hypercarbic Respiratory failure secondary to pulmonary edema with possible pneumonia ABG reviewed and I have decreased tidal volume further down to 300. Is at 16 and FiO2 40% and 5 of PEEP I will repeat ABG Chest x-ray reviewed I ordered CT scan of chest to further evaluate hiatal hernia and lung parenchyma Not a candidate for diuresis at this time due to shock ABG and PCXR reviewed and will repeat in am. She is on empiric antibiotics vanc and Zosyn Sputum culture has been sent (2) Acute on chronic combined systolic and diastolic CHF (congestive heart failure): Code(s): I50.43 - Acute on chronic combined systolic (congestive) and diastolic (congestive) heart failure Status: Acute Assessment and Plan: Echocardiogram done on 08/26 Summary ? 1. Left ventricular chamber dimension is moderately enlarged. ? 3. Left ventricular systolic function is moderately globally reduced, estimated at 35-40%. ? 6. Left atrial chamber dimension is moderately enlarged. ? 7. Right atrial chamber dimension is mildly enlarged. ? 10. There is moderate to severe aortic valve stenosis based on a peak velocity of 279.27 cm/s, mean gradient of 19 mmHg, and aortic valve area of 0.91 cm2. ? 11. There is moderate aortic valve regurgitation. ? 12. The mitral valve has mildly thickened leaflets and moderately calcified annulus. ? 13. There is moderate mitral valve regurgitation. ? 14. There is mild tricuspid valve regurgitation. ? 15. Moderate pulmonary hypertension, estimated pulmonary arterial systolic pressure is 51 mmHg. ? 16. Small atheroma in anterior and posterior aortic root. ? 17. Dilated inferior vena cava with <50% collapse upon inspiration consistent with significantly elevated right atrial pressure, 15 mmHg. Patient has congestive heart failure, pulmonary hypertension him overload and moderate to severe Diuresis has been ineffective till now and now patient is on vasopressors with slightly worse creatinine Will discuss with Cardiology regarding option TAVR (3) Aortic stenosis: Code(s): I35.0 - Nonrheumatic aortic (valve) stenosis Status: Acute Assessment and Plan: See above (4) Hyponatremia: Code(s): E87.1 - Hypo-osmolality and hyponatremia Status: Acute Assessment and Plan: Likely secondary to congestive heart failure Has improved through this hospital stay She is now off of saline tablet (5) Sliding hiatal hernia: Code(s): K44.9 - Diaphragmatic hernia without obstruction or gangrene Status: Acute Assessment and Plan: CT scan ordered (6) Paroxysmal atrial fibrillation: Code(s): I48.0 - Paroxysmal atrial fibrillation Status: Acute Assessment and Plan: Currently rate controlled Off metoprolol due to hypotension On Eliquis for anticoagulation (7) Anasarca: Code(s): R60.1 - Generalized edema Status: Acute Assessment and Plan: See above (8) Shock: Code(s): R57.9 - Shock, unspecified Status: Acute Assessment and Plan: It appears the patient has cardiogenic shock secondary to congestive heart failure and moderate to severe which has been likely exacerbated by sedation and positive pressure ventilation She was already on antibiotics during this hospitalization. Her WBCs normal I have ordered CT scan to further evaluate for any new source of infection. I will check procalcitonin level and lactic acid level She is currently afebrile Continue Levophed. Will discuss with Cardiolog (9) Acute kidney injury: Code(s): N17.9 - Acute kidney failure, unspecified Status: Acute Assessment and Plan: Creatinine increased 1.2 likely cardiogenic secondary to poor flow
[2022-09-02 12:08] LABS: Creatinine, Random Urine 73 mg/dL (20-275); Total Protein/Creatinine Ratio 1479 mg/g creat (24-184)
--- NOTE | 2022-09-02 13:17 | PCNFU ---
Nutrition Follow-Up Complete: Severe protein calorie malnutrition related to loss of appetite as evidenced by weight loss -9%/3 months and poor intake <75% meals >1 month. Goal: Improve PO intake to at least 50% meals and supplement Patient has limited progress towards goal. Pt current nutrition is Vital AF 1.2 at 50 ml/hr. Last recorded weight is 83 kg. Bowel Motility:+BM reported 08/31 Labs Reviewed:Cr 1.2,BUN 47, GFR 44, Alb 3.1 Meds Noted:Eliquis,Fentanyl, Levophed Skin:WNL Additional Notes: Patient current with mechanical vent and tube feedings of Vital AF 1.2. Goal rate at 50 ml/hr, providing 1320 kcals/82 gms protein/892 ml water. Flush 30 ml q 4 hours. Agree with diet orders. Monitor: weights, labs, plan of care, tube feeding tolerance daily in ICU rounds and reassessing every Thursday and Thursday.
[2022-09-02 13:25] LABS: Base Excess ABG 7.4 mEq/l (+/-2.0); Fractional Inspired Oxygen 30 %; HCO3 ABG 32.2 mEq/l (22.0-26.0); Oxygen Content ABG 12.8 %vol (16.0-22.0); Oxygen Saturation ABG 95.9 % (95.0-100.0); Oxyhemoglobin 94.1 % THb (90.0-100.0); PO2 ABG 77.7 mmHg (80.0-100.0); PO2 FiO2 Ratio Arterial Blood 2.59 %; Total Hemoglobin 9.6 g/dL (12.0-18.0); pH ABG 7.454 (7.350-7.450)
[2022-09-02 13:26] LABS: Device VENTILATOR; Modified Allen's Test Pass; Site Drawn RIGHT RADIAL
[2022-09-02 13:27] LABS: Arterial Blood Gas PEEP 5 cmH2O; Arterial Blood Gas Tidal Volume 300 ml; Arterial Blood Gas Vent Mode CMV; Arterial Blood Gas Ventilator rate 16 /MIN
[2022-09-02] MEDS: FENTANYL 2,500MCG/NS250ML(*CRX 2,500 MCG/250 ML BAG 15 MCG IV CONT (14:59)
[2022-09-02 17:52] LABS: Creatinine Urine 58.2 mg/dL
--- NOTE | 2022-09-02 17:58 | PM.PNCARD ---
Progress Note: A&P Assessment and Plan (1) Paroxysmal atrial fibrillation: Code(s): I48.0 - Paroxysmal atrial fibrillation Status: Acute Assessment and Plan: Paroxysmal AFib and atrial flutter, present during this admission, recently with rapid ventricular response, Perhaps aggravated by her acute heart failure -- anticoagulated with Eliquis -- Converted to sinus rhythm 08/31/2022, now back in atrial flutter with controlled rate -- metoprolol 25 mg b.i.d. on hold due to hypotension , though the heart rate is controlled today. -- urine is a little pink today; may need to hold the Eliquis if she has ongoing hematuria. (2) Acute on chronic combined systolic and diastolic CHF (congestive heart failure): Code(s): I50.43 - Acute on chronic combined systolic (congestive) and diastolic (congestive) heart failure Status: Acute Assessment and Plan: Acute on chronic systolic and diastolic heart failure. Patient has developed a new cardiomyopathy with her ejection fraction declining from 51% to 35-40%. -- Diuresis on hold due to hypotension/ shock. -- daily BMP --May need to add dobutamine to help with diuresis -- Resume CHF meds at a later date when blood pressure stable. (3) Shock: Code(s): R57.9 - Shock, unspecified Status: Acute Assessment and Plan: On Levophed, treatment per automotive parts manager. (4) Aortic stenosis, moderate: Code(s): I35.0 - Nonrheumatic aortic (valve) stenosis Status: Inactive Assessment and Plan: Has known moderate aortic stenosis, now moderate to severe for this admission. -- Mean gradient only 19 mmHg , suggesting aortic stenosis more moderate Then severe. However her calculated valve area was 0.9 cm2 suggesting severe . On exam she has a well-preserved S2 so I doubt this is severe . -- possible ÓSCAR , perhaps on , to assess aortic valve area better. (5) Low serum sodium: Code(s): R79.89 - Other specified abnormal findings of blood chemistry Status: Acute Assessment and Plan: Severe hyponatremia with mental status changes -- Improved Na+ and mental status, though still not at baseline Subjective Date/time seen: 09/02/22 17:58 Interval history: Follow-up for atrial fib and atrial flutter, RVR, acute on chronic systolic and diastolic heart failure, cardiomyopathy EF 35-40%, and moderate to severe aortic stenosis. Admitted with altered mental status due to severe hyponatremia. 09/01/2022: She is back in atrial flutter today, rate controlled. She is alert but not oriented and repeats the same words and phrases over and over. is at the bedside. 09/02/2022: The patient developed hypotension, hypercarbia and bradycardia and was transferred to the ICU. She is intubated, sedated and started on pressors, now Levophed at 6 mics. Entresto discontinued. She remains on the vent with an FiO2 of 30%. ProBNP 46139. telemetry shows atrial fibrillation rate 70-100 ppm . Review of Systems Review of Systems: Patient review of systems was obtained through the chart, the patient's nurse, and a little through the patient who cannot to questions. Some back discomfort, feels cold, no abdominal discomfort. The patient was following commands very well earlier today. ROS unobtainable: Yes unobtainable due to endotracheal tube, unobtainable due to medical condition and unobtainable due to mental status Exam Const: General: cooperative, comfortable and confusion Orientation/consciousness: No oriented to person, No patient oriented x3 and confusion HENMT: Mouth: Yes moist mucous membranes Other: ET tube present Neck: Neck: supple Resp: Effort & Inspection: normal respiratory effort Auscultation: clear to auscultation bilaterally Cardio: Rate: regular rate Rhythm: regular rhythm and abnormal rhythm irregularly irregular Heart sounds: Murmur heart sound present ( 2/6 harsh systoli
[2022-09-02 18:02] LABS: Sodium Urine Random 21 meq/L
[2022-09-02] MEDS: NOREPINEPHRINE 8 MG/D5W 250 ML 8 MG/250 ML BAG 13.13 MG IV CONT (19:24)
[2022-09-03] VITALS (35 sets, daily range): BP systolic 80–116; BP diastolic 50–86; PULSE 72–160; RESP 14–18; TEMP 36.5–37.8; O2SAT 96–100
[2022-09-03] MEDS: MINERAL OIL/WHITE PETROLATUM OINTMENT 1 APPLIC EACH EYE ×3 (00:30→20:46)
[2022-09-03] MEDS: PIPERACILLIN/TAZOBACTAM SOD 4.5 GM in SODIUM CHLORIDE 0.9% IV 100 ML 200 ML IVPB ×4 (03:44→20:53)
[2022-09-03] MEDS: LORazepam INJ (*CRX) 2 MG/ML VIAL IV PUSH ×2 (03:46→10:53)
[2022-09-03 04:53] LABS: Hematocrit 28.4 % (37.0-47.0); Hemoglobin 8.4 g/dL (12.0-15.0); Mean Corpuscular HGB Conc 29.6 g/dl (32-36); Mean Corpuscular Volume 87.9 fl (80-100); Mean Platelet Volume 9.1 fl (7.4-10.4); Platelet Count Result 250 k/mm3 (150-375); Red Blood Count 3.23 M/mm3 (4.2-5.4); Red Cell Distribution Width 18.8 % (11.5-14.5); White Blood Count 11.2 K/mm3 (4.5-10.0)
[2022-09-03 05:12] LABS: Albumin Level 2.8 g/dL (3.5-5.1); Anion Gap 5 mmol/L (8-16); Blood Urea Nitrogen 38 mg/dL (7-17); Calcium 7.9 mg/dL (8.4-10.2); Carbon Dioxide 33 mmol/L (22-30); Chloride 105 mmol/L (98-107); Estimated CRCL calculation 43 ml/min; Estimated Glomerular Filt Rate 49; Glucose 138 mg/dL (65-110); Phosphorus 2.9 mg/dL (2.5-4.5); Potassium 3.4 mmol/L (3.4-5.0); Sodium 143 mmol/L (137-145)
[2022-09-03] MEDS: CENTRAL LINE FLUSH 10 ML IV PUSH ×4 (06:09→20:53)
[2022-09-03 06:12] LABS: Alveolar/Arterial O2 Gradient 29.4 mmHg; Base Excess ABG 6.8 mEq/l (+/-2.0); Carboxyhemoglobin 1.5 % THb (0-2.0); Fractional Inspired Oxygen 30 %; Methemoglobin ABG 0.4 %THb (0-1.5); Oxygen Content ABG 13.6 %vol (16.0-22.0); Oxygen Saturation ABG 98.8 % (95.0-100.0); Oxyhemoglobin 96.8 % THb (90.0-100.0); PCO2 ABG 42.9 mmHg (35.0-45.0); PO2 ABG 134.1 mmHg (80.0-100.0); PO2 FiO2 Ratio Arterial Blood 4.47 %; Reduced Hemoglobin 1.3 %THb (0-5.0); Total Hemoglobin 9.8 g/dL (12.0-18.0); pH ABG 7.477 (7.350-7.450)
[2022-09-03 06:13] LABS: Device VENTILATOR; Modified Allen's Test Pass; Site Drawn RIGHT RADIAL
[2022-09-03 06:14] LABS: Arterial Blood Gas PEEP 5 cmH2O; Arterial Blood Gas Tidal Volume 300 ml; Arterial Blood Gas Vent Mode CMV; Arterial Blood Gas Ventilator rate 14 /MIN
[2022-09-03] MEDS: DOBUTamine 250 MG/D5W 250 ML 250 MG/250 ML BAG 12.45 MG IV CONT (08:55)
[2022-09-03] MEDS: CALCIUM GLUC 2,000 MG/NS 100ML 2,000 MG/100 ML BAG 100 MG IVPB (08:56)
[2022-09-03] MEDS: APIXABAN 5 MG TABLET PO ×2 (08:57→20:46)
[2022-09-03] MEDS: POTASSIUM CHLORIDE 20 MEQ PACKET (FOR LIQUID) 40 MEQ FEED TUBE (08:57)
--- NOTE | 2022-09-03 09:01 | WPDINTPN ---
Progress Note: A&P Assessment and Plan (1) Acute respiratory failure: Code(s): J96.00 - Acute respiratory failure, unspecified whether with hypoxia or hypercapnia Status: Acute Assessment and Plan: Acute on chronic hypoxic and hypercarbic Respiratory failure secondary to pulmonary edema with possible pneumonia Chest CT showed 1. Diffuse lung disease, consistent with pulmonary edema versus pneumonia. 2. Moderate-sized right and small left pleural effusions. ABG reviewed and I have decreased rate to 12. Continue FiO2 of 30% 5 of PEEP Chest x-ray reviewed Not a candidate for diuresis at this time due to shock but will need diuresis as patient is volume overloaded She is on empiric antibiotics vanc and Zosyn but it does not appear to be and pneumonia since she was afebrile, normal WBC, normal procalcitonin level. I will discontinue vancomycin and continue Zosyn for now CT results of cultures back Sputum culture has been sent (2) Acute on chronic combined systolic and diastolic CHF (congestive heart failure): Code(s): I50.43 - Acute on chronic combined systolic (congestive) and diastolic (congestive) heart failure Status: Acute Assessment and Plan: Echocardiogram done on 08/26 Summary ? 1. Left ventricular chamber dimension is moderately enlarged. ? 3. Left ventricular systolic function is moderately globally reduced, estimated at 35-40%. ? 6. Left atrial chamber dimension is moderately enlarged. ? 7. Right atrial chamber dimension is mildly enlarged. ? 10. There is moderate to severe aortic valve stenosis based on a peak velocity of 279.27 cm/s, mean gradient of 19 mmHg, and aortic valve area of 0.91 cm2. ? 11. There is moderate aortic valve regurgitation. ? 12. The mitral valve has mildly thickened leaflets and moderately calcified annulus. ? 13. There is moderate mitral valve regurgitation. ? 14. There is mild tricuspid valve regurgitation. ? 15. Moderate pulmonary hypertension, estimated pulmonary arterial systolic pressure is 51 mmHg. ? 16. Small atheroma in anterior and posterior aortic root. ? 17. Dilated inferior vena cava with <50% collapse upon inspiration consistent with significantly elevated right atrial pressure, 15 mmHg. Patient has congestive heart failure, pulmonary hypertension him overload and moderate to severe Diuresis has been ineffective till now and now patient is on vasopressors with slightly worse creatinine Will do a trial of dobutamine although it may not be effective since patient is in a flutter and may get worsening of tachycardia Cardiology planning for ÓSCAR 09/04 (3) Shock: Code(s): R57.9 - Shock, unspecified Status: Acute Assessment and Plan: It appears the patient has cardiogenic shock secondary to congestive heart failure and moderate to severe which has been likely exacerbated by sedation and positive pressure ventilation She was already on antibiotics during this hospitalization. Her WBCs normal and procalcitonin level is low She is currently afebrile CT chest abdomen pelvis IMPRESSION: 1. Diffuse lung disease, consistent with pulmonary edema versus pneumonia. 2. Moderate-sized right and small left pleural effusions. 3. Large sliding hiatal hernia Continue Levophed. Trial of dobutamine Her random cortisol level was high (4) Aortic stenosis: Code(s): I35.0 - Nonrheumatic aortic (valve) stenosis Status: Acute Assessment and Plan: See above (5) Paroxysmal atrial fibrillation: Code(s): I48.0 - Paroxysmal atrial fibrillation Status: Acute Assessment and Plan: Currently rate controlled Off metoprolol due to hypotension On Eliquis for anticoagulation (6) Acute kidney injury: Code(s): N17.9 - Acute kidney failure, unspecified Status: Acute Assessment and Plan: Creatinine increased 1.2 likely cardiogenic secondary to poor flow retention Normal CK urine electrolytes suggest prerenal which would b
[2022-09-03] MEDS: METOPROLOL TARTRATE INJ 5 MG/5 ML VIAL IV PUSH (10:53)
[2022-09-03] MEDS: NOREPINEPHRINE 8 MG/D5W 250 ML 8 MG/250 ML BAG 41.25 MG IV CONT (11:08)
--- NOTE | 2022-09-03 11:17 | PCFNICU ---
ICU Rounding Note: Pt current nutrition is Vital AF 1.2 at 50 ml/hr. Last recorded weight is 83 kg. Bowel Motility: +BM reported 08/31 Labs Reviewed:Cr 1.1,BUN 38 Meds Noted:Eliquis,Fentanyl, Levophed Skin: WNL Additional Notes: Patient remains on mechanical vent and tube feedings of Vital AF 1.2 at 50 ml/hr. Plans for tube feedings to be on hold after midnight for ÓSCAR/Cardioversion. Tube feedings are being tolerated per nursing. Agree with diet orders. Following daily in ICU rounds. Reassessing every Thursday and Thursday.
--- NOTE | 2022-09-03 12:47 | P.PNNP_ITS ---
Progress Note: A&P Assessment and Plan (1) Acute kidney injury: Code(s): N17.9 - Acute kidney failure, unspecified Status: Acute Assessment and Plan: * fluctuating * likely due to hypotension in the context of diuretic therapy and CHF * evaluation to date: * CPK normal * urine electrolytes prerenal (likely reflective of cardiorenal physiology along with aortic stenosis) * Normal CK * imaging without obstruction * follow trend of hemodynamics * follow repeat labs and UOP (2) Acute respiratory failure: Code(s): J96.00 - Acute respiratory failure, unspecified whether with hypoxia or hypercapnia Status: Acute Assessment and Plan: * suspect due to combo of pulmonary edema, CHF, and pneumonia * on empiric antibiotics * follow culture data * repeat imaging ordered (3) Shock: Code(s): R57.9 - Shock, unspecified Status: Acute Assessment and Plan: * etiology? * new infection? * possibly related to CHF and aortic stenosis * on vasopressor support * follow repeat imaging and culture data (4) Hyponatremia: Code(s): E87.1 - Hypo-osmolality and hyponatremia Status: Acute Assessment and Plan: * improved * apparently a new finding/issue * related to diuretics +/- heart failure versus volume depletion.. * evaluation to date: * TSH and cortisol okay * urine electrolytes prerenal * no suspicious medications. * SPEP, UPEP, and serum/urine osmo all still pending * no pulmonary issues/overt lung disease. * central nervous system imaging is unremarkable * suspect etiology is most likely related to pre renal azotemia due to dehydration +/- heart failure, pneumonia, and diuretics * urine electrolytes seem to support this... 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 to contribute to the low sodium is unclear * off IVFs and salt tabs at this time * fluid restricted by her NPO status * given her depressed EF, suspect eventually she will need to restart diuretic therapy (if her hemodynamics can tolerate) (5) Acute on chronic combined systolic and diastolic CHF (congestive heart failure): Code(s): I50.43 - Acute on chronic combined systolic (congestive) and diastolic (congestive) heart failure Status: Acute Assessment and Plan: * repeat Echo results noted -- decrease in EF noted * Cardiology following * will likely need to restart diuretics when able (6) Community acquired pneumonia: Code(s): J18.9 - Pneumonia, unspecified organism Status: Acute Assessment and Plan: * as suggested by CXR on admission * was on antibiotics on admission; blood cultures were negative * repeat imaging and culture ordered * restarted on antibioics (7) Altered mental status: Code(s): R41.82 - Altered mental status, unspecified Status: Acute Assessment and Plan: * etiology not clear * initially thought to be secondary to #1 (but no improvement with improving sodium level) * follow mentation * head CT noted * Neurology following (8) Paroxysmal atrial fibrillation: Code(s): I48.0 - Paroxysmal atrial fibrillation Status: Acute Assessment and Plan: * rate control strategy but metoprolol on hold cu
--- NOTE | 2022-09-03 12:47 | PM.PNNEP ---
Progress Note: A&P Assessment and Plan (1) Acute kidney injury: Code(s): N17.9 - Acute kidney failure, unspecified Status: Acute Assessment and Plan: fluctuating likely due to hypotension in the context of diuretic therapy and CHF evaluation to date: CPK normal urine electrolytes prerenal (likely reflective of cardiorenal physiology along with aortic stenosis) Normal CK imaging without obstruction follow trend of hemodynamics follow repeat labs and UOP (2) Acute respiratory failure: Code(s): J96.00 - Acute respiratory failure, unspecified whether with hypoxia or hypercapnia Status: Acute Assessment and Plan: suspect due to combo of pulmonary edema, CHF, and pneumonia on empiric antibiotics follow culture data repeat imaging ordered (3) Shock: Code(s): R57.9 - Shock, unspecified Status: Acute Assessment and Plan: etiology? new infection? possibly related to CHF and aortic stenosis on vasopressor support follow repeat imaging and culture data (4) Hyponatremia: Code(s): E87.1 - Hypo-osmolality and hyponatremia Status: Acute Assessment and Plan: improved apparently a new finding/issue related to diuretics +/- heart failure versus volume depletion.. evaluation to date: TSH and cortisol okay urine electrolytes prerenal no suspicious medications. SPEP, UPEP, and serum/urine osmo all still pending no pulmonary issues/overt lung disease. central nervous system imaging is unremarkable suspect etiology is most likely related to pre renal azotemia due to dehydration +/- heart failure, pneumonia, and diuretics urine electrolytes seem to support this... 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 to contribute to the low sodium is unclear off IVFs and salt tabs at this time fluid restricted by her NPO status given her depressed EF, suspect eventually she will need to restart diuretic therapy (if her hemodynamics can tolerate) (5) Acute on chronic combined systolic and diastolic CHF (congestive heart failure): Code(s): I50.43 - Acute on chronic combined systolic (congestive) and diastolic (congestive) heart failure Status: Acute Assessment and Plan: repeat Echo results noted -- decrease in EF noted Cardiology following will likely need to restart diuretics when able (6) Community acquired pneumonia: Code(s): J18.9 - Pneumonia, unspecified organism Status: Acute Assessment and Plan: as suggested by CXR on admission was on antibiotics on admission; blood cultures were negative repeat imaging and culture ordered restarted on antibioics (7) Altered mental status: Code(s): R41.82 - Altered mental status, unspecified Status: Acute Assessment and Plan: etiology not clear initially thought to be secondary to #1 (but no improvement with improving sodium level) follow mentation head CT noted Neurology following (8) Paroxysmal atrial fibrillation: Code(s): I48.0 - Paroxysmal atrial fibrillation Status: Acute Assessment and Plan: rate control strategy but metoprolol on hold currently on anticoagulation Cardiology following Will continue to follow. Subjective Date/time seen: 09/03/22 12:47 Remains intubated and on mechanical ventilation; drop in urine output noted with mildly elevated creatinine; still requiring vasopressor support at this time; remains in afib/aflutter with controlled rate as well; no other acute issues/events overnight or earlier this AM. Exam Narrative: General: WD/WN female intubated and on mechanical ventilation Heart: normal S1 and
--- NOTE | 2022-09-03 14:10 | PM.PNCARD ---
Progress Note: A&P Assessment and Plan (1) Paroxysmal atrial fibrillation: Code(s): I48.0 - Paroxysmal atrial fibrillation Status: Acute Assessment and Plan: Paroxysmal AFib and atrial flutter, present during this admission, recently with persistent AFib and rapid ventricular response, Perhaps aggravated by her acute heart failure -- anticoagulated with Eliquis -- Converted to sinus rhythm 08/31/2022, now back in atrial flutter with controlled rate -- metoprolol 25 mg b.i.d. on hold due to hypotension , though the heart rate is controlled today. -- urine is a little pink again today; may need to hold the Eliquis if she has ongoing hematuria. -- discussed with Dr. Varner. Planning a ÓSCAR tomorrow to evaluate this severity of her aortic stenosis and may decide to pursue a cardioversion at the same time. Anticoagulated with Eliquis. --Will start amiodarone today. (2) Acute on chronic combined systolic and diastolic CHF (congestive heart failure): Code(s): I50.43 - Acute on chronic combined systolic (congestive) and diastolic (congestive) heart failure Status: Acute Assessment and Plan: Acute on chronic systolic and diastolic heart failure. Patient has developed a new cardiomyopathy with her ejection fraction declining from 51% to 35-40%. -- Diuresis on hold due to hypotension/ shock. -- daily BMP -- Became tachycardic with dobutamine 2.5 mcg -- Can't really use milrinone due to hypotension -- Resume CHF meds at a later date when blood pressure stable. (3) Shock: Code(s): R57.9 - Shock, unspecified Status: Acute Assessment and Plan: On Levophed, treatment per microwave supervisor. (4) Aortic stenosis, moderate: Code(s): I35.0 - Nonrheumatic aortic (valve) stenosis Status: Inactive Assessment and Plan: Has known moderate aortic stenosis, now moderate to severe for this admission. -- Mean gradient only 19 mmHg , suggesting aortic stenosis more moderate than severe. However her calculated valve area was 0.9 cm2 suggesting severe . On exam she has a well-preserved S2 so I doubt this is severe . -- possible ÓSCAR , perhaps on , to assess aortic valve area better. (5) Low serum sodium: Code(s): R79.89 - Other specified abnormal findings of blood chemistry Status: Acute Assessment and Plan: Severe hyponatremia with mental status changes -- Improved Na+ and mental status, though still not at baseline Subjective Date/time seen: 09/03/22 14:10 Interval history: Follow-up for atrial fib and atrial flutter, RVR, acute on chronic systolic and diastolic heart failure, cardiomyopathy EF 35-40%, and moderate to severe aortic stenosis. Admitted with altered mental status due to severe hyponatremia. 09/01/2022: She is back in atrial flutter today, rate controlled. She is alert but not oriented and repeats the same words and phrases over and over. is at the bedside. 09/02/2022: The patient developed hypotension, hypercarbia and bradycardia and was transferred to the ICU. She is intubated, sedated and started on pressors, now Levophed at 6 mics. Entresto discontinued. She remains on the vent with an FiO2 of 30%. ProBNP 29416. telemetry shows atrial fibrillation rate 70-100 ppm 09/03/2022: Remains intubated and sedated. Blood pressure tends to be 80-100 systolic. FiO2 of 30% on Levophed, and started on dobutamine at 2.5 mics but a fib rate went up into the 130's, so discontinued I's and O's: 1400 cc's in, [address] and chest x-ray reviewed Tele: AFib rate 80s . Review of Systems Review of Systems: ROS unobtainable: Yes unobtainable due to endotracheal tube and unobtainable due to mental status Constitutional: Comments: ROS obtained from the chart and also after discussion with Dr. Bond, microwave supervisor Exam Const: General: comfortable and confusion Orientation/consciousness: confusion
[2022-09-03] MEDS: AMIODARONE 150 MG/D5W 100 ML 150 MG/100 ML BAG 600 MG IV CONT (15:40)
[2022-09-03] MEDS: AMIODARONE 360 MG/D5W 200 ML 360 MG/200 ML BAG 33.33 MG IV CONT (15:49)
[2022-09-03 15:52] LABS: Chloride Rand Ur <20 mmol/L (32-290); Creatinine Random Urine 70 mg/dL (20-275)
[2022-09-03] MEDS: AMIODARONE 360 MG/D5W 200 ML 360 MG/200 ML BAG 16.67 MG IV CONT (21:51)
[2022-09-04] VITALS (66 sets, daily range): BP systolic 77–125; BP diastolic 39–90; PULSE 80–129; RESP 14–24; TEMP 37.3–37.9; O2SAT 96–100
[2022-09-04] MEDS: NOREPINEPHRINE 8 MG/D5W 250 ML 8 MG/250 ML BAG 33.75 MG IV CONT (01:09)
[2022-09-04] MEDS: PIPERACILLIN/TAZOBACTAM SOD 4.5 GM in SODIUM CHLORIDE 0.9% IV 100 ML 200 ML IVPB ×4 (04:12→20:09)
[2022-09-04] MEDS: CENTRAL LINE FLUSH 10 ML IV PUSH ×3 (04:13→21:00)
[2022-09-04 05:44] LABS: Hematocrit 29.1 % (37.0-47.0); Hemoglobin 8.3 g/dL (12.0-15.0); Mean Corpuscular HGB Conc 28.5 g/dl (32-36); Mean Corpuscular Hemoglobin 25.6 pg (26-34); Mean Corpuscular Volume 89.8 fl (80-100); Mean Platelet Volume 8.8 fl (7.4-10.4); Platelet Count Result 214 k/mm3 (150-375); Red Blood Count 3.24 M/mm3 (4.2-5.4); Red Cell Distribution Width 18.9 % (11.5-14.5); White Blood Count 13.2 K/mm3 (4.5-10.0)
[2022-09-04 05:49] LABS: Alveolar/Arterial O2 Gradient 57.4 mmHg; Base Excess ABG 3.5 mEq/l (+/-2.0); Carboxyhemoglobin 0.3 % THb (0-2.0); Fractional Inspired Oxygen 30 %; HCO3 ABG 30.2 mEq/l (22.0-26.0); Methemoglobin ABG 0.5 %THb (0-1.5); Modified Allen's Test Pass; Oxygen Content ABG 12.9 %vol (16.0-22.0); Oxygen Saturation ABG 96.1 % (95.0-100.0); Oxyhemoglobin 94.7 % THb (90.0-100.0); PCO2 ABG 57.5 mmHg (35.0-45.0); PO2 ABG 88.9 mmHg (80.0-100.0); PO2 FiO2 Ratio Arterial Blood 2.96 %; Reduced Hemoglobin 4.5 %THb (0-5.0); Site Drawn RIGHT RADIAL; Total Hemoglobin 9.6 g/dL (12.0-18.0); pH ABG 7.338 (7.350-7.450)
[2022-09-04 05:50] LABS: Arterial Blood Gas PEEP 5 cmH2O; Arterial Blood Gas Tidal Volume 300 ml; Arterial Blood Gas Vent Mode CMV; Arterial Blood Gas Ventilator rate 12 /MIN; Device VENTILATOR
[2022-09-04] MEDS: FENTANYL 2,500MCG/NS250ML(*CRX 2,500 MCG/250 ML BAG 15 MCG IV CONT ×2 (06:08→23:01)
[2022-09-04 06:28] LABS: Albumin Level 3.2 g/dL (3.5-5.1); Anion Gap 2 mmol/L (8-16); Blood Urea Nitrogen 38 mg/dL (7-17); Calcium 8.3 mg/dL (8.4-10.2); Carbon Dioxide 35 mmol/L (22-30); Chloride 100 mmol/L (98-107); Estimated CRCL calculation 45 ml/min; Estimated Glomerular Filt Rate 49; Glucose 137 mg/dL (65-110); Magnesium 1.9 mg/dL (1.6-2.3); Phosphorus 3.3 mg/dL (2.5-4.5); Potassium 4.2 mmol/L (3.4-5.0); Sodium 137 mmol/L (137-145)
[2022-09-04 06:33] LABS: Vancomycin Trough 11.7 ug/mL (10.0-20.0)
[2022-09-04] MEDS: NOREPINEPHRINE 8 MG/D5W 250 ML 8 MG/250 ML BAG 28.13 MG IV CONT (08:32)
[2022-09-04] MEDS: AMIODARONE 360 MG/D5W 200 ML 360 MG/200 ML BAG 16.67 MG IV CONT ×2 (08:32→20:31)
[2022-09-04] MEDS: MINERAL OIL/WHITE PETROLATUM OINTMENT 1 APPLIC EACH EYE ×2 (08:33→20:09)
--- NOTE | 2022-09-04 08:36 | WPDINTPN ---
Progress Note: A&P Assessment and Plan (1) Acute respiratory failure: Code(s): J96.00 - Acute respiratory failure, unspecified whether with hypoxia or hypercapnia Status: Acute Assessment and Plan: Acute on chronic hypoxic and hypercarbic Respiratory failure secondary to pulmonary edema with possible pneumonia Chest CT showed 1. Diffuse lung disease, consistent with pulmonary edema versus pneumonia. 2. Moderate-sized right and small left pleural effusions. ABG reviewed and I have decreased rate to 12. Continue FiO2 of 30% 5 of PEEP Chest x-ray reviewed Not a candidate for diuresis at this time due to shock but will need diuresis as patient is significantly volume overloaded She is on empiric antibiotics vanc and Zosyn but it does not appear to be and pneumonia since she was afebrile, normal WBC, normal procalcitonin level. I have discontinued vancomycin and continue Zosyn for now CT results of cultures back Sputum culture has been sent (2) Acute on chronic combined systolic and diastolic CHF (congestive heart failure): Code(s): I50.43 - Acute on chronic combined systolic (congestive) and diastolic (congestive) heart failure Status: Acute Assessment and Plan: Echocardiogram done on 08/26 Summary ? 1. Left ventricular chamber dimension is moderately enlarged. ? 3. Left ventricular systolic function is moderately globally reduced, estimated at 35-40%. ? 6. Left atrial chamber dimension is moderately enlarged. ? 7. Right atrial chamber dimension is mildly enlarged. ? 10. There is moderate to severe aortic valve stenosis based on a peak velocity of 279.27 cm/s, mean gradient of 19 mmHg, and aortic valve area of 0.91 cm2. ? 11. There is moderate aortic valve regurgitation. ? 12. The mitral valve has mildly thickened leaflets and moderately calcified annulus. ? 13. There is moderate mitral valve regurgitation. ? 14. There is mild tricuspid valve regurgitation. ? 15. Moderate pulmonary hypertension, estimated pulmonary arterial systolic pressure is 51 mmHg. ? 16. Small atheroma in anterior and posterior aortic root. ? 17. Dilated inferior vena cava with <50% collapse upon inspiration consistent with significantly elevated right atrial pressure, 15 mmHg. Patient has congestive heart failure, pulmonary hypertension him overload and moderate to severe Diuresis has been ineffective till now and now patient is on vasopressors I did a trial of dobutamine yesterday but patient did not tolerate due to worsening of tachycardia and RVR. Dobutamine had to be discontinued and patient was given Lopressor 5 mg IV x1 Cardiology planning for ÓSCAR and possible cardioversion today 09/04 (3) Shock: Code(s): R57.9 - Shock, unspecified Status: Acute Assessment and Plan: It appears the patient has cardiogenic shock secondary to congestive heart failure and moderate to severe which has been likely exacerbated by sedation and positive pressure ventilation She was already on antibiotics during this hospitalization. Her WBCs normal and procalcitonin level is low She is currently afebrile CT chest abdomen pelvis IMPRESSION: 1. Diffuse lung disease, consistent with pulmonary edema versus pneumonia. 2. Moderate-sized right and small left pleural effusions. 3. Large sliding hiatal hernia Continue Levophed. Trial of dobutamine was not successful Stress dose hydrocortisone (4) Aortic stenosis: Code(s): I35.0 - Nonrheumatic aortic (valve) stenosis Status: Acute Assessment and Plan: See above (5) Paroxysmal atrial fibrillation: Code(s): I48.0 - Paroxysmal atrial fibrillation Status: Acute Assessment and Plan: Currently rate controlled Off metoprolol due to hypotension On Eliquis for anticoagulation (6) Acute kidney injury: Code(s): N17.9 - Acute kidney failure, unspecified Status: Acute Assessment and Plan: Creatinine increased 1.2 likely cardiogenic secondary t
[2022-09-04] MEDS: APIXABAN 5 MG TABLET PO ×2 (08:39→20:09)
--- NOTE | 2022-09-04 08:58 | ECG_ITS ---
Measurements Intervals [place] Rate: 90 P: RI: 0 QRS: 159 QRSD: 98 T: 145 QT: 345 QTc: 424 Interpretive Statements ATRIAL FIBRILLATION POSSIBLE LIMB LEAD MISPOSITION COMPARED TO ECG 09/01/2022 20:09:10 ATRIAL FIBRILLATION NOW PRESENT Electronically Signed On 09-04-2022 20:11:16 [employer] by Rohini Reyes M.D.
--- NOTE | 2022-09-04 11:45 | P.PNNP_ITS ---
Progress Note: A&P Assessment and Plan (1) Acute kidney injury: Code(s): N17.9 - Acute kidney failure, unspecified Status: Acute Assessment and Plan: * fluctuating * likely due to hypotension in the context of previous diuretic therapy and CHF * evaluation to date: * CPK normal * urine electrolytes prerenal (likely reflective of cardiorenal physiology along with aortic stenosis) * imaging without obstruction * follow trend of hemodynamics * follow repeat labs and UOP (2) Hyponatremia: Code(s): E87.1 - Hypo-osmolality and hyponatremia Status: Acute Assessment and Plan: * improved * apparently a new finding/issue * related to diuretics +/- heart failure versus volume depletion.. * evaluation to date: * TSH and cortisol okay * urine electrolytes prerenal * no suspicious medications. * SPEP, UPEP, and serum/urine osmo all still pending * no pulmonary issues/overt lung disease. * central nervous system imaging is unremarkable * suspect etiology is most likely related to pre renal azotemia due to dehydration +/- heart failure, pneumonia, and diuretics * urine electrolytes seem to support this... 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 to contribute to the low sodium is unclear * off IVFs and salt tabs at this time * fluid restricted by her NPO status * given her depressed EF, suspect eventually she will need to restart diuretic therapy (if her hemodynamics can tolerate) (3) Acute respiratory failure: Code(s): J96.00 - Acute respiratory failure, unspecified whether with hypoxia or hypercapnia Status: Acute Assessment and Plan: * suspect due to combo of pulmonary edema, CHF, and pneumonia * on empiric antibiotics * follow culture data * repeat imaging ordered (4) Shock: Code(s): R57.9 - Shock, unspecified Status: Acute Assessment and Plan: * etiology? * new infection? * possibly related to CHF and aortic stenosis * on vasopressor support * follow repeat imaging and culture data (5) Acute on chronic combined systolic and diastolic CHF (congestive heart failure): Code(s): I50.43 - Acute on chronic combined systolic (congestive) and diastolic (congestive) heart failure Status: Acute Assessment and Plan: * repeat Echo results noted -- decrease in EF noted * Cardiology following * will likely need to restart diuretics when able (6) Community acquired pneumonia: Code(s): J18.9 - Pneumonia, unspecified organism Status: Acute Assessment and Plan: * as suggested by CXR on admission * was on antibiotics on admission; blood cultures were negative * repeat imaging and culture ordered * restarted on antibioics (7) Altered mental status: Code(s): R41.82 - Altered mental status, unspecified Status: Acute Assessment and Plan: * etiology not clear * initially thought to be secondary to #1 (but no improvement with improving sodium level) * follow mentation * head CT noted * Neurology following (8) Paroxysmal atrial fibrillation: Code(s): I48.0 - Paroxysmal atrial fibrillation Status: Acute Assessment and Plan: * rate control strategy but metoprolol on hold currently
--- NOTE | 2022-09-04 11:45 | PM.PNNEP ---
Progress Note: A&P Assessment and Plan (1) Acute kidney injury: Code(s): N17.9 - Acute kidney failure, unspecified Status: Acute Assessment and Plan: fluctuating likely due to hypotension in the context of previous diuretic therapy and CHF evaluation to date: CPK normal urine electrolytes prerenal (likely reflective of cardiorenal physiology along with aortic stenosis) imaging without obstruction follow trend of hemodynamics follow repeat labs and UOP (2) Hyponatremia: Code(s): E87.1 - Hypo-osmolality and hyponatremia Status: Acute Assessment and Plan: improved apparently a new finding/issue related to diuretics +/- heart failure versus volume depletion.. evaluation to date: TSH and cortisol okay urine electrolytes prerenal no suspicious medications. SPEP, UPEP, and serum/urine osmo all still pending no pulmonary issues/overt lung disease. central nervous system imaging is unremarkable suspect etiology is most likely related to pre renal azotemia due to dehydration +/- heart failure, pneumonia, and diuretics urine electrolytes seem to support this... 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 to contribute to the low sodium is unclear off IVFs and salt tabs at this time fluid restricted by her NPO status given her depressed EF, suspect eventually she will need to restart diuretic therapy (if her hemodynamics can tolerate) (3) Acute respiratory failure: Code(s): J96.00 - Acute respiratory failure, unspecified whether with hypoxia or hypercapnia Status: Acute Assessment and Plan: suspect due to combo of pulmonary edema, CHF, and pneumonia on empiric antibiotics follow culture data repeat imaging ordered (4) Shock: Code(s): R57.9 - Shock, unspecified Status: Acute Assessment and Plan: etiology? new infection? possibly related to CHF and aortic stenosis on vasopressor support follow repeat imaging and culture data (5) Acute on chronic combined systolic and diastolic CHF (congestive heart failure): Code(s): I50.43 - Acute on chronic combined systolic (congestive) and diastolic (congestive) heart failure Status: Acute Assessment and Plan: repeat Echo results noted -- decrease in EF noted Cardiology following will likely need to restart diuretics when able (6) Community acquired pneumonia: Code(s): J18.9 - Pneumonia, unspecified organism Status: Acute Assessment and Plan: as suggested by CXR on admission was on antibiotics on admission; blood cultures were negative repeat imaging and culture ordered restarted on antibioics (7) Altered mental status: Code(s): R41.82 - Altered mental status, unspecified Status: Acute Assessment and Plan: etiology not clear initially thought to be secondary to #1 (but no improvement with improving sodium level) follow mentation head CT noted Neurology following (8) Paroxysmal atrial fibrillation: Code(s): I48.0 - Paroxysmal atrial fibrillation Status: Acute Assessment and Plan: rate control strategy but metoprolol on hold currently on anticoagulation Cardiology following Will continue to follow. Subjective Date/time seen: 09/04/22 11:45 No real significant change at this time -- urine output still suboptimal at this time; remains intubated/sedated and on mechanical ventilation; still requiring vasopressor support to maintain MAP/blood pressure; no other acute issues/events overnight or earlier this AM. Exam Narrative: General: WD/WN female intubated and on mechanical ventilation Heart: normal S1 and S2; no
--- NOTE | 2022-09-04 11:48 | PCFNICU ---
ICU Rounding Note: Pt current nutrition is NPO. Last recorded weight is 91.5 kg. Bowel Motility:+BM reported 08/31 Labs Reviewed:Cr 1.1, GFR 49, Alb 3.2, Hct 29.1,Hgb 8.3 Meds Noted:Eliquis, Fentanyl, Levophed. Skin: WNL Additional Notes: Patient is currently NPO for cardioversion today. Plans to restart tube feedings of Vital AF 1.2 at 50ml/hr. Agree with diet order. Following daily in ICU rounds. Monitor intakes, weights, labs, plan of care, supplement tolerance every Thursday and Thursday.
[2022-09-04] MEDS: HYDROCORTISONE SODIUM SUCCINATE 100 MG/2 ML VIAL IV PUSH ×2 (14:18→21:00)
--- NOTE | 2022-09-04 15:35 | PC.NURSE ---
[facility] RN's and Dr. Iraheta at bedside for ÓSCAR
[2022-09-04] MEDS: MIDAZOLAM HCL (*CRX) 2 MG/2 ML VIAL IV PUSH (16:47)
--- NOTE | 2022-09-04 17:34 | PC.NURSE ---
Notified Dr. Wooten that Cardiology wasn't able to perform ÓSCAR d/t unclear images. New order to restart tube feedings at 50ml/hr with 30ml flushes q4h.
--- NOTE | 2022-09-04 17:39 | PM.PNCARD ---
Progress Note: A&P Assessment and Plan (1) Paroxysmal atrial fibrillation: Code(s): I48.0 - Paroxysmal atrial fibrillation Status: Acute Assessment and Plan: Paroxysmal AFib and atrial flutter, present during this admission, recently with persistent AFib and occ rapid ventricular response, Perhaps aggravated by her acute heart failure --anticoagulated with Eliquis, though has missed some doses --HR better on IV amiodarone --Did not proceed w/ cardioversion as appendage not well visualized. --Consider IV digoxin for HR control if needed (2) Acute on chronic combined systolic and diastolic CHF (congestive heart failure): Code(s): I50.43 - Acute on chronic combined systolic (congestive) and diastolic (congestive) heart failure Status: Acute Assessment and Plan: Acute on chronic systolic and diastolic heart failure. Patient has developed a new cardiomyopathy with her ejection fraction declining from 51% to 35-40%. -- Diuresis on hold due to hypotension/ shock--but will try a dose of 40 mg IVP X 1 -- Became tachycardic with dobutamine 2.5 mcg--will try again now that the pt is on IV amiodarone. -- Can't really use milrinone due to hypotension -- Resume CHF meds at a later date when blood pressure stable. (3) Shock: Code(s): R57.9 - Shock, unspecified Status: Acute Assessment and Plan: Unclear if this is all cardiogenic or other. --On Levophed, treatment per sourcing internship. (4) Aortic stenosis, moderate: Code(s): I35.0 - Nonrheumatic aortic (valve) stenosis Status: Inactive Assessment and Plan: Has known moderate aortic stenosis, now moderate to severe for this admission. -- Mean gradient only 19 mmHg , suggesting aortic stenosis more moderate than severe. However her calculated valve area was 0.9 cm2 suggesting severe . On exam she has a well-preserved S2 so I doubt this is severe . -- ÓSCAR had suboptimal images but suggests severe -- Pt too sick at this time to address w/ TAVR or SAVR (5) Mitral valve insufficiency: Code(s): I34.0 - Nonrheumatic mitral (valve) insufficiency Status: Acute Assessment and Plan: Looked significant -- moderately severe by ÓSCAR. --Reassess if she recovers; too sick to address w/ valve repair or clip at this time. (6) Low serum sodium: Code(s): R79.89 - Other specified abnormal findings of blood chemistry Status: Acute Assessment and Plan: Severe hyponatremia with mental status changes -- Improved Na+ and mental status, though still not at baseline Subjective Date/time seen: 09/04/22 17:39 Interval history: Follow-up for atrial fib and atrial flutter, RVR, acute on chronic systolic and diastolic heart failure, cardiomyopathy EF 35-40%, and moderate to severe aortic stenosis. Admitted with altered mental status due to severe hyponatremia. 09/01/2022: She is back in atrial flutter today, rate controlled. She is alert but not oriented and repeats the same words and phrases over and over. is at the bedside. 09/02/2022: The patient developed hypotension, hypercarbia and bradycardia and was transferred to the ICU. She is intubated, sedated and started on pressors, now Levophed at 6 mics. Entresto discontinued. She remains on the vent with an FiO2 of 30%. ProBNP 23202. telemetry shows atrial fibrillation rate 70-100 ppm 09/03/2022: Remains intubated and sedated. Blood pressure tends to be 80-100 systolic. FiO2 of 30% on Levophed, and started on dobutamine at 2.5 mics but a fib rate went up into the 130's, so discontinued I's and O's: 1400 cc's in, 850 out yesterday. 09/04/2022 ÓSCAR: Very poor imaging (perhaps due to her very large hiatal hernia obscuring views). Not able to see left atrial appendage well --no obvious thrombus. Aortic valve looks severely calcified and severely stenotic; will try to planimeter the valve for measurements, but imaging was
--- NOTE | 2022-09-04 18:00 | P.PCNTEE_ITS ---
ÓSCAR TransEsophageal Echocardiogram Date of procedure: 09/04/22 Procedure Type: Date of Procedure: 09/04/2022 Brief History Of Present Illness: Patient is a 71-year-old female referred for ÓSCAR-guided cardioversion for atrial fibrillation / atrial flutter Procedure In Detail: After verbal and written informed consent was obtained, the patient risks, benefits, and alternatives explained in detail. The patient's family agreed to proceed with the plan of care as outlined above (patient intubated, therefore consent obtained from family).?The patient was evaluated at bedside in the ICU room.?Patient was intubated via OETT. A NG tube was in place, which was removed to allow passage of ÓSCAR probe. The patient was then placed in the appropriate 30 to 45 degree angle supine position at a slight left lateral decubitus position .?Patient was monitored throughout the study with telemetry, oxygen saturation, end-tidal CO2 monitoring, blood pressure, heart rate, and respirations.? Moderate sedation was administered.? After confirmation of adequate moderate sedation, the transesophageal echocardiogram probe was advanced through the oral bite block into the posterior hypopharynx and into the esophagus easily and without complication.? Multiple, multiplanar echocardiographic images were obtained in multiple standard re- projections.? Pulsed wave, continuous-wave, and color-flow Doppler were utilized in conjunction with this study.? At the conclusion of the study, the transesophageal echocardiogram probe was removed easily and without complication.? The patient tolerated the procedure well without difficulty. Moderate Sedation/Anesthesia administration: Patient reports no prior problems with sedation/anesthesia. Please see consult note for physical examination documentation. As noted above, after adequate local anesthesia of the posterior hypopharynx was achieved, a total of?4mg intravenous Versed in multiple divided doses was administered for moderate sedation. Patient was already on Fentanyl drip. Sedation start time was 16:00 and end time was 16:45 for a total intra-service/procedure face-face time of?45 minutes.? Sedation was administered by a qualified/certified observer?Devora ESQUIVEL under my supervision with intra-procedure [id number] observation and management throughout the entirety of the procedure.? There were no other issues or complications and patient tolerated the procedure well. See post-anesthesia documentation. FINDINGS: VERY POOR QUALITY STUDY. THE PATIENT HAS A LARGE SLIDING HIATAL HERNIA THAT CONTAINS A PORTION OF COLON, AND THIS IS LIKELY REASON FOR POOR QUALITY ÓSCAR IMAGES. LEFT VENTRICLE: Not well visualized. RIGHT VENTRICLE:? Not well visualized. LEFT ATRIUM: Not well visualized. RIGHT ATRIUM: Not well visualized. INTERATRIAL SEPTUM: ? Not well visualized. MITRAL VALVE: Color doppler concerning for severe mitral regurgitation. AORTIC VALVE: Appears to be trileaflet. Severely calcified. Short axis views concerning for severe aortic stenosis. TRICUSPID VALVE: Not well visualized. PULMONIC VALVE: Not well visualized. LEFT ATRIAL APPENDAGE: Not well visualized. LEFT UPPER PULMONARY VEIN: Not well visualized. PERICARDIUM: Not well visualized. ? AORTA: Mild atherosclerotic disease. Complications: None As the left atrial appendage was not well visualized, we did not proceed with cardioversion. This dictation may have been done utilizing a voice recognition system.? Attempts have been made to correct errors. However, there may be uncorrected grammatical, spelling, and recognition errors present.
[2022-09-04] MEDS: FUROSEMIDE INJ 40 MG/4 ML VIAL IV PUSH (18:06)
[2022-09-04] MEDS: DOBUTamine 250 MG/D5W 250 ML 250 MG/250 ML BAG 13.73 MG IV CONT (19:34)
[2022-09-04] MEDS: NOREPINEPHRINE 8 MG/D5W 250 ML 8 MG/250 ML BAG 16.88 MG IV CONT (23:03)
[2022-09-05] VITALS (46 sets, daily range): BP systolic 82–125; BP diastolic 43–96; PULSE 76–129; RESP 13–19; TEMP 37.4–37.6; O2SAT 97–100
[2022-09-05] MEDS: PIPERACILLIN/TAZOBACTAM SOD 4.5 GM in SODIUM CHLORIDE 0.9% IV 100 ML 200 ML IVPB ×4 (02:17→20:06)
[2022-09-05] MEDS: HYDROCORTISONE SODIUM SUCCINATE 100 MG/2 ML VIAL IV PUSH ×3 (05:32→20:59)
[2022-09-05] MEDS: CENTRAL LINE FLUSH 10 ML IV PUSH ×3 (05:32→20:59)
[2022-09-05 05:55] LABS: Alveolar/Arterial O2 Gradient 49.7 mmHg; Base Excess ABG 7.7 mEq/l (+/-2.0); Carboxyhemoglobin 0.4 % THb (0-2.0); Fractional Inspired Oxygen 30 %; HCO3 ABG 34.4 mEq/l (22.0-26.0); Methemoglobin ABG 0.3 %THb (0-1.5); Oxygen Content ABG 12.6 %vol (16.0-22.0); Oxygen Saturation ABG 96.5 % (95.0-100.0); Oxyhemoglobin 95.3 % THb (90.0-100.0); PO2 ABG 91.5 mmHg (80.0-100.0); PO2 FiO2 Ratio Arterial Blood 3.05 %; Total Hemoglobin 9.3 g/dL (12.0-18.0); pH ABG 7.363 (7.350-7.450)
[2022-09-05 05:56] LABS: Modified Allen's Test Pass; PCO2 ABG 61.9 mmHg (35.0-45.0); Site Drawn RIGHT RADIAL
[2022-09-05 05:57] LABS: Device VENTILATOR
[2022-09-05 05:58] LABS: Arterial Blood Gas PEEP 5 cmH2O; Arterial Blood Gas Tidal Volume 320 ml; Arterial Blood Gas Vent Mode CMV; Arterial Blood Gas Ventilator rate 14 /MIN
[2022-09-05 05:59] LABS: Hematocrit 28.6 % (37.0-47.0); Hemoglobin 8.2 g/dL (12.0-15.0); Mean Corpuscular HGB Conc 28.7 g/dl (32-36); Mean Corpuscular Hemoglobin 25.9 pg (26-34); Mean Corpuscular Volume 90.2 fl (80-100); Mean Platelet Volume 9.6 fl (7.4-10.4); Platelet Count Result 217 k/mm3 (150-375); Red Blood Count 3.17 M/mm3 (4.2-5.4); Red Cell Distribution Width 19.2 % (11.5-14.5); White Blood Count 8.6 K/mm3 (4.5-10.0)
[2022-09-05 06:24] LABS: Albumin Level 3.2 g/dL (3.5-5.1); Anion Gap 5 mmol/L (8-16); Blood Urea Nitrogen 37 mg/dL (7-17); Calcium 7.9 mg/dL (8.4-10.2); Carbon Dioxide 35 mmol/L (22-30); Chloride 102 mmol/L (98-107); Estimated CRCL calculation 42 ml/min; Estimated Glomerular Filt Rate 44; Glucose 157 mg/dL (65-110); Magnesium 1.8 mg/dL (1.6-2.3); Phosphorus 3.7 mg/dL (2.5-4.5); Potassium 3.5 mmol/L (3.4-5.0); Sodium 142 mmol/L (137-145)
[2022-09-05] MEDS: AMIODARONE 360 MG/D5W 200 ML 360 MG/200 ML BAG 16.67 MG IV CONT ×2 (08:13→20:10)
[2022-09-05] MEDS: MAGNESIUM SULF 2 GM/WATER 50ML 2 GM/50 ML BAG IVPB (08:13)
[2022-09-05] MEDS: APIXABAN 5 MG TABLET PO ×2 (08:14→20:06)
[2022-09-05] MEDS: PANTOPRAZOLE SODIUM IV 40 MG VIAL IV PUSH (08:16)
[2022-09-05] MEDS: FUROSEMIDE INJ 40 MG/4 ML VIAL IV PUSH ×2 (08:16→16:57)
[2022-09-05] MEDS: MINERAL OIL/WHITE PETROLATUM OINTMENT 1 APPLIC EACH EYE ×2 (08:17→20:06)
--- NOTE | 2022-09-05 08:44 | PM.PNORT ---
Progress Note: A&P Assessment and Plan (1) Foot pain, bilateral: Code(s): M79.671 - Pain in right foot; M79.672 - Pain in left foot Status: Acute Assessment and Plan: Right foot erythema has almost completely resolved. Minimal swelling and no other signs of acute process. Still with hallux valgus and hammertoe deformity. No evidence of infection. Left foot with erythema remaining over the medial eminence only. Skin otherwise intact. Appears to be more irritation. No other signs infection. Recommend continue with edema control and observation at this time. Subjective Subjective Date/Time Seen: 09/05/22 08:44 Principal diagnosis: Toe deformity Interval history: follow-up on bilateral toe deformity redness. Patient in ICU, intubated. Awake with eyes open. Moves toes and feet to stimuli. Exam Eyes: Conjunctivae: conjunctivae normal Sclera: sclerae normal Extrem: General: capillary refill normal Right upper extremity: normal to inspection Left upper extremity: normal to inspection Right lower extremity: normal to inspection, lower leg Details: pitting edema Details: 2+, ankle Details: other ( no calf tenderness) and foot Details: vascular exam Details: dorsalis pedis pulse present and normal capillary refill and motor-sensory exam Details: light-touch abnormal Location: in all toes Left lower extremity: ankle (no calf tenderness) Details: normal to inspection, pitting edema Details: pitting and 2+ and normal ROM and foot Details: normal capillary refill, vascular exam Details: dorsalis pedis pulse present and normal capillary refill and motor-sensory exam light-touch abnormal in all toes Other: Right foot erythema almost completely resolved. Minimal swelling. Toes with good capillary refill. Left foot erythema improved except for the 1 area over the medial metatarsal head. Erythema present but skin intact. Good capillary refill in the toes. Palpable dorsalis pedis pulse bilaterally. More residual swelling in the dorsum of the left foot. Objective Data Vital Signs Vital Signs: Vital Signs - 24 hr 09/04/22 08:48 09/04/22 09:33 09/04/22 10:18 Temperature Pulse Rate 110 H Respiratory Rate 14 Blood Pressure 110/90 121/74 Pulse Oximetry Oxygen Delivery Fraction of Inspired Oxygen 09/04/22 11:07 09/04/22 10:45 09/04/22 11:12 Temperature Pulse Rate 81 Respiratory Rate Blood Pressure 107/75 120/60 Pulse Oximetry 99 Oxygen Delivery Mechanical Ventilation Fraction of Inspired Oxygen 30 09/04/22 10:00 09/04/22 12:00 09/04/22 11:45 Temperature 99.9 F H 99.5 F Pulse Rate 104 H 89 Respiratory Rate 15 14 Blood Pressure 116/66 112/69 102/53 L Pulse Oximetry 98 100 Oxygen Delivery Fraction of Inspired Oxygen 09/04/22 12:00 09/04/22 12:21 09/04/22 10:00 Temperature Pulse Rate 104 H Respiratory Rate 15 Blood Pressure 112/69 104/72 Pulse Oximetry Oxygen Delivery Fraction of Inspired Oxygen 09/04/22 12:21 09/04/22 12:00 09/04/22 12:00 Temperature Pulse Rate 89 Respiratory Rate 14 Blood Pressure Pulse Oximetry 98 Oxygen Delivery Mechanical Ventilation Fraction of Inspired Oxygen 30 30 09/04/22 10:00 09/04/22 12:26 09/04/22 10:00 Temperature Pulse Rate 104 H 99 102 H Respiratory Rate Blood Pressure 116/66 104/72 Pulse Oximetry Oxygen Delivery Fraction of Inspired Oxygen 09/04/22 12:00 09/04/22 13:00 09/04/22 13:44 Temperature Pulse Rate 92 Respiratory Rate Blood Pressure 104/82 109/58 L Pulse Oximetry Oxygen Delivery Fraction of Inspired Oxygen 09/04/22 13:36 09/04/22 14:00 09/04/22 14:00 Temperature 99.7 F H Pulse Rate 83 98 92 Respiratory Rate 16 Blood Pressure 103/63 Pulse Oximetry 100 99 Oxygen Delivery Mechanical Ventilation Fraction of Inspired Oxygen 30 09/04/22 14:15 09/04/22 14:16 09/04/22 15:03 Temperature
--- NOTE | 2022-09-05 09:05 | WPDINTPN ---
Progress Note: A&P Assessment and Plan (1) Acute respiratory failure: Code(s): J96.00 - Acute respiratory failure, unspecified whether with hypoxia or hypercapnia Status: Acute Assessment and Plan: Acute on chronic hypoxic and hypercarbic Respiratory failure secondary to pulmonary edema with possible pneumonia Chest CT showed 1. Diffuse lung disease, consistent with pulmonary edema versus pneumonia. 2. Moderate-sized right and small left pleural effusions. ABG reviewed -current FiO2 of 30% 5 of PEEP Chest x-ray reviewed Continue Lasix today She is on empiric antibiotics vanc and Zosyn but it does not appear to be and pneumonia since she was afebrile, normal WBC, normal procalcitonin level. I have discontinued vancomycin and continue Zosyn for now CT results of cultures back Sputum culture has been sent and is negative till now (2) Acute on chronic combined systolic and diastolic CHF (congestive heart failure): Code(s): I50.43 - Acute on chronic combined systolic (congestive) and diastolic (congestive) heart failure Status: Acute Assessment and Plan: Echocardiogram done on 08/26 Summary ? 1. Left ventricular chamber dimension is moderately enlarged. ? 3. Left ventricular systolic function is moderately globally reduced, estimated at 35-40%. ? 6. Left atrial chamber dimension is moderately enlarged. ? 7. Right atrial chamber dimension is mildly enlarged. ? 10. There is moderate to severe aortic valve stenosis based on a peak velocity of 279.27 cm/s, mean gradient of 19 mmHg, and aortic valve area of 0.91 cm2. ? 11. There is moderate aortic valve regurgitation. ? 12. The mitral valve has mildly thickened leaflets and moderately calcified annulus. ? 13. There is moderate mitral valve regurgitation. ? 14. There is mild tricuspid valve regurgitation. ? 15. Moderate pulmonary hypertension, estimated pulmonary arterial systolic pressure is 51 mmHg. ? 16. Small atheroma in anterior and posterior aortic root. ? 17. Dilated inferior vena cava with <50% collapse upon inspiration consistent with significantly elevated right atrial pressure, 15 mmHg. Patient has congestive heart failure, pulmonary hypertension him overload and moderate to severe Diuresis has been ineffective till now and now patient is on vasopressors Patient was tried on dobutamine twice with 2nd attempt while on amiodarone but patient did not toleratet tolerate due to worsening of tachycardia and RVR. Patient had ÓSCAR done on 09/04. Cardioversion was not attempted as views were poor and a clot could not be ruled out. Report pending but appears to have severe . Will need to discuss with Cardiology regarding possible transfer to tertiary facility for evaluation for TAVR (3) Shock: Code(s): R57.9 - Shock, unspecified Status: Acute Assessment and Plan: It appears the patient has cardiogenic shock secondary to congestive heart failure and severe which has been likely exacerbated by sedation and positive pressure ventilation She was already on antibiotics during this hospitalization. Her WBCs normal and procalcitonin level is low She is currently afebrile CT chest abdomen pelvis IMPRESSION: 1. Diffuse lung disease, consistent with pulmonary edema versus pneumonia. 2. Moderate-sized right and small left pleural effusions. 3. Large sliding hiatal hernia Continue Levophed. Trial of dobutamine x 2 was not successful Stress dose hydrocortisone (4) Aortic stenosis: Code(s): I35.0 - Nonrheumatic aortic (valve) stenosis Status: Acute Assessment and Plan: See above (5) Paroxysmal atrial fibrillation: Code(s): I48.0 - Paroxysmal atrial fibrillation Status: Acute Assessment and Plan: Currently rate controlled and on amiodarone infusion Off metoprolol due to hypotension On Eliquis for anticoagulation (6) Acute kidney injury: Code(s): N17.9 - Acute kidney failure, unspecified Status: Acut
--- NOTE | 2022-09-05 11:03 | PCNFU ---
Nutrition Follow-Up Complete: Severe protein calorie malnutrition related to loss of appetite as evidenced by weight loss -9%/3 months and poor intake <75% meals >1 month. goal: Improve PO intake to at least 50% meals and supplement Patient has not met goal. Will continue with current goal. Pt current nutrition is Viltal AF 1.2 at 50 ml/hr. Last recorded weight is 95.4 kg. Bowel Motility:+Bm reported 09/03 Labs Reviewed:Glu 157, GFR 44, BUN 37,Cr 1.2 Meds Noted:Eliquis,Lasix Skin:WNL Additional Notes:Patient remains on mechanical vent and tube feedings of Vital AF 1.2 at 50 ml/hr. Tube feedings providing 1320 kcals/86 gms protein/892 ml water. Flush 30 ml q 4 hours. Tube feedings meeting 100% of caloric and protein needs. Following in ICU rounds and will continue to monitor intakes, weights, labs, plan of care, supplement tolerance every Thursday and Thursday.
--- NOTE | 2022-09-05 11:25 | WPDNEUROPN ---
Subjective Date/time seen: 09/05/22 11:25 Interval history: 71 years old right-handed female being followed intermittently carries the diagnosis of paroxysmal atrial fibrillation with flutter and at times rapid ventricular response, receiving anticoagulation therapy with Eliquis and then continued on metoprolol 25 mg b.i.d. has also been found to have low sodium with initial severe hyponatremia with hyper encephalopathy being gradually corrected does have ongoing history of non rheumatic aortic stenosis of moderate to severe degree. On examination today she is intubated but able to follow all the verbal commands appropriately by looking to the right left up and down and also trying to protrude the tongue though she has difficulties in moving the lower extremities but she did wiggle the toes particularly on the left for treatment is being continued as per the alterations sewer will follow again Objective Data Vital Signs Vital Signs: Vital Signs - 24 hr 09/04/22 12:00 09/04/22 11:45 09/04/22 12:00 Temperature 37.5 C Pulse Rate 89 Respiratory Rate 14 Blood Pressure 112/69 102/53 L 112/69 Pulse Oximetry 100 Oxygen Delivery Fraction of Inspired Oxygen 09/04/22 12:21 09/04/22 12:21 09/04/22 12:00 Temperature Pulse Rate 89 Respiratory Rate 14 Blood Pressure 104/72 Pulse Oximetry Oxygen Delivery Fraction of Inspired Oxygen 30 09/04/22 12:00 09/04/22 12:26 09/04/22 12:00 Temperature Pulse Rate 99 92 Respiratory Rate Blood Pressure 104/72 Pulse Oximetry 98 Oxygen Delivery Mechanical Ventilation Fraction of Inspired Oxygen 30 09/04/22 13:00 09/04/22 13:44 09/04/22 13:36 Temperature Pulse Rate 83 Respiratory Rate Blood Pressure 104/82 109/58 L Pulse Oximetry 100 Oxygen Delivery Mechanical Ventilation Fraction of Inspired Oxygen 30 09/04/22 14:00 09/04/22 14:00 09/04/22 14:15 Temperature 37.6 C H Pulse Rate 98 92 111 H Respiratory Rate 16 14 Blood Pressure 103/63 Pulse Oximetry 99 Oxygen Delivery Fraction of Inspired Oxygen 09/04/22 14:16 09/04/22 15:03 09/04/22 15:50 Temperature Pulse Rate 111 H 92 Respiratory Rate 22 H Blood Pressure 103/63 85/41 L 110/72 Pulse Oximetry 100 Oxygen Delivery Mechanical Ventilation Fraction of Inspired Oxygen 30 09/04/22 16:10 09/04/22 16:25 09/04/22 16:40 Temperature Pulse Rate 85 89 86 Respiratory Rate 16 14 14 Blood Pressure 109/64 121/67 100/55 L Pulse Oximetry 100 100 98 Oxygen Delivery Mechanical Ventilation Mechanical Ventilation Mechanical Ventilation Fraction of Inspired Oxygen 30 30 30 09/04/22 15:55 09/04/22 16:00 09/04/22 16:05 Temperature Pulse Rate 102 H 99 85 Respiratory Rate 24 H 21 H 14 Blood Pressure 103/62 99/72 L 114/61 Pulse Oximetry 99 97 99 Oxygen Delivery Mechanical Ventilation Mechanical Ventilation Mechanical Ventilation Fraction of Inspired Oxygen 30 30 30 09/04/22 16:15 09/04/22 16:20 09/04/22 16:30 Temperature Pulse Rate 89 83 86 Respiratory Rate 15 14 14 Blood Pressure 108/86 101/78 114/72 Pulse Oximetry 100 100 99 Oxygen Delivery Mechanical Ventilation Mechanical Ventilation Mechanical Ventilation Fraction of Inspired Oxygen 30 30 30 09/04/22 16:35 09/04/22 16:54 09/04/22 17:00 Temperature Pulse Rate 87 94 Respiratory Rate 14 Blood Pressure 91/39 L 111/57 L Pulse Oximetry 99 99 Oxygen Delivery Mechanical Ventilation Mechanical Ventilation Fraction of Inspired Oxygen 30 30 09/04/22 17:58 09/04/22 16:00 09/04/22 17:59 Temperature Pulse Rate 97 88 Respiratory Rate 20 14 Blood Pressure 117/67 Pulse Oximetry Oxygen Delivery Fraction of Inspired Oxygen 09/04/22 16:00 09/04/22 18:00 09/04/22 18:19 Temperature Pulse Rate 97 80 Respiratory Rate Blood Pressure 99/72 L 117/67 77/56 L Pulse Oximetry Oxygen Delivery Fraction of Inspired Oxygen 09/04/22
--- NOTE | 2022-09-05 14:39 | P.PNNP_ITS ---
Progress Note: A&P Assessment and Plan (1) Acute kidney injury: Code(s): N17.9 - Acute kidney failure, unspecified Status: Acute Assessment and Plan: * creatinine mildly higher from baselin of 0.7 to 1.2. it seems to have plateaued here. * likely due to hypotension in the context of previous diuretic therapy and CHF * evaluation to date: * CPK normal * urine electrolytes prerenal (likely reflective of cardiorenal physiology along with aortic stenosis) * imaging without obstruction * her cxr is wet. with prerenal physiology, her bad heart and sepsis/hypotension seem to be the culprit in the higher creatinine. she needs diuresis, so I agreee with continued diuretics. * she is also on dobutamine which will help with improved RBF from the higher CO. * she is making more urine today. * follow repeat labs and UOP (2) Hyponatremia: Code(s): E87.1 - Hypo-osmolality and hyponatremia Status: Acute Assessment and Plan: * resolved. (3) Acute respiratory failure: Code(s): J96.00 - Acute respiratory failure, unspecified whether with hypoxia or hypercapnia Status: Acute Assessment and Plan: * suspect due to combo of pulmonary edema, CHF, and pneumonia * cxr wet. * cultures negative so far * on zosyn (4) Shock: Code(s): R57.9 - Shock, unspecified Status: Acute Assessment and Plan: * etiology? * new infection? * possibly related to CHF and aortic stenosis * on NE (5) Acute on chronic combined systolic and diastolic CHF (congestive heart failure): Code(s): I50.43 - Acute on chronic combined systolic (congestive) and diastolic (congestive) heart failure Status: Acute Assessment and Plan: * repeat Echo results noted -- decrease in EF noted * on diuretics. possibly renal venous hypertension exists, so diuresis could make the creatinine better if so. * Cardiology following (6) Community acquired pneumonia: Code(s): J18.9 - Pneumonia, unspecified organism Status: Acute Assessment and Plan: * as suggested by CXR on admission * was on antibiotics on admission; blood cultures were negative * repeat imaging and culture ordered * restarted on antibioics (7) Altered mental status: Code(s): R41.82 - Altered mental status, unspecified Status: Acute Assessment and Plan: * etiology not clear * initially thought to be secondary to #1 (but no improvement with improving sodium level) * follow mentation * head CT noted * Neurology following (8) Paroxysmal atrial fibrillation: Code(s): I48.0 - Paroxysmal atrial fibrillation Status: Acute Assessment and Plan: * HR is good * on anticoagulation * Cardiology following Plan pt is anxious. trying to wean from vent as well. Nursing working with patient and family Subjective Date/time seen: 09/05/22 14:39 Interval history: pt is awake and emotional family in the room. we discussed Exam Narrative: General: WD/WN female intubated and on mechanical ventilation Heart: normal S1 and S2; no rub or gallop Lungs: coarse breath sounds and decreased at bases Abdomen: soft, nontender, nondistended, positive bowel sounds Extremities: 1+ bilateral edema Skin: no acute rash Objective Data Vital Signs Vital Signs: Vital Signs - 24 hr 09/04/22
--- NOTE | 2022-09-05 14:39 | PM.PNNEP ---
Progress Note: A&P Assessment and Plan (1) Acute kidney injury: Code(s): N17.9 - Acute kidney failure, unspecified Status: Acute Assessment and Plan: creatinine mildly higher from baselin of 0.7 to 1.2. it seems to have plateaued here. likely due to hypotension in the context of previous diuretic therapy and CHF evaluation to date: CPK normal urine electrolytes prerenal (likely reflective of cardiorenal physiology along with aortic stenosis) imaging without obstruction her cxr is wet. with prerenal physiology, her bad heart and sepsis/hypotension seem to be the culprit in the higher creatinine. she needs diuresis, so I agreee with continued diuretics. she is also on dobutamine which will help with improved RBF from the higher CO. she is making more urine today. follow repeat labs and UOP (2) Hyponatremia: Code(s): E87.1 - Hypo-osmolality and hyponatremia Status: Acute Assessment and Plan: resolved. (3) Acute respiratory failure: Code(s): J96.00 - Acute respiratory failure, unspecified whether with hypoxia or hypercapnia Status: Acute Assessment and Plan: suspect due to combo of pulmonary edema, CHF, and pneumonia cxr wet. cultures negative so far on zosyn (4) Shock: Code(s): R57.9 - Shock, unspecified Status: Acute Assessment and Plan: etiology? new infection? possibly related to CHF and aortic stenosis on NE (5) Acute on chronic combined systolic and diastolic CHF (congestive heart failure): Code(s): I50.43 - Acute on chronic combined systolic (congestive) and diastolic (congestive) heart failure Status: Acute Assessment and Plan: repeat Echo results noted -- decrease in EF noted on diuretics. possibly renal venous hypertension exists, so diuresis could make the creatinine better if so. Cardiology following (6) Community acquired pneumonia: Code(s): J18.9 - Pneumonia, unspecified organism Status: Acute Assessment and Plan: as suggested by CXR on admission was on antibiotics on admission; blood cultures were negative repeat imaging and culture ordered restarted on antibioics (7) Altered mental status: Code(s): R41.82 - Altered mental status, unspecified Status: Acute Assessment and Plan: etiology not clear initially thought to be secondary to #1 (but no improvement with improving sodium level) follow mentation head CT noted Neurology following (8) Paroxysmal atrial fibrillation: Code(s): I48.0 - Paroxysmal atrial fibrillation Status: Acute Assessment and Plan: HR is good on anticoagulation Cardiology following Plan pt is anxious. trying to wean from vent as well. Nursing working with patient and family Subjective Date/time seen: 09/05/22 14:39 Interval history: pt is awake and emotional family in the room. we discussed Exam Narrative: General: WD/WN female intubated and on mechanical ventilation Heart: normal S1 and S2; no rub or gallop Lungs: coarse breath sounds and decreased at bases Abdomen: soft, nontender, nondistended, positive bowel sounds Extremities: 1+ bilateral edema Skin: no acute rash Objective Data Vital Signs Vital Signs: Vital Signs - 24 hr 09/04/22 15:03 09/04/22 15:50 09/04/22 16:10 Temperature Pulse Rate 92 85 Respiratory Rate 22 H 16 Blood Pressure 85/41 L 110/72 109/64 Pulse Oximetry 100 100 Oxygen Delivery Mechanical Ventilation Mechanical Ventilation Fraction of Inspired Oxygen 30 30 09/04/22 16:25 09/04/22 16:40 09/04/22 15:55 Temperature Pulse Rate 89 86 102 H Respiratory Rate 14 14 24 H Blood Pressure 121/67 100/55 L 103/62 Pulse Oximetry 100 98 99 Oxygen Delivery Mechanical Ventilation Mechanical Ventilation Mechanical Ventilation Fraction of Inspired Oxygen 30 30 30 09/04/22 16:00 09/04/22 16:05
--- NOTE | 2022-09-05 15:01 | PM.PNCARD ---
Progress Note: A&P Assessment and Plan (1) Aortic stenosis: Code(s): I35.0 - Nonrheumatic aortic (valve) stenosis Status: Acute Plan follow-up visit in this 71-year-old lady with valvular heart disease and paroxysmal AFib. I agree with Dr. Carey terms assessment that by physical exam her aortic valve stenosis does not seem to be severe. I will personally review the ÓSCAR images from yesterday later however at this point medical supportive care is what I would recommend. Her rate is well controlled with amiodarone. The initial event prompting hospitalization was profound hyponatremia which of course is not attributable to her valvular heart disease. At this point supportive care is required and will follow with you each day while she is in the hospital. Amiodarone seems to be controlling her heart rate quite well at this time. if she remains hemodynamically stable I would consider an attempt at cardioverting her after she has been anticoagulated for at least a month if AFib persists for that long Son Perdomo MD [facility] Subjective Date/time seen: Date of service:09/05/22 15:01 Interval history: Follow-up for atrial fib and atrial flutter, RVR, acute on chronic systolic and diastolic heart failure, cardiomyopathy EF 35-40%, and moderate to severe aortic stenosis. Admitted with altered mental status due to severe hyponatremia. 09/01/2022: She is back in atrial flutter today, rate controlled. She is alert but not oriented and repeats the same words and phrases over and over. is at the bedside. 09/02/2022: The patient developed hypotension, hypercarbia and bradycardia and was transferred to the ICU. She is intubated, sedated and started on pressors, now Levophed at 6 mics. Entresto discontinued. She remains on the vent with an FiO2 of 30%. ProBNP [id number]. telemetry shows atrial fibrillation rate 70-100 ppm 09/03/2022: Remains intubated and sedated. Blood pressure tends to be 80-100 systolic. FiO2 of 30% on Levophed, and started on dobutamine at 2.5 mics but a fib rate went up into the 130's, so discontinued I's and O's: 1400 cc's in, 850 out yesterday. 09/04/2022 ÓSCAR: Very poor imaging (perhaps due to her very large hiatal hernia obscuring views). Not able to see left atrial appendage well --no obvious thrombus. Aortic valve looks severely calcified and severely stenotic; will try to planimeter the valve for measurements, but imaging was poor. LV not seen well at all. Mitral regurgitation looks moderately severe. Since LA appendage not well visualized, pt has missed some doses of Eliquis, and her a fib rate is controlled we did not proceed w/ cardioversion. Otherwise pt remains on levophed, IV amio, vent at FiO 30%. Not making much urine; I's and O's yesterday are charted to be 2400/400 cc's. 09/05/2022: Patient remains intubated on mechanical ventilator support in the ICU. Atrial fibrillation with heart rate well controlled in the 80s and 90s on amiodarone. Hemodynamics are stable. Patient is diuresing well today . Exam Const: General: cooperative, comfortable and confusion ( sedated) Orientation/consciousness: No oriented to person, patient oriented x3 and confusion ( sedated) Limitations: altered mental status Other: on Levophed, ET tube, NG tube, sedated HENMT: Mouth: Yes moist mucous membranes Other: ET tube present Eyes: General: appearance normal, both eyes and all related structures Sclera: sclerae normal EOM: EOMs intact bilaterally Neck: Neck: supple Resp: Effort & Inspection: normal respiratory effort Auscultation: clear to auscultation bilaterally and diminished lung sounds Cardio: Rate: regular rate Rhythm: regular rhythm and abnormal rhythm irregularly irregular Heart sounds: Murmur heart sound present ( 2/6 harsh systolic murmur at the upper sternal borders) systolic harsh and II/ GI: Inspection: normal to inspection Skin: General skin exam: No nor
[2022-09-05] MEDS: FENTANYL 2,500MCG/NS250ML(*CRX 2,500 MCG/250 ML BAG 10 MCG IV CONT (22:24)
[2022-09-06] VITALS (41 sets, daily range): BP systolic 90–117; BP diastolic 49–75; PULSE 65–104; RESP 14–17; TEMP 36.8–37.7; O2SAT 96–100
[2022-09-06] MEDS: PIPERACILLIN/TAZOBACTAM SOD 4.5 GM in SODIUM CHLORIDE 0.9% IV 100 ML 200 ML IVPB ×4 (02:40→20:12)
[2022-09-06] MEDS: HYDROCORTISONE SODIUM SUCCINATE 100 MG/2 ML VIAL IV PUSH (05:33)
[2022-09-06] MEDS: CENTRAL LINE FLUSH 10 ML IV PUSH ×3 (05:34→20:20)
[2022-09-06 05:54] LABS: Hematocrit 24.9 % (37.0-47.0); Hemoglobin 7.5 g/dL (12.0-15.0); Mean Corpuscular HGB Conc 30.1 g/dl (32-36); Mean Corpuscular Hemoglobin 26.1 pg (26-34); Mean Corpuscular Volume 86.8 fl (80-100); Mean Platelet Volume 9.5 fl (7.4-10.4); Platelet Count Result 173 k/mm3 (150-375); Red Blood Count 2.87 M/mm3 (4.2-5.4); Red Cell Distribution Width 18.8 % (11.5-14.5); White Blood Count 9.3 K/mm3 (4.5-10.0)
[2022-09-06 06:59] LABS: Anion Gap 6 mmol/L (8-16); Blood Urea Nitrogen 46 mg/dL (7-17); Calcium 7.3 mg/dL (8.4-10.2); Carbon Dioxide 38 mmol/L (22-30); Chloride 99 mmol/L (98-107); Estimated CRCL calculation 40 ml/min; Estimated Glomerular Filt Rate 44; Glucose 133 mg/dL (65-110); Phosphorus 2.9 mg/dL (2.5-4.5); Potassium 2.2 mmol/L (3.4-5.0); Sodium 143 mmol/L (137-145)
[2022-09-06 07:33] LABS: Hematocrit 25.8 % (37.0-47.0); Hemoglobin 7.6 g/dL (12.0-15.0); Mean Corpuscular HGB Conc 29.5 g/dl (32-36); Mean Corpuscular Hemoglobin 25.8 pg (26-34); Mean Corpuscular Volume 87.5 fl (80-100); Mean Platelet Volume 10.1 fl (7.4-10.4); Platelet Count Result 199 k/mm3 (150-375); Red Blood Count 2.95 M/mm3 (4.2-5.4); Red Cell Distribution Width 18.8 % (11.5-14.5)
[2022-09-06] MEDS: KCL 40 MEQ/WATER 100 ML 100 ML 25 ML IVPB (09:16)
[2022-09-06] MEDS: MINERAL OIL/WHITE PETROLATUM OINTMENT 1 APPLIC EACH EYE ×2 (09:17→20:12)
[2022-09-06] MEDS: AMIODARONE 360 MG/D5W 200 ML 360 MG/200 ML BAG 16.67 MG IV CONT ×2 (09:17→18:57)
[2022-09-06] MEDS: POTASSIUM CHLORIDE 20 MEQ PACKET (FOR LIQUID) 40 MEQ FEED TUBE (09:17)
[2022-09-06] MEDS: PANTOPRAZOLE SODIUM IV 40 MG VIAL IV PUSH ×2 (09:18→20:12)
[2022-09-06] MEDS: FUROSEMIDE INJ 40 MG/4 ML VIAL IV PUSH ×2 (09:45→18:02)
--- NOTE | 2022-09-06 09:57 | PM.PNCARD ---
Progress Note: A&P Assessment and Plan (1) Acute on chronic congestive heart failure: Qualifiers: Heart failure type: combined systolic and diastolic Qualified Code(s): I50.43 - Acute on chronic combined systolic (congestive) and diastolic (congestive) heart failure Code(s): I50.9 - Heart failure, unspecified Status: Acute Assessment and Plan: EF 35-40%. Patient remains volume overloaded but improving urine output with IV diuresis. Continue IV Lasix 40 mg q.12 hours as BP tolerates. Accurate input and output, daily weight. Hold on dobutamine given rapid ventricular response with AFib with use and the fact the patient is responding well to diuretic therapy thus far. Patient very complicated although off pressors at this time. Will continue to monitor closely in ICU on telemetry. (2) Acute respiratory failure with hypoxia: Code(s): J96.01 - Acute respiratory failure with hypoxia Status: Acute Assessment and Plan: Patient remains intubated on mechanical ventilatory support. Management per Critical Care. She is on minimal FiO2. Weaning trials per Critical Care. Continue supportive care, diuresis. Antibiotics discontinued. (3) A-fib: Code(s): I48.91 - Unspecified atrial fibrillation Status: Acute Assessment and Plan: Heart rate controlled off dobutamine on IV amiodarone. Continue IV amiodarone for rate control. Monitor BP closely. Continue Eliquis 5 mg b.i.d.. Follow H&H given anemia and slight decline. Monitor closely for evidence of bleeding. (4) Cardiomyopathy: Qualifiers: Cardiomyopathy type: other Qualified Code(s): I42.8 - Other cardiomyopathies Code(s): I42.9 - Cardiomyopathy, unspecified Status: Acute Assessment and Plan: EF 35-40%. Continue medical management. not able to tolerate optimal guideline directed medical therapy given recent shock now resolved off pressors. Will optimize therapy as she tolerates and as appropriate. Eventually initiation of beta-rod, Entresto as able. Further workup when she has more fully recovered. (5) Hypokalemia: Code(s): E87.6 - Hypokalemia Status: Acute Assessment and Plan: severely reduced potassium 2.2 this morning. Replace to keep potassium around 4.0. Supplementation has been administered. Continue to monitor very closely. (6) Acute kidney injury: Code(s): N17.9 - Acute kidney failure, unspecified Status: Acute Assessment and Plan: Continue to monitor renal function closely, urine output intolerance to diuretic therapy. Minimize nephrotoxic agents. (7) Aortic stenosis: Qualifiers: Cardiac valve disease etiology: nonrheumatic Qualified Code(s): I35.0 - Nonrheumatic aortic (valve) stenosis Code(s): I35.0 - Nonrheumatic aortic (valve) stenosis Status: Acute Assessment and Plan: Likely overall moderate in severity. Avoid excessive hypotension. (8) Hyponatremia: Code(s): E87.1 - Hypo-osmolality and hyponatremia Status: Acute Assessment and Plan: Stable. Continue to monitor. Subjective Date/time seen: 09/06/22 09:57 Interval history: Follow-up for atrial fib and atrial flutter, RVR, acute on chronic systolic and diastolic heart failure, cardiomyopathy EF 35-40%, and moderate to severe aortic stenosis. Admitted with altered mental status due to severe hyponatremia. 09/01/2022: She is back in atrial flutter today, rate controlled. She is alert but not oriented and repeats the same words and phrases over and over. is at the bedside. 09/02/2022: The patient developed hypotension, hypercarbia and bradycardia and was transferred to the ICU. She is intubated, sedated and started on pressors, now Levophed at 6 mics. Entresto discontinued. She remains on the vent with an FiO2 of 30%. ProBNP [id number]. telemetry shows atrial fibrillation rate 70-100 ppm
[2022-09-06] MEDS: APIXABAN 5 MG TABLET PO ×2 (10:06→20:12)
--- NOTE | 2022-09-06 11:29 | P.PNNP_ITS ---
Progress Note: A&P Assessment and Plan (1) Acute kidney injury: Code(s): N17.9 - Acute kidney failure, unspecified Status: Acute Assessment and Plan: * creatinine mildly higher from baselin of 0.7 to 1.2. it seems to have plateaued here. * likely due to hypotension in the context of previous diuretic therapy and CHF * evaluation to date: * CPK normal * urine electrolytes prerenal (likely reflective of cardiorenal physiology along with aortic stenosis) * imaging without obstruction * her cxr is wet. with prerenal physiology, her bad heart and sepsis/hypotension seem to be the culprit in the higher creatinine. * getting IV diuretics * she is also on dobutamine which will help with improved RBF from the higher CO. * she made 4400cc of urine yesterday * check labs tomorrow (2) Hyponatremia: Code(s): E87.1 - Hypo-osmolality and hyponatremia Status: Acute Assessment and Plan: * resolved. (3) Acute respiratory failure: Code(s): J96.00 - Acute respiratory failure, unspecified whether with hypoxia or hypercapnia Status: Acute Assessment and Plan: * suspect due to combo of pulmonary edema, CHF, and pneumonia * cxr wet. * cultures negative so far * on zosyn (4) Shock: Code(s): R57.9 - Shock, unspecified Status: Acute Assessment and Plan: * etiology? * new infection? * possibly related to CHF and aortic stenosis * off NE (5) Acute on chronic combined systolic and diastolic CHF (congestive heart failure): Code(s): I50.43 - Acute on chronic combined systolic (congestive) and diastolic (conges tive) heart failure Status: Acute Assessment and Plan: * repeat Echo results noted -- decrease in EF noted * on diuretics. possibly renal venous hypertension exists, so diuresis could make the creatinine better if so. * Cardiology following. I appreciate Dr. Naranjo's note (6) Community acquired pneumonia: Code(s): J18.9 - Pneumonia, unspecified organism Status: Acute Assessment and Plan: * as suggested by CXR on admission * was on antibiotics on admission; blood cultures were negative * repeat imaging and culture ordered * restarted on antibioics (7) Altered mental status: Code(s): R41.82 - Altered mental status, unspecified Status: Acute Assessment and Plan: * etiology not clear * initially thought to be secondary to #1 (but no improvement with improving sodium level) * follow mentation * head CT noted * Neurology following (8) Paroxysmal atrial fibrillation: Code(s): I48.0 - Paroxysmal atrial fibrillation Status: Acute Assessment and Plan: * HR is good * on anticoagulation * Cardiology following Subjective Date/time seen: 09/06/22 11:29 Interval history: pt is awake a little more interactive. She is very thirsty Exam Narrative: General: WD/WN female intubated and on mechanical ventilation Heart: normal S1 and S2; no rub or gallop Lungs: coarse breath sounds and decreased at bases Abdomen: soft, nontender, nondistended, positive bowel sounds Extremities: 1+ bilateral edema Skin: no acute rash mucous membranes very dry Objective Data Vital Signs Vital Signs: Vital Signs - 24 hr 09/05/22 11:38 09/05/22 12:00 09/05/22 12:00 Temperature 99.4
--- NOTE | 2022-09-06 11:29 | PM.PNNEP ---
Progress Note: A&P Assessment and Plan (1) Acute kidney injury: Code(s): N17.9 - Acute kidney failure, unspecified Status: Acute Assessment and Plan: creatinine mildly higher from baselin of 0.7 to 1.2. it seems to have plateaued here. likely due to hypotension in the context of previous diuretic therapy and CHF evaluation to date: CPK normal urine electrolytes prerenal (likely reflective of cardiorenal physiology along with aortic stenosis) imaging without obstruction her cxr is wet. with prerenal physiology, her bad heart and sepsis/hypotension seem to be the culprit in the higher creatinine. getting IV diuretics she is also on dobutamine which will help with improved RBF from the higher CO. she made 4400cc of urine yesterday check labs tomorrow (2) Hyponatremia: Code(s): E87.1 - Hypo-osmolality and hyponatremia Status: Acute Assessment and Plan: resolved. (3) Acute respiratory failure: Code(s): J96.00 - Acute respiratory failure, unspecified whether with hypoxia or hypercapnia Status: Acute Assessment and Plan: suspect due to combo of pulmonary edema, CHF, and pneumonia cxr wet. cultures negative so far on zosyn (4) Shock: Code(s): R57.9 - Shock, unspecified Status: Acute Assessment and Plan: etiology? new infection? possibly related to CHF and aortic stenosis off NE (5) Acute on chronic combined systolic and diastolic CHF (congestive heart failure): Code(s): I50.43 - Acute on chronic combined systolic (congestive) and diastolic (congestive) heart failure Status: Acute Assessment and Plan: repeat Echo results noted -- decrease in EF noted on diuretics. possibly renal venous hypertension exists, so diuresis could make the creatinine better if so. Cardiology following. I appreciate Dr. Naranjo's note (6) Community acquired pneumonia: Code(s): J18.9 - Pneumonia, unspecified organism Status: Acute Assessment and Plan: as suggested by CXR on admission was on antibiotics on admission; blood cultures were negative repeat imaging and culture ordered restarted on antibioics (7) Altered mental status: Code(s): R41.82 - Altered mental status, unspecified Status: Acute Assessment and Plan: etiology not clear initially thought to be secondary to #1 (but no improvement with improving sodium level) follow mentation head CT noted Neurology following (8) Paroxysmal atrial fibrillation: Code(s): I48.0 - Paroxysmal atrial fibrillation Status: Acute Assessment and Plan: HR is good on anticoagulation Cardiology following Subjective Date/time seen: 09/06/22 11:29 Interval history: pt is awake a little more interactive. She is very thirsty Exam Narrative: General: WD/WN female intubated and on mechanical ventilation Heart: normal S1 and S2; no rub or gallop Lungs: coarse breath sounds and decreased at bases Abdomen: soft, nontender, nondistended, positive bowel sounds Extremities: 1+ bilateral edema Skin: no acute rash mucous membranes very dry Objective Data Vital Signs Vital Signs: Vital Signs - 24 hr 09/05/22 11:38 09/05/22 12:00 09/05/22 12:00 Temperature 99.4 F Pulse Rate 88 90 90 Respiratory Rate 16 Blood Pressure 106/61 Pulse Oximetry 99 100 Oxygen Delivery Mechanical Ventilation Fraction of Inspired Oxygen 30 09/05/22 12:00 09/05/22 12:00 09/05/22 13:23 Temperature Pulse Rate 90 84 Respiratory Rate 16 15 Blood Pressure Pulse Oximetry 100 Oxygen Delivery Mechanical Ventilation Fraction of Inspired Oxygen 30 30 09/05/22 14:00 09/05/22 14:03 09/05/22 14:00 Temperature Pulse Rate 89 82 89 Respiratory Rate 14 Blood Pressure 82/54 L Pulse Oximetry Oxygen Delivery Fraction of Inspired Oxygen 09/05/22 14:0
[2022-09-06 11:59] LABS: Glucose Point of Care 137 mg/dl (65-105)
--- NOTE | 2022-09-06 13:04 | WPDINTPN ---
Progress Note: A&P Assessment and Plan (1) Acute respiratory failure: Code(s): J96.00 - Acute respiratory failure, unspecified whether with hypoxia or hypercapnia Status: Acute Assessment and Plan: Acute on chronic hypoxic and hypercarbic Respiratory failure secondary to pulmonary edema with possible pneumonia -09/[address] showed 1. Diffuse lung disease, consistent with pulmonary edema versus pneumonia. 2. Moderate-sized right and small left pleural effusions. -ABG shows hypercapnia, increase rate to 16 increased tidal volumes to 350ml -Chest x-ray reviewed -Continue Lasix today -she is on Zosyn, vancomycin was discontinued on 09/05 -09/02/2022: Blood cultures negative x2 -09/02/2022 sputum cultures: Negative -09/02/2022 MRSA screen negative (2) Acute on chronic combined systolic and diastolic CHF (congestive heart failure): Code(s): I50.43 - Acute on chronic combined systolic (congestive) and diastolic (congestive) heart failure Status: Acute Assessment and Plan: Echocardiogram done on 08/26 Summary ? 1. Left ventricular chamber dimension is moderately enlarged. ? 3. Left ventricular systolic function is moderately globally reduced, estimated at 35-40%. ? 6. Left atrial chamber dimension is moderately enlarged. ? 7. Right atrial chamber dimension is mildly enlarged. ? 10. There is moderate to severe aortic valve stenosis based on a peak velocity of 279.27 cm/s, mean gradient of 19 mmHg, and aortic valve area of 0.91 cm2. ? 11. There is moderate aortic valve regurgitation. ? 12. The mitral valve has mildly thickened leaflets and moderately calcified annulus. ? 13. There is moderate mitral valve regurgitation. ? 14. There is mild tricuspid valve regurgitation. ? 15. Moderate pulmonary hypertension, estimated pulmonary arterial systolic pressure is 51 mmHg. ? 16. Small atheroma in anterior and posterior aortic root. ? 17. Dilated inferior vena cava with <50% collapse upon inspiration consistent with significantly elevated right atrial pressure, 15 mmHg. Patient has congestive heart failure, pulmonary hypertension , volume overload and moderate to severe -continue Diuresis which has been effective -Patient was tried on dobutamine twice with 2nd attempt while on amiodarone but patient did not tolerate due to worsening of tachycardia and RVR. -Patient had ÓSCAR done on 09/04. Cardioversion was not attempted as views were poor and a clot could not be ruled out, appears to have severe . -Will need to discuss with Cardiology regarding possible transfer to tertiary facility for evaluation for TAVR (3) Shock: Code(s): R57.9 - Shock, unspecified Status: Acute Assessment and Plan: It appears the patient has cardiogenic shock secondary to congestive heart failure and severe which has been likely exacerbated by sedation and positive pressure ventilation -She was already on antibiotics during this hospitalization. -Her WBCs normal and procalcitonin level is low -She is currently afebrile CT chest abdomen pelvis IMPRESSION: 1. Diffuse lung disease, consistent with pulmonary edema versus pneumonia. 2. Moderate-sized right and small left pleural effusions. 3. Large sliding hiatal hernia - Levophed. -Trial of dobutamine x 2 was not successful -wean stress dose steroids (4) Aortic stenosis: Qualifiers: Cardiac valve disease etiology: nonrheumatic Qualified Code(s): I35.0 - Nonrheumatic aortic (valve) stenosis Code(s): I35.0 - Nonrheumatic aortic (valve) stenosis Status: Acute Assessment and Plan: See above (5) Paroxysmal atrial fibrillation: Code(s): I48.0 - Paroxysmal atrial fibrillation Status: Acute Assessment and Plan: Currently rate controlled and on amiodarone infusion Off metoprolol due to hypotension On Eliquis for anticoagulation (6) Acute kidney injury: Code(s): N17.9 - Acute kidney failure, unspecified St
[2022-09-06] MEDS: HYDROCORTISONE SODIUM SUCCINATE 100 MG/2 ML VIAL 50 MG IV PUSH (18:03)
[2022-09-06 19:31] LABS: Glucose Point of Care 99 mg/dl (65-105)
[2022-09-06] MEDS: SENNA/DOCUSATE SODIUM TABLET 1 TAB PO (20:12)
[2022-09-06 20:13] LABS: IFOB Positive Control Positive; Immunochemical Fecal Occult Bl Positive (N)
[2022-09-07] VITALS (36 sets, daily range): BP systolic 77–118; BP diastolic 50–86; PULSE 59–135; RESP 14–23; TEMP 37.1–37.5; O2SAT 92–100
[2022-09-07] MEDS: PIPERACILLIN/TAZOBACTAM SOD 4.5 GM in SODIUM CHLORIDE 0.9% IV 100 ML 200 ML IVPB ×4 (02:17→20:57)
[2022-09-07] MEDS: LORazepam INJ (*CRX) 2 MG/ML VIAL IV PUSH ×2 (03:00→17:47)
[2022-09-07] MEDS: FENTANYL 2,500MCG/NS250ML(*CRX 2,500 MCG/250 ML BAG 7.5 MCG IV CONT (04:49)
[2022-09-07] MEDS: CENTRAL LINE FLUSH 10 ML IV PUSH ×3 (05:04→20:42)
[2022-09-07] MEDS: HYDROCORTISONE SODIUM SUCCINATE 100 MG/2 ML VIAL 50 MG IV PUSH ×2 (05:05→17:40)
[2022-09-07 05:28] LABS: Hemoglobin 7.3 g/dL (12.0-15.0); Mean Corpuscular HGB Conc 30.4 g/dl (32-36); Mean Corpuscular Hemoglobin 26.1 pg (26-34); Mean Corpuscular Volume 85.7 fl (80-100); Mean Platelet Volume 9.8 fl (7.4-10.4); Platelet Count Result 182 k/mm3 (150-375); Red Cell Distribution Width 18.9 % (11.5-14.5); White Blood Count 6.7 K/mm3 (4.5-10.0)
[2022-09-07 05:30] LABS: Carboxyhemoglobin 0.4 % THb (0-2.0); Fractional Inspired Oxygen 30 %; HCO3 ABG 34.2 mEq/l (22.0-26.0); Methemoglobin ABG 0.3 %THb (0-1.5); Oxygen Content ABG 11.4 %vol (16.0-22.0); Oxygen Saturation ABG 98.5 % (95.0-100.0); PCO2 ABG 34.3 mmHg (35.0-45.0); PO2 ABG 102.6 mmHg (80.0-100.0); PO2 FiO2 Ratio Arterial Blood 3.42 %; Reduced Hemoglobin 2.3 %THb (0-5.0); Total Hemoglobin 8.2 g/dL (12.0-18.0)
[2022-09-07 05:35] LABS: Device VENTILATOR; Modified Allen's Test Pass; Site Drawn RIGHT RADIAL; pH ABG 7.616 (7.350-7.450)
[2022-09-07 05:36] LABS: Arterial Blood Gas PEEP 8 cmH2O; Arterial Blood Gas Tidal Volume 370 ml; Arterial Blood Gas Vent Mode CMV; Arterial Blood Gas Ventilator rate 16 /MIN
[2022-09-07 05:44] LABS: Alanine Aminotransferase 44 U/L (6-35); Albumin Level 2.9 g/dL (3.5-5.1); Alkaline Phosphatase 64 U/L (38-126); Anion Gap 7 mmol/L (8-16); Aspartate Amino Transferase 46 U/L (14-36); Bilirubin,Total 0.7 mg/dL (0.2-1.3); Blood Urea Nitrogen 55 mg/dL (7-17); Calcium 7.1 mg/dL (8.4-10.2); Carbon Dioxide 39 mmol/L (22-30); Chloride 98 mmol/L (98-107); Estimated CRCL calculation 40 ml/min; Estimated Glomerular Filt Rate 44; Glucose 133 mg/dL (65-110); Magnesium 1.7 mg/dL (1.6-2.3); Phosphorus 2.5 mg/dL (2.5-4.5); Potassium < 2.0 mmol/L (3.4-5.0); Sodium 144 mmol/L (137-145)
[2022-09-07] MEDS: POTASSIUM CHLORIDE 20 MEQ PACKET (FOR LIQUID) 40 MEQ FEED TUBE ×2 (06:15→09:24)
[2022-09-07] MEDS: MAGNESIUM SULF 2 GM/WATER 50ML 2 GM/50 ML BAG IVPB (06:21)
[2022-09-07] MEDS: KCL 40 MEQ/WATER 100 ML 100 ML 25 ML IVPB ×3 (06:26→20:57)
[2022-09-07] MEDS: AMIODARONE 360 MG/D5W 200 ML 360 MG/200 ML BAG 16.67 MG IV CONT ×2 (06:34→17:59)
[2022-09-07] MEDS: FUROSEMIDE INJ 40 MG/4 ML VIAL IV PUSH (09:25)
[2022-09-07] MEDS: PANTOPRAZOLE SODIUM IV 40 MG VIAL IV PUSH ×2 (09:25→20:41)
[2022-09-07] MEDS: MINERAL OIL/WHITE PETROLATUM OINTMENT 1 APPLIC EACH EYE ×2 (09:26→20:42)
--- NOTE | 2022-09-07 10:29 | PM.PNCARD ---
Progress Note: A&P Assessment and Plan (1) Acute on chronic congestive heart failure: Qualifiers: Heart failure type: combined systolic and diastolic Qualified Code(s): I50.43 - Acute on chronic combined systolic (congestive) and diastolic (congestive) heart failure Code(s): I50.9 - Heart failure, unspecified Status: Acute Assessment and Plan: EF 35-40%. Patient remains volume overloaded but improving urine output with IV diuresis. Continue IV Lasix 40 mg q.12 hours as BP tolerates. Accurate input and output, daily weight. Hold on dobutamine given rapid ventricular response with AFib with use and the fact the patient is responding well to diuretic therapy thus far. Patient very complicated although off pressors at this time. Will continue to monitor closely in ICU on telemetry. fair output overnight. Patient is severely hypokalemic. Aggressive repletion to 4.0. Recheck later today. (2) Acute respiratory failure with hypoxia: Code(s): J96.01 - Acute respiratory failure with hypoxia Status: Acute Assessment and Plan: Patient remains intubated on mechanical ventilatory support. Management per Critical Care. She is on minimal FiO2. Weaning trials per Critical Care. Continue supportive care, diuresis. She is on Zosyn. (3) A-fib: Code(s): I48.91 - Unspecified atrial fibrillation Status: Acute Assessment and Plan: Heart rate Elevated but fair with periods of more significant rapid ventricular response. Off dobutamine swcondary to tachycardia, remains on IV Amiodarone for now. transition to oral when extubated and able. Monitor BP closely. Continue Eliquis 5 mg b.i.d.. Follow H&H given anemia and slight decline. stool guaiac positive. Monitor closely for evidence of bleeding. Slow decline in H&H. (4) Cardiomyopathy: Qualifiers: Cardiomyopathy type: other Qualified Code(s): I42.8 - Other cardiomyopathies Code(s): I42.9 - Cardiomyopathy, unspecified Status: Acute Assessment and Plan: EF 35-40%. Continue medical management. Not able to tolerate optimal guideline directed medical therapy at this time given recent shock now resolved off pressors. Will optimize therapy as she tolerates and as appropriate. Eventually initiation of beta-rod, Entresto as able. Further workup when she has more fully recovered. (5) Hypokalemia: Code(s): E87.6 - Hypokalemia Status: Acute Assessment and Plan: severely reduced potassium <2.0 this morning depsite KCl yesterday. Replace to keep potassium around 4.0. Supplementation has been administered. Continue to monitor very closely. (6) Acute kidney injury: Code(s): N17.9 - Acute kidney failure, unspecified Status: Acute Assessment and Plan: Continue to monitor renal function closely, urine output intolerance to diuretic therapy. Minimize nephrotoxic agents. stable thus far. (7) Aortic stenosis: Qualifiers: Cardiac valve disease etiology: nonrheumatic Qualified Code(s): I35.0 - Nonrheumatic aortic (valve) stenosis Code(s): I35.0 - Nonrheumatic aortic (valve) stenosis Status: Acute Assessment and Plan: Likely overall moderate in severity. Avoid excessive hypotension. (8) Hyponatremia: Code(s): E87.1 - Hypo-osmolality and hyponatremia Status: Acute Assessment and Plan: Stable, resolved. Continue to monitor. Subjective Date/time seen: Date of service:09/07/22 10:29 Follow-up for atrial fibrillation with RVR, CHF, respiratory failure, aortic stenosis Interval history: Follow-up for atrial fib and atrial flutter, RVR, acute on chronic systolic and diastolic heart failure, cardiomyopathy EF 35-40%, and moderate to severe aortic stenosis. Admitted with altered mental status due to severe hyponatremia. 09/01/2022: She is back in atrial flutter today, rate controlled. She is aler
--- NOTE | 2022-09-07 10:49 | P.PNNP_ITS ---
Progress Note: A&P Assessment and Plan (1) Acute kidney injury: Code(s): N17.9 - Acute kidney failure, unspecified Status: Acute Assessment and Plan: * creatinine mildly higher from baselin of 0.7 to 1.2. it seems to have plateaued here. * likely due to hypotension in the context of previous diuretic therapy and CHF * evaluation to date: * CPK normal * urine electrolytes prerenal (likely reflective of cardiorenal physiology along with aortic stenosis) * imaging without obstruction * her cxr is wet. with prerenal physiology, her bad heart and sepsis/hypotension seem to be the culprit in the higher creatinine. * getting IV diuretics. Potassium is still very low. * will add spironolactone. recheck K at 5pm * she made 3800cc of urine yesterday * check labs tomorrow (2) Hyponatremia: Code(s): E87.1 - Hypo-osmolality and hyponatremia Status: Acute Assessment and Plan: * resolved. (3) Acute respiratory failure: Code(s): J96.00 - Acute respiratory failure, unspecified whether with hypoxia or h ypercapnia Status: Acute Assessment and Plan: * suspect due to combo of pulmonary edema, CHF, and pneumonia * cxr wet. * cultures negative so far * on zosyn (4) Shock: Code(s): R57.9 - Shock, unspecified Status: Acute Assessment and Plan: * Resolved (5) Acute on chronic combined systolic and diastolic CHF (congestive heart failure): Code(s): I50.43 - Acute on chronic combined systolic (congestive) and diastolic (congestive) heart failure Status: Acute Assessment and Plan: * TTE shows EF of 35-40%, moderate to severe take valve stenosis, moderate AI, moderate pulmonary hypertension * on diuretics. * creatinine stable but not improving, possibly due to the diuretics but she still needs more fluid off. continue the diuresis. * Cardiology following. I appreciate Dr. Naranjo's note (6) Community acquired pneumonia: Code(s): J18.9 - Pneumonia, unspecified organism Status: Acute Assessment and Plan: * as suggested by CXR on admission * was on antibiotics on admission; blood cultures were negative * repeat imaging and culture ordered * restarted on antibioics (7) Altered mental status: Code(s): R41.82 - Altered mental status, unspecified Status: Acute Assessment and Plan: * etiology not clear * initially thought to be secondary to #1 (but no improvement with improving sodium level) * follow mentation * head CT noted * Neurology following (8) Paroxysmal atrial fibrillation: Code(s): I48.0 - Paroxysmal atrial fibrillation Status: Acute Assessment and Plan: * HR is 90 to 103 * on anticoagulation * Cardiology following Subjective Date/time seen: 09/07/22 10:49 Interval history: Patient is awake. Still on the ventilator. No very thirsty. Exam Narrative: General: WD/WN female intubated and on mechanical ventilation Heart: normal S1 and S2; no rub Lungs: coarse breath sounds Abdomen: soft, nontender, nondistended, positive bowel sounds Extremities: 1+ bilateral edema Skin: no acute rash Or subcu nodules Objective Data Vital Signs Vital Signs: Vital Signs - 24 hr 09/06/22 11:00 09/06/22 11:15 09/06/22 11:47 Temperature Pulse Rate 91 89 91
--- NOTE | 2022-09-07 10:49 | PM.PNNEP ---
Progress Note: A&P Assessment and Plan (1) Acute kidney injury: Code(s): N17.9 - Acute kidney failure, unspecified Status: Acute Assessment and Plan: creatinine mildly higher from baselin of 0.7 to 1.2. it seems to have plateaued here. likely due to hypotension in the context of previous diuretic therapy and CHF evaluation to date: CPK normal urine electrolytes prerenal (likely reflective of cardiorenal physiology along with aortic stenosis) imaging without obstruction her cxr is wet. with prerenal physiology, her bad heart and sepsis/hypotension seem to be the culprit in the higher creatinine. getting IV diuretics. Potassium is still very low. will add spironolactone. recheck K at 5pm she made 3800cc of urine yesterday check labs tomorrow (2) Hyponatremia: Code(s): E87.1 - Hypo-osmolality and hyponatremia Status: Acute Assessment and Plan: resolved. (3) Acute respiratory failure: Code(s): J96.00 - Acute respiratory failure, unspecified whether with hypoxia or hypercapnia Status: Acute Assessment and Plan: suspect due to combo of pulmonary edema, CHF, and pneumonia cxr wet. cultures negative so far on zosyn (4) Shock: Code(s): R57.9 - Shock, unspecified Status: Acute Assessment and Plan: Resolved (5) Acute on chronic combined systolic and diastolic CHF (congestive heart failure): Code(s): I50.43 - Acute on chronic combined systolic (congestive) and diastolic (congestive) heart failure Status: Acute Assessment and Plan: TTE shows EF of 35-40%, moderate to severe take valve stenosis, moderate AI, moderate pulmonary hypertension on diuretics. creatinine stable but not improving, possibly due to the diuretics but she still needs more fluid off. continue the diuresis. Cardiology following. I appreciate Dr. Naranjo's note (6) Community acquired pneumonia: Code(s): J18.9 - Pneumonia, unspecified organism Status: Acute Assessment and Plan: as suggested by CXR on admission was on antibiotics on admission; blood cultures were negative repeat imaging and culture ordered restarted on antibioics (7) Altered mental status: Code(s): R41.82 - Altered mental status, unspecified Status: Acute Assessment and Plan: etiology not clear initially thought to be secondary to #1 (but no improvement with improving sodium level) follow mentation head CT noted Neurology following (8) Paroxysmal atrial fibrillation: Code(s): I48.0 - Paroxysmal atrial fibrillation Status: Acute Assessment and Plan: HR is 90 to 103 on anticoagulation Cardiology following Subjective Date/time seen: 09/07/22 10:49 Interval history: Patient is awake. Still on the ventilator. No very thirsty. Exam Narrative: General: WD/WN female intubated and on mechanical ventilation Heart: normal S1 and S2; no rub Lungs: coarse breath sounds Abdomen: soft, nontender, nondistended, positive bowel sounds Extremities: 1+ bilateral edema Skin: no acute rash Or subcu nodules Objective Data Vital Signs Vital Signs: Vital Signs - 24 hr 09/06/22 11:00 09/06/22 11:15 09/06/22 11:47 Temperature Pulse Rate 91 89 91 Respiratory Rate 16 16 Blood Pressure 90/58 L Pulse Oximetry Oxygen Delivery Fraction of Inspired Oxygen 09/06/22 11:57 09/06/22 11:33 09/06/22 12:00 Temperature 99.7 F H Pulse Rate 98 87 89 Respiratory Rate 16 Blood Pressure 99/57 L 90/55 L Pulse Oximetry 100 100 Oxygen Delivery Mechanical Ventilation Fraction of Inspired Oxygen 30 09/06/22 13:25 09/06/22 12:00 09/06/22 14:01 Temperature Pulse Rate 85 91 98 Respiratory Rate 16 16 Blood Pressure Pulse Oximetry Oxygen Delivery Fraction of Inspired Oxygen 09/06/22 14:00 09/06/22 12:00 09/06/22 14:00
--- NOTE | 2022-09-07 11:19 | WPDINTPN ---
Progress Note: A&P Assessment and Plan (1) Acute respiratory failure: Code(s): J96.00 - Acute respiratory failure, unspecified whether with hypoxia or hypercapnia Status: Acute Assessment and Plan: Acute on chronic hypoxic and hypercarbic Respiratory failure secondary to pulmonary edema with possible pneumonia -intubated on 09/02/2022 -ABG shows respiratory alkalosis, decrease rate to 14 and tidal volumes 340 mL -Chest x-ray reviewed -Continue Lasix today -continue Zosyn, vancomycin was discontinued on 09/05 -09/02/2022: Blood cultures negative x2 -09/02/2022 sputum cultures: Negative -09/02/2022 MRSA screen negative -09/[address] showed 1. Diffuse lung disease, consistent with pulmonary edema versus pneumonia. 2. Moderate-sized right and small left pleural effusions. (2) Acute on chronic combined systolic and diastolic CHF (congestive heart failure): Code(s): I50.43 - Acute on chronic combined systolic (congestive) and diastolic (congestive) heart failure Status: Acute Assessment and Plan: Echocardiogram done on 08/26 Summary ? 1. Left ventricular chamber dimension is moderately enlarged. ? 3. Left ventricular systolic function is moderately globally reduced, estimated at 35-40%. ? 6. Left atrial chamber dimension is moderately enlarged. ? 7. Right atrial chamber dimension is mildly enlarged. ? 10. There is moderate to severe aortic valve stenosis based on a peak velocity of 279.27 cm/s, mean gradient of 19 mmHg, and aortic valve area of 0.91 cm2. ? 11. There is moderate aortic valve regurgitation. ? 12. The mitral valve has mildly thickened leaflets and moderately calcified annulus. ? 13. There is moderate mitral valve regurgitation. ? 14. There is mild tricuspid valve regurgitation. ? 15. Moderate pulmonary hypertension, estimated pulmonary arterial systolic pressure is 51 mmHg. ? 16. Small atheroma in anterior and posterior aortic root. ? 17. Dilated inferior vena cava with <50% collapse upon inspiration consistent with significantly elevated right atrial pressure, 15 mmHg. Patient has congestive heart failure, pulmonary hypertension , volume overload and moderate to severe -continue Diuresis which has been effective -Patient was tried on dobutamine twice with 2nd attempt while on amiodarone but patient did not tolerate due to worsening of tachycardia and RVR. -Patient had ÓSCAR done on 09/04. Cardioversion was not attempted as views were poor and a clot could not be ruled out, appears to have severe . -Will need to discuss with Cardiology regarding possible transfer to tertiary facility for evaluation for TAVR (3) Shock: Code(s): R57.9 - Shock, unspecified Status: Acute Assessment and Plan: It appears the patient has cardiogenic shock secondary to congestive heart failure and severe which has been likely exacerbated by sedation and positive pressure ventilation -She was already on antibiotics during this hospitalization. -Her WBCs normal and procalcitonin level is low -She is currently afebrile CT chest abdomen pelvis IMPRESSION: 1. Diffuse lung disease, consistent with pulmonary edema versus pneumonia. 2. Moderate-sized right and small left pleural effusions. 3. Large sliding hiatal hernia -off Levophed. -Trial of dobutamine x 2 was not successful -continue to wean stress dose steroids to off (4) Aortic stenosis: Qualifiers: Cardiac valve disease etiology: nonrheumatic Qualified Code(s): I35.0 - Nonrheumatic aortic (valve) stenosis Code(s): I35.0 - Nonrheumatic aortic (valve) stenosis Status: Acute Assessment and Plan: See above (5) Paroxysmal atrial fibrillation: Code(s): I48.0 - Paroxysmal atrial fibrillation Status: Acute Assessment and Plan: Currently rate controlled and on amiodarone infusion Off metoprolol due to hypotension -patient dropped hemoglobin to 7.3 on 09/07, HOLD Eliquis -cardiology mickey
[2022-09-07 13:49] LABS: Blood Urea Nitrogen 56 mg/dL (7-17); Calcium 7.3 mg/dL (8.4-10.2); Carbon Dioxide > 40 mmol/L (22-30); Chloride 95 mmol/L (98-107); Estimated CRCL calculation 35 ml/min; Estimated Glomerular Filt Rate 37; Glucose 136 mg/dL (65-110); Potassium 2.8 mmol/L (3.4-5.0); Sodium 142 mmol/L (137-145)
[2022-09-07] MEDS: POTASSIUM CHLORIDE 20 MEQ TABLET 40 MEQ PO (15:17)
[2022-09-07] MEDS: SPIRONOLACTONE 25 MG TABLET PO (17:41)
[2022-09-07 17:57] LABS: Potassium 3.1 mmol/L (3.4-5.0)
[2022-09-07] MEDS: hetaSTARCH 6%/NACL 500 ML 250 ML IV CONT (18:47)
[2022-09-07] MEDS: MIDAZOLAM HCL (*CRX) 2 MG/2 ML VIAL IV PUSH (20:38)
--- NOTE | 2022-09-07 21:45 | PC.NURSE ---
Updated Dr. Miller regarding difficulty replacing OG and read Xray report. Okay to hold Tube feed and Put NG to LIS for the night.
[2022-09-07] MEDS: NOREPINEPHRINE 8 MG/D5W 250 ML 8 MG/250 ML BAG 9.38 MG IV CONT (22:10)
[2022-09-08] VITALS (36 sets, daily range): BP systolic 91–124; BP diastolic 59–83; PULSE 62–119; RESP 14–29; TEMP 36.5–37.8; O2SAT 99–100
[2022-09-08] MEDS: PIPERACILLIN/TAZOBACTAM SOD 4.5 GM in SODIUM CHLORIDE 0.9% IV 100 ML 200 ML IVPB ×2 (02:05→08:40)
[2022-09-08 04:49] LABS: Alveolar/Arterial O2 Gradient 70.6 mmHg; Base Excess ABG 12.4 mEq/l (+/-2.0); Carboxyhemoglobin 0.3 % THb (0-2.0); Fractional Inspired Oxygen 30 %; HCO3 ABG 35.9 mEq/l (22.0-26.0); Methemoglobin ABG 0.5 %THb (0-1.5); Oxygen Content ABG 10.7 %vol (16.0-22.0); Oxygen Saturation ABG 97.9 % (95.0-100.0); Oxyhemoglobin 95.6 % THb (90.0-100.0); PCO2 ABG 41.9 mmHg (35.0-45.0); PO2 ABG 94.1 mmHg (80.0-100.0); PO2 FiO2 Ratio Arterial Blood 3.14 %; Reduced Hemoglobin 3.6 %THb (0-5.0)
[2022-09-08 04:53] LABS: Arterial Blood Gas Vent Mode CMV; Arterial Blood Gas Ventilator rate 14 /MIN; Device VENTILATOR; Modified Allen's Test Pass; Site Drawn RIGHT RADIAL; Total Hemoglobin 7.8 g/dL (12.0-18.0); pH ABG 7.551 (7.350-7.450)
[2022-09-08 04:54] LABS: Arterial Blood Gas PEEP 8 cmH2O; Arterial Blood Gas Tidal Volume 340 ml
[2022-09-08] MEDS: HYDROCORTISONE SODIUM SUCCINATE 100 MG/2 ML VIAL 50 MG IV PUSH (05:08)
[2022-09-08] MEDS: CENTRAL LINE FLUSH 10 ML IV PUSH ×3 (05:08→19:39)
[2022-09-08 05:35] LABS: Alanine Aminotransferase 55 U/L (6-35); Albumin Level 2.7 g/dL (3.5-5.1); Alkaline Phosphatase 70 U/L (38-126); Aspartate Amino Transferase 53 U/L (14-36); Bilirubin,Total 0.7 mg/dL (0.2-1.3); Blood Urea Nitrogen 58 mg/dL (7-17); Calcium 6.7 mg/dL (8.4-10.2); Carbon Dioxide > 40 mmol/L (22-30); Chloride 102 mmol/L (98-107); Estimated CRCL calculation 35 ml/min; Estimated Glomerular Filt Rate 37; Glucose 120 mg/dL (65-110); Phosphorus 3.3 mg/dL (2.5-4.5); Potassium 3.3 mmol/L (3.4-5.0); Sodium 145 mmol/L (137-145)
[2022-09-08 05:39] LABS: Hematocrit 23.2 % (37.0-47.0); Mean Corpuscular HGB Conc 30.2 g/dl (32-36); Mean Corpuscular Hemoglobin 25.5 pg (26-34); Mean Corpuscular Volume 84.7 fl (80-100); Mean Platelet Volume 10.6 fl (7.4-10.4); Platelet Count Result 188 k/mm3 (150-375); Red Blood Count 2.74 M/mm3 (4.2-5.4); Red Cell Distribution Width 19.3 % (11.5-14.5); White Blood Count 7.9 K/mm3 (4.5-10.0)
[2022-09-08] MEDS: AMIODARONE 360 MG/D5W 200 ML 360 MG/200 ML BAG 16.67 MG IV CONT ×2 (05:59→16:59)
[2022-09-08 07:11] LABS: Glucose Point of Care 126 mg/dl (65-105)
[2022-09-08] MEDS: acetaZOLAMIDE SODIUM FOR INJ 500 MG VIAL 250 MG IV PUSH (08:40)
[2022-09-08] MEDS: KCL 40 MEQ/WATER 100 ML 100 ML 25 ML IVPB (08:40)
[2022-09-08] MEDS: POTASSIUM CHLORIDE 20 MEQ PACKET (FOR LIQUID) FEED TUBE (08:40)
[2022-09-08] MEDS: PANTOPRAZOLE SODIUM IV 40 MG VIAL IV PUSH ×2 (08:40→19:39)
--- NOTE | 2022-09-08 09:24 | WPDINTPN ---
Progress Note: A&P Assessment and Plan (1) Acute respiratory failure: Code(s): J96.00 - Acute respiratory failure, unspecified whether with hypoxia or hypercapnia Status: Acute Assessment and Plan: Acute on chronic hypoxic and hypercarbic Respiratory failure secondary to pulmonary edema with possible pneumonia -intubated on 09/02/2022 -ABG with improving respiratory alkalosis, -Chest x-ray this morning: Moderate pulmonary edema. NG tube presumably within a moderate to large hiatal hernia.ET tube in satisfactory position. -hold Lasix and spironolactone due to low blood pressures -will give Diamox today 09/08 -continue Zosyn, -vancomycin was discontinued on 09/05 -09/02/2022: Blood cultures negative x2 -09/02/2022 sputum cultures: Negative -09/02/2022 MRSA screen negative -will place patient on pressure support ventilation to exercise the lungs and evaluate if she is ready for extubation -09/[address] showed 1. Diffuse lung disease, consistent with pulmonary edema versus pneumonia. 2. Moderate-sized right and small left pleural effusions. (2) Acute on chronic combined systolic and diastolic CHF (congestive heart failure): Code(s): I50.43 - Acute on chronic combined systolic (congestive) and diastolic (congestive) heart failure Status: Acute Assessment and Plan: Echocardiogram done on 08/26 Summary ? 1. Left ventricular chamber dimension is moderately enlarged. ? 3. Left ventricular systolic function is moderately globally reduced, estimated at 35-40%. ? 6. Left atrial chamber dimension is moderately enlarged. ? 7. Right atrial chamber dimension is mildly enlarged. ? 10. There is moderate to severe aortic valve stenosis based on a peak velocity of 279.27 cm/s, mean gradient of 19 mmHg, and aortic valve area of 0.91 cm2. ? 11. There is moderate aortic valve regurgitation. ? 12. The mitral valve has mildly thickened leaflets and moderately calcified annulus. ? 13. There is moderate mitral valve regurgitation. ? 14. There is mild tricuspid valve regurgitation. ? 15. Moderate pulmonary hypertension, estimated pulmonary arterial systolic pressure is 51 mmHg. ? 16. Small atheroma in anterior and posterior aortic root. ? 17. Dilated inferior vena cava with <50% collapse upon inspiration consistent with significantly elevated right atrial pressure, 15 mmHg. Patient has congestive heart failure, pulmonary hypertension , volume overload and moderate to severe -continue Diuresis which has been effective -Patient was tried on dobutamine twice with 2nd attempt while on amiodarone but patient did not tolerate due to worsening of tachycardia and RVR. -Patient had ÓSCAR done on 09/04. Cardioversion was not attempted as views were poor and a clot could not be ruled out, appears to have severe . -Will need to discuss with Cardiology regarding possible transfer to tertiary facility for evaluation for TAVR (3) Shock: Code(s): R57.9 - Shock, unspecified Status: Acute Assessment and Plan: It appears the patient has cardiogenic shock secondary to congestive heart failure and severe which has been likely exacerbated by sedation and positive pressure ventilation -She was already on antibiotics during this hospitalization. -Her WBCs normal and procalcitonin level is low -She is currently afebrile CT chest abdomen pelvis IMPRESSION: 1. Diffuse lung disease, consistent with pulmonary edema versus pneumonia. 2. Moderate-sized right and small left pleural effusions. 3. Large sliding hiatal hernia -09/07: Patient was restarted to hypotension for brief amount of time, currently off Levophed. Which could be related to excessive diuresis -continue to wean stress dose steroids to off (4) Aortic stenosis: Qualifiers: Cardiac valve disease etiology: nonrheumatic Qualified Code(s): I35.0 - Nonrheumatic aortic (valve) stenosis Code(s): I35.0 - Nonrheumatic aortic (valve) stenosis
--- NOTE | 2022-09-08 10:19 | PM.PNNEP ---
Progress Note: A&P Assessment and Plan (1) Acute kidney injury: Code(s): N17.9 - Acute kidney failure, unspecified Status: Acute Assessment and Plan: creatinine mildly higher from baseline suspect due to diuretic therapy fluctuating hemodynamics likely playing a role as well evaluation to date: CPK normal urine electrolytes prerenal (likely reflective of cardiorenal physiology along with aortic stenosis) imaging without obstruction her fluctuating creatinine is a manifestion of her prerenal physiology coupled with her bad heart and sepsis/hypotension concern for possible overdiuresis (given hypokalemia and possible contraction alkalosis) hold loop diuretics + spironolactone for now dose with diamox replace K+ follow repeat labs and UOP (2) Hyponatremia: Code(s): E87.1 - Hypo-osmolality and hyponatremia Status: Acute Assessment and Plan: resolved (3) Acute respiratory failure: Code(s): J96.00 - Acute respiratory failure, unspecified whether with hypoxia or hypercapnia Status: Acute Assessment and Plan: suspect due to combo of pulmonary edema, CHF, and pneumonia follow daily CXRs cultures negative so far (completed course of antibiotics) follow I/Os (4) Anasarca: Code(s): R60.1 - Generalized edema Status: Acute Assessment and Plan: clinically better with aggressive diuresis follow clinical exam (5) Acute on chronic combined systolic and diastolic CHF (congestive heart failure): Code(s): I50.43 - Acute on chronic combined systolic (congestive) and diastolic (congestive) heart failure Status: Acute Assessment and Plan: TTE shows EF of 35-40%, moderate to severe take valve stenosis, moderate AI, moderate pulmonary hypertension was on diuretics - holding today (with exception of diamox) creatinine fluctuating (see #1) Cardiology following (6) Community acquired pneumonia: Code(s): J18.9 - Pneumonia, unspecified organism Status: Acute Assessment and Plan: as suggested by CXR on admission was on antibiotics on admission; blood cultures were negative repeat imaging and culture noted completed course of antibiotic therapy (7) Altered mental status: Code(s): R41.82 - Altered mental status, unspecified Status: Acute Assessment and Plan: etiology not clear initially thought to be secondary to #1 (but no improvement with improving sodium level prior to intubation) follow mentation head CT noted (8) Paroxysmal atrial fibrillation: Code(s): I48.0 - Paroxysmal atrial fibrillation Status: Acute Assessment and Plan: rate control strategy on anticoagulation Cardiology following Will continue to follow. Subjective Date/time seen: 09/08/22 10:19 Chart reviewed since last seen -- remains intubated/sedated and on mechanical ventilation; urine output reasonable in response to diuretic therapy; issues with hypotension overnight but better this AM; low K+ noted by AM labs. Exam Narrative: General: WD/WN female intubated and on mechanical ventilation Heart: normal S1 and S2; no rub Lungs: coarse breath sounds Abdomen: soft, nontender, nondistended, positive bowel sounds Extremities: 1+ bilateral edema noted Skin: warm and dry Objective Data Vital Signs Vital Signs: Vital Signs Temp Pulse Resp BP Pulse Ox O2 Del Method FiO2 09/08/22 10:12 98 100 Mechanical Ventilation 09/08/22 09:59 97.7 F 116 H 20 107/63 100 09/08/22 08:00 100 Mechanical Ventilation 30 09/08/22 10:00 97 09/08/22 08:00 30 09/08/22 08:00 99 09/08/22 07:00 93 100/69 09/08/22 08:00 109 H 16 09/08/22 08:06 89 100 Mechanical Ventilation 09/08/22 07:28 99.2 F 97 19 100/69 99 09/08/22 05:59 81 98/68 L 09/08/22 05:59 81 98/68 L
--- NOTE | 2022-09-08 10:19 | P.PNNP_ITS ---
Progress Note: A&P Assessment and Plan (1) Acute kidney injury: Code(s): N17.9 - Acute kidney failure, unspecified Status: Acute Assessment and Plan: * creatinine mildly higher from baseline * suspect due to diuretic therapy * fluctuating hemodynamics likely playing a role as well * evaluation to date: * CPK normal * urine electrolytes prerenal (likely reflective of cardiorenal physiology along with aortic stenosis) * imaging without obstruction * her fluctuating creatinine is a manifestion of her prerenal physiology coupled with her bad heart and sepsis/hypotension * concern for possible overdiuresis (given hypokalemia and possible contraction alkalosis) * hold loop diuretics + spironolactone for now * dose with diamox * replace K+ * follow repeat labs and UOP (2) Hyponatremia: Code(s): E87.1 - Hypo-osmolality and hyponatremia Status: Acute Assessment and Plan: * resolved (3) Acute respiratory failure: Code(s): J96.00 - Acute respiratory failure, unspecified whether with hypoxia or hypercapnia Status: Acute Assessment and Plan: * suspect due to combo of pulmonary edema, CHF, and pneumonia * follow daily CXRs * cultures negative so far (completed course of antibiotics) * follow I/Os (4) Anasarca: Code(s): R60.1 - Generalized edema Status: Acute Assessment and Plan: * clinically better with aggressive diuresis * follow clinical exam (5) Acute on chronic combined systolic and diastolic CHF (congestive heart failure): Code(s): I50.43 - Acute on chronic combined systolic (congestive) and diastolic (congestive) heart failure Status: Acute Assessment and Plan: * TTE shows EF of 35-40%, moderate to severe take valve stenosis, moderate AI, moderate pulmonary hypertension * was on diuretics - holding today (with exception of diamox) * creatinine fluctuating (see #1) * Cardiology following (6) Community acquired pneumonia: Code(s): J18.9 - Pneumonia, unspecified organism Status: Acute Assessment and Plan: * as suggested by CXR on admission * was on antibiotics on admission; blood cultures were negative * repeat imaging and culture noted * completed course of antibiotic therapy (7) Altered mental status: Code(s): R41.82 - Altered mental status, unspecified Status: Acute Assessment and Plan: * etiology not clear * initially thought to be secondary to #1 (but no improvement with improving sodium level prior to intubation) * follow mentation * head CT noted (8) Paroxysmal atrial fibrillation: Code(s): I48.0 - Paroxysmal atrial fibrillation Status: Acute Assessment and Plan: * rate control strategy * on anticoagulation * Cardiology following Will continue to follow. Subjective Date/time seen: 09/08/22 10:19 Chart reviewed since last seen -- remains intubated/sedated and on mechanical ventilation; urine output reasonable in response to diuretic therapy; issues with hypotension overnight but better this AM; low K+ noted by AM labs. Exam Narrative: General: WD/WN female intubated and on mechanical ventilation Heart: normal S1 and S2; no rub Lungs: coarse breath sounds Abdomen: soft, nontender, nondistended, positive bowel sounds Extremities: 1+ bilateral edema noted Skin: warm and dry Objective Data Vital Signs Vital Signs:
--- NOTE | 2022-09-08 10:52 | PCFNICU ---
ICU Rounding Note: Pt current nutrition is Vital 1.2 @ 50 ml/h with flushes 30 ml q 4 h. Tolerating. Nutrition recommendation: Continue with current tube feeding orders and flushes. Agree with current orders. Last recorded weight is 88.2 kg. Bowel Motility: Having regular bowel movements. Last BM today 09/08/22 Labs Reviewed: Hgb 7.0, Hct 23.2, Alb 2.7, K+ 3.3, BUN 58, Cre 1.4, Glu 120, PO4 6.7 Meds Noted: Sedation off. Eliquids Skin: Skin tears/edema to arms. LE edema improved Additional Notes: Sedation is off today for breathing trial. Levo is off. MAP 77. Tolerating tube feeds. Continue current orders and monitoring. Following daily in ICU rounds. Monitor intakes, weights, labs, plan of care, supplement tolerance Follow up Thursday and Thursday
--- NOTE | 2022-09-08 17:35 | WPDGICN ---
Assessment and Plan Assessment and plan (1) Iron deficiency anemia: Code(s): D50.9 - Iron deficiency anemia, unspecified Status: Acute Assessment and Plan: I had seen her last fall for investigation of iron deficiency anemia. That point her blood counts were not as low as they are now. She had a hemoglobin of 10 at that time. Here is dropped to 8.4 now 7.0 a week later. She is found to be positive for occult blood in the stool as well. (2) Occult blood in stools: Code(s): R19.5 - Other fecal abnormalities Status: Acute Assessment and Plan: She was checked for occult blood in the stool and it was positive. She denies seeing black tarry stools or frankly bloody stools at home;her last colonoscopy was 6 years ago. Obviously, she cannot take a prep now but when she has recovered from her pulmonary situation and is extubated we can schedule her for endoscopy and colonoscopy. Her last colonoscopy in 2016 revealed severe diverticulosis but was otherwise unremarkable. (3) Cardiomyopathy: Qualifiers: Cardiomyopathy type: other Qualified Code(s): I42.8 - Other cardiomyopathies Code(s): I42.9 - Cardiomyopathy, unspecified Status: Acute Assessment and Plan: She is known to have aortic stenosis. The echocardiogram shows moderate aortic valve regurgitation. Ejection fraction is estimated at 35-40%. She does have moderate to severe aortic stenosis as well. She has chronic edema of her lower extremities. As matter of fact, when I saw her in the office last April she listed the edema in her legs as her main complaint. (4) Acute respiratory failure with hypoxia: Code(s): J96.01 - Acute respiratory failure with hypoxia Status: Acute Assessment and Plan: Not long after admission she required intubation. She is slowly being weaned now. (5) Hyponatremia: Code(s): E87.1 - Hypo-osmolality and hyponatremia Status: Acute Assessment and Plan: Sodium on admission was 119. This probably explains her confusion and mental status changes at that time. (6) Paroxysmal atrial fibrillation: Code(s): I48.0 - Paroxysmal atrial fibrillation Status: Acute Assessment and Plan: For this she is on aspirin and apixaban chronically (7) Sliding hiatal hernia: Code(s): K44.9 - Diaphragmatic hernia without obstruction or gangrene Status: Acute Assessment and Plan: she is not have a hiatal hernia but has not been since treated for symptoms of reflux as an outpatient. Plan When she can tolerated and is extubated we will begin preparation for endoscopic procedures. GI Consult Note Consult date/time: 09/08/22 17:35 HPI: Lyndsey Mclean is a 71 year old female I am asked to see because of Hemoccult-positive stools and anemia. She was hospitalized 2 weeks ago with acute respiratory failure when she presented to the emergency room because of altered mental status and weakness and some shortness of breath. Ultimately she required intubation having developed pulmonary edema as well. She does have congestive heart failure has chronic edema in her lower extremities. She suffers also from aortic stenosis. I had seen her in the office last fall when she was referred for investigation of iron deficiency anemia. At that time she declined to have a colonoscopy and she was requesting a Cologuard instead. We did ask her to perform stool Hemoccult, but I do not believe that she ever did that study. She is able to communicate with me by nodding and motioning. She denies having had black tarry stools or bloody stools prior to admission. I do know that her last colonoscopy was about 6 years ago. She is known to have a hiatal hernia, but is not on a proton pump inhibitor at home. Because of chronic atrial fibrillation she is chronically on apixaban 5 mg b.i.d. and also aspirin 81 mg per day. PMFSH Past Medical His
[2022-09-08] MEDS: dexmedeTOMIDine 400 MCG/100 ML 400 MCG/100 ML BAG IV CONT (19:33)
[2022-09-08] MEDS: MINERAL OIL/WHITE PETROLATUM OINTMENT 1 APPLIC EACH EYE (19:39)
[2022-09-09] VITALS (28 sets, daily range): BP systolic 95–141; BP diastolic 56–97; PULSE 57–150; RESP 13–28; TEMP 36.9–37.7; O2SAT 94–100
[2022-09-09] MEDS: CENTRAL LINE FLUSH 10 ML IV PUSH ×3 (04:42→20:22)
[2022-09-09] MEDS: AMIODARONE 360 MG/D5W 200 ML 360 MG/200 ML BAG 16.67 MG IV CONT ×2 (04:43→23:05)
[2022-09-09 05:01] LABS: Hematocrit 28.6 % (37.0-47.0); Hemoglobin 8.7 g/dL (12.0-15.0); Mean Corpuscular HGB Conc 30.4 g/dl (32-36); Mean Corpuscular Hemoglobin 26.1 pg (26-34); Mean Corpuscular Volume 85.9 fl (80-100); Mean Platelet Volume 10.2 fl (7.4-10.4); Platelet Count Result 183 k/mm3 (150-375); Red Blood Count 3.33 M/mm3 (4.2-5.4); Red Cell Distribution Width 18.3 % (11.5-14.5); White Blood Count 6.8 K/mm3 (4.5-10.0)
[2022-09-09 05:18] LABS: Alanine Aminotransferase 49 U/L (6-35); Albumin Level 2.9 g/dL (3.5-5.1); Alkaline Phosphatase 75 U/L (38-126); Anion Gap 5 mmol/L (8-16); Aspartate Amino Transferase 40 U/L (14-36); Bilirubin,Total 0.7 mg/dL (0.2-1.3); Blood Urea Nitrogen 51 mg/dL (7-17); Calcium 7.1 mg/dL (8.4-10.2); Carbon Dioxide 36 mmol/L (22-30); Chloride 103 mmol/L (98-107); Estimated CRCL calculation 33 ml/min; Estimated Glomerular Filt Rate 34; Glucose 116 mg/dL (65-110); Magnesium 2.1 mg/dL (1.6-2.3); Phosphorus 3.6 mg/dL (2.5-4.5); Potassium 2.8 mmol/L (3.4-5.0); Sodium 144 mmol/L (137-145)
[2022-09-09 06:00] LABS: Alveolar/Arterial O2 Gradient 100.3 mmHg; Base Excess ABG 8.6 mEq/l (+/-2.0); Carboxyhemoglobin 0.3 % THb (0-2.0); Fractional Inspired Oxygen 30 %; HCO3 ABG 31.1 mEq/l (22.0-26.0); Methemoglobin ABG 0.2 %THb (0-1.5); Oxygen Content ABG 13.4 %vol (16.0-22.0); Oxygen Saturation ABG 96.4 % (95.0-100.0); Oxyhemoglobin 93.9 % THb (90.0-100.0); PCO2 ABG 35.1 mmHg (35.0-45.0); PO2 ABG 72.4 mmHg (80.0-100.0); PO2 FiO2 Ratio Arterial Blood 2.41 %; Reduced Hemoglobin 5.6 %THb (0-5.0); Total Hemoglobin 10.1 g/dL (12.0-18.0)
[2022-09-09 06:01] LABS: Arterial Blood Gas PEEP 5 cmH2O; Arterial Blood Gas Vent Mode ASV; Device VENTILATOR; Modified Allen's Test Unable to perform; Site Drawn RIGHT RADIAL; pH ABG 7.566 (7.350-7.450)
[2022-09-09] MEDS: POTASSIUM CHLORIDE 20 MEQ PACKET (FOR LIQUID) 40 MEQ FEED TUBE (06:15)
[2022-09-09] MEDS: KCL 40 MEQ/WATER 100 ML 100 ML 25 ML IVPB (06:21)
[2022-09-09] MEDS: HYDROCORTISONE SODIUM SUCCINATE 100 MG/2 ML VIAL 50 MG IV PUSH (07:58)
[2022-09-09] MEDS: PANTOPRAZOLE SODIUM IV 40 MG VIAL IV PUSH ×2 (07:58→20:22)
[2022-09-09] MEDS: POTASSIUM CHLORIDE 20 MEQ PACKET (FOR LIQUID) FEED TUBE (07:58)
--- NOTE | 2022-09-09 09:08 | P.PNNP_ITS ---
Progress Note: A&P Assessment and Plan (1) Acute kidney injury: Code(s): N17.9 - Acute kidney failure, unspecified Status: Acute Assessment and Plan: * creatinine elevated still * suspect due to diuretic therapy * fluctuating hemodynamics likely playing a role as well * this maybe a situation where we have to accept a higher creatinine to maintain her volume status * evaluation to date: * CPK normal * urine electrolytes prerenal (likely reflective of cardiorenal physiology along with aortic stenosis) * imaging without obstruction * her fluctuating creatinine is a manifestation of her prerenal physiology co upled with her bad heart and sepsis/hypotension * concern for possible overdiuresis (given hypokalemia and possible contraction alkalosis) * held loop diuretics + spironolactone (since 09/09/22) * intermittent dosing with diamox * replace K+ * follow repeat labs and UOP (2) Hyponatremia: Code(s): E87.1 - Hypo-osmolality and hyponatremia Status: Acute Assessment and Plan: * resolved (3) Acute respiratory failure: Code(s): J96.00 - Acute respiratory failure, unspecified whether with hypoxia or hypercapnia Status: Acute Assessment and Plan: * suspect due to combo of pulmonary edema, CHF, and pneumonia * follow daily CXRs * cultures negative so far (completed course of antibiotics) * follow I/Os (4) Anasarca: Code(s): R60.1 - Generalized edema Status: Acute Assessment and Plan: * clinically better with aggressive diuresis * however, this is at the expense of renal function * follow clinical exam (5) Acute on chronic combined systolic and diastolic CHF (congestive heart failure): Code(s): I50.43 - Acute on chronic combined systolic (congestive) and diastolic (congestive) heart failure Status: Acute Assessment and Plan: * TTE shows EF of 35-40%, moderate to severe take valve stenosis, moderate AI, moderate pulmonary hypertension * was on diuretics - held yesterday on 09/08/22 with exception of diamox) * but will eventually need to restart * creatinine fluctuating (see #1) * Cardiology following (6) Community acquired pneumonia: Code(s): J18.9 - Pneumonia, unspecified organism Status: Acute Assessment and Plan: * as suggested by CXR on admission * was on antibiotics on admission; blood cultures were negative * repeat imaging and culture noted * completed course of antibiotic therapy (7) Altered mental status: Code(s): R41.82 - Altered mental status, unspecified Status: Acute Assessment and Plan: * etiology not clear * initially thought to be secondary to #1 (but no improvement with improving sodium level prior to intubation) * follow mentation * head CT noted (8) Paroxysmal atrial fibrillation: Code(s): I48.0 - Paroxysmal atrial fibrillation Status: Acute Assessment and Plan: * rate control strategy * on anticoagulation * Cardiology following Discussed case with Dr. Miller. Will continue to follow. Subjective Date/time seen: 09/09/22 09:08 Remains intubated and on mechanical ventilation; assessing if extubation is possible later today based on weaning parameters; otherwise, no other real significant change. Exam Narrative: General: WD/WN female intubated and on mechanical ventilation Heart: normal S1 and S2; no rub Lungs: coarse yesy
--- NOTE | 2022-09-09 09:08 | PM.PNNEP ---
Progress Note: A&P Assessment and Plan (1) Acute kidney injury: Code(s): N17.9 - Acute kidney failure, unspecified Status: Acute Assessment and Plan: creatinine elevated still suspect due to diuretic therapy fluctuating hemodynamics likely playing a role as well this maybe a situation where we have to accept a higher creatinine to maintain her volume status evaluation to date: CPK normal urine electrolytes prerenal (likely reflective of cardiorenal physiology along with aortic stenosis) imaging without obstruction her fluctuating creatinine is a manifestation of her prerenal physiology coupled with her bad heart and sepsis/hypotension concern for possible overdiuresis (given hypokalemia and possible contraction alkalosis) held loop diuretics + spironolactone (since 09/09/22) intermittent dosing with diamox replace K+ follow repeat labs and UOP (2) Hyponatremia: Code(s): E87.1 - Hypo-osmolality and hyponatremia Status: Acute Assessment and Plan: resolved (3) Acute respiratory failure: Code(s): J96.00 - Acute respiratory failure, unspecified whether with hypoxia or hypercapnia Status: Acute Assessment and Plan: suspect due to combo of pulmonary edema, CHF, and pneumonia follow daily CXRs cultures negative so far (completed course of antibiotics) follow I/Os (4) Anasarca: Code(s): R60.1 - Generalized edema Status: Acute Assessment and Plan: clinically better with aggressive diuresis however, this is at the expense of renal function follow clinical exam (5) Acute on chronic combined systolic and diastolic CHF (congestive heart failure): Code(s): I50.43 - Acute on chronic combined systolic (congestive) and diastolic (congestive) heart failure Status: Acute Assessment and Plan: TTE shows EF of 35-40%, moderate to severe take valve stenosis, moderate AI, moderate pulmonary hypertension was on diuretics - held yesterday on 09/08/22 with exception of diamox) but will eventually need to restart creatinine fluctuating (see #1) Cardiology following (6) Community acquired pneumonia: Code(s): J18.9 - Pneumonia, unspecified organism Status: Acute Assessment and Plan: as suggested by CXR on admission was on antibiotics on admission; blood cultures were negative repeat imaging and culture noted completed course of antibiotic therapy (7) Altered mental status: Code(s): R41.82 - Altered mental status, unspecified Status: Acute Assessment and Plan: etiology not clear initially thought to be secondary to #1 (but no improvement with improving sodium level prior to intubation) follow mentation head CT noted (8) Paroxysmal atrial fibrillation: Code(s): I48.0 - Paroxysmal atrial fibrillation Status: Acute Assessment and Plan: rate control strategy on anticoagulation Cardiology following Discussed case with Dr. Miller. Will continue to follow. Subjective Date/time seen: 09/09/22 09:08 Remains intubated and on mechanical ventilation; assessing if extubation is possible later today based on weaning parameters; otherwise, no other real significant change. Exam Narrative: General: WD/WN female intubated and on mechanical ventilation Heart: normal S1 and S2; no rub Lungs: coarse breath sounds Abdomen: soft, nontender, nondistended, positive bowel sounds Extremities: 1+ bilateral edema noted Skin: warm and intact Objective Data Vital Signs Vital Signs: Vital Signs Temp Pulse Resp BP Pulse Ox O2 Del Method FiO2 09/09/22 08:00 100 Mechanical Ventilation 30 09/09/22 08:00 64 09/09/22 08:00 30 09/09/22 08:00 99.4 F 76 20 100/56 L 100 09/09/22 08:35 73 100 Mechanical Ventilation 30 09/09/22 05:40 57 L 100 Mechanical Ventilation 09/09/22 06:00 99
[2022-09-09 10:50] LABS: Alveolar/Arterial O2 Gradient 83.7 mmHg; Base Excess ABG 7.6 mEq/l (+/-2.0); Fractional Inspired Oxygen 30 %; HCO3 ABG 31.8 mEq/l (22.0-26.0); Oxygen Content ABG 13.7 %vol (16.0-22.0); Oxygen Saturation ABG 96.4 % (95.0-100.0); Oxyhemoglobin 93.8 % THb (90.0-100.0); PCO2 ABG 43.4 mmHg (35.0-45.0); PO2 ABG 79.2 mmHg (80.0-100.0); PO2 FiO2 Ratio Arterial Blood 2.64 %; Total Hemoglobin 10.3 g/dL (12.0-18.0); pH ABG 7.483 (7.350-7.450)
[2022-09-09 10:51] LABS: Device VENTILATOR; Modified Allen's Test Pass; Site Drawn RIGHT RADIAL
[2022-09-09 10:52] LABS: Arterial Blood Gas PEEP 5 cmH2O; Arterial Blood Gas Pressure Support 8 cmH2O
--- NOTE | 2022-09-09 11:11 | PCNFU ---
Nutrition Follow-Up Complete: Severe protein calorie malnutrition related to loss of appetite as evidenced by weight loss -9%/3 months and poor intake <75% meals >1 month. Goal: Meet estimated nutritional needs. Patient is progressing towards goal. Pt current nutrition is Vital AF 1.2 at 50 ml/hr. Last recorded weight is 91.2 kg. Bowel Motility: +Bm reported 09/09 Labs Reviewed:Glu 116, Cr 1.5, BUN 51, K 2.8, Alb 2.9 Meds Noted:Eliquis, Protonix Skin: WNL Additional Notes: Patient tube feeding are on hold for breathing trial. Goal today: extubate. Monitoring: Will monitor daily in ICU. Monitor intakes, weights, labs, plan of care, supplement tolerance every Thursday and Thursday.
--- NOTE | 2022-09-09 12:04 | WPDINTPN ---
Progress Note: A&P Assessment and Plan (1) Acute respiratory failure: Code(s): J96.00 - Acute respiratory failure, unspecified whether with hypoxia or hypercapnia Status: Acute Assessment and Plan: Acute on chronic hypoxic and hypercarbic Respiratory failure secondary to pulmonary edema with possible pneumonia -intubated on 09/02/2022 -ABG with improving respiratory alkalosis, -Chest x-ray this morning: Moderate pulmonary edema. NG tube presumably within a moderate to large hiatal hernia.ET tube in satisfactory position. -hold Lasix and spironolactone due to low blood pressures -patient with adequate urine output with Diamox on 09/08 -status post vancomycin and Zosyn -09/02/2022: Blood cultures negative x2 -09/02/2022 sputum cultures: Negative -09/02/2022 MRSA screen negative -been tolerating ASV mode all night long, will place on SBT this morning and evaluate for extubation -09/[address] showed 1. Diffuse lung disease, consistent with pulmonary edema versus pneumonia. 2. Moderate-sized right and small left pleural effusions. (2) Acute on chronic combined systolic and diastolic CHF (congestive heart failure): Code(s): I50.43 - Acute on chronic combined systolic (congestive) and diastolic (congestive) heart failure Status: Acute Assessment and Plan: Echocardiogram done on 08/26 Summary ? 1. Left ventricular chamber dimension is moderately enlarged. ? 3. Left ventricular systolic function is moderately globally reduced, estimated at 35-40%. ? 6. Left atrial chamber dimension is moderately enlarged. ? 7. Right atrial chamber dimension is mildly enlarged. ? 10. There is moderate to severe aortic valve stenosis based on a peak velocity of 279.27 cm/s, mean gradient of 19 mmHg, and aortic valve area of 0.91 cm2. ? 11. There is moderate aortic valve regurgitation. ? 12. The mitral valve has mildly thickened leaflets and moderately calcified annulus. ? 13. There is moderate mitral valve regurgitation. ? 14. There is mild tricuspid valve regurgitation. ? 15. Moderate pulmonary hypertension, estimated pulmonary arterial systolic pressure is 51 mmHg. ? 16. Small atheroma in anterior and posterior aortic root. ? 17. Dilated inferior vena cava with <50% collapse upon inspiration consistent with significantly elevated right atrial pressure, 15 mmHg. Patient has congestive heart failure, pulmonary hypertension , volume overload and moderate to severe -Patient was tried on dobutamine twice with 2nd attempt while on amiodarone but patient did not tolerate due to worsening of tachycardia and RVR. -Patient had ÓSCAR done on 09/04. Cardioversion was not attempted as views were poor and a clot could not be ruled out, appears to have severe . -Will need to discuss with Cardiology regarding possible transfer to tertiary facility for evaluation for TAVR Diuresis on hold due to hypotension and elevated creatinine (3) Shock: Code(s): R57.9 - Shock, unspecified Status: Acute Assessment and Plan: It appears the patient has cardiogenic shock secondary to congestive heart failure and severe which has been likely exacerbated by sedation and positive pressure ventilation -She was already on antibiotics during this hospitalization. -Her WBCs normal and procalcitonin level is low -She is currently afebrile CT chest abdomen pelvis IMPRESSION: 1. Diffuse lung disease, consistent with pulmonary edema versus pneumonia. 2. Moderate-sized right and small left pleural effusions. 3. Large sliding hiatal hernia -09/07: Patient was restarted to hypotension for brief amount of time, currently off Levophed. Which could be related to excessive diuresis -continue to wean stress dose steroids to off (4) Aortic stenosis: Qualifiers: Cardiac valve disease etiology: nonrheumatic Qualified Code(s): I35.0 - Nonrheumatic aortic (valve) stenosis Code(s): I35.0 - Nonrheumatic aortic (valve) stenosis
[2022-09-09] MEDS: AMIODARONE 150 MG/D5W 100 ML 150 MG/100 ML BAG 600 MG IV CONT (13:30)
[2022-09-10] VITALS (20 sets, daily range): BP systolic 94–114; BP diastolic 61–79; PULSE 85–137; RESP 14–26; TEMP 36.2–37.1; O2SAT 95–100
[2022-09-10 05:29] LABS: Basophils Percent Auto 0.1 % (0.2-1.2); Hematocrit 32.1 % (37.0-47.0); Hemoglobin 9.2 g/dL (12.0-15.0); Immature Granulocyte Absolute 0.06 K/mm3 (0.00-0.031); Immature Granulocyte Percent A 0.8 % (0-0.5); Lymphocytes Absolute Auto 0.21 K/mm3 (0.9-3.2); Lymphocytes Percent Auto 2.9 % (18.3-44.2); Mean Corpuscular HGB Conc 28.7 g/dl (32-36); Mean Corpuscular Hemoglobin 26.2 pg (26-34); Mean Corpuscular Volume 91.5 fl (80-100); Mean Platelet Volume 10.2 fl (7.4-10.4); Monocytes Absolute Auto 0.4 K/mm3 (0.1-0.6); Monocytes Percent Auto 5.7 % (2.6-8.5); Neutrophils Absolute Auto 6.5 K/mm3 (1.3-6.7); Neutrophils Percent Auto 90.5 % (45.5-73.1); Nucleated Red Blood Cells Absolute Auto 0.2 K/mm3 (0.0-0.012); Nucleated Red Blood Cells Perc 2.9 % (0.0-0.2); Platelet Count Result 260 k/mm3 (150-375); Red Blood Count 3.51 M/mm3 (4.2-5.4); Red Cell Distribution Width 18.5 % (11.5-14.5); White Blood Count 7.2 K/mm3 (4.5-10.0)
[2022-09-10 05:43] LABS: Alanine Aminotransferase 52 U/L (6-35); Albumin Level 3.1 g/dL (3.5-5.1); Alkaline Phosphatase 82 U/L (38-126); Anion Gap 5 mmol/L (8-16); Aspartate Amino Transferase 45 U/L (14-36); Bilirubin,Total 0.7 mg/dL (0.2-1.3); Blood Urea Nitrogen 51 mg/dL (7-17); Calcium 7.6 mg/dL (8.4-10.2); Carbon Dioxide 37 mmol/L (22-30); Chloride 108 mmol/L (98-107); Estimated CRCL calculation 36 ml/min; Estimated Glomerular Filt Rate 37; Glucose 111 mg/dL (65-110); INR 1.3; Magnesium 2.4 mg/dL (1.6-2.3); Partial Thromboplastin Time 30.5 SECONDS (22.3-36.8); Phosphorus 4.8 mg/dL (2.5-4.5); Potassium 3.5 mmol/L (3.4-5.0); Prothrombin Time 15.9 Seconds (11.1-14.7); Sodium 150 mmol/L (137-145)
[2022-09-10 06:34] LABS: Platelet Estimate Adequate (Adequate)
[2022-09-10 06:35] LABS: Anisocytosis 1+ (NORMAL); Hypochromasia 1+ (NORMAL); Schistocytes None Seen (NORMAL)
[2022-09-10] MEDS: HYDROCORTISONE SODIUM SUCCINATE 100 MG/2 ML VIAL 50 MG IV PUSH (08:34)
[2022-09-10] MEDS: FUROSEMIDE INJ 40 MG/4 ML VIAL IV PUSH ×2 (08:34→10:46)
[2022-09-10] MEDS: PANTOPRAZOLE SODIUM IV 40 MG VIAL IV PUSH ×2 (08:35→21:05)
[2022-09-10] MEDS: CENTRAL LINE FLUSH 10 ML IV PUSH ×3 (08:43→21:05)
--- NOTE | 2022-09-10 09:37 | WPDINTPN ---
Progress Note: A&P Assessment and Plan (1) Acute respiratory failure: Code(s): J96.00 - Acute respiratory failure, unspecified whether with hypoxia or hypercapnia Status: Acute Assessment and Plan: Acute on chronic hypoxic and hypercarbic Respiratory failure secondary to pulmonary edema with possible pneumonia -intubated on 09/02/2022 -successfully extubated on 09/09/2022, -patient had bilateral diffuse coarse breath sounds with rales -Chest x-ray this morning:Severe pulmonary edema pattern, worsened from prior exam. Small bilateral pleural effusions. Probable large hiatal hernia containing transverse colon.. -will give Lasix IV and follow urine output, may repeat Lasix again this afternoon -place patient on BiPAP -patient with adequate urine output with Diamox on 09/08 -OFF antibiotic -09/02/2022: Blood cultures negative x2 -09/02/2022 sputum cultures: Negative -09/02/2022 MRSA screen negative -09/[address] showed 1. Diffuse lung disease, consistent with pulmonary edema versus pneumonia. 2. Moderate-sized right and small left pleural effusions. (2) Acute on chronic combined systolic and diastolic CHF (congestive heart failure): Code(s): I50.43 - Acute on chronic combined systolic (congestive) and diastolic (congestive) heart failure Status: Acute Assessment and Plan: Echocardiogram done on 08/26 Summary ? 1. Left ventricular chamber dimension is moderately enlarged. ? 3. Left ventricular systolic function is moderately globally reduced, estimated at 35-40%. ? 6. Left atrial chamber dimension is moderately enlarged. ? 7. Right atrial chamber dimension is mildly enlarged. ? 10. There is moderate to severe aortic valve stenosis based on a peak velocity of 279.27 cm/s, mean gradient of 19 mmHg, and aortic valve area of 0.91 cm2. ? 11. There is moderate aortic valve regurgitation. ? 12. The mitral valve has mildly thickened leaflets and moderately calcified annulus. ? 13. There is moderate mitral valve regurgitation. ? 14. There is mild tricuspid valve regurgitation. ? 15. Moderate pulmonary hypertension, estimated pulmonary arterial systolic pressure is 51 mmHg. ? 16. Small atheroma in anterior and posterior aortic root. ? 17. Dilated inferior vena cava with <50% collapse upon inspiration consistent with significantly elevated right atrial pressure, 15 mmHg. Patient has congestive heart failure, pulmonary hypertension , volume overload and moderate to severe -Patient was tried on dobutamine twice with 2nd attempt while on amiodarone but patient did not tolerate due to worsening of tachycardia and RVR. -Patient had ÓSCAR done on 09/04. Cardioversion was not attempted as views were poor and a clot could not be ruled out, appears to have severe . -Will need to discuss with Cardiology regarding possible transfer to tertiary facility for evaluation for TAVR 08/21: Will restart diuresis (3) Shock: Code(s): R57.9 - Shock, unspecified Status: Acute Assessment and Plan: RESOLVED It appears the patient has cardiogenic shock secondary to congestive heart failure and severe which has been likely exacerbated by sedation and positive pressure ventilation -She was already on antibiotics during this hospitalization. -Her WBCs normal and procalcitonin level is low -She is currently afebrile CT chest abdomen pelvis IMPRESSION: 1. Diffuse lung disease, consistent with pulmonary edema versus pneumonia. 2. Moderate-sized right and small left pleural effusions. 3. Large sliding hiatal hernia -09/07: Patient was restarted on Levophed due to hypotension for brief amount of time, currently off Levophed. Which could be related to excessive diuresis -off stress dose steroids (4) Aortic stenosis: Qualifiers: Cardiac valve disease etiology: nonrheumatic Qualified Code(s): I35.0 - Nonrheumatic aortic (valve) stenosis Code(s): I35.0 - Nonrheumatic aortic (valve)
[2022-09-10] MEDS: KCL 40 MEQ/WATER 100 ML 100 ML 25 ML IVPB (10:05)
[2022-09-10] MEDS: AMIODARONE 360 MG/D5W 200 ML 360 MG/200 ML BAG 16.67 MG IV CONT (10:06)
--- NOTE | 2022-09-10 10:36 | PM.PNCARD ---
Progress Note: A&P Assessment and Plan (1) Acute on chronic congestive heart failure: Qualifiers: Heart failure type: combined systolic and diastolic Qualified Code(s): I50.43 - Acute on chronic combined systolic (congestive) and diastolic (congestive) heart failure Code(s): I50.9 - Heart failure, unspecified Status: Acute Assessment and Plan: EF 35-40%. She is more short of breath today and has crackles. Legs are also slightly more swollen. Will given additional dose of 40 mg IV Lasix x1. (2) Acute respiratory failure with hypoxia: Code(s): J96.01 - Acute respiratory failure with hypoxia Status: Acute Assessment and Plan: Patient remains intubated on mechanical ventilatory support. Management per Critical Care. She is on minimal FiO2. Weaning trials per Critical Care. Continue supportive care, diuresis. She is on Zosyn. (3) A-fib: Code(s): I48.91 - Unspecified atrial fibrillation Status: Acute Assessment and Plan: Heart rate Elevated but fair with periods of more significant rapid ventricular response. Off dobutamine secondary to tachycardia, remains on IV Amiodarone for now. Will increase amiodarone to 1 milligram/minute transition to oral when extubated and able. Monitor BP closely. Start heparin drip.. Follow H&H given anemia and slight decline. stool guaiac positive. Monitor closely for evidence of bleeding. Slow decline in H&H. (4) Cardiomyopathy: Qualifiers: Cardiomyopathy type: other Qualified Code(s): I42.8 - Other cardiomyopathies Code(s): I42.9 - Cardiomyopathy, unspecified Status: Acute Assessment and Plan: EF 35-40%. Continue medical management. Not able to tolerate optimal guideline directed medical therapy at this time given recent shock now resolved off pressors. Will optimize therapy as she tolerates and as appropriate. Eventually initiation of beta-rod, Entresto as able. Further workup when she has more fully recovered. (5) Hypokalemia: Code(s): E87.6 - Hypokalemia Status: Acute Assessment and Plan: severely reduced potassium <2.0 this morning depsite KCl yesterday. Replace to keep potassium around 4.0. Supplementation has been administered. Continue to monitor very closely. (6) Acute kidney injury: Code(s): N17.9 - Acute kidney failure, unspecified Status: Acute Assessment and Plan: Continue to monitor renal function closely, urine output intolerance to diuretic therapy. Minimize nephrotoxic agents. stable thus far. (7) Aortic stenosis: Qualifiers: Cardiac valve disease etiology: nonrheumatic Qualified Code(s): I35.0 - Nonrheumatic aortic (valve) stenosis Code(s): I35.0 - Nonrheumatic aortic (valve) stenosis Status: Acute Assessment and Plan: Likely overall moderate in severity. Avoid excessive hypotension. (8) Hyponatremia: Code(s): E87.1 - Hypo-osmolality and hyponatremia Status: Acute Assessment and Plan: Stable, resolved. Continue to monitor. Subjective Date/time seen: 09/10/22 10:36 Interval history: 71-year-old female with past medical history of atrial fibrillation on chronic anticoagulation, chronic hyponatremia presented the ED on 08/25/2022 with generalized weakness. Initial sodium levels of 119, BNP 6550 and chest x-ray showed opacities in the right midlung zone and bilateral perihilar regions. Patient was brought to the ICU on 09/02 for bradycardia, poor mental status and hypoxia. ABGs prior to intubation showed respiratory acidosis, she did not tolerate BiPAP a intubated on 09/01/2022 09/09/2022: Successfully extubated after she passed a breathing trial Date of service 09/10/2022: She is displaying more shortness of breath today. No chest pain. Heart rate is marginally controlled. Review of Systems Review of Systems: ROS unobtainable: Yes unobtainable
[2022-09-10] MEDS: HEPARIN SOD/D5W 100 UNITS/ML 25,000 UNITS/250 ML BAG 12 UNITS IV CONT (11:28)
[2022-09-10 11:30] LABS: Basophils Percent Auto 0.1 % (0.2-1.2); Hematocrit 32.4 % (37.0-47.0); Hemoglobin 9.4 g/dL (12.0-15.0); Immature Granulocyte Absolute 0.05 K/mm3 (0.00-0.031); Immature Granulocyte Percent A 0.6 % (0-0.5); Lymphocytes Absolute Auto 0.13 K/mm3 (0.9-3.2); Lymphocytes Percent Auto 1.5 % (18.3-44.2); Mean Corpuscular Hemoglobin 25.8 pg (26-34); Mean Platelet Volume 10.2 fl (7.4-10.4); Monocytes Absolute Auto 0.4 K/mm3 (0.1-0.6); Monocytes Percent Auto 5.1 % (2.6-8.5); Neutrophils Absolute Auto 7.9 K/mm3 (1.3-6.7); Neutrophils Percent Auto 92.7 % (45.5-73.1); Nucleated Red Blood Cells Absolute Auto 0.2 K/mm3 (0.0-0.012); Nucleated Red Blood Cells Perc 2.7 % (0.0-0.2); Platelet Count Result 277 k/mm3 (150-375); Red Blood Count 3.64 M/mm3 (4.2-5.4); Red Cell Distribution Width 18.4 % (11.5-14.5); White Blood Count 8.5 K/mm3 (4.5-10.0)
[2022-09-10 12:14] LABS: INR 1.3; Prothrombin Time 15.5 Seconds (11.1-14.7)
[2022-09-10 12:15] LABS: Partial Thromboplastin Time 30.1 SECONDS (22.3-36.8)
--- NOTE | 2022-09-10 12:18 | PM.PNNEP ---
Progress Note: A&P Assessment and Plan (1) Acute kidney injury: Code(s): N17.9 - Acute kidney failure, unspecified Status: Acute Assessment and Plan: creatinine elevated still suspect due to diuretic therapy fluctuating hemodynamics likely playing a role as well this maybe a situation where we have to accept a higher creatinine to maintain her volume status evaluation to date: CPK normal urine electrolytes prerenal (likely reflective of cardiorenal physiology along with aortic stenosis) imaging without obstruction her fluctuating creatinine is a manifestation of her prerenal physiology coupled with her bad heart and sepsis/hypotension continue intermittent diuresis as tolerated follow repeat labs and UOP (2) Hyponatremia: Code(s): E87.1 - Hypo-osmolality and hyponatremia Status: Acute Assessment and Plan: resolved now with hypernatremia as noted by AM labs likely needs some free water depending on mentation and respiratory status, may need doboff placement (3) Acute respiratory failure: Code(s): J96.00 - Acute respiratory failure, unspecified whether with hypoxia or hypercapnia Status: Acute Assessment and Plan: resolving but tenuous status extubated but requiring BiPAP at this time suspect due to combo of pulmonary edema, CHF, and pneumonia follow daily CXRs cultures negative so far (completed course of antibiotics) diurese as tolerated follow I/Os (4) Anasarca: Code(s): R60.1 - Generalized edema Status: Acute Assessment and Plan: clinically better with aggressive diuresis however, this is at the expense of renal function follow clinical exam (5) Acute on chronic combined systolic and diastolic CHF (congestive heart failure): Code(s): I50.43 - Acute on chronic combined systolic (congestive) and diastolic (congestive) heart failure Status: Acute Assessment and Plan: TTE shows EF of 35-40%, moderate to severe take valve stenosis, moderate AI, moderate pulmonary hypertension resumed on intermittent diuretics creatinine fluctuating (see #1) Cardiology following (6) Community acquired pneumonia: Code(s): J18.9 - Pneumonia, unspecified organism Status: Acute Assessment and Plan: as suggested by CXR on admission was on antibiotics on admission; blood cultures were negative repeat imaging and culture noted completed course of antibiotic therapy (7) Altered mental status: Code(s): R41.82 - Altered mental status, unspecified Status: Acute Assessment and Plan: etiology not clear initially thought to be secondary to #1 (but no improvement with improving sodium level prior to intubation) follow mentation head CT noted (8) Paroxysmal atrial fibrillation: Code(s): I48.0 - Paroxysmal atrial fibrillation Status: Acute Assessment and Plan: rate control strategy on anticoagulation Cardiology following Discussed case with Dr. Miller. Will continue to follow. Subjective Date/time seen: 09/10/22 12:18 Extubated yesterday after favorable weaning parameters noted; however, appears a bit more short of breath but has been given IV diuretics in the hopes of stabilizing this; renal function stable with reasonable urine output; sodium elevated by AM labs. Exam Narrative: General: WD/WN female on BiPAP Heart: normal S1 and S2; no rub Lungs: coarse breath sounds; decreased at bases Abdomen: soft, nontender, nondistended, positive bowel sounds Extremities: 1+ bilateral edema noted Skin: warm and intact Objective Data Vital Signs Vital Signs: Vital Signs Temp Pulse Resp BP Pulse Ox O2 Del Method O2 Flow Rate 09/10/22 12:00 98.5 F 95 24 H 95/66 L 95 09/10/22 12:14 137 H 21 H 99 BiPAP 09/10/22 10:40 120 H 09/10/22 10:00 109 H 09/10/22 10:00 98.3 F 113 H 21 H
--- NOTE | 2022-09-10 12:18 | P.PNNP_ITS ---
Progress Note: A&P Assessment and Plan (1) Acute kidney injury: Code(s): N17.9 - Acute kidney failure, unspecified Status: Acute Assessment and Plan: * creatinine elevated still * suspect due to diuretic therapy * fluctuating hemodynamics likely playing a role as well * this maybe a situation where we have to accept a higher creatinine to maintain her volume status * evaluation to date: * CPK normal * urine electrolytes prerenal (likely reflective of cardiorenal physiology along with aortic stenosis) * imaging without obstruction * her fluctuating creatinine is a manifestation of her prerenal physiology coupled with her bad heart and sepsis/hypotension * continue intermittent diuresis as tolerated * follow repeat labs and UOP (2) Hyponatremia: Code(s): E87.1 - Hypo-osmolality and hyponatremia Status: Acute Assessment and Plan: * resolved * now with hypernatremia as noted by AM labs * likely needs some free water * depending on mentation and respiratory status, may need doboff placement (3) Acute respiratory failure: Code(s): J96.00 - Acute respiratory failure, unspecified whether with hypoxia or hypercapnia Status: Acute Assessment and Plan: * resolving but tenuous status * extubated but requiring BiPAP at this time * suspect due to combo of pulmonary edema, CHF, and pneumonia * follow daily CXRs * cultures negative so far (completed course of antibiotics) * diurese as tolerated * follow I/Os (4) Anasarca: Code(s): R60.1 - Generalized edema Status: Acute Assessment and Plan: * clinically better with aggressive diuresis * however, this is at the expense of renal function * follow clinical exam (5) Acute on chronic combined systolic and diastolic CHF (congestive heart failure): Code(s): I50.43 - Acute on chronic combined systolic (congestive) and diastolic ( congestive) heart failure Status: Acute Assessment and Plan: * TTE shows EF of 35-40%, moderate to severe take valve stenosis, moderate AI, moderate pulmonary hypertension * resumed on intermittent diuretics * creatinine fluctuating (see #1) * Cardiology following (6) Community acquired pneumonia: Code(s): J18.9 - Pneumonia, unspecified organism Status: Acute Assessment and Plan: * as suggested by CXR on admission * was on antibiotics on admission; blood cultures were negative * repeat imaging and culture noted * completed course of antibiotic therapy (7) Altered mental status: Code(s): R41.82 - Altered mental status, unspecified Status: Acute Assessment and Plan: * etiology not clear * initially thought to be secondary to #1 (but no improvement with improving sodium level prior to intubation) * follow mentation * head CT noted (8) Paroxysmal atrial fibrillation: Code(s): I48.0 - Paroxysmal atrial fibrillation Status: Acute Assessment and Plan: * rate control strategy * on anticoagulation * Cardiology following Discussed case with Dr. Miller. Will continue to follow. Subjective Date/time seen: 09/10/22 12:18 Extubated yesterday after favorable weaning parameters noted; however, appears a bit more short of breath but has been given IV diuretics in the hopes of stabilizing this; renal function stable with reasonable urine output; sodium elevated by AM labs. Exam Narrative: General: WD/WN f
[2022-09-10 12:29] LABS: Anisocytosis 1+ (NORMAL); Hypochromasia 1+ (NORMAL); Platelet Estimate Adequate (Adequate); Schistocytes None Seen (NORMAL)
--- NOTE | 2022-09-10 12:31 | PCFNICU ---
ICU Rounding Note: Pt current nutrition is NPO. Last recorded weight is 84.7 kg. Bowel Motility: +BM reported 09/10 Labs Reviewed:Glu 111, GFR 37, BUN 51, Cr 1.4,Na 150, Hct 32.1,Hgb 9.2 Meds Noted:Heparin,Protonix Skin: WNL Additional Notes: Patient has been extubated. Bipap at this time. No nutrition today. Following daily in ICU rounds. Will reassess every 3 days.
[2022-09-10] MEDS: AMIODARONE 360 MG/D5W 200 ML 360 MG/200 ML BAG 33.33 MG IV CONT ×2 (15:41→21:19)
[2022-09-10 17:54] LABS: Partial Thromboplastin Time 133.7 SECONDS (22.3-36.8)
[2022-09-11] VITALS (23 sets, daily range): BP systolic 89–118; BP diastolic 51–76; PULSE 61–107; RESP 14–100; TEMP 36.4–36.9; O2SAT 16–100
[2022-09-11 02:31] LABS: Partial Thromboplastin Time 135.2 SECONDS (22.3-36.8)
[2022-09-11] MEDS: AMIODARONE 360 MG/D5W 200 ML 360 MG/200 ML BAG 33.33 MG IV CONT ×3 (03:29→14:30)
[2022-09-11 05:55] LABS: Alveolar/Arterial O2 Gradient 166.4 mmHg; Base Excess ABG 11.9 mEq/l (+/-2.0); Carboxyhemoglobin 0.1 % THb (0-2.0); Fractional Inspired Oxygen 40 %; HCO3 ABG 34.9 mEq/l (22.0-26.0); Methemoglobin ABG 0.2 %THb (0-1.5); Oxygen Saturation ABG 96.5 % (95.0-100.0); Oxyhemoglobin 94.7 % THb (90.0-100.0); PCO2 ABG 39.1 mmHg (35.0-45.0); PO2 ABG 73.8 mmHg (80.0-100.0); PO2 FiO2 Ratio Arterial Blood 1.85 %; Total Hemoglobin 9.7 g/dL (12.0-18.0)
[2022-09-11 05:57] LABS: Device BIPAP; Site Drawn LEFT BRACHIAL; pH ABG 7.569 (7.350-7.450)
[2022-09-11 05:58] LABS: Expiratory Pressure 6 cmH2O; Inspiratory Pressure 12 cmH2O
[2022-09-11] MEDS: CENTRAL LINE FLUSH 10 ML IV PUSH ×3 (06:08→21:16)
[2022-09-11 06:36] LABS: Hematocrit 29.7 % (37.0-47.0); Hemoglobin 8.8 g/dL (12.0-15.0); Immature Granulocyte Absolute 0.05 K/mm3 (0.00-0.031); Immature Granulocyte Percent A 0.7 % (0-0.5); Lymphocytes Absolute Auto 0.24 K/mm3 (0.9-3.2); Lymphocytes Percent Auto 3.2 % (18.3-44.2); Mean Corpuscular HGB Conc 29.6 g/dl (32-36); Mean Corpuscular Hemoglobin 26.6 pg (26-34); Mean Corpuscular Volume 89.7 fl (80-100); Mean Platelet Volume 10.6 fl (7.4-10.4); Monocytes Absolute Auto 0.5 K/mm3 (0.1-0.6); Monocytes Percent Auto 6.2 % (2.6-8.5); Neutrophils Absolute Auto 6.7 K/mm3 (1.3-6.7); Neutrophils Percent Auto 89.9 % (45.5-73.1); Nucleated Red Blood Cells Absolute Auto 0.1 K/mm3 (0.0-0.012); Nucleated Red Blood Cells Perc 1.7 % (0.0-0.2); Platelet Count Result 294 k/mm3 (150-375); Red Blood Count 3.31 M/mm3 (4.2-5.4); Red Cell Distribution Width 18.3 % (11.5-14.5); White Blood Count 7.5 K/mm3 (4.5-10.0)
[2022-09-11 06:51] LABS: Alanine Aminotransferase 45 U/L (6-35); Albumin Level 2.9 g/dL (3.5-5.1); Alkaline Phosphatase 77 U/L (38-126); Anion Gap 6 mmol/L (8-16); Aspartate Amino Transferase 34 U/L (14-36); Bilirubin,Total 0.7 mg/dL (0.2-1.3); Blood Urea Nitrogen 50 mg/dL (7-17); Calcium 7.6 mg/dL (8.4-10.2); Carbon Dioxide 38 mmol/L (22-30); Chloride 106 mmol/L (98-107); Estimated CRCL calculation 34 ml/min; Estimated Glomerular Filt Rate 37; Glucose 127 mg/dL (65-110); Potassium 2.6 mmol/L (3.4-5.0); Sodium 150 mmol/L (137-145)
[2022-09-11] MEDS: FUROSEMIDE INJ 40 MG/4 ML VIAL IV PUSH ×2 (08:24→17:38)
[2022-09-11] MEDS: KCL 40 MEQ/WATER 100 ML 100 ML 25 ML IVPB ×2 (08:28→13:44)
[2022-09-11] MEDS: PANTOPRAZOLE SODIUM IV 40 MG VIAL IV PUSH ×2 (08:33→21:16)
[2022-09-11] MEDS: HEPARIN SODIUM 5,000 UNITS/ML VIAL 2500 UNITS IV PUSH (09:21)
--- NOTE | 2022-09-11 09:21 | PM.PNCARD ---
Progress Note: A&P Assessment and Plan (1) Acute on chronic congestive heart failure: Qualifiers: Heart failure type: combined systolic and diastolic Qualified Code(s): I50.43 - Acute on chronic combined systolic (congestive) and diastolic (congestive) heart failure Code(s): I50.9 - Heart failure, unspecified Status: Acute Assessment and Plan: EF 35-40%. more stable today but still on BiPAP. Continue furosemide. Aggressively replace potassium as her PK is significantly low. Will check a magnesium level. Will replace Mag as needed (2) Acute respiratory failure with hypoxia: Code(s): J96.01 - Acute respiratory failure with hypoxia Status: Acute Assessment and Plan: Patient remains intubated on mechanical ventilatory support. Management per Critical Care. She is on minimal FiO2. Weaning trials per Critical Care. Continue supportive care, diuresis. She is on Zosyn. (3) A-fib: Code(s): I48.91 - Unspecified atrial fibrillation Status: Acute Assessment and Plan: currently in sinus rhythm. Continue amiodarone at 1 milligram/minute transition to oral when extubated and able. Monitor BP closely. Started heparin drip.. Follow H&H given anemia and slight decline. stool guaiac positive. Monitor closely for evidence of bleeding. Slow decline in H&H. (4) Cardiomyopathy: Qualifiers: Cardiomyopathy type: other Qualified Code(s): I42.8 - Other cardiomyopathies Code(s): I42.9 - Cardiomyopathy, unspecified Status: Acute Assessment and Plan: EF 35-40%. Continue medical management. Not able to tolerate optimal guideline directed medical therapy at this time given recent shock now resolved off pressors. Will optimize therapy as she tolerates and as appropriate. Eventually initiation of beta-rod, Entresto as able. Further workup when she has more fully recovered. (5) Hypokalemia: Code(s): E87.6 - Hypokalemia Status: Acute Assessment and Plan: severely reduced potassium <2.0 this morning depsite KCl yesterday. Replace to keep potassium around 4.0. Supplementation has been administered. Continue to monitor very closely. (6) Acute kidney injury: Code(s): N17.9 - Acute kidney failure, unspecified Status: Acute Assessment and Plan: Continue to monitor renal function closely, urine output intolerance to diuretic therapy. Minimize nephrotoxic agents. stable thus far. (7) Aortic stenosis: Qualifiers: Cardiac valve disease etiology: nonrheumatic Qualified Code(s): I35.0 - Nonrheumatic aortic (valve) stenosis Code(s): I35.0 - Nonrheumatic aortic (valve) stenosis Status: Acute Assessment and Plan: Likely overall moderate in severity. Avoid excessive hypotension. (8) Hyponatremia: Code(s): E87.1 - Hypo-osmolality and hyponatremia Status: Acute Assessment and Plan: Stable, resolved. Continue to monitor. Subjective Date/time seen: 09/11/22 09:21 Interval history: 71-year-old female with past medical history of atrial fibrillation on chronic anticoagulation, chronic hyponatremia presented the ED on 08/25/2022 with generalized weakness. Initial sodium levels of 119, BNP 6550 and chest x-ray showed opacities in the right midlung zone and bilateral perihilar regions. Patient was brought to the ICU on 09/02 for bradycardia, poor mental status and hypoxia. ABGs prior to intubation showed respiratory acidosis, she did not tolerate BiPAP a intubated on 09/01/2022 09/09/2022: Successfully extubated after she passed a breathing trial Date of service 09/10/2022: She is displaying more shortness of breath today. No chest pain. Heart rate is marginally controlled. Date of service 09/11/2022: Heart rate is better on higher dose of amiodarone and breathing is less labored today. Continuing diuresis. Still swollen Review of System
[2022-09-11 09:49] LABS: Magnesium 2.2 mg/dL (1.6-2.3)
--- NOTE | 2022-09-11 11:32 | WPDINTPN ---
Progress Note: A&P Assessment and Plan (1) Acute respiratory failure: Code(s): J96.00 - Acute respiratory failure, unspecified whether with hypoxia or hypercapnia Status: Acute Assessment and Plan: Acute on chronic hypoxic and hypercarbic Respiratory failure secondary to pulmonary edema with possible pneumonia -intubated on 09/02/2022 -successfully extubated on 09/09/2022, developed pulmonary edema and was placed on BiPAP -remains on BiPAP, 06/24, 40% FiO2 -Chest x-ray this morning:Advanced pulmonary edema, with small pleural effusions -you Lasix IV b.i.d. -patient with adequate urine output with Diamox on 09/08 -status post full course of antibiotics -09/02/2022: Blood cultures negative x2 -09/02/2022 sputum cultures: Negative -09/02/2022 MRSA screen negative -09/[address] showed 1. Diffuse lung disease, consistent with pulmonary edema versus pneumonia. 2. Moderate-sized right and small left pleural effusions. (2) Acute on chronic combined systolic and diastolic CHF (congestive heart failure): Code(s): I50.43 - Acute on chronic combined systolic (congestive) and diastolic (congestive) heart failure Status: Acute Assessment and Plan: Echocardiogram done on 08/26 Summary ? 1. Left ventricular chamber dimension is moderately enlarged. ? 3. Left ventricular systolic function is moderately globally reduced, estimated at 35-40%. ? 6. Left atrial chamber dimension is moderately enlarged. ? 7. Right atrial chamber dimension is mildly enlarged. ? 10. There is moderate to severe aortic valve stenosis based on a peak velocity of 279.27 cm/s, mean gradient of 19 mmHg, and aortic valve area of 0.91 cm2. ? 11. There is moderate aortic valve regurgitation. ? 12. The mitral valve has mildly thickened leaflets and moderately calcified annulus. ? 13. There is moderate mitral valve regurgitation. ? 14. There is mild tricuspid valve regurgitation. ? 15. Moderate pulmonary hypertension, estimated pulmonary arterial systolic pressure is 51 mmHg. ? 16. Small atheroma in anterior and posterior aortic root. ? 17. Dilated inferior vena cava with <50% collapse upon inspiration consistent with significantly elevated right atrial pressure, 15 mmHg. Patient has congestive heart failure, pulmonary hypertension , volume overload and moderate to severe -Patient was tried on dobutamine twice with 2nd attempt while on amiodarone but patient did not tolerate due to worsening of tachycardia and RVR. -Patient had ÓSCAR done on 09/04. Cardioversion was not attempted as views were poor and a clot could not be ruled out, appears to have severe . -Will need to discuss with Cardiology regarding possible transfer to tertiary facility for evaluation for TAVR Continue diuresing, discussed with Cardiology (3) Shock: Code(s): R57.9 - Shock, unspecified Status: Acute Assessment and Plan: RESOLVED It appears the patient has cardiogenic shock secondary to congestive heart failure and severe which has been likely exacerbated by sedation and positive pressure ventilation -She was already on antibiotics during this hospitalization. -Her WBCs normal and procalcitonin level is low -She is currently afebrile CT chest abdomen pelvis IMPRESSION: 1. Diffuse lung disease, consistent with pulmonary edema versus pneumonia. 2. Moderate-sized right and small left pleural effusions. 3. Large sliding hiatal hernia -09/07: Patient was restarted on Levophed due to hypotension for brief amount of time, currently off Levophed. Which could be related to excessive diuresis -off stress dose steroids (4) Aortic stenosis: Qualifiers: Cardiac valve disease etiology: nonrheumatic Qualified Code(s): I35.0 - Nonrheumatic aortic (valve) stenosis Code(s): I35.0 - Nonrheumatic aortic (valve) stenosis Status: Acute Assessment and Plan: See above (5) Paroxysmal atrial fibrillation: Code(s
[2022-09-11] MEDS: HEPARIN SOD/D5W 100 UNITS/ML 25,000 UNITS/250 ML BAG 9 UNITS IV CONT (11:36)
--- NOTE | 2022-09-11 11:37 | PCFNICU ---
ICU Rounding Note: Pt current nutrition is NPO. Last recorded weight is 85.4 kg. Bowel Motility:+BM reported 09/10 Labs Reviewed:Glu 127,. BUN 50, GFR 37, Cr 1.4,Alb 2.9,Na 150, Hct 32.1 Meds Noted:Lasix, Eliquis, Protonix Skin: pitting edema noted Additional Notes: Patient remains on Bipap. No nutrition planned for today. Following daily in ICU rounds. Monitor intakes, weights, labs, plan of care every 3 days.
--- NOTE | 2022-09-11 12:15 | PM.PNNEP ---
Progress Note: A&P Assessment and Plan (1) Acute kidney injury: Code(s): N17.9 - Acute kidney failure, unspecified Status: Acute Assessment and Plan: creatinine elevated still suspect due to diuretic therapy fluctuating hemodynamics likely playing a role as well this maybe a situation where we have to accept a higher creatinine to maintain her volume status evaluation to date: CPK normal urine electrolytes prerenal (likely reflective of cardiorenal physiology along with aortic stenosis) imaging without obstruction her fluctuating creatinine is a manifestation of her prerenal physiology coupled with her bad heart and previous sepsis/hypotension continue intermittent diuresis as tolerated follow repeat labs and UOP (2) Acute respiratory failure: Code(s): J96.00 - Acute respiratory failure, unspecified whether with hypoxia or hypercapnia Status: Acute Assessment and Plan: resolving but tenuous status extubated but requiring BiPAP at this time suspect due to combo of pulmonary edema, CHF, and pneumonia follow daily CXRs cultures negative so far (completed course of antibiotics) diurese as tolerated follow I/Os (3) Anasarca: Code(s): R60.1 - Generalized edema Status: Acute Assessment and Plan: clinically better with aggressive diuresis however, this is at the expense of renal function follow clinical exam (4) Hypernatremia: Code(s): E87.0 - Hyperosmolality and hypernatremia Status: Acute Assessment and Plan: on admission had issues with hyponatremia (resolved) likely due to free water deficit due to lack of oral intake +/- diuresis will eventually need some free water would try to avoid IV D5W or sterile water given her CXR findings depending on mentation and respiratory status, may need to consider doboff placement follow trend of sodium (5) Acute on chronic combined systolic and diastolic CHF (congestive heart failure): Code(s): I50.43 - Acute on chronic combined systolic (congestive) and diastolic (congestive) heart failure Status: Acute Assessment and Plan: TTE shows EF of 35-40%, moderate to severe take valve stenosis, moderate AI, moderate pulmonary hypertension resumed on intermittent diuretics creatinine fluctuating (see #1) Cardiology following (6) Community acquired pneumonia: Code(s): J18.9 - Pneumonia, unspecified organism Status: Acute Assessment and Plan: as suggested by CXR on admission was on antibiotics on admission; blood cultures were negative repeat imaging and culture noted completed course of antibiotic therapy (7) Altered mental status: Code(s): R41.82 - Altered mental status, unspecified Status: Acute Assessment and Plan: etiology not clear seems better at this time initially thought to be secondary to hyponatremia (but no improvement with improving sodium level prior to intubation) follow mentation head CT noted (8) Paroxysmal atrial fibrillation: Code(s): I48.0 - Paroxysmal atrial fibrillation Status: Acute Assessment and Plan: rate control strategy on anticoagulation Cardiology following Will continue to follow. Subjective Date/time seen: 09/11/22 12:15 Respiratory status holding relatively stable with use of BIPAP therapy; reasonable urine output in response to diuretic therapy although CXR still with significant pulmonary edema; on amiodarone and heparin gtt for her afib; following commands and nods to yes/not questions. Exam Narrative: General: WD/WN female on BiPAP Heart: normal S1 and S2; no rub Lungs: coarse breath sounds; decreased at bases Abdomen: soft, nontender, nondistended, positive bowel sounds Extremities: 1+ bilateral edema Skin: no rash Objective Data Vital Signs Vital Signs: Vital Signs Temp Pulse Resp BP Pulse Ox O2 Del
--- NOTE | 2022-09-11 12:15 | P.PNNP_ITS ---
Progress Note: A&P Assessment and Plan (1) Acute kidney injury: Code(s): N17.9 - Acute kidney failure, unspecified Status: Acute Assessment and Plan: * creatinine elevated still * suspect due to diuretic therapy * fluctuating hemodynamics likely playing a role as well * this maybe a situation where we have to accept a higher creatinine to maintain her volume status * evaluation to date: * CPK normal * urine electrolytes prerenal (likely reflective of cardiorenal physiology along with aortic stenosis) * imaging without obstruction * her fluctuating creatinine is a manifestation of her prerenal physiology coupled with her bad heart and previous sepsis/hypotension * continue intermittent diuresis as tolerated * follow repeat labs and UOP (2) Acute respiratory failure: Code(s): J96.00 - Acute respiratory failure, unspecified whether with hypoxia or hypercapnia Status: Acute Assessment and Plan: * resolving but tenuous status * extubated but requiring BiPAP at this time * suspect due to combo of pulmonary edema, CHF, and pneumonia * follow daily CXRs * cultures negative so far (completed course of antibiotics) * diurese as tolerated * follow I/Os (3) Anasarca: Code(s): R60.1 - Generalized edema Status: Acute Assessment and Plan: * clinically better with aggressive diuresis * however, this is at the expense of renal function * follow clinical exam (4) Hypernatremia: Code(s): E87.0 - Hyperosmolality and hypernatremia Status: Acute Assessment and Plan: * on admission had issues with hyponatremia (resolved) * likely due to free water deficit due to lack of oral intake +/- diuresis * will eventually need some free water * would try to avoid IV D5W or sterile water given her CXR findings * depending on mentation and respiratory status, may need to consider doboff placement * follow trend of sodium (5) Acute on chronic combined systolic and diastolic CHF (congestive heart failure): Code(s): I50.43 - Acute on chronic combined systolic (congestive) and diastolic (co ngestive) heart failure Status: Acute Assessment and Plan: * TTE shows EF of 35-40%, moderate to severe take valve stenosis, moderate AI, moderate pulmonary hypertension * resumed on intermittent diuretics * creatinine fluctuating (see #1) * Cardiology following (6) Community acquired pneumonia: Code(s): J18.9 - Pneumonia, unspecified organism Status: Acute Assessment and Plan: * as suggested by CXR on admission * was on antibiotics on admission; blood cultures were negative * repeat imaging and culture noted * completed course of antibiotic therapy (7) Altered mental status: Code(s): R41.82 - Altered mental status, unspecified Status: Acute Assessment and Plan: * etiology not clear * seems better at this time * initially thought to be secondary to hyponatremia (but no improvement with improving sodium level prior to intubation) * follow mentation * head CT noted (8) Paroxysmal atrial fibrillation: Code(s): I48.0 - Paroxysmal atrial fibrillation Status: Acute Assessment and Plan: * rate control strategy * on anticoagulation * Cardiology following Will continue to follow. Subjective Date/time seen: 09/11/22 12:15 Respiratory status holding relatively stable with use of BIPAP therapy; reasonable urine output in response to diuretic
[2022-09-11 15:46] LABS: Partial Thromboplastin Time 128.1 SECONDS (22.3-36.8)
[2022-09-11 19:07] LABS: Blood Urea Nitrogen 48 mg/dL (7-17); Calcium 7.7 mg/dL (8.4-10.2); Carbon Dioxide > 40 mmol/L (22-30); Chloride 103 mmol/L (98-107); Estimated CRCL calculation 34 ml/min; Estimated Glomerular Filt Rate 37; Glucose 120 mg/dL (65-110); Potassium 3.2 mmol/L (3.4-5.0); Sodium 147 mmol/L (137-145)
[2022-09-11 21:43] LABS: Partial Thromboplastin Time 98.7 SECONDS (22.3-36.8)
[2022-09-12] VITALS (19 sets, daily range): BP systolic 98–111; BP diastolic 47–77; PULSE 64–136; RESP 0–100; TEMP 36.3–37.2; O2SAT 13–100
[2022-09-12] MEDS: AMIODARONE 360 MG/D5W 200 ML 360 MG/200 ML BAG 16.67 MG IV CONT ×2 (02:14→13:34)
[2022-09-12 04:07] LABS: Hematocrit 27.9 % (37.0-47.0); Hemoglobin 8.2 g/dL (12.0-15.0); Mean Corpuscular HGB Conc 29.4 g/dl (32-36); Mean Corpuscular Hemoglobin 26.3 pg (26-34); Mean Corpuscular Volume 89.4 fl (80-100); Mean Platelet Volume 10.6 fl (7.4-10.4); Platelet Count Result 324 k/mm3 (150-375); Red Blood Count 3.12 M/mm3 (4.2-5.4); Red Cell Distribution Width 18.3 % (11.5-14.5)
[2022-09-12 04:18] LABS: Partial Thromboplastin Time 82.6 SECONDS (22.3-36.8)
[2022-09-12 04:24] LABS: Alanine Aminotransferase 42 U/L (6-35); Albumin Level 2.8 g/dL (3.5-5.1); Alkaline Phosphatase 74 U/L (38-126); Aspartate Amino Transferase 31 U/L (14-36); Bilirubin,Total 0.8 mg/dL (0.2-1.3); Blood Urea Nitrogen 47 mg/dL (7-17); Calcium 7.8 mg/dL (8.4-10.2); Carbon Dioxide > 40 mmol/L (22-30); Chloride 104 mmol/L (98-107); Estimated CRCL calculation 37 ml/min; Estimated Glomerular Filt Rate 40; Glucose 99 mg/dL (65-110); Phosphorus 3.9 mg/dL (2.5-4.5); Potassium 2.6 mmol/L (3.4-5.0); Sodium 147 mmol/L (137-145)
[2022-09-12] MEDS: KCL 40 MEQ/WATER 100 ML 100 ML 25 ML IVPB ×2 (05:33→09:24)
[2022-09-12] MEDS: CENTRAL LINE FLUSH 10 ML IV PUSH ×5 (05:34→20:14)
[2022-09-12 05:37] LABS: Alveolar/Arterial O2 Gradient 71.5 mmHg; Base Excess ABG 14.9 mEq/l (+/-2.0); Carboxyhemoglobin 0.3 % THb (0-2.0); Fractional Inspired Oxygen 30 %; HCO3 ABG 40.1 mEq/l (22.0-26.0); Methemoglobin ABG 0.4 %THb (0-1.5); Oxygen Content ABG 13.1 %vol (16.0-22.0); Oxygen Saturation ABG 96.2 % (95.0-100.0); PO2 FiO2 Ratio Arterial Blood 2.63 %; Reduced Hemoglobin 5.3 %THb (0-5.0); Total Hemoglobin 9.8 g/dL (12.0-18.0); pH ABG 7.489 (7.350-7.450)
[2022-09-12 05:38] LABS: Device BIPAP; Site Drawn RIGHT BRACHIAL
[2022-09-12 05:39] LABS: Expiratory Pressure 6 cmH2O; Inspiratory Pressure 16 cmH2O
[2022-09-12 05:56] LABS: Anisocytosis 2+ (NORMAL); Blastocytes 3 %; Eosinophils Absolute Manual 0.07 K/mm3 (0.02-0.5); Eosinophils Percent Manual 1 % (0-4); Lymphocytes Absolute Manual 0.35 K/mm3 (1.1-4.5); Macrocytosis 1+ (NORMAL); Microcytosis 2+ (NORMAL); Monocytes Absolute Manual 0.07 K/mm3 (0.1-0.90); Monocytes Percent Manual 1 % (3-9); Myelocytes Percent 3 %; Neutrophils Percent Manual 86 % (46-73); Nucleated Red Blood Cells 1 %; Ovalocytes 1+ (NORMAL); Platelet Estimate Adequate (Adequate); Poikilocytosis 2+ (NORMAL); Promyelocytes Percent 1 %; Tear Drop Cells 1+ (NORMAL); Total Cells Counted 100
[2022-09-12 05:57] LABS: Burr Cells 1+ (NORMAL); Hypersegmented Neutrophils Present; Hypochromasia 3+ (NORMAL); Schistocytes 1+ (NORMAL); Smudge Cells PRESENT; Stomatocytes 2+ (NORMAL); Target Cells 1+ (NORMAL)
[2022-09-12] MEDS: acetaZOLAMIDE SODIUM FOR INJ 500 MG VIAL IV PUSH ×2 (09:30→16:59)
[2022-09-12] MEDS: PANTOPRAZOLE SODIUM IV 40 MG VIAL IV PUSH ×2 (09:36→20:14)
--- NOTE | 2022-09-12 10:20 | P.PNNP_ITS ---
Progress Note: A&P Assessment and Plan (1) Acute kidney injury: Code(s): N17.9 - Acute kidney failure, unspecified Status: Acute Assessment and Plan: * creatinine elevated still * suspect due to diuretic therapy * fluctuating hemodynamics likely playing a role as well * this maybe a situation where we have to accept a higher creatinine to maintain her volume/fluid status * evaluation to date: * CPK normal * urine electrolytes prerenal (likely reflective of cardiorenal physiology al jamila with aortic stenosis) * imaging without obstruction * her fluctuating creatinine is a manifestation of her prerenal physiology coupled with her bad heart and previous sepsis/hypotension * continue diuresis as tolerated * follow repeat labs and UOP (2) Acute respiratory failure: Code(s): J96.00 - Acute respiratory failure, unspecified whether with hypoxia or hypercapnia Status: Acute Assessment and Plan: * resolving but tenuous status * extubated but requiring BiPAP at this time * suspect due to combo of pulmonary edema, CHF, and pneumonia * follow daily CXRs (noted improvemet by CXR this AM) * cultures negative so far (completed course of antibiotics) * diurese as tolerated * follow I/Os (3) Anasarca: Code(s): R60.1 - Generalized edema Status: Acute Assessment and Plan: * clinically better with aggressive diuresis * however, this is at the expense of renal function * follow clinical exam (4) Hypernatremia: Code(s): E87.0 - Hyperosmolality and hypernatremia Status: Acute Assessment and Plan: * on admission had issues with hyponatremia (resolved) * likely due to free water deficit due to lack of oral intake +/- diuresis * will eventually need some free water * would try to avoid IV D5W or sterile water given her respiratory status * depending on mentation and respiratory status, may need to consider doboff placement (assuming she is unable to have a diet) * follow trend of sodium (5) Acute on chronic combined systolic and diastolic CHF (congestive heart failure): Code(s): I50.43 - Acute on chronic combined systolic (congestive) and diastolic (congestive) heart failure Status: Acute Assessment and Plan: * TTE shows EF of 35-40%, moderate to severe take valve stenosis, moderate AI, moderate pulmonary hypertension * resumed on intermittent diuretics * creatinine fluctuating (see #1) * Cardiology following (6) Community acquired pneumonia: Code(s): J18.9 - Pneumonia, unspecified organism Status: Acute Assessment and Plan: * as suggested by CXR on admission * was on antibiotics on admission; blood cultures were negative * repeat imaging and culture noted * completed course of antibiotic therapy (7) Altered mental status: Code(s): R41.82 - Altered mental status, unspecified Status: Acute Assessment and Plan: * etiology not clear * seems better at this time * initially thought to be secondary to hyponatremia (but no improvement with improving sodium level prior to intubation) * follow mentation * head CT noted (8) Paroxysmal atrial fibrillation: Code(s): I48.0 - Paroxysmal atrial fibrillation Status: Acute Assessment and Plan: * rate control strategy * on anticoagulation * Cardiology following Will continue to follow. Subjective Date/time seen: 09/12/22 10:20 Respiratory status seems stable if not better; maxi
--- NOTE | 2022-09-12 10:20 | PM.PNNEP ---
Progress Note: A&P Assessment and Plan (1) Acute kidney injury: Code(s): N17.9 - Acute kidney failure, unspecified Status: Acute Assessment and Plan: creatinine elevated still suspect due to diuretic therapy fluctuating hemodynamics likely playing a role as well this maybe a situation where we have to accept a higher creatinine to maintain her volume/fluid status evaluation to date: CPK normal urine electrolytes prerenal (likely reflective of cardiorenal physiology along with aortic stenosis) imaging without obstruction her fluctuating creatinine is a manifestation of her prerenal physiology coupled with her bad heart and previous sepsis/hypotension continue diuresis as tolerated follow repeat labs and UOP (2) Acute respiratory failure: Code(s): J96.00 - Acute respiratory failure, unspecified whether with hypoxia or hypercapnia Status: Acute Assessment and Plan: resolving but tenuous status extubated but requiring BiPAP at this time suspect due to combo of pulmonary edema, CHF, and pneumonia follow daily CXRs (noted improvemet by CXR this AM) cultures negative so far (completed course of antibiotics) diurese as tolerated follow I/Os (3) Anasarca: Code(s): R60.1 - Generalized edema Status: Acute Assessment and Plan: clinically better with aggressive diuresis however, this is at the expense of renal function follow clinical exam (4) Hypernatremia: Code(s): E87.0 - Hyperosmolality and hypernatremia Status: Acute Assessment and Plan: on admission had issues with hyponatremia (resolved) likely due to free water deficit due to lack of oral intake +/- diuresis will eventually need some free water would try to avoid IV D5W or sterile water given her respiratory status depending on mentation and respiratory status, may need to consider doboff placement (assuming she is unable to have a diet) follow trend of sodium (5) Acute on chronic combined systolic and diastolic CHF (congestive heart failure): Code(s): I50.43 - Acute on chronic combined systolic (congestive) and diastolic (congestive) heart failure Status: Acute Assessment and Plan: TTE shows EF of 35-40%, moderate to severe take valve stenosis, moderate AI, moderate pulmonary hypertension resumed on intermittent diuretics creatinine fluctuating (see #1) Cardiology following (6) Community acquired pneumonia: Code(s): J18.9 - Pneumonia, unspecified organism Status: Acute Assessment and Plan: as suggested by CXR on admission was on antibiotics on admission; blood cultures were negative repeat imaging and culture noted completed course of antibiotic therapy (7) Altered mental status: Code(s): R41.82 - Altered mental status, unspecified Status: Acute Assessment and Plan: etiology not clear seems better at this time initially thought to be secondary to hyponatremia (but no improvement with improving sodium level prior to intubation) follow mentation head CT noted (8) Paroxysmal atrial fibrillation: Code(s): I48.0 - Paroxysmal atrial fibrillation Status: Acute Assessment and Plan: rate control strategy on anticoagulation Cardiology following Will continue to follow. Subjective Date/time seen: 09/12/22 10:20 Respiratory status seems stable if not better; reasonable diuresis in response to IV diuretics; sodium relatively stable; significant improvement noted in CXR appearance with current interventions; mentation also improving if not stable as well; limited oral intake due to need for BiPAP. Exam Narrative: General: WD/WN female on BiPAP Heart: normal S1 and S2; no rub Lungs: coarse breath sounds; decreased at bases Abdomen: soft, nontender, nondistended, positive bowel sounds Extremities: 1+ bilateral edema Skin: no nodules Objectiv
--- NOTE | 2022-09-12 11:08 | PM.PNCARD ---
Progress Note: A&P Assessment and Plan (1) Acute on chronic congestive heart failure: Qualifiers: Heart failure type: combined systolic and diastolic Qualified Code(s): I50.43 - Acute on chronic combined systolic (congestive) and diastolic (congestive) heart failure Code(s): I50.9 - Heart failure, unspecified Status: Acute Assessment and Plan: EF 35-40%. Improved with diuresis. No longer requiring BiPAP. On O2 per nasal cannula. Continue furosemide, but will shift to p.o.. Aggressively replace potassium as her PK is significantly low. Will check a magnesium level. Replace Mag as needed (2) Acute respiratory failure with hypoxia: Code(s): J96.01 - Acute respiratory failure with hypoxia Status: Acute Assessment and Plan: Improved. Now on nasal cannula O2 (3) A-fib: Code(s): I48.91 - Unspecified atrial fibrillation Status: Acute Assessment and Plan: Maintaining sinus rhythm on oral amiodarone. (4) Cardiomyopathy: Qualifiers: Cardiomyopathy type: other Qualified Code(s): I42.8 - Other cardiomyopathies Code(s): I42.9 - Cardiomyopathy, unspecified Status: Acute Assessment and Plan: EF 35-40%. Continue medical therapy with metoprolol, jardiance, and spironolactone. Further optimization of medical regimen as an outpatient. (5) Hypokalemia: Code(s): E87.6 - Hypokalemia Status: Acute Assessment and Plan: Resolved. (6) Acute kidney injury: Code(s): N17.9 - Acute kidney failure, unspecified Status: Acute Assessment and Plan: Continue to monitor renal function closely, urine output intolerance to diuretic therapy. Minimize nephrotoxic agents. stable thus far. (7) Aortic stenosis: Qualifiers: Cardiac valve disease etiology: nonrheumatic Qualified Code(s): I35.0 - Nonrheumatic aortic (valve) stenosis Code(s): I35.0 - Nonrheumatic aortic (valve) stenosis Status: Acute Assessment and Plan: Likely overall moderate in severity. Avoid excessive hypotension. (8) Hyponatremia: Code(s): E87.1 - Hypo-osmolality and hyponatremia Status: Acute Assessment and Plan: Stable, resolved. Continue to monitor. Subjective Date/time seen: 09/12/22 11:08 Cardiology follow up for atrial fibrillation, MR, Feeling about the same this morning. No shortness of breath or palpitations. She is still complaining of some hoarseness but her voice is getting stronger. Review of Systems Constitutional: Constitutional: Denies fever(s) Eyes: Eyes: Reports no additional eye complaints Cardiovascular: Cardiovascular: Denies chest pain, Denies pedal edema, Denies lightheadedness and Denies dyspnea Respiratory: Respiratory: Denies chest congestion, Denies cough and Denies dyspnea Gastrointestinal: Gastrointestinal: Denies abdominal pain and Denies hematochezia Genitourinary: Genitourinary: Reports no additional female genitourinary complaints Musculoskeletal: Musculoskeletal: Reports no additional musculoskeletal complaints Integumentary/Breasts: Skin/Breast: Reports system reviewed and no additional complaints, except as docu Neurologic: Reports Abnormal speech present ( Was not making sense ), Denies behavioral changes and Reports confusion ( sedated) Psychiatric: Psychiatric: Denies behavioral changes and Reports confusion ( sedated) Exam Const: General: cooperative and comfortable Orientation/consciousness: patient oriented x3 HENMT: Mouth: Yes moist mucous membranes Eyes: General: appearance normal, both eyes and all related structures Sclera: sclerae normal EOM: EOMs intact bilaterally Neck: Neck: supple Resp: Effort & Inspection: normal respiratory effort Auscultation: clear to auscultation bilaterally and diminished lung sounds Cardio: Rate: regular rate Rhythm: regular rhythm and abnormal rhythm irregularly ir
--- NOTE | 2022-09-12 11:32 | PCNFU ---
Nutrition Follow-Up Complete: Severe protein calorie malnutrition related to loss of appetite as evidenced by weight loss -9%/3 months and poor intake <75% meals >1 month. goal: Improve PO intake to at least 50% meals and supplement Patient is not meeting goal. We will continue current goal. Pt current nutrition is NPO. Last recorded weight is 86 kg. Bowel Motility: +Bm reported 09/10 Labs Reviewed:Glu 127, BUN 50, Cr 1.4,GFR 40, Na 147, Alb 2.8 Meds Noted:Eliquis, Lasix Skin: edema noted Additional Notes: Patient remains NPO x 3 days. Plans for swallow eval today. Goal: advance diet as tolerated. Monitor intakes, weights, labs, plan of care, supplement tolerance Follow up in 3 days.
[2022-09-12] MEDS: LIDOCAINE HCL 1% PF INJ 5 ML VIAL INFILTRATE (12:25)
[2022-09-12] MEDS: HEPARIN SOD/D5W 100 UNITS/ML 25,000 UNITS/250 ML BAG 8 UNITS IV CONT (13:33)
--- NOTE | 2022-09-12 13:34 | WPDINTPN ---
Progress Note: A&P Assessment and Plan (1) Acute respiratory failure: Code(s): J96.00 - Acute respiratory failure, unspecified whether with hypoxia or hypercapnia Status: Acute Assessment and Plan: Acute on chronic hypoxic and hypercarbic Respiratory failure secondary to pulmonary edema with possible pneumonia -intubated on 09/02/2022 -successfully extubated on 09/09/2022, developed pulmonary edema and was placed on BiPAP -remains on BiPAP, 06/24, 40% FiO2 -Chest x-ray this morning: Mild pulmonary edema, significantly improved from prior exam. -patient on Lasix IV b.i.d., now with contraction alkalosis, hold Lasix and start Diamox -will try patient on Vapotherm, BiPAP at night -PT/OT to follow the patient -speech evaluation for swallow test -status post full course of antibiotics -09/02/2022: Blood cultures negative x2 -09/02/2022 sputum cultures: Negative -09/02/2022 MRSA screen negative -09/[address] showed 1. Diffuse lung disease, consistent with pulmonary edema versus pneumonia. 2. Moderate-sized right and small left pleural effusions. (2) Acute on chronic combined systolic and diastolic CHF (congestive heart failure): Code(s): I50.43 - Acute on chronic combined systolic (congestive) and diastolic (congestive) heart failure Status: Acute Assessment and Plan: Echocardiogram done on 08/26 Summary ? 1. Left ventricular chamber dimension is moderately enlarged. ? 3. Left ventricular systolic function is moderately globally reduced, estimated at 35-40%. ? 6. Left atrial chamber dimension is moderately enlarged. ? 7. Right atrial chamber dimension is mildly enlarged. ? 10. There is moderate to severe aortic valve stenosis based on a peak velocity of 279.27 cm/s, mean gradient of 19 mmHg, and aortic valve area of 0.91 cm2. ? 11. There is moderate aortic valve regurgitation. ? 12. The mitral valve has mildly thickened leaflets and moderately calcified annulus. ? 13. There is moderate mitral valve regurgitation. ? 14. There is mild tricuspid valve regurgitation. ? 15. Moderate pulmonary hypertension, estimated pulmonary arterial systolic pressure is 51 mmHg. ? 16. Small atheroma in anterior and posterior aortic root. ? 17. Dilated inferior vena cava with <50% collapse upon inspiration consistent with significantly elevated right atrial pressure, 15 mmHg. Patient has congestive heart failure, pulmonary hypertension , volume overload and moderate to severe -Patient was tried on dobutamine twice with 2nd attempt while on amiodarone but patient did not tolerate due to worsening of tachycardia and RVR. -Patient had ÓSCAR done on 09/04. Cardioversion was not attempted as views were poor and a clot could not be ruled out, appears to have severe . -Will need to discuss with Cardiology regarding possible transfer to tertiary facility for evaluation for TAVR Continue diuresing, discussed with Cardiology (3) Shock: Code(s): R57.9 - Shock, unspecified Status: Acute Assessment and Plan: RESOLVED It appears the patient has cardiogenic shock secondary to congestive heart failure and severe which has been likely exacerbated by sedation and positive pressure ventilation -She was already on antibiotics during this hospitalization. -Her WBCs normal and procalcitonin level is low -She is currently afebrile CT chest abdomen pelvis IMPRESSION: 1. Diffuse lung disease, consistent with pulmonary edema versus pneumonia. 2. Moderate-sized right and small left pleural effusions. 3. Large sliding hiatal hernia -09/07: Patient was restarted on Levophed due to hypotension for brief amount of time, currently off Levophed. Which could be related to excessive diuresis -off stress dose steroids (4) Aortic stenosis: Qualifiers: Cardiac valve disease etiology: nonrheumatic Qualified Code(s): I35.0 - Nonrheumatic aortic (valve) stenosis Code(s): I35.0 - Nonrheumatic
--- NOTE | 2022-09-12 15:53 | PCSTNOTE ---
Please refer to the Modified Barium Swallow Evaluation in the EMR.
[2022-09-12] MEDS: WATER, STERILE FOR INJECTION 10 ML VIAL XX (18:48)
[2022-09-12] MEDS: AMIODARONE 360 MG/D5W 200 ML 360 MG/200 ML BAG 33.33 MG IV CONT (22:34)
[2022-09-13] VITALS (23 sets, daily range): BP systolic 100–128; BP diastolic 67–89; PULSE 81–114; RESP 15–26; TEMP 36.3–37.3; O2SAT 92–98
[2022-09-13] MEDS: AMIODARONE 360 MG/D5W 200 ML 360 MG/200 ML BAG 33.33 MG IV CONT ×4 (04:34→22:29)
[2022-09-13 04:51] LABS: Basophils Percent Auto 0.2 % (0.2-1.2); Eosinophils Percent Auto 0.5 % (0-4.4); Hematocrit 30.4 % (37.0-47.0); Hemoglobin 8.6 g/dL (12.0-15.0); Immature Granulocyte Absolute 0.09 K/mm3 (0.00-0.031); Immature Granulocyte Percent A 1.4 % (0-0.5); Lymphocytes Absolute Auto 0.38 K/mm3 (0.9-3.2); Lymphocytes Percent Auto 5.8 % (18.3-44.2); Mean Corpuscular HGB Conc 28.3 g/dl (32-36); Mean Corpuscular Hemoglobin 25.9 pg (26-34); Mean Corpuscular Volume 91.6 fl (80-100); Monocytes Absolute Auto 0.5 K/mm3 (0.1-0.6); Monocytes Percent Auto 8.2 % (2.6-8.5); Neutrophils Absolute Auto 5.5 K/mm3 (1.3-6.7); Neutrophils Percent Auto 83.9 % (45.5-73.1); Nucleated Red Blood Cells Absolute Auto 0.1 K/mm3 (0.0-0.012); Nucleated Red Blood Cells Perc 1.4 % (0.0-0.2); Platelet Count Result 360 k/mm3 (150-375); Red Blood Count 3.32 M/mm3 (4.2-5.4); Red Cell Distribution Width 18.8 % (11.5-14.5); White Blood Count 6.6 K/mm3 (4.5-10.0)
[2022-09-13 05:06] LABS: Alanine Aminotransferase 44 U/L (6-35); Albumin Level 3.1 g/dL (3.5-5.1); Alkaline Phosphatase 83 U/L (38-126); Anion Gap 4 mmol/L (8-16); Aspartate Amino Transferase 32 U/L (14-36); Bilirubin,Total 0.9 mg/dL (0.2-1.3); Blood Urea Nitrogen 41 mg/dL (7-17); Carbon Dioxide 39 mmol/L (22-30); Chloride 107 mmol/L (98-107); Estimated CRCL calculation 32 ml/min; Estimated Glomerular Filt Rate 34; Glucose 108 mg/dL (65-110); Magnesium 2.2 mg/dL (1.6-2.3); Phosphorus 3.7 mg/dL (2.5-4.5); Potassium 2.9 mmol/L (3.4-5.0); Sodium 150 mmol/L (137-145)
[2022-09-13] MEDS: CENTRAL LINE FLUSH 10 ML IV PUSH ×3 (05:13→21:37)
[2022-09-13] MEDS: KCL 40 MEQ/WATER 100 ML 100 ML 25 ML IVPB (08:25)
[2022-09-13] MEDS: FUROSEMIDE INJ 40 MG/4 ML VIAL IV PUSH ×2 (08:25→17:12)
[2022-09-13] MEDS: PANTOPRAZOLE SODIUM IV 40 MG VIAL IV PUSH ×2 (08:26→21:37)
[2022-09-13] MEDS: POTASSIUM CHLORIDE 20 MEQ PACKET (FOR LIQUID) 40 MEQ PO (09:40)
[2022-09-13] MEDS: POTASSIUM CHLORIDE 20 MEQ PACKET (FOR LIQUID) FEED TUBE (09:40)
--- NOTE | 2022-09-13 10:43 | PM.PNCARD ---
Progress Note: A&P Assessment and Plan (1) Aortic stenosis: Qualifiers: Cardiac valve disease etiology: nonrheumatic Qualified Code(s): I35.0 - Nonrheumatic aortic (valve) stenosis Code(s): I35.0 - Nonrheumatic aortic (valve) stenosis Status: Acute (2) Paroxysmal atrial fibrillation: Code(s): I48.0 - Paroxysmal atrial fibrillation Status: Acute Plan 71-year-old lady with aortic valve stenosis I believe this is moderate/not severe as I mentioned in my previous progress notes. She is persisting in atrial fib/flutter and receiving amiodarone intravenously for rate control. Hopefully can transition her to oral therapy relatively soon and systemic anticoagulation needs to be continued. This patient has been anticoagulated since she went into atrial fibrillation earlier during this hospitalization. On telemetry now she is alternating between a flutter and is clearly showing some evidence of sinus rhythm in the ICU. Hopefully as time goes on she will have more propensity for sinus rhythm as we give her more amiodarone. Since she is in and out of sinus rhythm at this time there is currently less argument for cardioversion Son Perdomo MD [facility] Subjective Date/time seen: date of service:09/13/22 10:43 Interval history: Follow-up visit in this 71-year-old lady with: Paroxysmal atrial fib / flutter and aortic valve stenosis. Patient was admitted to the hospital nearly 3 weeks ago now with symptoms of weakness and marked hyponatremia. Because of respiratory failure she was transferred to the ICU and intubated. She is now off the ventilator finally sitting in the chair and appears to be comfortable. Voice is very soft presumably because of prolonged intubation. Patient says she would like to go home I explained to her she is clearly not stable for that. Receiving intravenous amiodarone with generally well-controlled heart rate. Anticoagulated with heparin at this time Exam Const: General: comfortable and no acute distress Other: very weak overweight pleasant lady soft worse voice because of prolonged intubation says she is doing well and would like to be discharged. HENMT: Mouth: Yes moist mucous membranes Eyes: Sclera: sclerae normal Neck: Neck: supple and no JVD Resp: Effort & Inspection: normal respiratory effort Other: Patient has some central rhonchi. Cardio: Rhythm: abnormal rhythm irregularly irregular Heart sounds: Murmur heart sound present Other: Grade 2/6 crescendo decrescendo murmur continues to be audible at the base GI: GI Palp: Yes Soft to palpation Auscultation: normal bowel sounds Urinary Catheter: Urinary Catheter: patent and draining Skin: General skin exam: normal color Neuro: Other: oriented x3 normal cognition Objective Data Vital Signs Vital Signs: Vital Signs - 24 hr 09/12/22 12:00 09/12/22 12:00 09/12/22 13:34 Temperature Pulse Rate 87 88 Respiratory Rate Blood Pressure 98/64 L Pulse Oximetry 96 Oxygen Delivery High Flow Therapy with Na Oxygen Flow Rate 35 Fraction of Inspired Oxygen 30 09/12/22 12:00 09/12/22 15:35 09/12/22 16:00 Temperature 36.6 C Pulse Rate 89 89 Respiratory Rate 23 H 22 H Blood Pressure 106/59 L Pulse Oximetry 95 100 94 Oxygen Delivery High Flow Therapy with Na High Flow Therapy with Na Oxygen Flow Rate 35 35 Fraction of Inspired Oxygen 30 30 09/12/22 16:00 09/12/22 16:00 09/12/22 14:00 Temperature 37.2 C Pulse Rate 100 101 H 89 Respiratory Rate 0 L Blood Pressure 111/77 Pulse Oximetry 96 Oxygen Delivery Oxygen Flow Rate Fraction of Inspired Oxygen 09/12/22 17:12 09/12/22 18:04 09/12/22 18:11 Temperature Pulse Rate 97 126 H 136 H Respiratory Rate 22 H Blood Pressure Pulse Oximetry 95 Oxygen Delivery High Flow Therapy with Na Oxygen Flow Rate 35 Fraction of Inspired Oxygen 30 09/12/22 20:00
--- NOTE | 2022-09-13 12:09 | PM.IMPN ---
Progress Note: A&P Assessment and Plan (1) Acute respiratory failure: Code(s): J96.00 - Acute respiratory failure, unspecified whether with hypoxia or hypercapnia Status: Acute Assessment and Plan: Acute on chronic hypoxic and hypercarbic Respiratory failure secondary to pulmonary edema with possible pneumonia -intubated on 09/02/2022 -successfully extubated on 09/09/2022, -patient on Lasix IV b.i.d., now with contraction alkalosis, hold Lasix and start Diamox -will try patient on Vapotherm, BiPAP at night -PT/OT to follow the patient -speech evaluation for swallow test -status post full course of antibiotics -09/02/2022: Blood cultures negative x2 -09/02/2022 sputum cultures: Negative -09/02/2022 MRSA screen negative (2) Acute on chronic combined systolic and diastolic CHF (congestive heart failure): Code(s): I50.43 - Acute on chronic combined systolic (congestive) and diastolic (congestive) heart failure Status: Acute Assessment and Plan: Echocardiogram done on 08/26 Summary ? 1. Left ventricular chamber dimension is moderately enlarged. ? 3. Left ventricular systolic function is moderately globally reduced, estimated at 35-40%. ? 6. Left atrial chamber dimension is moderately enlarged. ? 7. Right atrial chamber dimension is mildly enlarged. ? 10. There is moderate to severe aortic valve stenosis based on a peak velocity of 279.27 cm/s, mean gradient of 19 mmHg, and aortic valve area of 0.91 cm2. ? 11. There is moderate aortic valve regurgitation. ? 12. The mitral valve has mildly thickened leaflets and moderately calcified annulus. ? 13. There is moderate mitral valve regurgitation. ? 14. There is mild tricuspid valve regurgitation. ? 15. Moderate pulmonary hypertension, estimated pulmonary arterial systolic pressure is 51 mmHg. ? 16. Small atheroma in anterior and posterior aortic root. ? 17. Dilated inferior vena cava with <50% collapse upon inspiration consistent with significantly elevated right atrial pressure, 15 mmHg. Patient has congestive heart failure, pulmonary hypertension , volume overload and moderate to severe -Patient was tried on dobutamine twice with 2nd attempt while on amiodarone but patient did not tolerate due to worsening of tachycardia and RVR. -Patient had ÓSCAR done on 09/04. Cardioversion was not attempted as views were poor and a clot could not be ruled out, appears to have severe . -Will need to discuss with Cardiology regarding possible transfer to tertiary facility for evaluation for TAVR Continue diuresing Apreciate cardiology input (3) Shock: Code(s): R57.9 - Shock, unspecified Status: Acute Assessment and Plan: RESOLVED (4) Aortic stenosis: Qualifiers: Cardiac valve disease etiology: nonrheumatic Qualified Code(s): I35.0 - Nonrheumatic aortic (valve) stenosis Code(s): I35.0 - Nonrheumatic aortic (valve) stenosis Status: Acute Assessment and Plan: See above (5) Paroxysmal atrial fibrillation: Code(s): I48.0 - Paroxysmal atrial fibrillation Status: Acute Assessment and Plan: Patient was bradycardic overnight, amiodarone infusion was discontinued Off metoprolol due to hypotension -patient dropped hemoglobin on 09/08, Eliquis was held on 09/07 -started on heparin infusion on 09/10/[address] Armas from GI and Cardiology (6) Acute kidney injury: Code(s): N17.9 - Acute kidney failure, unspecified Status: Acute Assessment and Plan: Monitor urine output electrolytes and creatinine -discuss with Nephrology and Cardiology, may have to tolerate higher creatinine and allow her to diurese well (7) Sliding hiatal hernia: Code(s): K44.9 - Diaphragmatic hernia without obstruction or gangrene Status: Acute Assessment and Plan: CT scan reviewed (8) Hyponatremia: Code(s): E87.1 - Hypo-osmolality and hyponatremia
--- NOTE | 2022-09-13 12:19 | P.PNNP_ITS ---
Progress Note: A&P Assessment and Plan (1) Acute kidney injury: Code(s): N17.9 - Acute kidney failure, unspecified Status: Acute Assessment and Plan: * creatinine elevated * suspect due to diuretic therapy * fluctuating hemodynamics likely playing a role as well * this maybe a situation where we have to accept a higher creatinine to maintain her volume/fluid status * evaluation to date: * CPK normal * urine electrolytes prerenal (likely reflective of cardiorenal physiology along with aortic stenosis) * imaging without obstruction * her fluctuating creatinine is a manifestation of her prerenal physiology coupled with her bad heart and previous sepsis/hypotension * continue diuresis as tolerated * follow repeat labs and UOP (2) Acute respiratory failure: Code(s): J96.00 - Acute respiratory failure, unspecified whether with hypoxia or hypercapnia Status: Acute Assessment and Plan: * resolving but tenuous status * extubated (on 09/09/22) and on high flow oxygen * suspect due to combo of pulmonary edema, CHF, and pneumonia * cultures negative so far (completed course of antibiotics) * diurese as tolerated (on lasix and PRN diamox) * follow I/Os (3) Anasarca: Code(s): R60.1 - Generalized edema Status: Acute Assessment and Plan: * clinically better with aggressive diuresis * however, this is likely at the expense of renal function * follow clinical exam (4) Hypernatremia: Code(s): E87.0 - Hyperosmolality and hypernatremia Status: Acute Assessment and Plan: * on admission had issues with hyponatremia (resolved) * likely due to free water deficit due to lack of oral intake +/- diuresis * will eventually need some free water * would try to avoid IVFs (D5W or sterile water) given her respiratory status and previous CXR findings * depending on mentation and respiratory status, may need to consider doboff placement (assuming she is unable to have a diet) * follow trend of sodium (5) Acute on chronic combined systolic and diastolic CHF (congestive heart failure): Code(s): I50.43 - Acute on chronic combined systolic (congestive) and diastolic (congestive) heart failure Status: Acute Assessment and Plan: * TTE shows EF of 35-40%, moderate to severe take valve stenosis, moderate AI, moderate pulmonary hypertension * resumed on intermittent diuretics * creatinine fluctuating (see #1) * Cardiology following (6) Community acquired pneumonia: Code(s): J18.9 - Pneumonia, unspecified organism Status: Acute Assessment and Plan: * as suggested by CXR on admission * was on antibiotics on admission; blood cultures were negative * repeat imaging and culture noted * completed course of antibiotic therapy (7) Altered mental status: Code(s): R41.82 - Altered mental status, unspecified Status: Acute Assessment and Plan: * etiology not clear * seems better at this time * initially thought to be secondary to hyponatremia (but no improvement with improving sodium level prior to intubation) * follow mentation * head CT noted (8) Paroxysmal atrial fibrillation: Code(s): I48.0 - Paroxysmal atrial fibrillation Status: Acute Assessment and Plan: * rate control strategy * on anticoagulation * Cardiology following Will continue to follow. Subjective Date/time seen: 09/13/22 12:19 Respiratory status seems to be holding r
--- NOTE | 2022-09-13 12:19 | PM.PNNEP ---
Progress Note: A&P Assessment and Plan (1) Acute kidney injury: Code(s): N17.9 - Acute kidney failure, unspecified Status: Acute Assessment and Plan: creatinine elevated suspect due to diuretic therapy fluctuating hemodynamics likely playing a role as well this maybe a situation where we have to accept a higher creatinine to maintain her volume/fluid status evaluation to date: CPK normal urine electrolytes prerenal (likely reflective of cardiorenal physiology along with aortic stenosis) imaging without obstruction her fluctuating creatinine is a manifestation of her prerenal physiology coupled with her bad heart and previous sepsis/hypotension continue diuresis as tolerated follow repeat labs and UOP (2) Acute respiratory failure: Code(s): J96.00 - Acute respiratory failure, unspecified whether with hypoxia or hypercapnia Status: Acute Assessment and Plan: resolving but tenuous status extubated (on 09/09/22) and on high flow oxygen suspect due to combo of pulmonary edema, CHF, and pneumonia cultures negative so far (completed course of antibiotics) diurese as tolerated (on lasix and PRN diamox) follow I/Os (3) Anasarca: Code(s): R60.1 - Generalized edema Status: Acute Assessment and Plan: clinically better with aggressive diuresis however, this is likely at the expense of renal function follow clinical exam (4) Hypernatremia: Code(s): E87.0 - Hyperosmolality and hypernatremia Status: Acute Assessment and Plan: on admission had issues with hyponatremia (resolved) likely due to free water deficit due to lack of oral intake +/- diuresis will eventually need some free water would try to avoid IVFs (D5W or sterile water) given her respiratory status and previous CXR findings depending on mentation and respiratory status, may need to consider doboff placement (assuming she is unable to have a diet) follow trend of sodium (5) Acute on chronic combined systolic and diastolic CHF (congestive heart failure): Code(s): I50.43 - Acute on chronic combined systolic (congestive) and diastolic (congestive) heart failure Status: Acute Assessment and Plan: TTE shows EF of 35-40%, moderate to severe take valve stenosis, moderate AI, moderate pulmonary hypertension resumed on intermittent diuretics creatinine fluctuating (see #1) Cardiology following (6) Community acquired pneumonia: Code(s): J18.9 - Pneumonia, unspecified organism Status: Acute Assessment and Plan: as suggested by CXR on admission was on antibiotics on admission; blood cultures were negative repeat imaging and culture noted completed course of antibiotic therapy (7) Altered mental status: Code(s): R41.82 - Altered mental status, unspecified Status: Acute Assessment and Plan: etiology not clear seems better at this time initially thought to be secondary to hyponatremia (but no improvement with improving sodium level prior to intubation) follow mentation head CT noted (8) Paroxysmal atrial fibrillation: Code(s): I48.0 - Paroxysmal atrial fibrillation Status: Acute Assessment and Plan: rate control strategy on anticoagulation Cardiology following Will continue to follow. Subjective Date/time seen: 09/13/22 12:19 Respiratory status seems to be holding relatively stable -- off BiPAP at this time and on high flow oxygen; conversing some but voice soft; hemodynamically stable at this time; reasonable diuresis with current therapy. Exam Narrative: General: WD/WN female in NAD Heart: normal S1 and S2; no rub Lungs: coarse breath sounds; decreased at bases Abdomen: soft, nontender, nondistended, positive bowel sounds Extremities: bilateral edema (1+) Skin: warm and dry Objective Data Vital Signs Vital Signs: Vital Signs Temp Pul
--- NOTE | 2022-09-13 16:57 | PC.NURSE ---
This patient, Lyndsey Mclean, was received from ICU 8 on 09/13/22 at 1658. Patient/family oriented to unit policies and routines.
--- NOTE | 2022-09-13 17:25 | PC.NURSE ---
This patient, Lyndsey Mclean, was transferred to [ [id number]] on 09/13/22 at 1605. Personal belongings sent with patient. Report given to [ Og ESQUIVEL]. Appropriate documentation sent with patient.
[2022-09-13] MEDS: HEPARIN SOD/D5W 100 UNITS/ML 25,000 UNITS/250 ML BAG 8 UNITS IV CONT (22:01)
[2022-09-14] VITALS (20 sets, daily range): BP systolic 106–137; BP diastolic 60–84; PULSE 80–105; RESP 17–25; TEMP 35.8–36.8; O2SAT 90–100
[2022-09-14] MEDS: AMIODARONE 360 MG/D5W 200 ML 360 MG/200 ML BAG 33.33 MG IV CONT (04:59)
[2022-09-14] MEDS: ACETAMINOPHEN 500 MG TABLET 1000 MG PO (05:18)
[2022-09-14 05:39] LABS: Basophils Percent Auto 0.2 % (0.2-1.2); Eosinophils Absolute Auto 0.1 K/mm3 (0-0.3); Eosinophils Percent Auto 0.8 % (0-4.4); Hematocrit 28.1 % (37.0-47.0); Immature Granulocyte Absolute 0.13 K/mm3 (0.00-0.031); Immature Granulocyte Percent A 2.1 % (0-0.5); Lymphocytes Absolute Auto 0.64 K/mm3 (0.9-3.2); Lymphocytes Percent Auto 10.4 % (18.3-44.2); Mean Corpuscular HGB Conc 28.5 g/dl (32-36); Mean Corpuscular Hemoglobin 25.6 pg (26-34); Mean Corpuscular Volume 90.1 fl (80-100); Mean Platelet Volume 9.6 fl (7.4-10.4); Monocytes Absolute Auto 0.5 K/mm3 (0.1-0.6); Monocytes Percent Auto 7.8 % (2.6-8.5); Neutrophils Absolute Auto 4.9 K/mm3 (1.3-6.7); Neutrophils Percent Auto 78.7 % (45.5-73.1); Nucleated Red Blood Cells Absolute Auto 0.1 K/mm3 (0.0-0.012); Nucleated Red Blood Cells Perc 1.6 % (0.0-0.2); Platelet Count Result 329 k/mm3 (150-375); Red Blood Count 3.12 M/mm3 (4.2-5.4); Red Cell Distribution Width 18.7 % (11.5-14.5); White Blood Count 6.2 K/mm3 (4.5-10.0)
[2022-09-14 05:50] LABS: Alanine Aminotransferase 37 U/L (6-35); Alkaline Phosphatase 78 U/L (38-126); Aspartate Amino Transferase 31 U/L (14-36); Bilirubin,Total 0.8 mg/dL (0.2-1.3); Blood Urea Nitrogen 37 mg/dL (7-17); Calcium 8.3 mg/dL (8.4-10.2); Carbon Dioxide > 40 mmol/L (22-30); Chloride 101 mmol/L (98-107); Estimated CRCL calculation 31 ml/min; Estimated Glomerular Filt Rate 34; Glucose 100 mg/dL (65-110); Phosphorus 3.6 mg/dL (2.5-4.5); Potassium 2.8 mmol/L (3.4-5.0); Sodium 144 mmol/L (137-145)
[2022-09-14 06:04] LABS: Partial Thromboplastin Time 79.7 SECONDS (22.3-36.8)
[2022-09-14 06:09] LABS: Anisocytosis 1+ (NORMAL); Hypochromasia 1+ (NORMAL); Platelet Estimate Adequate (Adequate); Schistocytes None Seen (NORMAL)
[2022-09-14] MEDS: CENTRAL LINE FLUSH 10 ML IV PUSH ×3 (07:00→20:52)
[2022-09-14] MEDS: POTASSIUM CHLORIDE 20 MEQ TABLET 40 MEQ PO (08:11)
[2022-09-14] MEDS: POTASSIUM CHLORIDE INJ 40 MEQ in SODIUM CHLORIDE 0.9% IV 500 ML 130 MEQ IVPB (08:12)
[2022-09-14] MEDS: FUROSEMIDE INJ 40 MG/4 ML VIAL IV PUSH ×2 (08:14→16:47)
[2022-09-14] MEDS: PANTOPRAZOLE SODIUM IV 40 MG VIAL IV PUSH ×2 (08:17→20:52)
[2022-09-14] MEDS: POTASSIUM CHLORIDE 20 MEQ PACKET (FOR LIQUID) FEED TUBE (08:21)
[2022-09-14] MEDS: POTASSIUM CHLORIDE 20 MEQ PACKET (FOR LIQUID) 40 MEQ PO (09:13)
--- NOTE | 2022-09-14 09:20 | PM.PNCARD ---
Progress Note: A&P Assessment and Plan (1) Cardiomyopathy: Qualifiers: Cardiomyopathy type: other Qualified Code(s): I42.8 - Other cardiomyopathies Code(s): I42.9 - Cardiomyopathy, unspecified Status: Acute (2) Aortic stenosis: Qualifiers: Cardiac valve disease etiology: nonrheumatic Qualified Code(s): I35.0 - Nonrheumatic aortic (valve) stenosis Code(s): I35.0 - Nonrheumatic aortic (valve) stenosis Status: Acute (3) Paroxysmal atrial fibrillation: Code(s): I48.0 - Paroxysmal atrial fibrillation Status: Acute Plan 71-year-old lady with paroxysmal atrial fibrillation currently on amiodarone with good heart rate control. Yesterday in the ICU we did see some sinus rhythm occasionally on telemetry in IMU this morning appears to be AF with good rate control. I am going to transition her to p.o. amiodarone at this time. Systemic anticoagulation is still in place with heparin. We will need to transition her to an oral anticoagulant as we go forward. My plan as mentioned above is to consider DC cardioversion once she has been anticoagulated for at least 4 weeks as long as she remains relatively stable hemodynamically. Son Perdomo MD [facility] Subjective Date/time seen: Date of service: 09/14/22 09:20 Interval history: Follow-up visit in this 71-year-old lady with: Paroxysmal atrial fib / flutter and aortic valve stenosis. Patient was admitted to the hospital nearly 3 weeks ago now with symptoms of weakness and marked hyponatremia. Because of respiratory failure she was transferred to the ICU and intubated. She is now off the ventilator finally sitting in the chair and appears to be comfortable. Voice is very soft presumably because of prolonged intubation. Patient says she would like to go home I explained to her she is clearly not stable for that. Receiving intravenous amiodarone with generally well-controlled heart rate. Anticoagulated with heparin at this time 09/14/2022: Patient moved out of the ICU yesterday and IMU sitting in the bedside chair and appears to be relatively comfortable. Still has IV amiodarone running atrial fib is currently seen on telemetry heart rate in the 90s. Voice remains very soft because of prolonged intubation. Exam Const: General: comfortable and no acute distress Other: Overweight white female very weak with prolonged intubation and ICU stay now appears to be essentially comfortable not offering any complaints this morning HENMT: Mouth: Yes moist mucous membranes Eyes: Sclera: sclerae normal Neck: Neck: supple Other: Carotid pulses are normal bilaterally difficult to assess venous distention Resp: Effort & Inspection: normal respiratory effort Other: Few scattered rhonchi no audible pulmonary rales this morning Cardio: Rate: regular rate Rhythm: abnormal rhythm irregularly irregular GI: GI Palp: Yes Soft to palpation Auscultation: normal bowel sounds Skin: General skin exam: normal color Neuro: Other: Alert and oriented Objective Data Vital Signs Vital Signs: Vital Signs - 24 hr 09/13/22 10:00 09/13/22 10:35 09/13/22 10:44 Temperature Pulse Rate 100 101 H 101 H Respiratory Rate Blood Pressure Pulse Oximetry Oxygen Delivery Oxygen Flow Rate Fraction of Inspired Oxygen 09/13/22 12:00 09/13/22 12:00 09/13/22 12:00 Temperature 37.2 C Pulse Rate 108 H 107 H Respiratory Rate 25 H Blood Pressure 106/67 Pulse Oximetry 97 97 Oxygen Delivery High Flow Therapy with Na Oxygen Flow Rate 35 Fraction of Inspired Oxygen 09/13/22 12:33 09/13/22 13:52 09/13/22 14:00 Temperature Pulse Rate 107 H 109 H Respiratory Rate Blood Pressure 106/67 Pulse Oximetry 93 Oxygen Delivery High Flow Therapy with Na Oxygen Flow Rate 35 Fraction of Inspired Oxygen 30 09/13/22 16:24 09/13/22 16:24 09/13/22 16:00 Temperature Pulse Rate
[2022-09-14] MEDS: AMIODARONE HCL 200 MG TABLET 400 MG PO (10:04)
--- NOTE | 2022-09-14 11:25 | PM.IMPN ---
Progress Note: A&P Assessment and Plan (1) Acute respiratory failure: Code(s): J96.00 - Acute respiratory failure, unspecified whether with hypoxia or hypercapnia Status: Acute Assessment and Plan: Acute on chronic hypoxic and hypercarbic Respiratory failure secondary to pulmonary edema with possible pneumonia -intubated on 09/02/2022 -successfully extubated on 09/09/2022, Continue diuretic therapy -completed antibiotics -status post full course of antibiotics -09/02/2022: Blood cultures negative x2 -09/02/2022 sputum cultures: Negative -09/02/2022 MRSA screen negative (2) Acute on chronic combined systolic and diastolic CHF (congestive heart failure): Code(s): I50.43 - Acute on chronic combined systolic (congestive) and diastolic (congestive) heart failure Status: Acute Assessment and Plan: Echocardiogram done on 08/26 Summary ? 1. Left ventricular chamber dimension is moderately enlarged. ? 3. Left ventricular systolic function is moderately globally reduced, estimated at 35-40%. ? 6. Left atrial chamber dimension is moderately enlarged. ? 7. Right atrial chamber dimension is mildly enlarged. ? 10. There is moderate to severe aortic valve stenosis based on a peak velocity of 279.27 cm/s, mean gradient of 19 mmHg, and aortic valve area of 0.91 cm2. ? 11. There is moderate aortic valve regurgitation. ? 12. The mitral valve has mildly thickened leaflets and moderately calcified annulus. ? 13. There is moderate mitral valve regurgitation. ? 14. There is mild tricuspid valve regurgitation. ? 15. Moderate pulmonary hypertension, estimated pulmonary arterial systolic pressure is 51 mmHg. ? 16. Small atheroma in anterior and posterior aortic root. ? 17. Dilated inferior vena cava with <50% collapse upon inspiration consistent with significantly elevated right atrial pressure, 15 mmHg. Continue diuresing Apreciate cardiology input (3) Shock: Code(s): R57.9 - Shock, unspecified Status: Acute Assessment and Plan: RESOLVED (4) Aortic stenosis: Qualifiers: Cardiac valve disease etiology: nonrheumatic Qualified Code(s): I35.0 - Nonrheumatic aortic (valve) stenosis Code(s): I35.0 - Nonrheumatic aortic (valve) stenosis Status: Acute Assessment and Plan: See above (5) Paroxysmal atrial fibrillation: Code(s): I48.0 - Paroxysmal atrial fibrillation Status: Acute Assessment and Plan: Continue amiodarone hand Eliquis (6) Acute kidney injury: Code(s): N17.9 - Acute kidney failure, unspecified Status: Acute Assessment and Plan: Monitor kidney function (7) Sliding hiatal hernia: Code(s): K44.9 - Diaphragmatic hernia without obstruction or gangrene Status: Acute Assessment and Plan: CT scan reviewed (8) Hyponatremia: Code(s): E87.1 - Hypo-osmolality and hyponatremia Status: Acute Assessment and Plan: Monitor (9) Anemia: Code(s): D64.9 - Anemia, unspecified Status: Acute Assessment and Plan: Patient on Eliquis for A.Fib, hemoglobin has been drifting down -09/07: Hemoglobin is 7.3, Eliquis was held -09/08: Hemoglobin 7.0, will transfuse 1 unit of packed RBCs -patient was already started on Protonix IV q.12 hours on 09/06 -stool for occult blood is positive -appreciate GI evaluation recommendation, GI workup needed in future Subjective Date/time seen: 09/14/22 11:25 No new complaints Exam Narrative: General: Patient is is laying comfortably in bed in no distress, on BiPAP Lungs/Chest: Trachea central, diffuse bilateral coarse breath sounds, decreased air entry at bases, Cardiac: RRR. Normal S1 S2. Systolic murmur 3/6 Circulation: Feet are warm Abdomen: Decreased bowel sounds. Obese, soft, nontender Extremities: Bilateral pitting edema in both upper and lower extremities , discoloration of the toes bilaterally. Upper extremity bruising an
--- NOTE | 2022-09-14 12:58 | PM.PNNEP ---
Progress Note: A&P Assessment and Plan (1) Acute kidney injury: Code(s): N17.9 - Acute kidney failure, unspecified Status: Acute Assessment and Plan: creatinine elevated suspect due to diuretic therapy fluctuating hemodynamics likely playing a role as well this maybe a situation where we have to accept a higher creatinine to maintain her volume/fluid status evaluation to date: CPK normal urine electrolytes prerenal (likely reflective of cardiorenal physiology along with aortic stenosis) imaging without obstruction her fluctuating creatinine is a manifestation of her prerenal physiology coupled with her bad heart and previous sepsis/hypotension continue diuresis as tolerated follow repeat labs and UOP (2) Acute respiratory failure: Code(s): J96.00 - Acute respiratory failure, unspecified whether with hypoxia or hypercapnia Status: Acute Assessment and Plan: resolving but tenuous status extubated (on 09/09/22) and on high flow oxygen suspect due to combo of pulmonary edema, CHF, and pneumonia cultures negative so far (completed course of antibiotics) diurese as tolerated (on lasix and PRN diamox) follow I/Os (3) Anasarca: Code(s): R60.1 - Generalized edema Status: Acute Assessment and Plan: clinically better with aggressive diuresis however, this is likely at the expense of renal function follow clinical exam (4) Hypernatremia: Code(s): E87.0 - Hyperosmolality and hypernatremia Status: Acute Assessment and Plan: on admission had issues with hyponatremia (resolved) likely due to free water deficit due to lack of oral intake +/- diuresis will eventually need some free water would try to avoid IVFs (D5W or sterile water) given her respiratory status and previous CXR findings depending on mentation and respiratory status, may need to consider doboff placement (assuming she is unable to have a diet) follow trend of sodium (5) Acute on chronic combined systolic and diastolic CHF (congestive heart failure): Code(s): I50.43 - Acute on chronic combined systolic (congestive) and diastolic (congestive) heart failure Status: Acute Assessment and Plan: TTE shows EF of 35-40%, moderate to severe take valve stenosis, moderate AI, moderate pulmonary hypertension resumed on intermittent diuretics creatinine fluctuating (see #1) Cardiology following (6) Community acquired pneumonia: Code(s): J18.9 - Pneumonia, unspecified organism Status: Acute Assessment and Plan: as suggested by CXR on admission was on antibiotics on admission; blood cultures were negative repeat imaging and culture noted completed course of antibiotic therapy (7) Altered mental status: Code(s): R41.82 - Altered mental status, unspecified Status: Acute Assessment and Plan: etiology not clear seems better at this time initially thought to be secondary to hyponatremia (but no improvement with improving sodium level prior to intubation) follow mentation head CT noted (8) Paroxysmal atrial fibrillation: Code(s): I48.0 - Paroxysmal atrial fibrillation Status: Acute Assessment and Plan: rate control strategy on anticoagulation Cardiology following Will continue to follow. Subjective Date/time seen: 09/14/22 12:58 Continue to make slow and steady improvement in general; breathing/respiratory status slowly getting better as is lower extremity swelling; renal function relatively stable and sodium improving with oral intake; no apparent distress voiced at the time of my visit; at bedside and we discussed the case. Exam Narrative: General: WD/WN female in NAD Heart: normal S1 and S2; no rub Lungs: coarse breath sounds; decreased at bases Abdomen: soft, nontender, nondistended, positive bowel sounds Extremities: bilateral edema (trace -
[2022-09-14] MEDS: APIXABAN 5 MG TABLET PO ×2 (12:59→22:17)
[2022-09-14] MEDS: SPIRONOLACTONE 25 MG TABLET PO (12:59)
[2022-09-14 18:44] LABS: Potassium 3.4 mmol/L (3.4-5.0)
[2022-09-15] VITALS (19 sets, daily range): BP systolic 116–139; BP diastolic 68–89; PULSE 79–118; RESP 18–24; TEMP 35.7–36.6; O2SAT 91–99
[2022-09-15] MEDS: CENTRAL LINE FLUSH 10 ML IV PUSH ×3 (05:21→20:53)
[2022-09-15 06:13] LABS: Basophils Percent Auto 0.1 % (0.2-1.2); Eosinophils Absolute Auto 0.1 K/mm3 (0-0.3); Hemoglobin 8.2 g/dL (12.0-15.0); Immature Granulocyte Absolute 0.14 K/mm3 (0.00-0.031); Lymphocytes Absolute Auto 0.49 K/mm3 (0.9-3.2); Mean Corpuscular HGB Conc 28.3 g/dl (32-36); Mean Corpuscular Hemoglobin 25.5 pg (26-34); Mean Corpuscular Volume 90.3 fl (80-100); Mean Platelet Volume 10.4 fl (7.4-10.4); Monocytes Absolute Auto 0.5 K/mm3 (0.1-0.6); Monocytes Percent Auto 7.4 % (2.6-8.5); Neutrophils Absolute Auto 5.8 K/mm3 (1.3-6.7); Neutrophils Percent Auto 82.5 % (45.5-73.1); Nucleated Red Blood Cells Absolute Auto 0.1 K/mm3 (0.0-0.012); Nucleated Red Blood Cells Perc 1.6 % (0.0-0.2); Platelet Count Result 364 k/mm3 (150-375); Red Blood Count 3.21 M/mm3 (4.2-5.4); Red Cell Distribution Width 18.8 % (11.5-14.5)
[2022-09-15 06:22] LABS: Partial Thromboplastin Time 31.5 SECONDS (22.3-36.8)
[2022-09-15 06:41] LABS: Alanine Aminotransferase 41 U/L (6-35); Albumin Level 3.2 g/dL (3.5-5.1); Alkaline Phosphatase 89 U/L (38-126); Aspartate Amino Transferase 28 U/L (14-36); Bilirubin,Total 0.9 mg/dL (0.2-1.3); Blood Urea Nitrogen 34 mg/dL (7-17); Calcium 8.4 mg/dL (8.4-10.2); Carbon Dioxide > 40 mmol/L (22-30); Chloride 99 mmol/L (98-107); Estimated CRCL calculation 31 ml/min; Estimated Glomerular Filt Rate 34; Glucose 94 mg/dL (65-110); Phosphorus 3.9 mg/dL (2.5-4.5); Potassium 3.2 mmol/L (3.4-5.0); Sodium 142 mmol/L (137-145)
[2022-09-15 07:34] LABS: Anisocytosis 1+ (NORMAL); Hypochromasia 3+ (NORMAL); Ovalocytes 1+ (NORMAL); Platelet Estimate Adequate (Adequate)
[2022-09-15 07:35] LABS: Schistocytes None Seen (NORMAL)
[2022-09-15] MEDS: AMIODARONE HCL 200 MG TABLET 400 MG PO (09:43)
[2022-09-15] MEDS: SPIRONOLACTONE 25 MG TABLET PO (09:43)
[2022-09-15] MEDS: APIXABAN 5 MG TABLET PO ×2 (09:43→20:53)
[2022-09-15] MEDS: POTASSIUM CHLORIDE 20 MEQ PACKET (FOR LIQUID) PO (09:43)
[2022-09-15] MEDS: PANTOPRAZOLE SODIUM IV 40 MG VIAL IV PUSH ×2 (09:44→20:53)
[2022-09-15] MEDS: FUROSEMIDE INJ 40 MG/4 ML VIAL IV PUSH ×2 (09:44→16:50)
[2022-09-15] MEDS: POTASSIUM CHLORIDE 20 MEQ PACKET (FOR LIQUID) FEED TUBE (09:44)
--- NOTE | 2022-09-15 10:45 | P.PNNP_ITS ---
Progress Note: A&P Assessment and Plan (1) Acute kidney injury: Code(s): N17.9 - Acute kidney failure, unspecified Status: Acute Assessment and Plan: * creatinine elevated * suspect due to diuretic therapy * fluctuating hemodynamics likely playing a role as well * this maybe a situation where we have to accept a higher creatinine to maintain her volume/fluid status * evaluation to date: * CPK normal * urine electrolytes prerenal (likely reflective of cardiorenal physiology along with aortic stenosis) * imaging without obstruction * her fluctuating creatinine is a manifestation of her prerenal physiology coupled with her bad heart and previous sepsis/hypotension * continue diuresis as tolerated * follow repeat labs and UOP (2) Acute respiratory failure: Code(s): J96.00 - Acute respiratory failure, unspecified whether with hypoxia or hypercapnia Status: Acute Assessment and Plan: * resolving but tenuous status * extubated (on 09/09/22) * suspect due to combo of pulmonary edema, CHF, and pneumonia * CXR still with evidence of pulmonary edema * cultures negative so far (completed course of antibiotics) * diurese as tolerated (on lasix and PRN diamox) * follow I/Os (3) Anasarca: Code(s): R60.1 - Generalized edema Status: Acute Assessment and Plan: * clinically better with aggressive diuresis * however, this is likely at the expense of renal function * follow clinical exam (4) Hypernatremia: Code(s): E87.0 - Hyperosmolality and hypernatremia Status: Acute Assessment and Plan: * resolved * on admission, had issues with hyponatremia (resolved) * likely due to previous free water deficit due to lack of oral intake +/- diu resis * follow trend of sodium (5) Acute on chronic combined systolic and diastolic CHF (congestive heart failure): Code(s): I50.43 - Acute on chronic combined systolic (congestive) and diastolic (congestive) heart failure Status: Acute Assessment and Plan: * TTE shows EF of 35-40%, moderate to severe take valve stenosis, moderate AI, moderate pulmonary hypertension * resumed on diuretics (lasix and spironolactone) * creatinine fluctuating (see #1) * Cardiology following (6) Community acquired pneumonia: Code(s): J18.9 - Pneumonia, unspecified organism Status: Acute Assessment and Plan: * as suggested by CXR on admission * was on antibiotics on admission; blood cultures were negative * repeat imaging and culture noted * completed course of antibiotic therapy (7) Altered mental status: Code(s): R41.82 - Altered mental status, unspecified Status: Acute Assessment and Plan: * etiology not clear * seems better at this time * initially thought to be secondary to hyponatremia (but no improvement with improving sodium level prior to intubation) * follow mentation * head CT noted (8) Paroxysmal atrial fibrillation: Code(s): I48.0 - Paroxysmal atrial fibrillation Status: Acute Assessment and Plan: * rate control strategy * on anticoagulation * Cardiology following Will continue to follow. Subjective Date/time seen: 09/15/22 10:45 Continues to make slow and steady progress at this time; respiratory status seems relatively stable; continues to make good urine output with diuretics with relative stability in renal function; edema/swelling imrpving as well. Exam
--- NOTE | 2022-09-15 10:45 | PM.PNNEP ---
Progress Note: A&P Assessment and Plan (1) Acute kidney injury: Code(s): N17.9 - Acute kidney failure, unspecified Status: Acute Assessment and Plan: creatinine elevated suspect due to diuretic therapy fluctuating hemodynamics likely playing a role as well this maybe a situation where we have to accept a higher creatinine to maintain her volume/fluid status evaluation to date: CPK normal urine electrolytes prerenal (likely reflective of cardiorenal physiology along with aortic stenosis) imaging without obstruction her fluctuating creatinine is a manifestation of her prerenal physiology coupled with her bad heart and previous sepsis/hypotension continue diuresis as tolerated follow repeat labs and UOP (2) Acute respiratory failure: Code(s): J96.00 - Acute respiratory failure, unspecified whether with hypoxia or hypercapnia Status: Acute Assessment and Plan: resolving but tenuous status extubated (on 09/09/22) suspect due to combo of pulmonary edema, CHF, and pneumonia CXR still with evidence of pulmonary edema cultures negative so far (completed course of antibiotics) diurese as tolerated (on lasix and PRN diamox) follow I/Os (3) Anasarca: Code(s): R60.1 - Generalized edema Status: Acute Assessment and Plan: clinically better with aggressive diuresis however, this is likely at the expense of renal function follow clinical exam (4) Hypernatremia: Code(s): E87.0 - Hyperosmolality and hypernatremia Status: Acute Assessment and Plan: resolved on admission, had issues with hyponatremia (resolved) likely due to previous free water deficit due to lack of oral intake +/- diuresis follow trend of sodium (5) Acute on chronic combined systolic and diastolic CHF (congestive heart failure): Code(s): I50.43 - Acute on chronic combined systolic (congestive) and diastolic (congestive) heart failure Status: Acute Assessment and Plan: TTE shows EF of 35-40%, moderate to severe take valve stenosis, moderate AI, moderate pulmonary hypertension resumed on diuretics (lasix and spironolactone) creatinine fluctuating (see #1) Cardiology following (6) Community acquired pneumonia: Code(s): J18.9 - Pneumonia, unspecified organism Status: Acute Assessment and Plan: as suggested by CXR on admission was on antibiotics on admission; blood cultures were negative repeat imaging and culture noted completed course of antibiotic therapy (7) Altered mental status: Code(s): R41.82 - Altered mental status, unspecified Status: Acute Assessment and Plan: etiology not clear seems better at this time initially thought to be secondary to hyponatremia (but no improvement with improving sodium level prior to intubation) follow mentation head CT noted (8) Paroxysmal atrial fibrillation: Code(s): I48.0 - Paroxysmal atrial fibrillation Status: Acute Assessment and Plan: rate control strategy on anticoagulation Cardiology following Will continue to follow. Subjective Date/time seen: 09/15/22 10:45 Continues to make slow and steady progress at this time; respiratory status seems relatively stable; continues to make good urine output with diuretics with relative stability in renal function; edema/swelling imrpving as well. Exam Narrative: General: WD/WN female in NAD Heart: normal S1 and S2; no rub Lungs: coarse breath sounds; decreased at bases Abdomen: soft, nontender, nondistended, positive bowel sounds Extremities: bilateral edema (trace - 1+) present Skin: no rash Objective Data Vital Signs Vital Signs: Vital Signs Temp Pulse Resp BP Pulse Ox O2 Del Method O2 Flow Rate 09/15/22 10:45 99 High Flow Nasal Cannula 4 09/15/22 09:52 96 High Flow Nasal Cannula 3 09/15/22 09:43 113 H 09/15/22 0
--- NOTE | 2022-09-15 11:29 | PM.IMPN ---
Progress Note: A&P Assessment and Plan (1) Acute respiratory failure: Code(s): J96.00 - Acute respiratory failure, unspecified whether with hypoxia or hypercapnia Status: Acute Assessment and Plan: Acute on chronic hypoxic and hypercarbic Respiratory failure secondary to pulmonary edema with possible pneumonia -intubated on 09/02/2022 -successfully extubated on 09/09/2022, Continue diuretic therapy -status post full course of antibiotics -09/02/2022: Blood cultures negative x2 -09/02/2022 sputum cultures: Negative -09/02/2022 MRSA screen negative (2) Acute on chronic combined systolic and diastolic CHF (congestive heart failure): Code(s): I50.43 - Acute on chronic combined systolic (congestive) and diastolic (congestive) heart failure Status: Acute Assessment and Plan: Echocardiogram done on 08/26 Summary ? 1. Left ventricular chamber dimension is moderately enlarged. ? 3. Left ventricular systolic function is moderately globally reduced, estimated at 35-40%. ? 6. Left atrial chamber dimension is moderately enlarged. ? 7. Right atrial chamber dimension is mildly enlarged. ? 10. There is moderate to severe aortic valve stenosis based on a peak velocity of 279.27 cm/s, mean gradient of 19 mmHg, and aortic valve area of 0.91 cm2. ? 11. There is moderate aortic valve regurgitation. ? 12. The mitral valve has mildly thickened leaflets and moderately calcified annulus. ? 13. There is moderate mitral valve regurgitation. ? 14. There is mild tricuspid valve regurgitation. ? 15. Moderate pulmonary hypertension, estimated pulmonary arterial systolic pressure is 51 mmHg. ? 16. Small atheroma in anterior and posterior aortic root. ? 17. Dilated inferior vena cava with <50% collapse upon inspiration consistent with significantly elevated right atrial pressure, 15 mmHg. Continue diuresing Apreciate cardiology input (3) Shock: Code(s): R57.9 - Shock, unspecified Status: Acute Assessment and Plan: RESOLVED (4) Aortic stenosis: Qualifiers: Cardiac valve disease etiology: nonrheumatic Qualified Code(s): I35.0 - Nonrheumatic aortic (valve) stenosis Code(s): I35.0 - Nonrheumatic aortic (valve) stenosis Status: Acute Assessment and Plan: See above (5) Paroxysmal atrial fibrillation: Code(s): I48.0 - Paroxysmal atrial fibrillation Status: Acute Assessment and Plan: Continue amiodarone hand Eliquis (6) Acute kidney injury: Code(s): N17.9 - Acute kidney failure, unspecified Status: Acute Assessment and Plan: Monitor kidney function (7) Sliding hiatal hernia: Code(s): K44.9 - Diaphragmatic hernia without obstruction or gangrene Status: Acute Assessment and Plan: CT scan reviewed (8) Hyponatremia: Code(s): E87.1 - Hypo-osmolality and hyponatremia Status: Acute Assessment and Plan: Monitor (9) Anemia: Code(s): D64.9 - Anemia, unspecified Status: Acute Assessment and Plan: Patient on Eliquis for A.Fib, hemoglobin has been drifting down -09/07: Hemoglobin is 7.3, Eliquis was held -09/08: Hemoglobin 7.0, will transfuse 1 unit of packed RBCs -patient was already started on Protonix IV q.12 hours on 09/06 -stool for occult blood is positive -appreciate GI evaluation recommendation, GI workup needed in future Subjective Date/time seen: 09/15/22 11:29 Feeling better each day. Exam Narrative: General: Patient is is laying comfortably in bed in no distress, on BiPAP Lungs/Chest: Trachea central, diffuse bilateral coarse breath sounds, decreased air entry at bases, Cardiac: RRR. Normal S1 S2. Systolic murmur 3/6 Circulation: Feet are warm Abdomen: Decreased bowel sounds. Obese, soft, nontender Extremities: Bilateral pitting edema in both upper and lower extremities , discoloration of the toes bilaterally. Upper extremity bruising and maceration note
--- NOTE | 2022-09-15 12:25 | PCOTNOTE ---
Attempted to see patient this pm. Upon entering patient's HR 120-129 supine in bed. Pt presented to be short of breath and stated she was worn out. SPO2 96-97%.
--- NOTE | 2022-09-15 12:32 | PM.PNCARD ---
Progress Note: A&P Assessment and Plan (1) Cardiomyopathy: Qualifiers: Cardiomyopathy type: other Qualified Code(s): I42.8 - Other cardiomyopathies Code(s): I42.9 - Cardiomyopathy, unspecified Status: Acute Assessment and Plan: EF 35-40%.? Continue medical management. ? Previously not able to tolerate optimal guideline directed medical therapy because of shock now resolved, off pressors.? She is on spironolactone at this point. Will add low dose beta rod and Jardiance. If BP tolerates and renal function remains stable, will add Entresto. Further workup when she has more fully recovered. (2) Aortic stenosis: Qualifiers: Cardiac valve disease etiology: nonrheumatic Qualified Code(s): I35.0 - Nonrheumatic aortic (valve) stenosis Code(s): I35.0 - Nonrheumatic aortic (valve) stenosis Status: Acute Assessment and Plan: Moderate , severe MR. (3) Paroxysmal atrial fibrillation: Code(s): I48.0 - Paroxysmal atrial fibrillation Status: Acute Assessment and Plan: On amiodarone with good heart rate control when in Afib, but is in and out of sinus rhythm. Continue current dose of amiodarone. She is anticoagulated with apixaban 5mg b.i.d. This should be continued. Plan for eventual cardioversion in 4 weeks or so when she has been anticoagulated for the appropriate amount of time. Subjective Date/time seen: 09/15/22 12:32 Cardiology follow up for atrial fibrillation, , MR, CHF Interval history: Follow-up visit in this 71-year-old lady with: Paroxysmal atrial fib / flutter and aortic valve stenosis. Patient was admitted to the hospital nearly 3 weeks ago now with symptoms of weakness and marked hyponatremia. Because of respiratory failure she was transferred to the ICU and intubated. She is now off the ventilator finally sitting in the chair and appears to be comfortable. Voice is very soft presumably because of prolonged intubation. Patient says she would like to go home I explained to her she is clearly not stable for that. Receiving intravenous amiodarone with generally well-controlled heart rate. Anticoagulated with heparin at this time 09/14/2022: Patient moved out of the ICU yesterday and IMU sitting in the bedside chair and appears to be relatively comfortable. Still has IV amiodarone running atrial fib is currently seen on telemetry heart rate in the 90s. Voice remains very soft because of prolonged intubation. Date of service 09/15/2022: Had been in sinus rhythm but went back into atrial fibrillation this morning with rate controlled Review of Systems Constitutional: Constitutional: Denies fever(s) Eyes: Eyes: Reports no additional eye complaints Cardiovascular: Cardiovascular: Denies chest pain, Denies pedal edema, Denies lightheadedness and Denies dyspnea Respiratory: Respiratory: Denies chest congestion, Denies cough and Denies dyspnea Gastrointestinal: Gastrointestinal: Denies abdominal pain and Denies hematochezia Genitourinary: Genitourinary: Reports no additional female genitourinary complaints Musculoskeletal: Musculoskeletal: Reports no additional musculoskeletal complaints Integumentary/Breasts: Skin/Breast: Reports system reviewed and no additional complaints, except as docu Neurologic: Reports Abnormal speech present ( Was not making sense ), Denies behavioral changes and Reports confusion ( sedated) Psychiatric: Psychiatric: Denies behavioral changes and Reports confusion ( sedated) Exam Const: General: cooperative, comfortable and confusion ( sedated) Orientation/consciousness: No oriented to person, patient oriented x3 and confusion ( sedated) Limitations: altered mental status HENMT: Mouth: Yes moist mucous membranes Eyes: General: appearance normal, both eyes and all related structures Sclera: sclerae normal EOM: EOMs intact bilaterally Neck: Neck: supple Resp: Effort & Inspection: clemente
--- NOTE | 2022-09-15 12:40 | PCNFU ---
Nutrition Follow-Up Complete: Severe protein calorie malnutrition related to loss of appetite as evidenced by weight loss -9%/3 months and poor intake <75% meals >1 month. Goal:Improve PO intake to at least 50% meals and supplement. Pt is slowly progressing towards goal. Continue with current goal. Pt current nutrition is Level 5 minced and moist, level 2 thickened liquids. Nutrition recommendation: Continue with current plan of care. Last recorded weight is 81.4 kg. Bowel Motility: +BM 09/10 Labs Reviewed: Hgb:8.2, HCT:29, K:3.2, BUN:34, Cr:1.5 Meds Noted: Eliquis, lasix Skin: pitting lymphedema, skin tears Additional Notes: Pt assessed by [employer], MBS last week, Recommendation for level 5 minced and moist diet with level 2 liquids. Diet advanced, pt tolerating per nursing. Ensure compact BID ordered today. Encourage intake of meals and supplements. Monitor intakes, weights, labs, plan of care, supplement tolerance Follow up in 5 days
--- NOTE | 2022-09-15 15:47 | PCCCNOTE ---
On 09/15/22, the student, [Sofía Anderson ], provided care and completed [employer] - is now [employer] [facility] documentation on this patient. I have reviewed the student's documentation and agree with the findings.
--- NOTE | 2022-09-15 18:58 | PC.NURSE ---
Patient transfer received from [facility] 09/15/22 [id number]. Patient oriented to the room.
--- NOTE | 2022-09-15 19:02 | PC.NURSE ---
This patient, Lyndsey Mclean, was transferred to [facility] on 09/15/22 at 1850. Personal belongings sent with patient. Report given to Jade ESQUIVEL. Appropriate documentation sent with patient.
[2022-09-16] VITALS (12 sets, daily range): BP systolic 102–126; BP diastolic 65–73; PULSE 60–117; RESP 18–20; TEMP 35.6–36.8; O2SAT 95–100
[2022-09-16] MEDS: CENTRAL LINE FLUSH 10 ML IV PUSH ×3 (05:41→20:38)
[2022-09-16 05:54] LABS: Basophils Percent Auto 0.1 % (0.2-1.2); Eosinophils Absolute Auto 0.1 K/mm3 (0-0.3); Eosinophils Percent Auto 0.8 % (0-4.4); Hematocrit 29.9 % (37.0-47.0); Hemoglobin 8.6 g/dL (12.0-15.0); Immature Granulocyte Absolute 0.12 K/mm3 (0.00-0.031); Immature Granulocyte Percent A 1.6 % (0-0.5); Lymphocytes Absolute Auto 0.56 K/mm3 (0.9-3.2); Lymphocytes Percent Auto 7.5 % (18.3-44.2); Mean Corpuscular HGB Conc 28.8 g/dl (32-36); Mean Corpuscular Volume 90.3 fl (80-100); Monocytes Absolute Auto 0.6 K/mm3 (0.1-0.6); Monocytes Percent Auto 7.9 % (2.6-8.5); Neutrophils Absolute Auto 6.2 K/mm3 (1.3-6.7); Neutrophils Percent Auto 82.1 % (45.5-73.1); Nucleated Red Blood Cells Absolute Auto 0.1 K/mm3 (0.0-0.012); Nucleated Red Blood Cells Perc 1.5 % (0.0-0.2); Platelet Count Result 368 k/mm3 (150-375); Red Blood Count 3.31 M/mm3 (4.2-5.4); Red Cell Distribution Width 18.6 % (11.5-14.5); White Blood Count 7.5 K/mm3 (4.5-10.0)
[2022-09-16 06:15] LABS: Alanine Aminotransferase 40 U/L (6-35); Albumin Level 3.3 g/dL (3.5-5.1); Alkaline Phosphatase 94 U/L (38-126); Aspartate Amino Transferase 33 U/L (14-36); Bilirubin,Total 1.1 mg/dL (0.2-1.3); Blood Urea Nitrogen 32 mg/dL (7-17); Calcium 8.5 mg/dL (8.4-10.2); Carbon Dioxide > 40 mmol/L (22-30); Chloride 95 mmol/L (98-107); Estimated CRCL calculation 29 ml/min; Estimated Glomerular Filt Rate 32; Glucose 102 mg/dL (65-110); Phosphorus 4.5 mg/dL (2.5-4.5); Potassium 3.3 mmol/L (3.4-5.0); Sodium 141 mmol/L (137-145)
[2022-09-16 07:24] LABS: Platelet Estimate Adequate (Adequate)
[2022-09-16 07:25] LABS: Anisocytosis 2+ (NORMAL); Hypochromasia 2+ (NORMAL); Ovalocytes 1+ (NORMAL); Schistocytes None Seen (NORMAL); Target Cells 1+ (NORMAL)
[2022-09-16] MEDS: POTASSIUM CHLORIDE 20 MEQ PACKET (FOR LIQUID) 40 MEQ PO (08:21)
[2022-09-16] MEDS: AMIODARONE HCL 200 MG TABLET 400 MG PO (08:22)
[2022-09-16] MEDS: APIXABAN 5 MG TABLET PO ×2 (08:23→20:38)
[2022-09-16] MEDS: EMPAGLIFLOZIN 10 MG TABLET PO (08:23)
[2022-09-16] MEDS: FUROSEMIDE INJ 40 MG/4 ML VIAL IV PUSH ×2 (08:24→17:32)
[2022-09-16] MEDS: METOPROLOL SUCCINATE EXT REL 12.5 MG TABCR PO (08:24)
[2022-09-16] MEDS: PANTOPRAZOLE SODIUM IV 40 MG VIAL IV PUSH ×2 (08:24→20:38)
[2022-09-16] MEDS: SPIRONOLACTONE 25 MG TABLET PO (08:25)
[2022-09-16] MEDS: POTASSIUM CHLORIDE 20 MEQ PACKET (FOR LIQUID) PO (08:26)
--- NOTE | 2022-09-16 09:49 | PM.PNCARD ---
Progress Note: A&P Assessment and Plan (1) Cardiomyopathy: Qualifiers: Cardiomyopathy type: other Qualified Code(s): I42.8 - Other cardiomyopathies Code(s): I42.9 - Cardiomyopathy, unspecified Status: Acute Assessment and Plan: EF 35-40%.? Continue medical management. ? Previously not able to tolerate optimal guideline directed medical therapy because of shock now resolved, off pressors.? She is on spironolactone, metoprolol, and jardiance. If BP is acceptable and renal function remains stable, will add Entresto. Further workup when she has more fully recovered. (2) Aortic stenosis: Qualifiers: Cardiac valve disease etiology: nonrheumatic Qualified Code(s): I35.0 - Nonrheumatic aortic (valve) stenosis Code(s): I35.0 - Nonrheumatic aortic (valve) stenosis Status: Acute Assessment and Plan: Moderate , severe MR. (3) Paroxysmal atrial fibrillation: Code(s): I48.0 - Paroxysmal atrial fibrillation Status: Acute Assessment and Plan: On amiodarone with good heart rate control when in Afib, but is in and out of sinus rhythm. Continue current dose of amiodarone. She is anticoagulated with apixaban 5mg b.i.d. This should be continued. Plan for eventual cardioversion in 4 weeks or so when she has been anticoagulated for the appropriate amount of time. Subjective Date/time seen: 09/16/22 09:50 Interval history: Follow-up visit in this 71-year-old lady with: Paroxysmal atrial fib / flutter and aortic valve stenosis. Patient was admitted to the hospital nearly 3 weeks ago now with symptoms of weakness and marked hyponatremia. Because of respiratory failure she was transferred to the ICU and intubated. She is now off the ventilator finally sitting in the chair and appears to be comfortable. Voice is very soft presumably because of prolonged intubation. Patient says she would like to go home I explained to her she is clearly not stable for that. Receiving intravenous amiodarone with generally well-controlled heart rate. Anticoagulated with heparin at this time 09/14/2022: Patient moved out of the ICU yesterday and IMU sitting in the bedside chair and appears to be relatively comfortable. Still has IV amiodarone running atrial fib is currently seen on telemetry heart rate in the 90s. Voice remains very soft because of prolonged intubation. Date of service 09/15/2022: Had been in sinus rhythm but went back into atrial fibrillation this morning with rate controlled Date of service 09/16/2022: She is feeling better today. Requiring less oxygen. Denies palpitations. In atrial fibrillation with rate controlled. Review of Systems Review of Systems: ROS unobtainable: Yes unobtainable due to endotracheal tube, unobtainable due to medical condition and unobtainable due to mental status Constitutional: Constitutional: Denies fever(s) Eyes: Eyes: Reports no additional eye complaints Cardiovascular: Cardiovascular: Denies chest pain, Denies pedal edema, Denies lightheadedness and Denies dyspnea Respiratory: Respiratory: Denies chest congestion, Denies cough and Denies dyspnea Gastrointestinal: Gastrointestinal: Denies abdominal pain and Denies hematochezia Genitourinary: Genitourinary: Reports no additional female genitourinary complaints Musculoskeletal: Musculoskeletal: Reports no additional musculoskeletal complaints Integumentary/Breasts: Skin/Breast: Reports system reviewed and no additional complaints, except as docu Neurologic: Reports Abnormal speech present ( Was not making sense ), Denies behavioral changes and Reports confusion ( sedated) Psychiatric: Psychiatric: Denies behavioral changes and Reports confusion ( sedated) Exam Const: General: cooperative, comfortable and confusion ( sedated) Orientation/consciousness: No oriented to person, patient oriented x3 and confusion ( sedated) Limitations: altered mental status HEN
--- NOTE | 2022-09-16 10:35 | PM.IMPN ---
Progress Note: A&P Assessment and Plan (1) Acute respiratory failure: Code(s): J96.00 - Acute respiratory failure, unspecified whether with hypoxia or hypercapnia Status: Acute Assessment and Plan: Acute on chronic hypoxic and hypercarbic Respiratory failure secondary to pulmonary edema with possible pneumonia -intubated on 09/02/2022 -successfully extubated on 09/09/2022, Continue diuretic therapy -status post full course of antibiotics -09/02/2022: Blood cultures negative x2 -09/02/2022 sputum cultures: Negative -09/02/2022 MRSA screen negative (2) Acute on chronic combined systolic and diastolic CHF (congestive heart failure): Code(s): I50.43 - Acute on chronic combined systolic (congestive) and diastolic (congestive) heart failure Status: Acute Assessment and Plan: Echocardiogram done on 08/26 Summary ? 1. Left ventricular chamber dimension is moderately enlarged. ? 3. Left ventricular systolic function is moderately globally reduced, estimated at 35-40%. ? 6. Left atrial chamber dimension is moderately enlarged. ? 7. Right atrial chamber dimension is mildly enlarged. ? 10. There is moderate to severe aortic valve stenosis based on a peak velocity of 279.27 cm/s, mean gradient of 19 mmHg, and aortic valve area of 0.91 cm2. ? 11. There is moderate aortic valve regurgitation. ? 12. The mitral valve has mildly thickened leaflets and moderately calcified annulus. ? 13. There is moderate mitral valve regurgitation. ? 14. There is mild tricuspid valve regurgitation. ? 15. Moderate pulmonary hypertension, estimated pulmonary arterial systolic pressure is 51 mmHg. ? 16. Small atheroma in anterior and posterior aortic root. ? 17. Dilated inferior vena cava with <50% collapse upon inspiration consistent with significantly elevated right atrial pressure, 15 mmHg. Continue diuresing Apreciate cardiology input (3) Shock: Code(s): R57.9 - Shock, unspecified Status: Acute Assessment and Plan: RESOLVED (4) Aortic stenosis: Qualifiers: Cardiac valve disease etiology: nonrheumatic Qualified Code(s): I35.0 - Nonrheumatic aortic (valve) stenosis Code(s): I35.0 - Nonrheumatic aortic (valve) stenosis Status: Acute Assessment and Plan: See above (5) Paroxysmal atrial fibrillation: Code(s): I48.0 - Paroxysmal atrial fibrillation Status: Acute Assessment and Plan: Continue amiodarone hand Eliquis (6) Acute kidney injury: Code(s): N17.9 - Acute kidney failure, unspecified Status: Acute Assessment and Plan: Monitor kidney function (7) Sliding hiatal hernia: Code(s): K44.9 - Diaphragmatic hernia without obstruction or gangrene Status: Acute Assessment and Plan: CT scan reviewed (8) Hyponatremia: Code(s): E87.1 - Hypo-osmolality and hyponatremia Status: Acute Assessment and Plan: Monitor (9) Anemia: Code(s): D64.9 - Anemia, unspecified Status: Acute Assessment and Plan: Patient on Eliquis for A.Fib, hemoglobin has been drifting down -09/07: Hemoglobin is 7.3, Eliquis was held -09/08: Hemoglobin 7.0, will transfuse 1 unit of packed RBCs -patient was already started on Protonix IV q.12 hours on 09/06 -stool for occult blood is positive -appreciate GI evaluation recommendation, GI workup needed in future Subjective Date/time seen: 09/16/22 10:35 Breathing is much better. Edema is also much better. Currently on 2L which is much less oxygen than she has required previously. Denies any new complaints Exam Narrative: General: Patient is is laying comfortably in bed in no distress, on BiPAP Lungs/Chest: Trachea central, diffuse bilateral coarse breath sounds, decreased air entry at bases, Cardiac: RRR. Normal S1 S2. Systolic murmur 3/6 Circulation: Feet are warm Abdomen: Decreased bowel sounds. Obese, soft, nontender Extremities: Bilateral pit
--- NOTE | 2022-09-16 12:31 | P.PNNP_ITS ---
Progress Note: A&P Assessment and Plan (1) Acute kidney injury: Code(s): N17.9 - Acute kidney failure, unspecified Status: Acute Assessment and Plan: * creatinine elevated * suspect due to diuretic therapy * fluctuating hemodynamics likely playing a role as well * this maybe a situation where we have to accept a higher creatinine to maintain her volume/fluid status * evaluation to date: * CPK normal * urine electrolytes prerenal (likely reflective of cardiorenal physiology along with aortic stenosis) * imaging without obstruction * her fluctuating creatinine is a manifestation of her prerenal physiology coupled with her bad heart and previous sepsis/hypotension * continue diuresis as tolerated * follow repeat labs and UOP (2) Acute respiratory failure: Code(s): J96.00 - Acute respiratory failure, unspecified whether with hypoxia or hypercapnia Status: Acute Assessment and Plan: * resolving but tenuous status * extubated (on 09/09/22) * suspect due to combo of pulmonary edema, CHF, and pneumonia * CXR still with evidence of pulmonary edema * cultures negative so far (completed course of antibiotics) * diurese as tolerated (on lasix and PRN diamox) * follow I/Os (3) Anasarca: Code(s): R60.1 - Generalized edema Status: Acute Assessment and Plan: * clinically better with aggressive diuresis * however, this is likely at the expense of renal function * follow clinical exam (4) Hypernatremia: Code(s): E87.0 - Hyperosmolality and hypernatremia Status: Acute Assessment and Plan: * resolved * on admission, had issues with hyponatremia (resolved) * likely due to previous free water deficit due to lack of oral intake +/- diu resis * follow trend of sodium (5) Acute on chronic combined systolic and diastolic CHF (congestive heart failure): Code(s): I50.43 - Acute on chronic combined systolic (congestive) and diastolic (congestive) heart failure Status: Acute Assessment and Plan: * TTE shows EF of 35-40%, moderate to severe take valve stenosis, moderate AI, moderate pulmonary hypertension * resumed on diuretics (lasix and spironolactone) * creatinine fluctuating (see #1) * Cardiology following (6) Community acquired pneumonia: Code(s): J18.9 - Pneumonia, unspecified organism Status: Acute Assessment and Plan: * as suggested by CXR on admission * was on antibiotics on admission; blood cultures were negative * repeat imaging and culture noted * completed course of antibiotic therapy (7) Altered mental status: Code(s): R41.82 - Altered mental status, unspecified Status: Acute Assessment and Plan: * etiology not clear * seems better at this time * initially thought to be secondary to hyponatremia (but no improvement with improving sodium level prior to intubation) * follow mentation * head CT noted (8) Paroxysmal atrial fibrillation: Code(s): I48.0 - Paroxysmal atrial fibrillation Status: Acute Assessment and Plan: * rate control strategy * on anticoagulation * Cardiology following Will continue to follow. Subjective Date/time seen: 09/16/22 12:31 Overall, continues to make slow and steady progress; continues to tolerated diuresis and requiring less oxygen at the time of my visit; swelling/edema continue to improve as well; potassium low this AM and has already received replacement; no new issues/events
--- NOTE | 2022-09-16 12:31 | PM.PNNEP ---
Progress Note: A&P Assessment and Plan (1) Acute kidney injury: Code(s): N17.9 - Acute kidney failure, unspecified Status: Acute Assessment and Plan: creatinine elevated suspect due to diuretic therapy fluctuating hemodynamics likely playing a role as well this maybe a situation where we have to accept a higher creatinine to maintain her volume/fluid status evaluation to date: CPK normal urine electrolytes prerenal (likely reflective of cardiorenal physiology along with aortic stenosis) imaging without obstruction her fluctuating creatinine is a manifestation of her prerenal physiology coupled with her bad heart and previous sepsis/hypotension continue diuresis as tolerated follow repeat labs and UOP (2) Acute respiratory failure: Code(s): J96.00 - Acute respiratory failure, unspecified whether with hypoxia or hypercapnia Status: Acute Assessment and Plan: resolving but tenuous status extubated (on 09/09/22) suspect due to combo of pulmonary edema, CHF, and pneumonia CXR still with evidence of pulmonary edema cultures negative so far (completed course of antibiotics) diurese as tolerated (on lasix and PRN diamox) follow I/Os (3) Anasarca: Code(s): R60.1 - Generalized edema Status: Acute Assessment and Plan: clinically better with aggressive diuresis however, this is likely at the expense of renal function follow clinical exam (4) Hypernatremia: Code(s): E87.0 - Hyperosmolality and hypernatremia Status: Acute Assessment and Plan: resolved on admission, had issues with hyponatremia (resolved) likely due to previous free water deficit due to lack of oral intake +/- diuresis follow trend of sodium (5) Acute on chronic combined systolic and diastolic CHF (congestive heart failure): Code(s): I50.43 - Acute on chronic combined systolic (congestive) and diastolic (congestive) heart failure Status: Acute Assessment and Plan: TTE shows EF of 35-40%, moderate to severe take valve stenosis, moderate AI, moderate pulmonary hypertension resumed on diuretics (lasix and spironolactone) creatinine fluctuating (see #1) Cardiology following (6) Community acquired pneumonia: Code(s): J18.9 - Pneumonia, unspecified organism Status: Acute Assessment and Plan: as suggested by CXR on admission was on antibiotics on admission; blood cultures were negative repeat imaging and culture noted completed course of antibiotic therapy (7) Altered mental status: Code(s): R41.82 - Altered mental status, unspecified Status: Acute Assessment and Plan: etiology not clear seems better at this time initially thought to be secondary to hyponatremia (but no improvement with improving sodium level prior to intubation) follow mentation head CT noted (8) Paroxysmal atrial fibrillation: Code(s): I48.0 - Paroxysmal atrial fibrillation Status: Acute Assessment and Plan: rate control strategy on anticoagulation Cardiology following Will continue to follow. Subjective Date/time seen: 09/16/22 12:31 Overall, continues to make slow and steady progress; continues to tolerated diuresis and requiring less oxygen at the time of my visit; swelling/edema continue to improve as well; potassium low this AM and has already received replacement; no new issues/events overnight or earlier this AM. Exam Narrative: General: WD/WN female in NAD Heart: normal S1 and S2; no rub Lungs: coarse breath sounds; decreased at bases Abdomen: soft, nontender, nondistended, positive bowel sounds Extremities: bilateral edema (trace - 1+) present Skin: no nodules Objective Data Vital Signs Vital Signs: Vital Signs Temp Pulse Resp BP Pulse Ox O2 Del Method O2 Flow Rate 09/16/22 10:51 96.4 F L 117 H 18 126/73 100 09/16/22 08:24 92
--- NOTE | 2022-09-16 12:57 | PCPTNOTE ---
Patient refused treatment this session due to patient wanting he present when working with therapy. RN aware.
[2022-09-16] MEDS: acetaZOLAMIDE TAB 250 MG TABLET 500 MG PO (18:29)
[2022-09-16] MEDS: ALTEPLASE 2 MG VIAL (CATHFLO) IV PUSH (18:30)
[2022-09-17] VITALS (14 sets, daily range): BP systolic 99–108; BP diastolic 50–78; PULSE 68–102; RESP 18; TEMP 35.6–36.7; O2SAT 93–100
[2022-09-17 05:18] LABS: Albumin Level 3.5 g/dL (3.5-5.1); Blood Urea Nitrogen 32 mg/dL (7-17); Calcium 8.8 mg/dL (8.4-10.2); Carbon Dioxide > 40 mmol/L (22-30); Chloride 95 mmol/L (98-107); Estimated CRCL calculation 24 ml/min; Estimated Glomerular Filt Rate 26; Glucose 113 mg/dL (65-110); Magnesium 2.2 mg/dL (1.6-2.3); Phosphorus 4.4 mg/dL (2.5-4.5); Potassium 3.6 mmol/L (3.4-5.0); Sodium 143 mmol/L (137-145)
[2022-09-17] MEDS: METOPROLOL SUCCINATE EXT REL 12.5 MG TABCR PO (08:08)
[2022-09-17] MEDS: POTASSIUM CHLORIDE 20 MEQ PACKET (FOR LIQUID) PO (08:08)
[2022-09-17] MEDS: SPIRONOLACTONE 25 MG TABLET PO (08:09)
[2022-09-17] MEDS: EMPAGLIFLOZIN 10 MG TABLET PO (08:09)
[2022-09-17] MEDS: FUROSEMIDE INJ 40 MG/4 ML VIAL IV PUSH ×2 (08:09→17:03)
[2022-09-17] MEDS: AMIODARONE HCL 200 MG TABLET 400 MG PO (08:09)
[2022-09-17] MEDS: APIXABAN 5 MG TABLET PO ×2 (08:09→20:25)
[2022-09-17] MEDS: PANTOPRAZOLE SODIUM IV 40 MG VIAL IV PUSH ×2 (08:10→20:25)
[2022-09-17] MEDS: CENTRAL LINE FLUSH 10 ML IV PUSH ×3 (08:14→20:25)
[2022-09-17] MEDS: ALTEPLASE 2 MG VIAL (CATHFLO) IV PUSH (11:21)
--- NOTE | 2022-09-17 12:57 | PM.IMPN ---
Progress Note: A&P Assessment and Plan (1) Acute respiratory failure: Code(s): J96.00 - Acute respiratory failure, unspecified whether with hypoxia or hypercapnia Status: Acute Assessment and Plan: Acute on chronic hypoxic and hypercarbic Respiratory failure secondary to pulmonary edema with possible pneumonia -intubated on 09/02/2022 -successfully extubated on 09/09/2022, Continue diuretic therapy -status post full course of antibiotics -09/02/2022: Blood cultures negative x2 -09/02/2022 sputum cultures: Negative -09/02/2022 MRSA screen negative 09/17/2022 interval history: 71-year-old with cardiomyopathy status post hypoxic respiratory failure was intubated secondary to volume overload patient is being diuresed and clinical symptoms are improved states feeling much better not as short of breath is when she arrived, patient working with physical feels tired and weak unable to participate in PT OT, has poor appetite will supplement with nutritional shakes, her is present in the room answered all his questions (2) Acute on chronic combined systolic and diastolic CHF (congestive heart failure): Code(s): I50.43 - Acute on chronic combined systolic (congestive) and diastolic (congestive) heart failure Status: Acute Assessment and Plan: Echocardiogram done on 08/26 Summary ? 1. Left ventricular chamber dimension is moderately enlarged. ? 3. Left ventricular systolic function is moderately globally reduced, estimated at 35-40%. ? 6. Left atrial chamber dimension is moderately enlarged. ? 7. Right atrial chamber dimension is mildly enlarged. ? 10. There is moderate to severe aortic valve stenosis based on a peak velocity of 279.27 cm/s, mean gradient of 19 mmHg, and aortic valve area of 0.91 cm2. ? 11. There is moderate aortic valve regurgitation. ? 12. The mitral valve has mildly thickened leaflets and moderately calcified annulus. ? 13. There is moderate mitral valve regurgitation. ? 14. There is mild tricuspid valve regurgitation. ? 15. Moderate pulmonary hypertension, estimated pulmonary arterial systolic pressure is 51 mmHg. ? 16. Small atheroma in anterior and posterior aortic root. ? 17. Dilated inferior vena cava with <50% collapse upon inspiration consistent with significantly elevated right atrial pressure, 15 mmHg. Continue diuresing Apreciate cardiology input (3) Shock: Code(s): R57.9 - Shock, unspecified Status: Acute Assessment and Plan: RESOLVED (4) Aortic stenosis: Qualifiers: Cardiac valve disease etiology: nonrheumatic Qualified Code(s): I35.0 - Nonrheumatic aortic (valve) stenosis Code(s): I35.0 - Nonrheumatic aortic (valve) stenosis Status: Acute Assessment and Plan: See above (5) Paroxysmal atrial fibrillation: Code(s): I48.0 - Paroxysmal atrial fibrillation Status: Acute Assessment and Plan: Continue amiodarone hand Eliquis (6) Acute kidney injury: Code(s): N17.9 - Acute kidney failure, unspecified Status: Acute Assessment and Plan: Monitor kidney function (7) Sliding hiatal hernia: Code(s): K44.9 - Diaphragmatic hernia without obstruction or gangrene Status: Acute Assessment and Plan: CT scan reviewed (8) Hyponatremia: Code(s): E87.1 - Hypo-osmolality and hyponatremia Status: Acute Assessment and Plan: Monitor (9) Anemia: Code(s): D64.9 - Anemia, unspecified Status: Acute Assessment and Plan: Patient on Eliquis for A.Fib, hemoglobin has been drifting down -09/07: Hemoglobin is 7.3, Eliquis was held -09/08: Hemoglobin 7.0, will transfuse 1 unit of packed RBCs -patient was already started on Protonix IV q.12 hours on 09/06 -stool for occult blood is positive -appreciate GI evaluation recommendation, GI workup needed in future Subjective Date/time seen: 09/17/22 12:57 09/17/2022 interval history: 71-
--- NOTE | 2022-09-17 13:02 | PM.PNNEP ---
Progress Note: A&P Assessment and Plan (1) Acute kidney injury: Code(s): N17.9 - Acute kidney failure, unspecified Status: Acute Assessment and Plan: creatinine elevated suspect due to diuretic therapy fluctuating hemodynamics likely playing a role as well this maybe a situation where we have to accept a higher creatinine to maintain her volume/fluid status evaluation to date: CPK normal urine electrolytes prerenal (likely reflective of cardiorenal physiology along with aortic stenosis) imaging without obstruction her fluctuating creatinine is a manifestation of her prerenal physiology coupled with her bad heart and previous sepsis/hypotension continue diuresis as tolerated giving rising creatinine, will decrease IV lasix to qday follow repeat labs and UOP (2) Acute respiratory failure: Code(s): J96.00 - Acute respiratory failure, unspecified whether with hypoxia or hypercapnia Status: Acute Assessment and Plan: resolving but tenuous status extubated (on 09/09/22) suspect due to combo of pulmonary edema, CHF, and pneumonia CXR still with evidence of pulmonary edema cultures negative so far (completed course of antibiotics) diurese as tolerated (on lasix and PRN diamox) follow I/Os (3) Anasarca: Code(s): R60.1 - Generalized edema Status: Acute Assessment and Plan: clinically better with aggressive diuresis however, this is likely at the expense of renal function follow clinical exam (4) Hypernatremia: Code(s): E87.0 - Hyperosmolality and hypernatremia Status: Acute Assessment and Plan: resolved on admission, had issues with hyponatremia (resolved) likely due to previous free water deficit due to lack of oral intake +/- diuresis follow trend of sodium (5) Acute on chronic combined systolic and diastolic CHF (congestive heart failure): Code(s): I50.43 - Acute on chronic combined systolic (congestive) and diastolic (congestive) heart failure Status: Acute Assessment and Plan: TTE shows EF of 35-40%, moderate to severe take valve stenosis, moderate AI, moderate pulmonary hypertension resumed on diuretics (lasix and spironolactone) creatinine fluctuating (see #1) Cardiology following (6) Community acquired pneumonia: Code(s): J18.9 - Pneumonia, unspecified organism Status: Acute Assessment and Plan: as suggested by CXR on admission was on antibiotics on admission; blood cultures were negative repeat imaging and culture noted completed course of antibiotic therapy (7) Altered mental status: Code(s): R41.82 - Altered mental status, unspecified Status: Acute Assessment and Plan: etiology not clear seems better at this time initially thought to be secondary to hyponatremia (but no improvement with improving sodium level prior to intubation) follow mentation head CT noted (8) Paroxysmal atrial fibrillation: Code(s): I48.0 - Paroxysmal atrial fibrillation Status: Acute Assessment and Plan: rate control strategy on anticoagulation Cardiology following Will continue to follow. Subjective Date/time seen: 09/17/22 13:02 Slow improvement in respiratory status but still feels quite weak and fatigued; limited ability to participate with PT/OT and poor appetite noted as well; no other acute issues voiced at the time of my visit. Exam Narrative: General: WD/WN female in NAD Heart: normal S1 and S2; no rub Lungs: coarse breath sounds; decreased at bases Abdomen: soft, nontender, nondistended, positive bowel sounds Extremities: bilateral edema (trace - 1+) present Skin: warm and dry Objective Data Vital Signs Vital Signs: Vital Signs Temp Pulse Resp BP Pulse Ox O2 Del Method O2 Flow Rate 09/17/22 12:00 102 H 09/17/22 10:52 98 Nasal Cannula 2 09/17/22 08:37 Room
--- NOTE | 2022-09-17 13:02 | P.PNNP_ITS ---
Progress Note: A&P Assessment and Plan (1) Acute kidney injury: Code(s): N17.9 - Acute kidney failure, unspecified Status: Acute Assessment and Plan: * creatinine elevated * suspect due to diuretic therapy * fluctuating hemodynamics likely playing a role as well * this maybe a situation where we have to accept a higher creatinine to maintain her volume/fluid status * evaluation to date: * CPK normal * urine electrolytes prerenal (likely reflective of cardiorenal physiology along with aortic stenosis) * imaging without obstruction * her fluctuating creatinine is a manifestation of her prerenal physiology coupled with her bad heart and previous sepsis/hypotension * continue diuresis as tolerated * giving rising creatinine, will decrease IV lasix to qday * follow repeat labs and UOP (2) Acute respiratory failure: Code(s): J96.00 - Acute respiratory failure, unspecified whether with hypoxia or hypercapnia Status: Acute Assessment and Plan: * resolving but tenuous status * extubated (on 09/09/22) * suspect due to combo of pulmonary edema, CHF, and pneumonia * CXR still with evidence of pulmonary edema * cultures negative so far (completed course of antibiotics) * diurese as tolerated (on lasix and PRN diamox) * follow I/Os (3) Anasarca: Code(s): R60.1 - Generalized edema Status: Acute Assessment and Plan: * clinically better with aggressive diuresis * however, this is likely at the expense of renal function * follow clinical exam (4) Hypernatremia: Code(s): E87.0 - Hyperosmolality and hypernatremia Status: Acute Assessment and Plan: * resolved * on admission, had issues with hyponatremia (resolved) * likely due to previous free water deficit due to lack of oral intake +/- diuresis * follow trend of sodium (5) Acute on chronic combined systolic and diastolic CHF (congestive heart failure): Code(s): I50.43 - Acute on chronic combined systolic (congestive) and diastolic (congestive) heart failure Status: Acute Assessment and Plan: * TTE shows EF of 35-40%, moderate to severe take valve stenosis, moderate AI, moderate pulmonary hypertension * resumed on diuretics (lasix and spironolactone) * creatinine fluctuating (see #1) * Cardiology following (6) Community acquired pneumonia: Code(s): J18.9 - Pneumonia, unspecified organism Status: Acute Assessment and Plan: * as suggested by CXR on admission * was on antibiotics on admission; blood cultures were negative * repeat imaging and culture noted * completed course of antibiotic therapy (7) Altered mental status: Code(s): R41.82 - Altered mental status, unspecified Status: Acute Assessment and Plan: * etiology not clear * seems better at this time * initially thought to be secondary to hyponatremia (but no improvement with improving sodium level prior to intubation) * follow mentation * head CT noted (8) Paroxysmal atrial fibrillation: Code(s): I48.0 - Paroxysmal atrial fibrillation Status: Acute Assessment and Plan: * rate control strategy * on anticoagulation * Cardiology following Will continue to follow. Subjective Date/time seen: 09/17/22 13:02 Slow improvement in respiratory status but still feels quite weak and fatigued; limited ability to participate with PT/OT and poor appetite noted as well; no other acute issues voiced at the time of m
[2022-09-18] VITALS (10 sets, daily range): BP systolic 95–110; BP diastolic 43–60; PULSE 51–107; RESP 18; TEMP 36.3–36.7; O2SAT 91–100
[2022-09-18] MEDS: CENTRAL LINE FLUSH 10 ML IV PUSH ×3 (05:48→20:18)
[2022-09-18 06:20] LABS: Hematocrit 28.9 % (37.0-47.0); Hemoglobin 8.2 g/dL (12.0-15.0); Mean Corpuscular HGB Conc 28.4 g/dl (32-36); Mean Corpuscular Hemoglobin 25.9 pg (26-34); Mean Corpuscular Volume 91.5 fl (80-100); Mean Platelet Volume 10.2 fl (7.4-10.4); Platelet Count Result 385 k/mm3 (150-375); Red Blood Count 3.16 M/mm3 (4.2-5.4); Red Cell Distribution Width 18.3 % (11.5-14.5); White Blood Count 8.1 K/mm3 (4.5-10.0)
[2022-09-18 06:41] LABS: Albumin Level 3.3 g/dL (3.5-5.1); Blood Urea Nitrogen 32 mg/dL (7-17); Calcium 8.8 mg/dL (8.4-10.2); Carbon Dioxide > 40 mmol/L (22-30); Chloride 87 mmol/L (98-107); Estimated CRCL calculation 27 ml/min; Estimated Glomerular Filt Rate 30; Glucose 107 mg/dL (65-110); Magnesium 2.1 mg/dL (1.6-2.3); Phosphorus 4.2 mg/dL (2.5-4.5); Potassium 3.3 mmol/L (3.4-5.0); Sodium 135 mmol/L (137-145)
[2022-09-18] MEDS: PANTOPRAZOLE SODIUM IV 40 MG VIAL IV PUSH ×2 (09:31→20:19)
[2022-09-18] MEDS: POTASSIUM CHLORIDE 20 MEQ PACKET (FOR LIQUID) PO (09:32)
[2022-09-18] MEDS: EMPAGLIFLOZIN 10 MG TABLET PO (09:32)
[2022-09-18] MEDS: APIXABAN 5 MG TABLET PO ×2 (09:32→20:17)
[2022-09-18] MEDS: SPIRONOLACTONE 25 MG TABLET PO (09:37)
[2022-09-18] MEDS: METOPROLOL SUCCINATE EXT REL 12.5 MG TABCR PO (09:37)
[2022-09-18] MEDS: AMIODARONE HCL 200 MG TABLET 400 MG PO (09:37)
--- NOTE | 2022-09-18 09:39 | PC.NURSE ---
Fang Finney [employer] notified of bp 100/70. Will change lasix to po and give all other po meds.
--- NOTE | 2022-09-18 10:04 | PM.PNCARD ---
Progress Note: A&P Assessment and Plan (1) Acute on chronic congestive heart failure: Qualifiers: Heart failure type: combined systolic and diastolic Qualified Code(s): I50.43 - Acute on chronic combined systolic (congestive) and diastolic (congestive) heart failure Code(s): I50.9 - Heart failure, unspecified Status: Acute Assessment and Plan: EF 35-40%. She has diuresed well. Will shift her from IV furosemide to p.o. today. Continue strict intake and output Daily weights CHF counseling MARY rodrigues (2) Acute respiratory failure with hypoxia: Code(s): J96.01 - Acute respiratory failure with hypoxia Status: Acute Assessment and Plan: Improving. Now on 2L O2 per nasal cannula (3) A-fib: Code(s): I48.91 - Unspecified atrial fibrillation Status: Acute Assessment and Plan: Rate controlled on p.o. amiodarone. Reduce to 200mg daily at discharge. A/c with apixaban. (4) Cardiomyopathy: Qualifiers: Cardiomyopathy type: other Qualified Code(s): I42.8 - Other cardiomyopathies Code(s): I42.9 - Cardiomyopathy, unspecified Status: Acute Assessment and Plan: EF 35-40%. GDMT has been initiated. Continue spironolactone, BB, jardiance Add Entresto when renal function improves (5) Hypokalemia: Code(s): E87.6 - Hypokalemia Status: Acute Assessment and Plan: Daily BMP. Replace to goal of K+ >4.0 (6) Acute kidney injury: Code(s): N17.9 - Acute kidney failure, unspecified Status: Acute Assessment and Plan: Continue to monitor renal function closely, urine output intolerance to diuretic therapy. Minimize nephrotoxic agents. stable thus far. (7) Aortic stenosis: Qualifiers: Cardiac valve disease etiology: nonrheumatic Qualified Code(s): I35.0 - Nonrheumatic aortic (valve) stenosis Code(s): I35.0 - Nonrheumatic aortic (valve) stenosis Status: Acute Assessment and Plan: Likely overall moderate in severity. Avoid excessive hypotension. (8) Hyponatremia: Code(s): E87.1 - Hypo-osmolality and hyponatremia Status: Acute Assessment and Plan: Stable, resolved. Continue to monitor. Plan Cardiology will sign off. Please do not hesitate to contact us with any questions. Subjective Date/time seen: 09/18/22 10:04 Cardiology follow up for atrial fibrillation, cardiomyopathy She continues to improve. Denies any shortness of breath and she is requiring minimal supplemental oxygen at this point. Swelling has significantly improved. Review of Systems Constitutional: Constitutional: Denies fever(s) Eyes: Eyes: Reports no additional eye complaints Cardiovascular: Cardiovascular: Denies chest pain, Denies pedal edema, Denies lightheadedness and Denies dyspnea Respiratory: Respiratory: Denies chest congestion, Denies cough and Denies dyspnea Gastrointestinal: Gastrointestinal: Denies abdominal pain and Denies hematochezia Genitourinary: Genitourinary: Reports no additional female genitourinary complaints Musculoskeletal: Musculoskeletal: Reports no additional musculoskeletal complaints Integumentary/Breasts: Skin/Breast: Reports system reviewed and no additional complaints, except as docu Neurologic: Reports Abnormal speech present ( Was not making sense ), Denies behavioral changes and Reports confusion ( sedated) Psychiatric: Psychiatric: Denies behavioral changes and Reports confusion ( sedated) Exam Const: General: cooperative and comfortable Orientation/consciousness: patient oriented x3 HENMT: Mouth: Yes moist mucous membranes Eyes: General: appearance normal, both eyes and all related structures Sclera: sclerae normal EOM: EOMs intact bilaterally Neck: Neck: supple Resp: Effort & Inspection: normal respiratory effort Auscultation: clear to auscultation bilaterally and diminished lung sounds Cardio: Ra
--- NOTE | 2022-09-18 13:44 | PM.IMPN ---
Progress Note: A&P Assessment and Plan (1) Acute respiratory failure: Code(s): J96.00 - Acute respiratory failure, unspecified whether with hypoxia or hypercapnia Status: Acute Assessment and Plan: Acute on chronic hypoxic and hypercarbic Respiratory failure secondary to pulmonary edema with possible pneumonia -intubated on 09/02/2022 -successfully extubated on 09/09/2022, Continue diuretic therapy -status post full course of antibiotics -09/02/2022: Blood cultures negative x2 -09/02/2022 sputum cultures: Negative -09/02/2022 MRSA screen negative 09/18/2022 interval history: 71-year-old with cardiomyopathy status post hypoxic respiratory failure was intubated secondary to volume overload patient is being diuresed and clinical symptoms are improving states feeling much better not as short of breath is when she arrived, patient was seen by cardioloigst and switched over to oral lasix as symptoms have improve, today patient MBS and passed by does require thickened liquids, patient will continue to work with physical therapy, feels tired and weak unable to participate in PT OT, has poor appetite will supplement with nutritional shakes, her is present in the room answered all his questions (2) Acute on chronic combined systolic and diastolic CHF (congestive heart failure): Code(s): I50.43 - Acute on chronic combined systolic (congestive) and diastolic (congestive) heart failure Status: Acute Assessment and Plan: Echocardiogram done on 08/26 Summary ? 1. Left ventricular chamber dimension is moderately enlarged. ? 3. Left ventricular systolic function is moderately globally reduced, estimated at 35-40%. ? 6. Left atrial chamber dimension is moderately enlarged. ? 7. Right atrial chamber dimension is mildly enlarged. ? 10. There is moderate to severe aortic valve stenosis based on a peak velocity of 279.27 cm/s, mean gradient of 19 mmHg, and aortic valve area of 0.91 cm2. ? 11. There is moderate aortic valve regurgitation. ? 12. The mitral valve has mildly thickened leaflets and moderately calcified annulus. ? 13. There is moderate mitral valve regurgitation. ? 14. There is mild tricuspid valve regurgitation. ? 15. Moderate pulmonary hypertension, estimated pulmonary arterial systolic pressure is 51 mmHg. ? 16. Small atheroma in anterior and posterior aortic root. ? 17. Dilated inferior vena cava with <50% collapse upon inspiration consistent with significantly elevated right atrial pressure, 15 mmHg. Continue diuresing Apreciate cardiology input (3) Shock: Code(s): R57.9 - Shock, unspecified Status: Acute Assessment and Plan: RESOLVED (4) Aortic stenosis: Qualifiers: Cardiac valve disease etiology: nonrheumatic Qualified Code(s): I35.0 - Nonrheumatic aortic (valve) stenosis Code(s): I35.0 - Nonrheumatic aortic (valve) stenosis Status: Acute Assessment and Plan: See above (5) Paroxysmal atrial fibrillation: Code(s): I48.0 - Paroxysmal atrial fibrillation Status: Acute Assessment and Plan: Continue amiodarone hand Eliquis (6) Acute kidney injury: Code(s): N17.9 - Acute kidney failure, unspecified Status: Acute Assessment and Plan: Monitor kidney function (7) Sliding hiatal hernia: Code(s): K44.9 - Diaphragmatic hernia without obstruction or gangrene Status: Acute Assessment and Plan: CT scan reviewed (8) Hyponatremia: Code(s): E87.1 - Hypo-osmolality and hyponatremia Status: Acute Assessment and Plan: Monitor (9) Anemia: Code(s): D64.9 - Anemia, unspecified Status: Acute Assessment and Plan: Patient on Eliquis for A.Fib, hemoglobin has been drifting down -09/07: Hemoglobin is 7.3, Eliquis was held -09/08: Hemoglobin 7.0, will transfuse 1 unit of packed RBCs -patient was already started on Protonix IV q.12 hours on 09/06 -stool f
--- NOTE | 2022-09-18 13:51 | PCSTNOTE ---
Please refer to the Modified Barium Swallow Evaluation in the EMR.
--- NOTE | 2022-09-18 14:23 | P.PNNP_ITS ---
Progress Note: A&P Assessment and Plan (1) Acute kidney injury: Code(s): N17.9 - Acute kidney failure, unspecified Status: Acute Assessment and Plan: * creatinine elevated * suspect due to diuretic therapy * fluctuating hemodynamics likely playing a role as well * this maybe a situation where we have to accept a higher creatinine to maintain her volume/fluid status * evaluation to date: * CPK normal * urine electrolytes prerenal (likely reflective of cardiorenal physiology along with aortic stenosis) * imaging without obstruction * her fluctuating creatinine is a manifestation of her prerenal physiology coupled with her bad heart and previous sepsis/hypotension * continue diuresis as tolerated - transitioned to oral diuretics today * follow repeat labs and UOP (2) Acute respiratory failure: Code(s): J96.00 - Acute respiratory failure, unspecified whether with hypoxia or hypercapnia Status: Acute Assessment and Plan: * resolving * extubated (on 09/09/22) * suspect due to combo of pulmonary edema, CHF, and pneumonia * CXR results noted * cultures negative so far (completed course of antibiotics) * diurese as tolerated (on lasix and PRN diamox) * follow I/Os (3) Anasarca: Code(s): R60.1 - Generalized edema Status: Acute Assessment and Plan: * clinically better with aggressive diuresis * however, this is likely at the expense of renal function * follow clinical exam (4) Hypernatremia: Code(s): E87.0 - Hyperosmolality and hypernatremia Status: Acute Assessment and Plan: * resolved * on admission, had issues with hyponatremia (resolved) * likely due to previous free water deficit due to lack of oral intake +/- diuresis * follow trend of sodium (5) Acute on chronic combined systolic and diastolic CHF (congestive heart failure): Code(s): I50.43 - Acute on chronic combined systolic (congestive) and diastolic (congestive) heart failure Status: Acute Assessment and Plan: * TTE shows EF of 35-40%, moderate to severe take valve stenosis, moderate AI, moderate pulmonary hypertension * resumed on diuretics (lasix and spironolactone) * creatinine fluctuating (see #1) * Cardiology following (6) Community acquired pneumonia: Code(s): J18.9 - Pneumonia, unspecified organism Status: Acute Assessment and Plan: * as suggested by CXR on admission * was on antibiotics on admission; blood cultures were negative * repeat imaging and culture noted * completed course of antibiotic therapy (7) Altered mental status: Code(s): R41.82 - Altered mental status, unspecified Status: Acute Assessment and Plan: * etiology not clear * seems better at this time * initially thought to be secondary to hyponatremia (but no improvement with improving sodium level prior to intubation) * follow mentation * head CT noted (8) Paroxysmal atrial fibrillation: Code(s): I48.0 - Paroxysmal atrial fibrillation Status: Acute Assessment and Plan: * rate control strategy * on anticoagulation * Cardiology following Will continue to follow. Subjective Date/time seen: 09/18/22 14:23 Continues to be in negative fluid balance with ongoing diuretic therapy -- transitioned to oral diuretics today by Cardiology; renal function remains relatively stable at this time with ongoing improvement in respiratory status as well as swelling/edema; no other a
--- NOTE | 2022-09-18 14:23 | PM.PNNEP ---
Progress Note: A&P Assessment and Plan (1) Acute kidney injury: Code(s): N17.9 - Acute kidney failure, unspecified Status: Acute Assessment and Plan: creatinine elevated suspect due to diuretic therapy fluctuating hemodynamics likely playing a role as well this maybe a situation where we have to accept a higher creatinine to maintain her volume/fluid status evaluation to date: CPK normal urine electrolytes prerenal (likely reflective of cardiorenal physiology along with aortic stenosis) imaging without obstruction her fluctuating creatinine is a manifestation of her prerenal physiology coupled with her bad heart and previous sepsis/hypotension continue diuresis as tolerated - transitioned to oral diuretics today follow repeat labs and UOP (2) Acute respiratory failure: Code(s): J96.00 - Acute respiratory failure, unspecified whether with hypoxia or hypercapnia Status: Acute Assessment and Plan: resolving extubated (on 09/09/22) suspect due to combo of pulmonary edema, CHF, and pneumonia CXR results noted cultures negative so far (completed course of antibiotics) diurese as tolerated (on lasix and PRN diamox) follow I/Os (3) Anasarca: Code(s): R60.1 - Generalized edema Status: Acute Assessment and Plan: clinically better with aggressive diuresis however, this is likely at the expense of renal function follow clinical exam (4) Hypernatremia: Code(s): E87.0 - Hyperosmolality and hypernatremia Status: Acute Assessment and Plan: resolved on admission, had issues with hyponatremia (resolved) likely due to previous free water deficit due to lack of oral intake +/- diuresis follow trend of sodium (5) Acute on chronic combined systolic and diastolic CHF (congestive heart failure): Code(s): I50.43 - Acute on chronic combined systolic (congestive) and diastolic (congestive) heart failure Status: Acute Assessment and Plan: TTE shows EF of 35-40%, moderate to severe take valve stenosis, moderate AI, moderate pulmonary hypertension resumed on diuretics (lasix and spironolactone) creatinine fluctuating (see #1) Cardiology following (6) Community acquired pneumonia: Code(s): J18.9 - Pneumonia, unspecified organism Status: Acute Assessment and Plan: as suggested by CXR on admission was on antibiotics on admission; blood cultures were negative repeat imaging and culture noted completed course of antibiotic therapy (7) Altered mental status: Code(s): R41.82 - Altered mental status, unspecified Status: Acute Assessment and Plan: etiology not clear seems better at this time initially thought to be secondary to hyponatremia (but no improvement with improving sodium level prior to intubation) follow mentation head CT noted (8) Paroxysmal atrial fibrillation: Code(s): I48.0 - Paroxysmal atrial fibrillation Status: Acute Assessment and Plan: rate control strategy on anticoagulation Cardiology following Will continue to follow. Subjective Date/time seen: 09/18/22 14:23 Continues to be in negative fluid balance with ongoing diuretic therapy -- transitioned to oral diuretics today by Cardiology; renal function remains relatively stable at this time with ongoing improvement in respiratory status as well as swelling/edema; no other acute issues/events overnight or earlier this AM. Exam Narrative: General: WD/WN female in NAD Heart: normal S1 and S2; no rub Lungs: coarse breath sounds; decreased at bases Abdomen: soft, nontender, nondistended, positive bowel sounds Extremities: bilateral edema (trace - 1+) present Skin: warm and intact Objective Data Vital Signs Vital Signs: Vital Signs Temp Pulse Resp BP Pulse Ox O2 Del Method O2 Flow Rate 09/18/22 13:46 Nasal Cannula 2 09/18/22 12:00
[2022-09-18] MEDS: FUROSEMIDE 40 MG TABLET PO (16:32)
[2022-09-19] VITALS (13 sets, daily range): BP systolic 100–106; BP diastolic 47–57; PULSE 80–100; RESP 17–22; TEMP 36.4–36.8; O2SAT 92–98
[2022-09-19 05:13] LABS: Hematocrit 28.5 % (37.0-47.0); Hemoglobin 8.2 g/dL (12.0-15.0); Mean Corpuscular HGB Conc 28.8 g/dl (32-36); Mean Corpuscular Volume 90.5 fl (80-100); Mean Platelet Volume 10.6 fl (7.4-10.4); Platelet Count Result 401 k/mm3 (150-375); Red Blood Count 3.15 M/mm3 (4.2-5.4); Red Cell Distribution Width 18.6 % (11.5-14.5); White Blood Count 8.1 K/mm3 (4.5-10.0)
[2022-09-19] MEDS: CENTRAL LINE FLUSH 10 ML IV PUSH ×3 (05:32→20:04)
[2022-09-19 06:32] LABS: Albumin Level 3.4 g/dL (3.5-5.1); Blood Urea Nitrogen 39 mg/dL (7-17); Calcium 8.2 mg/dL (8.4-10.2); Carbon Dioxide > 40 mmol/L (22-30); Chloride 88 mmol/L (98-107); Estimated CRCL calculation 30 ml/min; Estimated Glomerular Filt Rate 34; Glucose 109 mg/dL (65-110); Magnesium 2.3 mg/dL (1.6-2.3); Phosphorus 4.3 mg/dL (2.5-4.5); Potassium 4.2 mmol/L (3.4-5.0); Sodium 135 mmol/L (137-145)
[2022-09-19] MEDS: AMIODARONE HCL 200 MG TABLET 400 MG PO (08:35)
[2022-09-19] MEDS: PANTOPRAZOLE SODIUM IV 40 MG VIAL IV PUSH ×2 (08:36→20:04)
[2022-09-19] MEDS: POTASSIUM CHLORIDE 20 MEQ PACKET (FOR LIQUID) PO (08:36)
[2022-09-19] MEDS: EMPAGLIFLOZIN 10 MG TABLET PO (08:36)
[2022-09-19] MEDS: APIXABAN 5 MG TABLET PO ×2 (08:36→20:04)
[2022-09-19] MEDS: METOPROLOL SUCCINATE EXT REL 12.5 MG TABCR PO (08:36)
[2022-09-19] MEDS: SPIRONOLACTONE 25 MG TABLET PO (08:36)
[2022-09-19] MEDS: FUROSEMIDE 40 MG TABLET PO ×2 (08:40→16:31)
--- NOTE | 2022-09-19 12:19 | PCNFU ---
Nutrition Follow-Up Complete: Severe protein calorie malnutrition related to loss of appetite as evidenced by weight loss -9%/3 months and poor intake <75% meals >1 month. goal: Improve PO intake to at least 50% meals and supplement Patient is progressing towards goal. We will continue current goal. Pt current nutrition is Heart Healthy with Mild Thick liquids, Level 2. Last recorded weight is 76.2 kg. Bowel Motility: +Bm reported 09/16 Labs Reviewed:Cr 1.5,BUN 39, GFR 34, Na 135, Alb 3.4 Meds Noted:Lasix,Eliquis,Jardiance, Senokot,Pacerone Skin: WNL Additional Notes: Patient had repeat MBS today, diet order upgraded to regular food consistencies with Mild Thick liquids, Level 2. Oral Intake for breakfast improved: muffin,ice cream,yogurt. Diet supplements remain on trays of Ensure compact providing an additional 220 kcals and 9 gms protein. Agree with diet orders. Monitor intakes, weights, labs, plan of care, supplement tolerance every 5 days.
--- NOTE | 2022-09-19 12:42 | PM.IMPN ---
Progress Note: A&P Assessment and Plan (1) Acute respiratory failure: Code(s): J96.00 - Acute respiratory failure, unspecified whether with hypoxia or hypercapnia Status: Acute Assessment and Plan: Acute on chronic hypoxic and hypercarbic Respiratory failure secondary to pulmonary edema with possible pneumonia -intubated on 09/02/2022 -successfully extubated on 09/09/2022, Continue diuretic therapy -status post full course of antibiotics -09/02/2022: Blood cultures negative x2 -09/02/2022 sputum cultures: Negative -09/02/2022 MRSA screen negative 09/19/2022 interval history: 71-year-old with cardiomyopathy status post hypoxic respiratory failure was intubated secondary to volume overload patient is being diuresed and clinical symptoms are improving states feeling much better not as short of breath is when she arrived, patient was seen by cardioloigst and switched over to oral lasix as symptoms have improve, however today patient feels shortness of breath and more weak, will do chest x-ray and further recommendation to follow, on 09/18 patient had MBS and passed but does require thickened liquids, patient will continue to work with physical therapy, feels tired and weak unable to participate in PT OT, has poor appetite will supplement with nutritional shakes, her is present in the room answered all his questions (2) Acute on chronic combined systolic and diastolic CHF (congestive heart failure): Code(s): I50.43 - Acute on chronic combined systolic (congestive) and diastolic (congestive) heart failure Status: Acute Assessment and Plan: Echocardiogram done on 08/26 Summary ? 1. Left ventricular chamber dimension is moderately enlarged. ? 3. Left ventricular systolic function is moderately globally reduced, estimated at 35-40%. ? 6. Left atrial chamber dimension is moderately enlarged. ? 7. Right atrial chamber dimension is mildly enlarged. ? 10. There is moderate to severe aortic valve stenosis based on a peak velocity of 279.27 cm/s, mean gradient of 19 mmHg, and aortic valve area of 0.91 cm2. ? 11. There is moderate aortic valve regurgitation. ? 12. The mitral valve has mildly thickened leaflets and moderately calcified annulus. ? 13. There is moderate mitral valve regurgitation. ? 14. There is mild tricuspid valve regurgitation. ? 15. Moderate pulmonary hypertension, estimated pulmonary arterial systolic pressure is 51 mmHg. ? 16. Small atheroma in anterior and posterior aortic root. ? 17. Dilated inferior vena cava with <50% collapse upon inspiration consistent with significantly elevated right atrial pressure, 15 mmHg. Continue diuresing Apreciate cardiology input (3) Shock: Code(s): R57.9 - Shock, unspecified Status: Acute Assessment and Plan: RESOLVED (4) Aortic stenosis: Qualifiers: Cardiac valve disease etiology: nonrheumatic Qualified Code(s): I35.0 - Nonrheumatic aortic (valve) stenosis Code(s): I35.0 - Nonrheumatic aortic (valve) stenosis Status: Acute Assessment and Plan: See above (5) Paroxysmal atrial fibrillation: Code(s): I48.0 - Paroxysmal atrial fibrillation Status: Acute Assessment and Plan: Continue amiodarone hand Eliquis (6) Acute kidney injury: Code(s): N17.9 - Acute kidney failure, unspecified Status: Acute Assessment and Plan: Monitor kidney function (7) Sliding hiatal hernia: Code(s): K44.9 - Diaphragmatic hernia without obstruction or gangrene Status: Acute Assessment and Plan: CT scan reviewed (8) Hyponatremia: Code(s): E87.1 - Hypo-osmolality and hyponatremia Status: Acute Assessment and Plan: Monitor (9) Anemia: Code(s): D64.9 - Anemia, unspecified Status: Acute Assessment and Plan: Patient on Eliquis for A.Fib, hemoglobin has been drifting down -09/07: Hemoglobin is 7.3, Eliquis was held -09/08
--- NOTE | 2022-09-19 13:00 | P.PNNP_ITS ---
Progress Note: A&P Assessment and Plan (1) Acute kidney injury: Code(s): N17.9 - Acute kidney failure, unspecified Status: Acute Assessment and Plan: * creatinine elevated * suspect due to diuretic therapy * fluctuating hemodynamics likely playing a role as well * this maybe a situation where we have to accept a higher creatinine to maintain her volume/fluid status * evaluation to date: * CPK normal * urine electrolytes prerenal (likely reflective of cardiorenal physiology along with aortic stenosis) * imaging without obstruction * her fluctuating creatinine is a manifestation of her prerenal physiology coupled with her bad heart and previous sepsis/hypotension * continue diuresis as tolerated - transitioned to oral diuretics today * follow repeat labs and UOP (2) Acute respiratory failure: Code(s): J96.00 - Acute respiratory failure, unspecified whether with hypoxia or hypercapnia Status: Acute Assessment and Plan: * resolving * extubated (on 09/09/22) * suspect due to combo of pulmonary edema, CHF, and pneumonia * CXR results noted * cultures negative so far (completed course of antibiotics) * diurese as tolerated (on lasix and PRN diamox) * follow I/Os (3) Anasarca: Code(s): R60.1 - Generalized edema Status: Acute Assessment and Plan: * clinically better with aggressive diuresis * however, this is likely at the expense of renal function * follow clinical exam (4) Hypernatremia: Code(s): E87.0 - Hyperosmolality and hypernatremia Status: Acute Assessment and Plan: * resolved * on admission, had issues with hyponatremia (resolved) * likely due to previous free water deficit due to lack of oral intake +/- diuresis * follow trend of sodium (5) Acute on chronic combined systolic and diastolic CHF (congestive heart failure): Code(s): I50.43 - Acute on chronic combined systolic (congestive) and diastolic (congestive) heart failure Status: Acute Assessment and Plan: * TTE shows EF of 35-40%, moderate to severe take valve stenosis, moderate AI, moderate pulmonary hypertension * resumed on diuretics (lasix and spironolactone) * creatinine fluctuating (see #1) * Cardiology following (6) Community acquired pneumonia: Code(s): J18.9 - Pneumonia, unspecified organism Status: Acute Assessment and Plan: * as suggested by CXR on admission * was on antibiotics on admission; blood cultures were negative * repeat imaging and culture noted * completed course of antibiotic therapy (7) Altered mental status: Code(s): R41.82 - Altered mental status, unspecified Status: Acute Assessment and Plan: * etiology not clear but resolving * initially thought to be secondary to hyponatremia (but no improvement with improving sodium level prior to intubation/respiratory failure) * head CT noted * follow mentation (8) Paroxysmal atrial fibrillation: Code(s): I48.0 - Paroxysmal atrial fibrillation Status: Acute Assessment and Plan: * rate control strategy * on anticoagulation * Cardiology following Will continue to follow. Subjective Date/time seen: 09/19/22 13:00 Tolerating oral diuretic therapy reasonably well with stability (if not improvem ent) in renal function and remains in negative fluid balance; however, she states she feels a little bit more short of breath today; no other acute issues voiced; no apparent distress
--- NOTE | 2022-09-19 13:00 | PM.PNNEP ---
Progress Note: A&P Assessment and Plan (1) Acute kidney injury: Code(s): N17.9 - Acute kidney failure, unspecified Status: Acute Assessment and Plan: creatinine elevated suspect due to diuretic therapy fluctuating hemodynamics likely playing a role as well this maybe a situation where we have to accept a higher creatinine to maintain her volume/fluid status evaluation to date: CPK normal urine electrolytes prerenal (likely reflective of cardiorenal physiology along with aortic stenosis) imaging without obstruction her fluctuating creatinine is a manifestation of her prerenal physiology coupled with her bad heart and previous sepsis/hypotension continue diuresis as tolerated - transitioned to oral diuretics today follow repeat labs and UOP (2) Acute respiratory failure: Code(s): J96.00 - Acute respiratory failure, unspecified whether with hypoxia or hypercapnia Status: Acute Assessment and Plan: resolving extubated (on 09/09/22) suspect due to combo of pulmonary edema, CHF, and pneumonia CXR results noted cultures negative so far (completed course of antibiotics) diurese as tolerated (on lasix and PRN diamox) follow I/Os (3) Anasarca: Code(s): R60.1 - Generalized edema Status: Acute Assessment and Plan: clinically better with aggressive diuresis however, this is likely at the expense of renal function follow clinical exam (4) Hypernatremia: Code(s): E87.0 - Hyperosmolality and hypernatremia Status: Acute Assessment and Plan: resolved on admission, had issues with hyponatremia (resolved) likely due to previous free water deficit due to lack of oral intake +/- diuresis follow trend of sodium (5) Acute on chronic combined systolic and diastolic CHF (congestive heart failure): Code(s): I50.43 - Acute on chronic combined systolic (congestive) and diastolic (congestive) heart failure Status: Acute Assessment and Plan: TTE shows EF of 35-40%, moderate to severe take valve stenosis, moderate AI, moderate pulmonary hypertension resumed on diuretics (lasix and spironolactone) creatinine fluctuating (see #1) Cardiology following (6) Community acquired pneumonia: Code(s): J18.9 - Pneumonia, unspecified organism Status: Acute Assessment and Plan: as suggested by CXR on admission was on antibiotics on admission; blood cultures were negative repeat imaging and culture noted completed course of antibiotic therapy (7) Altered mental status: Code(s): R41.82 - Altered mental status, unspecified Status: Acute Assessment and Plan: etiology not clear but resolving initially thought to be secondary to hyponatremia (but no improvement with improving sodium level prior to intubation/respiratory failure) head CT noted follow mentation (8) Paroxysmal atrial fibrillation: Code(s): I48.0 - Paroxysmal atrial fibrillation Status: Acute Assessment and Plan: rate control strategy on anticoagulation Cardiology following Will continue to follow. Subjective Date/time seen: 09/19/22 13:00 Tolerating oral diuretic therapy reasonably well with stability (if not improvement) in renal function and remains in negative fluid balance; however, she states she feels a little bit more short of breath today; no other acute issues voiced; no apparent distress noted. Exam Narrative: General: WD/WN female in NAD Heart: normal S1 and S2; no rub Lungs: coarse breath sounds; decreased at bases Abdomen: soft, nontender, nondistended, positive bowel sounds Extremities: bilateral edema (trace - 1+) present Skin: warm and intact Objective Data Vital Signs Vital Signs: Vital Signs Temp Pulse Resp BP Pulse Ox O2 Del Method O2 Flow Rate 09/19/22 12:00 100 09/19/22 10:00 97.6 F 100 18 100/57 L 95 09/19/22 08:0
[2022-09-19] MEDS: ACETAMINOPHEN 325 MG TABLET 650 MG PO (16:31)
[2022-09-19] MEDS: acetaZOLAMIDE TAB 250 MG TABLET 500 MG PO (17:22)
[2022-09-20] VITALS (7 sets, daily range): BP systolic 79–118; BP diastolic 55–91; PULSE 74–88; RESP 12–22; TEMP 36.3–36.8; O2SAT 95–100
[2022-09-20] MEDS: CENTRAL LINE FLUSH 10 ML IV PUSH ×3 (05:37→22:10)
[2022-09-20 05:52] LABS: Hemoglobin 8.2 g/dL (12.0-15.0); Mean Corpuscular HGB Conc 28.3 g/dl (32-36); Mean Corpuscular Hemoglobin 26.7 pg (26-34); Mean Corpuscular Volume 94.5 fl (80-100); Platelet Count Result 355 k/mm3 (150-375); Red Blood Count 3.07 M/mm3 (4.2-5.4); Red Cell Distribution Width 18.5 % (11.5-14.5); White Blood Count 7.3 K/mm3 (4.5-10.0)
[2022-09-20 06:14] LABS: Albumin Level 3.4 g/dL (3.5-5.1); Blood Urea Nitrogen 32 mg/dL (7-17); Calcium 8.4 mg/dL (8.4-10.2); Carbon Dioxide > 40 mmol/L (22-30); Chloride 85 mmol/L (98-107); Estimated CRCL calculation 28 ml/min; Estimated Glomerular Filt Rate 32; Glucose 95 mg/dL (65-110); Magnesium 2.1 mg/dL (1.6-2.3); Phosphorus 3.9 mg/dL (2.5-4.5); Potassium 3.2 mmol/L (3.4-5.0); Sodium 133 mmol/L (137-145)
[2022-09-20] MEDS: PANTOPRAZOLE SODIUM IV 40 MG VIAL IV PUSH ×2 (08:59→20:44)
[2022-09-20] MEDS: APIXABAN 5 MG TABLET PO ×2 (09:01→20:44)
[2022-09-20] MEDS: METOPROLOL SUCCINATE EXT REL 12.5 MG TABCR PO (09:01)
[2022-09-20] MEDS: AMIODARONE HCL 200 MG TABLET 400 MG PO (09:01)
[2022-09-20] MEDS: FUROSEMIDE 40 MG TABLET PO (09:01)
[2022-09-20] MEDS: SPIRONOLACTONE 25 MG TABLET PO (09:02)
[2022-09-20] MEDS: EMPAGLIFLOZIN 10 MG TABLET PO (09:02)
[2022-09-20] MEDS: POTASSIUM CHLORIDE 20 MEQ PACKET (FOR LIQUID) PO (09:03)
--- NOTE | 2022-09-20 12:59 | P.PNNP_ITS ---
Progress Note: A&P Assessment and Plan (1) Acute kidney injury: Code(s): N17.9 - Acute kidney failure, unspecified Status: Acute Assessment and Plan: * creatinine elevated * suspect due to diuretic therapy * fluctuating hemodynamics likely playing a role as well * this maybe a situation where we have to accept a higher creatinine to maintain her volume/fluid status * evaluation to date: * CPK normal * urine electrolytes prerenal (likely reflective of cardiorenal physiology along with aortic stenosis) * imaging without obstruction * her fluctuating creatinine is a manifestation of her prerenal physiology coupled with her bad heart and previous sepsis/hypotension * continue diuresis as tolerated * follow repeat labs and UOP (2) Acute respiratory failure: Code(s): J96.00 - Acute respiratory failure, unspecified whether with hypoxia or hypercapnia Status: Acute Assessment and Plan: * resolving * extubated (on 09/09/22) * suspect due to combo of pulmonary edema, CHF, and pneumonia * CXR results noted * cultures negative so far (completed course of antibiotics) * diurese as tolerated (on lasix and PRN diamox) * follow I/Os (3) Anasarca: Code(s): R60.1 - Generalized edema Status: Acute Assessment and Plan: * clinically better with aggressive diuresis * however, this is likely at the expense of renal function * follow clinical exam (4) Acute on chronic combined systolic and diastolic CHF (congestive heart failure): Code(s): I50.43 - Acute on chronic combined systolic (congestive) and diastolic (congestive) heart failure Status: Acute Assessment and Plan: * TTE shows EF of 35-40%, moderate to severe take valve stenosis, moderate AI, moderate pulmonary hypertension * on diuretics (lasix and spironolactone) * creatinine fluctuating (see #1) * Cardiology following (5) Community acquired pneumonia: Code(s): J18.9 - Pneumonia, unspecified organism Status: Acute Assessment and Plan: * as suggested by CXR on admission * was on antibiotics on admission; blood cultures were negative * repeat imaging and culture noted * completed course of antibiotic therapy (6) Altered mental status: Code(s): R41.82 - Altered mental status, unspecified Status: Acute Assessment and Plan: * etiology not clear but resolving * initially thought to be secondary to hyponatremia (but no improvement with improving sodium level prior to intubation/respiratory failure) * head CT noted * follow mentation (7) Paroxysmal atrial fibrillation: Code(s): I48.0 - Paroxysmal atrial fibrillation Status: Acute Assessment and Plan: * rate control strategy * on anticoagulation * Cardiology following Will continue to follow. Subjective Date/time seen: 09/20/22 12:59 Still with some intermittent shortness of breath although remains in negative fluid balance with ongoing diuretic therapy; lower extremity edema better and on less oxygen requirements; still remains quite weak and fatigued. Exam Narrative: General: WD/WN female in NAD Heart: normal S1 and S2; no rub Lungs: coarse breath sounds; decreased at bases Abdomen: soft, nontender, nondistended, positive bowel sounds Extremities: bilateral edema (trace - 1+) present Skin: warm and intact Objective Data Vital Signs Vital Signs:
--- NOTE | 2022-09-20 12:59 | PM.PNNEP ---
Progress Note: A&P Assessment and Plan (1) Acute kidney injury: Code(s): N17.9 - Acute kidney failure, unspecified Status: Acute Assessment and Plan: creatinine elevated suspect due to diuretic therapy fluctuating hemodynamics likely playing a role as well this maybe a situation where we have to accept a higher creatinine to maintain her volume/fluid status evaluation to date: CPK normal urine electrolytes prerenal (likely reflective of cardiorenal physiology along with aortic stenosis) imaging without obstruction her fluctuating creatinine is a manifestation of her prerenal physiology coupled with her bad heart and previous sepsis/hypotension continue diuresis as tolerated follow repeat labs and UOP (2) Acute respiratory failure: Code(s): J96.00 - Acute respiratory failure, unspecified whether with hypoxia or hypercapnia Status: Acute Assessment and Plan: resolving extubated (on 09/09/22) suspect due to combo of pulmonary edema, CHF, and pneumonia CXR results noted cultures negative so far (completed course of antibiotics) diurese as tolerated (on lasix and PRN diamox) follow I/Os (3) Anasarca: Code(s): R60.1 - Generalized edema Status: Acute Assessment and Plan: clinically better with aggressive diuresis however, this is likely at the expense of renal function follow clinical exam (4) Acute on chronic combined systolic and diastolic CHF (congestive heart failure): Code(s): I50.43 - Acute on chronic combined systolic (congestive) and diastolic (congestive) heart failure Status: Acute Assessment and Plan: TTE shows EF of 35-40%, moderate to severe take valve stenosis, moderate AI, moderate pulmonary hypertension on diuretics (lasix and spironolactone) creatinine fluctuating (see #1) Cardiology following (5) Community acquired pneumonia: Code(s): J18.9 - Pneumonia, unspecified organism Status: Acute Assessment and Plan: as suggested by CXR on admission was on antibiotics on admission; blood cultures were negative repeat imaging and culture noted completed course of antibiotic therapy (6) Altered mental status: Code(s): R41.82 - Altered mental status, unspecified Status: Acute Assessment and Plan: etiology not clear but resolving initially thought to be secondary to hyponatremia (but no improvement with improving sodium level prior to intubation/respiratory failure) head CT noted follow mentation (7) Paroxysmal atrial fibrillation: Code(s): I48.0 - Paroxysmal atrial fibrillation Status: Acute Assessment and Plan: rate control strategy on anticoagulation Cardiology following Will continue to follow. Subjective Date/time seen: 09/20/22 12:59 Still with some intermittent shortness of breath although remains in negative fluid balance with ongoing diuretic therapy; lower extremity edema better and on less oxygen requirements; still remains quite weak and fatigued. Exam Narrative: General: WD/WN female in NAD Heart: normal S1 and S2; no rub Lungs: coarse breath sounds; decreased at bases Abdomen: soft, nontender, nondistended, positive bowel sounds Extremities: bilateral edema (trace - 1+) present Skin: warm and intact Objective Data Vital Signs Vital Signs: Vital Signs Temp Pulse Resp BP Pulse Ox O2 Del Method O2 Flow Rate 09/20/22 08:00 80 09/20/22 09:01 87 09/20/22 09:01 87 09/20/22 08:00 98.2 F 82 18 112/91 H 100 09/20/22 04:00 97.7 F 88 22 H 118/71 95 09/20/22 04:00 79 09/20/22 00:00 79 09/20/22 00:00 97.8 F 86 20 111/70 96 09/19/22 20:00 86 22 H 98 High Flow Nasal Cannula 1 09/19/22 21:16 98 High Flow Nasal Cannula 2 09/19/22 20:00 86 09/19/22 20:00 97.8 F 97 22 H 106/51 L 97 09/19/22 18:00 97.6
--- NOTE | 2022-09-20 13:28 | PM.IMPN ---
Progress Note: A&P Assessment and Plan (1) Acute respiratory failure: Code(s): J96.00 - Acute respiratory failure, unspecified whether with hypoxia or hypercapnia Status: Acute Assessment and Plan: Acute on chronic hypoxic and hypercarbic Respiratory failure secondary to pulmonary edema with possible pneumonia -intubated on 09/02/2022 -successfully extubated on 09/09/2022, Continue diuretic therapy -status post full course of antibiotics -09/02/2022: Blood cultures negative x2 -09/02/2022 sputum cultures: Negative -09/02/2022 MRSA screen negative 09/20/2022 interval history: 71-year-old with cardiomyopathy status post hypoxic respiratory failure was intubated secondary to volume overload patient is being diuresed and clinical symptoms are improving states feeling much better not as short of breath is when she arrived, patient was seen by cardioloigst and switched over to oral lasix as symptoms had improve, however on 09/19 patient felt shortness of breath and more weak, and chest x-ray showed persistent pulmonary edema, today will switch her lasix back to IV, will monitor and further recommendation to follow, on 09/18 patient had MBS and passed but does require thickened liquids, patient will continue to work with physical therapy, feels tired and weak unable to participate in PT OT, has poor appetite will supplement with nutritional shakes, on 09/19 her was present in the room answered all his questions (2) Acute on chronic combined systolic and diastolic CHF (congestive heart failure): Code(s): I50.43 - Acute on chronic combined systolic (congestive) and diastolic (congestive) heart failure Status: Acute Assessment and Plan: Echocardiogram done on 08/26 Summary ? 1. Left ventricular chamber dimension is moderately enlarged. ? 3. Left ventricular systolic function is moderately globally reduced, estimated at 35-40%. ? 6. Left atrial chamber dimension is moderately enlarged. ? 7. Right atrial chamber dimension is mildly enlarged. ? 10. There is moderate to severe aortic valve stenosis based on a peak velocity of 279.27 cm/s, mean gradient of 19 mmHg, and aortic valve area of 0.91 cm2. ? 11. There is moderate aortic valve regurgitation. ? 12. The mitral valve has mildly thickened leaflets and moderately calcified annulus. ? 13. There is moderate mitral valve regurgitation. ? 14. There is mild tricuspid valve regurgitation. ? 15. Moderate pulmonary hypertension, estimated pulmonary arterial systolic pressure is 51 mmHg. ? 16. Small atheroma in anterior and posterior aortic root. ? 17. Dilated inferior vena cava with <50% collapse upon inspiration consistent with significantly elevated right atrial pressure, 15 mmHg. Continue diuresing Apreciate cardiology input (3) Shock: Code(s): R57.9 - Shock, unspecified Status: Acute Assessment and Plan: RESOLVED (4) Aortic stenosis: Qualifiers: Cardiac valve disease etiology: nonrheumatic Qualified Code(s): I35.0 - Nonrheumatic aortic (valve) stenosis Code(s): I35.0 - Nonrheumatic aortic (valve) stenosis Status: Acute Assessment and Plan: See above (5) Paroxysmal atrial fibrillation: Code(s): I48.0 - Paroxysmal atrial fibrillation Status: Acute Assessment and Plan: Continue amiodarone hand Eliquis (6) Acute kidney injury: Code(s): N17.9 - Acute kidney failure, unspecified Status: Acute Assessment and Plan: Monitor kidney function (7) Sliding hiatal hernia: Code(s): K44.9 - Diaphragmatic hernia without obstruction or gangrene Status: Acute Assessment and Plan: CT scan reviewed (8) Hyponatremia: Code(s): E87.1 - Hypo-osmolality and hyponatremia Status: Acute Assessment and Plan: Monitor (9) Anemia: Code(s): D64.9 - Anemia, unspecified Status: Acute Assessment and Plan: Patient on Eliquis
--- NOTE | 2022-09-20 14:23 | PC.NURSE ---
Notified Dr Mcclellan that the patient's blood pressure was 95/57. The patient has an oreder for IV lasix. Dr. Mcclellan verbalized to hold the NOW dose of Lasix and monitor the patients vitals. Will recheck the BP in 1 hour. The patient denies any dizziness, cough, or shortness of breath. Dr. Mcclellan intsrtucted to hold the 1700 dose of IV furosemide if systolic BP is <100.
--- NOTE | 2022-09-20 16:43 | PCOTNOTE ---
Attempted to see pt for Occupational Therapy treatment at 11:53am. Pt is currently with Physical Therapy for session. Will continue per POC duration/frequency tomorrow.
[2022-09-20 21:01] LABS: Glucose Point of Care 105 mg/dl (65-105)
[2022-09-21] VITALS (12 sets, daily range): BP systolic 91–104; BP diastolic 52–63; PULSE 58–88; RESP 14–18; TEMP 36.2–36.7; O2SAT 95–100
[2022-09-21 05:16] LABS: Hematocrit 28.7 % (37.0-47.0); Hemoglobin 8.2 g/dL (12.0-15.0); Mean Corpuscular HGB Conc 28.6 g/dl (32-36); Mean Corpuscular Hemoglobin 26.2 pg (26-34); Mean Corpuscular Volume 91.7 fl (80-100); Platelet Count Result 354 k/mm3 (150-375); Red Blood Count 3.13 M/mm3 (4.2-5.4); Red Cell Distribution Width 18.5 % (11.5-14.5); White Blood Count 6.7 K/mm3 (4.5-10.0)
[2022-09-21] MEDS: CENTRAL LINE FLUSH 10 ML IV PUSH ×3 (05:18→21:31)
[2022-09-21 05:32] LABS: Carbon Dioxide > 40 mmol/L (22-30)
[2022-09-21 05:33] LABS: Albumin Level 3.4 g/dL (3.5-5.1); Blood Urea Nitrogen 31 mg/dL (7-17); Calcium 8.5 mg/dL (8.4-10.2); Chloride 84 mmol/L (98-107); Estimated CRCL calculation 28 ml/min; Estimated Glomerular Filt Rate 32; Glucose 102 mg/dL (65-110); Magnesium 2.2 mg/dL (1.6-2.3); Phosphorus 3.9 mg/dL (2.5-4.5); Potassium 3.1 mmol/L (3.4-5.0); Sodium 131 mmol/L (137-145)
[2022-09-21] MEDS: acetaZOLAMIDE SODIUM FOR INJ 500 MG VIAL 250 MG IV PUSH (09:20)
[2022-09-21] MEDS: AMIODARONE HCL 200 MG TABLET 400 MG PO (09:28)
[2022-09-21] MEDS: APIXABAN 5 MG TABLET PO ×2 (09:28→21:31)
[2022-09-21] MEDS: EMPAGLIFLOZIN 10 MG TABLET PO (09:29)
[2022-09-21] MEDS: FUROSEMIDE INJ 40 MG/4 ML VIAL IV PUSH (09:30)
[2022-09-21] MEDS: POTASSIUM CHLORIDE 20 MEQ PACKET (FOR LIQUID) PO (09:30)
[2022-09-21] MEDS: SPIRONOLACTONE 25 MG TABLET PO ×2 (09:30→17:49)
[2022-09-21] MEDS: PANTOPRAZOLE SODIUM IV 40 MG VIAL IV PUSH ×2 (09:30→21:31)
[2022-09-21] MEDS: METOPROLOL SUCCINATE EXT REL 12.5 MG TABCR PO (09:48)
--- NOTE | 2022-09-21 11:47 | PM.IMPN ---
Progress Note: A&P Assessment and Plan (1) Acute respiratory failure: Code(s): J96.00 - Acute respiratory failure, unspecified whether with hypoxia or hypercapnia Status: Acute Assessment and Plan: Acute on chronic hypoxic and hypercarbic Respiratory failure secondary to pulmonary edema with possible pneumonia -intubated on 09/02/2022 -successfully extubated on 09/09/2022, Continue diuretic therapy -status post full course of antibiotics -09/02/2022: Blood cultures negative x2 -09/02/2022 sputum cultures: Negative -09/02/2022 MRSA screen negative 09/21/2022 interval history: 71-year-old with cardiomyopathy status post hypoxic respiratory failure was intubated secondary to volume overload patient is being diuresed and clinical symptoms are improving states feeling much better not as short of breath is when she arrived, patient was seen by cardioloigst and switched over to oral lasix as symptoms have improved, however on 09/19 patient felt shortness of breath and more weak, and chest x-ray showed persistent pulmonary edema, however patient blood pressure is soft and has poor circulation, will reduce lasix 20mg PO BID, also patient with A.fib on Amiodarone 400mg qd, will reduce it to 200mg PO qd, will monitor and further recommendation to follow, on 09/18 patient had MBS and passed but does require thickened liquids, patient will continue to work with physical therapy, feels tired and weak unable to participate in PT OT, has poor appetite will supplement with nutritional shakes, her and family is present was present in the room answered all his questions (2) Acute on chronic combined systolic and diastolic CHF (congestive heart failure): Code(s): I50.43 - Acute on chronic combined systolic (congestive) and diastolic (congestive) heart failure Status: Acute Assessment and Plan: Echocardiogram done on 08/26 Summary ? 1. Left ventricular chamber dimension is moderately enlarged. ? 3. Left ventricular systolic function is moderately globally reduced, estimated at 35-40%. ? 6. Left atrial chamber dimension is moderately enlarged. ? 7. Right atrial chamber dimension is mildly enlarged. ? 10. There is moderate to severe aortic valve stenosis based on a peak velocity of 279.27 cm/s, mean gradient of 19 mmHg, and aortic valve area of 0.91 cm2. ? 11. There is moderate aortic valve regurgitation. ? 12. The mitral valve has mildly thickened leaflets and moderately calcified annulus. ? 13. There is moderate mitral valve regurgitation. ? 14. There is mild tricuspid valve regurgitation. ? 15. Moderate pulmonary hypertension, estimated pulmonary arterial systolic pressure is 51 mmHg. ? 16. Small atheroma in anterior and posterior aortic root. ? 17. Dilated inferior vena cava with <50% collapse upon inspiration consistent with significantly elevated right atrial pressure, 15 mmHg. Continue diuresing Apreciate cardiology input (3) Shock: Code(s): R57.9 - Shock, unspecified Status: Acute Assessment and Plan: RESOLVED (4) Aortic stenosis: Qualifiers: Cardiac valve disease etiology: nonrheumatic Qualified Code(s): I35.0 - Nonrheumatic aortic (valve) stenosis Code(s): I35.0 - Nonrheumatic aortic (valve) stenosis Status: Acute Assessment and Plan: See above (5) Paroxysmal atrial fibrillation: Code(s): I48.0 - Paroxysmal atrial fibrillation Status: Acute Assessment and Plan: Continue amiodarone hand Eliquis (6) Acute kidney injury: Code(s): N17.9 - Acute kidney failure, unspecified Status: Acute Assessment and Plan: Monitor kidney function (7) Sliding hiatal hernia: Code(s): K44.9 - Diaphragmatic hernia without obstruction or gangrene Status: Acute Assessment and Plan: CT scan reviewed (8) Hyponatremia: Code(s): E87.1 - Hypo-osmolality and hyponatremia Status: Acute Assessm
--- NOTE | 2022-09-21 12:44 | P.PNNP_ITS ---
Progress Note: A&P Assessment and Plan (1) Acute kidney injury: Code(s): N17.9 - Acute kidney failure, unspecified Status: Acute Assessment and Plan: * creatinine elevated * suspect due to diuretic therapy * fluctuating hemodynamics likely playing a role as well * this maybe a situation where we have to accept a higher creatinine to maintain her volume/fluid status * evaluation to date: * CPK normal * urine electrolytes prerenal (likely reflective of cardiorenal physiology along with aortic stenosis) * imaging without obstruction * her fluctuating creatinine is a manifestation of her prerenal physiology coupled with her bad heart and previous sepsis/hypotension * continue diuresis as tolerated * follow repeat labs and UOP (2) Acute respiratory failure: Code(s): J96.00 - Acute respiratory failure, unspecified whether with hypoxia or hypercapnia Status: Acute Assessment and Plan: * better but continues to fluctuate * extubated (on 09/09/22) * suspect due to combo of pulmonary edema, CHF, and pneumonia * CXR results noted * cultures negative so far (completed course of antibiotics) * diurese as tolerated (on lasix, spironolactone, and diamox) * follow I/Os (3) Anasarca: Code(s): R60.1 - Generalized edema Status: Acute Assessment and Plan: * clinically better with aggressive diuresis * however, this is likely at the expense of renal function * follow clinical exam (4) Acute on chronic combined systolic and diastolic CHF (congestive heart failure): Code(s): I50.43 - Acute on chronic combined systolic (congestive) and diastolic (congestive) heart failure Status: Acute Assessment and Plan: * TTE shows EF of 35-40%, moderate to severe take valve stenosis, moderate AI, moderate pulmonary hypertension * on diuretics (lasix and spironolactone) * creatinine fluctuating (see #1) * Cardiology following (5) Community acquired pneumonia: Code(s): J18.9 - Pneumonia, unspecified organism Status: Acute Assessment and Plan: * as suggested by CXR on admission * was on antibiotics on admission; blood cultures were negative * repeat imaging and culture noted * completed course of antibiotic therapy (6) Altered mental status: Code(s): R41.82 - Altered mental status, unspecified Status: Acute Assessment and Plan: * etiology not clear but resolving * initially thought to be secondary to hyponatremia (but no improvement with improving sodium level prior to intubation/respiratory failure) * head CT noted * follow mentation (7) Paroxysmal atrial fibrillation: Code(s): I48.0 - Paroxysmal atrial fibrillation Status: Acute Assessment and Plan: * rate control strategy * on anticoagulation * Cardiology following Will continue to follow. Subjective Date/time seen: 09/21/22 12:44 Still feels weak and fatigued and blood pressure is a bit on the soft side; IV lasix reduced given soft blood pressure readings; still complains of some shortness of breath and CXR results already noted; still in negative fluid balance in the last 24 - 48 hours. Exam 2 Narrative: General: WD/WN female in NAD Heart: normal S1 and S2; no rub Lungs: coarse breath sounds; decreased at bases Abdomen: soft, nontender, nondistended, positive bowel sounds Extremities: bilateral edema (trace - 1+) present Skin: no rash Objective Data
--- NOTE | 2022-09-21 12:44 | PM.PNNEP ---
Progress Note: A&P Assessment and Plan (1) Acute kidney injury: Code(s): N17.9 - Acute kidney failure, unspecified Status: Acute Assessment and Plan: creatinine elevated suspect due to diuretic therapy fluctuating hemodynamics likely playing a role as well this maybe a situation where we have to accept a higher creatinine to maintain her volume/fluid status evaluation to date: CPK normal urine electrolytes prerenal (likely reflective of cardiorenal physiology along with aortic stenosis) imaging without obstruction her fluctuating creatinine is a manifestation of her prerenal physiology coupled with her bad heart and previous sepsis/hypotension continue diuresis as tolerated follow repeat labs and UOP (2) Acute respiratory failure: Code(s): J96.00 - Acute respiratory failure, unspecified whether with hypoxia or hypercapnia Status: Acute Assessment and Plan: better but continues to fluctuate extubated (on 09/09/22) suspect due to combo of pulmonary edema, CHF, and pneumonia CXR results noted cultures negative so far (completed course of antibiotics) diurese as tolerated (on lasix, spironolactone, and diamox) follow I/Os (3) Anasarca: Code(s): R60.1 - Generalized edema Status: Acute Assessment and Plan: clinically better with aggressive diuresis however, this is likely at the expense of renal function follow clinical exam (4) Acute on chronic combined systolic and diastolic CHF (congestive heart failure): Code(s): I50.43 - Acute on chronic combined systolic (congestive) and diastolic (congestive) heart failure Status: Acute Assessment and Plan: TTE shows EF of 35-40%, moderate to severe take valve stenosis, moderate AI, moderate pulmonary hypertension on diuretics (lasix and spironolactone) creatinine fluctuating (see #1) Cardiology following (5) Community acquired pneumonia: Code(s): J18.9 - Pneumonia, unspecified organism Status: Acute Assessment and Plan: as suggested by CXR on admission was on antibiotics on admission; blood cultures were negative repeat imaging and culture noted completed course of antibiotic therapy (6) Altered mental status: Code(s): R41.82 - Altered mental status, unspecified Status: Acute Assessment and Plan: etiology not clear but resolving initially thought to be secondary to hyponatremia (but no improvement with improving sodium level prior to intubation/respiratory failure) head CT noted follow mentation (7) Paroxysmal atrial fibrillation: Code(s): I48.0 - Paroxysmal atrial fibrillation Status: Acute Assessment and Plan: rate control strategy on anticoagulation Cardiology following Will continue to follow. Subjective Date/time seen: 09/21/22 12:44 Still feels weak and fatigued and blood pressure is a bit on the soft side; IV lasix reduced given soft blood pressure readings; still complains of some shortness of breath and CXR results already noted; still in negative fluid balance in the last 24 - 48 hours. Exam Narrative: General: WD/WN female in NAD Heart: normal S1 and S2; no rub Lungs: coarse breath sounds; decreased at bases Abdomen: soft, nontender, nondistended, positive bowel sounds Extremities: bilateral edema (trace - 1+) present Skin: no rash Objective Data Vital Signs Vital Signs: Vital Signs Temp Pulse Resp BP Pulse Ox O2 Del Method O2 Flow Rate 09/21/22 11:30 97.3 F L 79 16 103/58 L 100 09/21/22 08:00 Nasal Cannula 2 09/21/22 08:00 77 09/21/22 09:10 97.4 F L 87 14 91/63 L 98 09/21/22 09:48 82 09/21/22 09:37 Nasal Cannula 2 09/21/22 09:28 88 09/21/22 04:00 97.2 F L 82 16 99/52 L 99 09/21/22 04:00 73 09/21/22 00:00 72 09/21/22 00:00 97.6 F 88 16 93/53 L 95 09/20/22 2
[2022-09-21] MEDS: POTASSIUM CHLORIDE 20 MEQ TABLET 40 MEQ PO (12:49)
--- NOTE | 2022-09-21 15:03 | PCOTNOTE ---
Attempted to see pt for Occupational Therapy treatment. Pt refused to participate due to increase fatigue and needing to take a nap. Pt states that she has had visitors all day today and is too exhausted. Pt was encouraged to complete UE strengthening, therapeutic activities, and/or self care tasks, however, pt declined each option. Will continue per POC duration/frequency tomorrow.
[2022-09-21] MEDS: FUROSEMIDE INJ 40 MG/4 ML VIAL 20 MG IV PUSH (17:48)
[2022-09-22] VITALS (12 sets, daily range): BP systolic 97–120; BP diastolic 58–61; PULSE 63–96; RESP 18–20; TEMP 36.1–36.6; O2SAT 92–100
[2022-09-22 06:21] LABS: Hematocrit 27.7 % (37.0-47.0); Hemoglobin 7.9 g/dL (12.0-15.0); Mean Corpuscular HGB Conc 28.5 g/dl (32-36); Mean Corpuscular Volume 91.1 fl (80-100); Mean Platelet Volume 9.8 fl (7.4-10.4); Platelet Count Result 320 k/mm3 (150-375); Red Blood Count 3.04 M/mm3 (4.2-5.4); Red Cell Distribution Width 18.8 % (11.5-14.5); White Blood Count 6.7 K/mm3 (4.5-10.0)
[2022-09-22] MEDS: CENTRAL LINE FLUSH 10 ML IV PUSH ×2 (06:28→14:51)
[2022-09-22 07:09] LABS: Albumin Level 3.2 g/dL (3.5-5.1); Blood Urea Nitrogen 32 mg/dL (7-17); Calcium 8.1 mg/dL (8.4-10.2); Carbon Dioxide > 40 mmol/L (22-30); Chloride 87 mmol/L (98-107); Estimated CRCL calculation 26 ml/min; Estimated Glomerular Filt Rate 30; Glucose 101 mg/dL (65-110); Magnesium 2.1 mg/dL (1.6-2.3); Phosphorus 3.5 mg/dL (2.5-4.5); Potassium 4.1 mmol/L (3.4-5.0); Sodium 134 mmol/L (137-145)
[2022-09-22] MEDS: PANTOPRAZOLE SODIUM IV 40 MG VIAL IV PUSH (08:20)
[2022-09-22] MEDS: APIXABAN 5 MG TABLET PO (08:20)
[2022-09-22] MEDS: METOPROLOL SUCCINATE EXT REL 12.5 MG TABCR PO (08:20)
[2022-09-22] MEDS: acetaZOLAMIDE TAB 250 MG TABLET PO (08:20)
[2022-09-22] MEDS: SPIRONOLACTONE 25 MG TABLET PO ×2 (08:20→16:48)
[2022-09-22] MEDS: POTASSIUM CHLORIDE 20 MEQ PACKET (FOR LIQUID) PO (08:20)
[2022-09-22] MEDS: FUROSEMIDE INJ 40 MG/4 ML VIAL 20 MG IV PUSH ×2 (08:20→16:48)
[2022-09-22] MEDS: AMIODARONE HCL 200 MG TABLET PO (08:21)
[2022-09-22] MEDS: EMPAGLIFLOZIN 10 MG TABLET PO (08:21)
--- NOTE | 2022-09-22 10:42 | PCPTNOTE ---
Attempted to see patient for PT, however patient refused. Patient reported she is not ready for therapy, encouraged patient to participate in PT, however patient continued to refuse and stated she wanted to wait until her brought in her own walker. RN aware. Will try back when patient's is present.
--- NOTE | 2022-09-22 11:08 | P.PNIM_ITS ---
Progress Note: A&P Assessment and Plan (1) Acute respiratory failure: Code(s): J96.00 - Acute respiratory failure, unspecified whether with hypoxia or hypercapnia Status: Acute Assessment and Plan: Acute on chronic hypoxic and hypercarbic Respiratory failure secondary to pulmonary edema with possible pneumonia -intubated on 09/02/2022 -successfully extubated on 09/09/2022, Continue diuretic therapy -status post full course of antibiotics -09/02/2022: Blood cultures negative x2 -09/02/2022 sputum cultures: Negative -09/02/2022 MRSA screen negative 09/22/2022 interval history: 71-year-old with cardiomyopathy status post hypoxic respiratory failure was intubated secondary to volume overload patient is being diuresed and clinical symptoms are improving states feeling much better not as short of breath is when she arrived, patient was seen by cardioloigst and switched over to oral lasix as symptoms have improved, however on 09/19 patient felt shortness of breath and more weak, and chest x-ray showed persistent pulmonary edema, however patient blood pressure is soft and has poor circulation, will reduce lasix 20mg PO BID, patient blood pressure is slightly better, also patient with A.fib on was Amiodarone 400mg qd, on 09/21 reduced it to 200mg PO qd, patient HR is in 80s, will monitor and further recommendation to follow, on 09/18 patient had MBS and passed but does require thickened liquids, patient will continue to work with physical therapy, feels tired and weak unable to participate in PT OT, has poor appetite will supplement with nutritional shakes, patient will benefit going to SNF rehab, her is present in the room answered all his questions (2) Acute on chronic combined systolic and diastolic CHF (congestive heart failure): Code(s): I50.43 - Acute on chronic combined systolic (congestive) and diastolic (congestive) heart failure Status: Acute Assessment and Plan: Echocardiogram done on 08/26 Summary ? 1. Left ventricular chamber dimension is moderately enlarged. ? 3. Left ventricular systolic function is moderately globally reduced, estimated at 35-40%. ? 6. Left atrial chamber dimension is moderately enlarged. ? 7. Right atrial chamber dimension is mildly enlarged. ? 10. There is moderate to severe aortic valve stenosis based on a peak velocity of 279.27 cm/s, mean gradient of 19 mmHg, and aortic valve area of 0.91 cm2. ? 11. There is moderate aortic valve regurgitation. ? 12. The mitral valve has mildly thickened leaflets and moderately calcified annulus. ? 13. There is moderate mitral valve regurgitation. ? 14. There is mild tricuspid valve regurgitation. ? 15. Moderate pulmonary hypertension, estimated pulmonary arterial systolic pressure is 51 mmHg. ? 16. Small atheroma in anterior and posterior aortic root. ? 17. Dilated inferior vena cava with <50% collapse upon inspiration consistent with significantly elevated right atrial pressure, 15 mmHg. Continue diuresing Apreciate cardiology input (3) Shock: Code(s): R57.9 - Shock, unspecified Status: Acute Assessment and Plan: RESOLVED (4) Aortic stenosis: Qualifiers: Cardiac valve disease etiology: nonrheumatic Qualified Code(s): I35.0 - Nonrheumatic aortic (valve) stenosis Code(s): I35.0 - Nonrheumatic aortic (valve) stenosis Status: Acute Assessment and Plan: See above (5) Paroxysmal atrial fibrillation: Code(s): I48.0 - Paroxysmal atrial fibrillation Status: Acute Assessment and Plan: Continue amiodarone hand Eliquis (6) Acute kidney inju
--- NOTE | 2022-09-22 11:10 | P.PNNP_ITS ---
Progress Note: A&P Assessment and Plan (1) Acute kidney injury: Code(s): N17.9 - Acute kidney failure, unspecified Status: Acute Assessment and Plan: * creatinine elevated * suspect due to diuretic therapy * fluctuating hemodynamics likely playing a role as well * this maybe a situation where we have to accept a higher creatinine to maintain her volume/fluid status * evaluation to date: * CPK normal * urine electrolytes prerenal (likely reflective of cardiorenal physiology along with aortic stenosis) * imaging without obstruction * her fluctuating creatinine is a manifestation of her prerenal physiology coupled with her bad heart and previous sepsis/hypotension * continue diuresis as tolerated * follow repeat labs and UOP (2) Acute respiratory failure: Code(s): J96.00 - Acute respiratory failure, unspecified whether with hypoxia or hypercapnia Status: Acute Assessment and Plan: * better but continues to fluctuate * extubated (on 09/09/22) * suspect due to combo of pulmonary edema, CHF, and pneumonia * CXR results noted * cultures negative so far (completed course of antibiotics) * diurese as tolerated (on lasix, spironolactone, and diamox) * follow I/Os (3) Anasarca: Code(s): R60.1 - Generalized edema Status: Acute Assessment and Plan: * clinically better with aggressive diuresis * however, this is likely at the expense of renal function * follow clinical exam (4) Acute on chronic combined systolic and diastolic CHF (congestive heart failure): Code(s): I50.43 - Acute on chronic combined systolic (congestive) and diastolic (congestive) heart failure Status: Acute Assessment and Plan: * TTE shows EF of 35-40%, moderate to severe take valve stenosis, moderate AI, moderate pulmonary hypertension * on diuretics (lasix and spironolactone) * creatinine fluctuating (see #1) * Cardiology following (5) Community acquired pneumonia: Code(s): J18.9 - Pneumonia, unspecified organism Status: Acute Assessment and Plan: * as suggested by CXR on admission * was on antibiotics on admission; blood cultures were negative * repeat imaging and culture noted * completed course of antibiotic therapy (6) Altered mental status: Code(s): R41.82 - Altered mental status, unspecified Status: Acute Assessment and Plan: * etiology not clear but resolving * initially thought to be secondary to hyponatremia (but no improvement with improving sodium level prior to intubation/respiratory failure) * head CT noted * follow mentation (7) Paroxysmal atrial fibrillation: Code(s): I48.0 - Paroxysmal atrial fibrillation Status: Acute Assessment and Plan: * rate control strategy * on anticoagulation * Cardiology following Will continue to follow. Subjective Date/time seen: 09/22/22 11:10 Respiratory status and lower extremity edema seem relatively stable at this time; remains in negative fluid balance with current diuretic therapy; no other apparent issues/events overnight or earlier this morning; no apparent distress voiced; major complaints is that of fatigue/weakness. Exam Narrative: General: WD/WN female in NAD Heart: normal S1 and S2; no rub Lungs: coarse breath sounds; decreased at bases Abdomen: soft, nontender, nondistended, positive bowel sounds Extremities: bilateral edema (trace - 1+) present Skin: no nodules
--- NOTE | 2022-09-22 11:10 | PM.PNNEP ---
Progress Note: A&P Assessment and Plan (1) Acute kidney injury: Code(s): N17.9 - Acute kidney failure, unspecified Status: Acute Assessment and Plan: creatinine elevated suspect due to diuretic therapy fluctuating hemodynamics likely playing a role as well this maybe a situation where we have to accept a higher creatinine to maintain her volume/fluid status evaluation to date: CPK normal urine electrolytes prerenal (likely reflective of cardiorenal physiology along with aortic stenosis) imaging without obstruction her fluctuating creatinine is a manifestation of her prerenal physiology coupled with her bad heart and previous sepsis/hypotension continue diuresis as tolerated follow repeat labs and UOP (2) Acute respiratory failure: Code(s): J96.00 - Acute respiratory failure, unspecified whether with hypoxia or hypercapnia Status: Acute Assessment and Plan: better but continues to fluctuate extubated (on 09/09/22) suspect due to combo of pulmonary edema, CHF, and pneumonia CXR results noted cultures negative so far (completed course of antibiotics) diurese as tolerated (on lasix, spironolactone, and diamox) follow I/Os (3) Anasarca: Code(s): R60.1 - Generalized edema Status: Acute Assessment and Plan: clinically better with aggressive diuresis however, this is likely at the expense of renal function follow clinical exam (4) Acute on chronic combined systolic and diastolic CHF (congestive heart failure): Code(s): I50.43 - Acute on chronic combined systolic (congestive) and diastolic (congestive) heart failure Status: Acute Assessment and Plan: TTE shows EF of 35-40%, moderate to severe take valve stenosis, moderate AI, moderate pulmonary hypertension on diuretics (lasix and spironolactone) creatinine fluctuating (see #1) Cardiology following (5) Community acquired pneumonia: Code(s): J18.9 - Pneumonia, unspecified organism Status: Acute Assessment and Plan: as suggested by CXR on admission was on antibiotics on admission; blood cultures were negative repeat imaging and culture noted completed course of antibiotic therapy (6) Altered mental status: Code(s): R41.82 - Altered mental status, unspecified Status: Acute Assessment and Plan: etiology not clear but resolving initially thought to be secondary to hyponatremia (but no improvement with improving sodium level prior to intubation/respiratory failure) head CT noted follow mentation (7) Paroxysmal atrial fibrillation: Code(s): I48.0 - Paroxysmal atrial fibrillation Status: Acute Assessment and Plan: rate control strategy on anticoagulation Cardiology following Will continue to follow. Subjective Date/time seen: 09/22/22 11:10 Respiratory status and lower extremity edema seem relatively stable at this time; remains in negative fluid balance with current diuretic therapy; no other apparent issues/events overnight or earlier this morning; no apparent distress voiced; major complaints is that of fatigue/weakness. Exam Narrative: General: WD/WN female in NAD Heart: normal S1 and S2; no rub Lungs: coarse breath sounds; decreased at bases Abdomen: soft, nontender, nondistended, positive bowel sounds Extremities: bilateral edema (trace - 1+) present Skin: no nodules Objective Data Vital Signs Vital Signs: Vital Signs Temp Pulse Resp BP Pulse Ox O2 Del Method O2 Flow Rate 09/22/22 08:37 92 Nasal Cannula 2 09/22/22 08:01 76 09/22/22 08:00 97.2 F L 86 18 102/61 96 09/22/22 08:21 82 09/22/22 08:20 82 09/22/22 04:00 81 09/22/22 03:39 97.9 F 78 20 97/58 L 100 09/22/22 00:00 79 09/21/22 23:14 98.0 F 58 L 18 98/52 L 100 09/21/22 20:00 96 Nasal Cannula 2 09/21/22 20:00 87
[2022-09-22] MEDS: ACETAMINOPHEN 325 MG TABLET 650 MG PO (15:37)
--- NOTE | 2022-09-22 16:48 | PM.DS ---
DS: Admitting Diagnosis Discharge Date 09/22/2022 Admitting Diagnosis Generalized weakness DS: Discharge Diagnosis Discharge Diagnosis (1) Acute respiratory failure: Code(s): J96.00 - Acute respiratory failure, unspecified whether with hypoxia or hypercapnia Status: Acute Assessment and Plan: Acute on chronic hypoxic and hypercarbic Respiratory failure secondary to pulmonary edema with possible pneumonia -intubated on 09/02/2022 -successfully extubated on 09/09/2022, Continue diuretic therapy -status post full course of antibiotics -09/02/2022: Blood cultures negative x2 -09/02/2022 sputum cultures: Negative -09/02/2022 MRSA screen negative 09/22/2022 interval history: 71-year-old with cardiomyopathy status post hypoxic respiratory failure was intubated secondary to volume overload patient is being diuresed and clinical symptoms are improving states feeling much better not as short of breath is when she arrived, patient was seen by cardioloigst and switched over to oral lasix as symptoms have improved, however on 09/19 patient felt shortness of breath and more weak, and chest x-ray showed persistent pulmonary edema, however patient blood pressure is soft and has poor circulation, will reduce lasix 20mg PO BID, patient blood pressure is slightly better, also patient with A.fib on was Amiodarone 400mg qd, on 09/21 reduced it to 200mg PO qd, patient HR is in 80s, will monitor and further recommendation to follow, on 09/18 patient had MBS and passed but does require thickened liquids, patient will continue to work with physical therapy, feels tired and weak unable to participate in PT OT, has poor appetite will supplement with nutritional shakes, patient will benefit going to SNF rehab, her is present in the room answered all his questions (2) Acute on chronic combined systolic and diastolic CHF (congestive heart failure): Code(s): I50.43 - Acute on chronic combined systolic (congestive) and diastolic (congestive) heart failure Status: Acute Assessment and Plan: Echocardiogram done on 08/26 Summary ? 1. Left ventricular chamber dimension is moderately enlarged. ? 3. Left ventricular systolic function is moderately globally reduced, estimated at 35-40%. ? 6. Left atrial chamber dimension is moderately enlarged. ? 7. Right atrial chamber dimension is mildly enlarged. ? 10. There is moderate to severe aortic valve stenosis based on a peak velocity of 279.27 cm/s, mean gradient of 19 mmHg, and aortic valve area of 0.91 cm2. ? 11. There is moderate aortic valve regurgitation. ? 12. The mitral valve has mildly thickened leaflets and moderately calcified annulus. ? 13. There is moderate mitral valve regurgitation. ? 14. There is mild tricuspid valve regurgitation. ? 15. Moderate pulmonary hypertension, estimated pulmonary arterial systolic pressure is 51 mmHg. ? 16. Small atheroma in anterior and posterior aortic root. ? 17. Dilated inferior vena cava with <50% collapse upon inspiration consistent with significantly elevated right atrial pressure, 15 mmHg. Continue diuresing Apreciate cardiology input (3) Shock: Code(s): R57.9 - Shock, unspecified Status: Acute Assessment and Plan: RESOLVED (4) Aortic stenosis: Qualifiers: Cardiac valve disease etiology: nonrheumatic Qualified Code(s): I35.0 - Nonrheumatic aortic (valve) stenosis Code(s): I35.0 - Nonrheumatic aortic (valve) stenosis Status: Acute Assessment and Plan: See above (5) Paroxysmal atrial fibrillation: Code(s): I48.0 - Paroxysmal atrial fibrillation Status: Acute Assessment and Plan: Continue amiodarone hand Eliquis (6) Acute kidney injury: Code(s): N17.9 - Acute kidney failure, unspecified Status: Acute Assessment and Plan: Monitor kidney function (7) Sliding hiatal hernia: Code(s): K44.9 - Diaphragmatic hernia without obstru
[2022-09-22 18:52] LABS: EDCOVIDSCREEN Negative (Negative)
== END 2022-09-22 19:45 | DRG 291 ==
LOC: ANHED 20:03 → ANHIMU 20:45 → ANHICU 09-01 23:41 → ANHIMU 09-13 16:43 → ANH2MED 09-15 18:48
PROVIDERS: Chiropractor; Internal Medicine; Internal Medicine Cardiovascular Disease; Internal Medicine Nephrology; Nurse Practitioner; Admitting Provider Family Medicine; Emergency Provider Emergency Medicine; PCP Internal Medicine; Visit Provider Family Medicine
PROC: B24BZZ4 Ultrasonography of Heart with Aorta, Transesophageal (ICD-10-PCS; CPT 93312; principal; 2022-09-04 15:00)
DX: I11.0 Hypertensive heart disease with heart failure (principal); I50.43 Acute on chronic combined systolic (congestive) and diastolic (congestive) heart failure; J96.21 Acute and chronic respiratory failure with hypoxia; J96.22 Acute and chronic respiratory failure with hypercapnia; R57.0 Cardiogenic shock; J18.9 Pneumonia, unspecified organism; K44.0 Diaphragmatic hernia with obstruction, without gangrene; N17.9 Acute kidney failure, unspecified; E87.1 Hypo-osmolality and hyponatremia; I35.0 Nonrheumatic aortic (valve) stenosis; I48.0 Paroxysmal atrial fibrillation; M81.0 Age-related osteoporosis without current pathological fracture; Z20.822 Contact with and (suspected) exposure to COVID-19; Z86.16 Personal history of COVID-19; Z79.01 Long term (current) use of anticoagulants; Z79.899 Other long term (current) drug therapy
CPT/HCPCS: 31500; 36415; 36430; 36569; 36600; 51702; 70450; 71045; 71250; 73630; 74018; 74176; 80048; 80053; 80069; 80202; 81001; 81050; 82247; 82274; 82375; 82436; 82533; 82550; 82570; 82805; 82948; 83050; 83605; 83690; 83735; 83880; 83883; 83930; 83935; 84075; 84100; 84132; 84145; 84155; 84156; 84165; 84166; 84295; 84300; 84443; 84450; 84460; 84484; 84540; 85025; 85027; 85610; 85730; 86850; 86900; 86901; 86923; 87040; 87070; 87081; 87205; 87426; 87637; 92526; 92610; 92611; 93005; 93312; 93320; 93325; 94002; 94003; 95816; 96361; 96365; 96375; 97110; 97161; 97162; 97165; 97166; 97530; 97535; 99285; A9270; C1751; C8929; C9113; C9803; G0378; J0282; J0456; J0612; J0696; J1120; J1250; J1644; J1720; J1940; J2060; J2250; J2543; J2997; J3010; J3370; J3475; J3480; J7030; J7040; J7050; P9016; Q9957

== ENCOUNTER 2022-10-13 21:56 | Inpatient (IN) | payer MEDICARE, OTHER, SELFPAY ==
[2022-10-13] VITALS (20 sets, daily range): BP systolic 55–85; BP diastolic 34–70; PULSE 60–97; RESP 12–27; TEMP 36.1; O2SAT 93–100
--- NOTE | ~2022-10-13 | CT_ITS ---
EXAMINATION: CT abdomen pelvis wo con DATE: 10/14/2022 04:59 INDICATION: Renal failure. Left lower quadrant abdominal pain. TECHNIQUE: Computed tomography (CT) of the abdomen and pelvis was performed without intravenous contr ast. Automated exposure control and iterative reconstruction technique were employed. The dose-length product was 975.70 mGy-cm. COMPARISON: CT abdomen and pelvis 09/02/2022, chest CT 11/01/2013 FINDINGS: The visualized portions of the lung bases demonstrate groundglass opacities and septal thic kening. There are small pleural effusions. Cardiomegaly is noted. There are coronary artery calcifica tions. No pericardial effusion. There are calcifications of aortic valve. There is a large sliding hi atal hernia containing the entire stomach, the tail of the pancreas, and a portion of the transverse colon. The liver is normal. There is a gallstone in the gallbladder, which is normal in size. Calcifi cations in the spleen are consistent with old granulomatous disease. Right adrenal gland is normal. T here is a chronic 14 mm mass in left adrenal gland measuring soft tissue attenuation, likely an adeno ma. There is cortical thinning of the kidneys. No hydronephrosis. No urolithiasis. The bladder is dec ompressed by a Arceo catheter. Stool distends the rectum. There is diverticulosis of the colon withou t evidence of diverticulitis. The appendix is normal. There are no pathologically enlarged lymph node s. There is no free intraperitoneal fluid. There are widespread arterial calcifications. There is a t otal left hip arthroplasty. There is severe thoracic and lumbar spondylosis. IMPRESSION: 1. Diffuse lung disease, consistent with mild pulmonary edema and/or chronic lung disease. 2. Small pleural effusions. 3. Large sliding hiatal hernia. 4. Stool distends the rectum. Reviewed, dictated and finalized at location A. IMPRESSION: 1. Diffuse lung disease, consistent with mild pulmonary edema and/or chronic alicia ng disease. 2. Small pleural effusions. 3. Large sliding hiatal hernia. 4. Stool distends the rectum.
--- NOTE | 2022-10-13 22:22 | ECG_ITS ---
Measurements Intervals [place] Rate: 77 P: VA: 0 QRS: 25 QRSD: 117 T: 88 QT: 416 QTc: 472 Interpretive Statements ATRIAL FLUTTER/TACHYCARDIA WITH VARIABLE BLOCK INCOMPLETE LEFT BUNDLE BRANCH BLOCK BORDERLINE ST-T WAVE ABNORMALITY- LAT/HIGH LAT LEADS BASELINE ARTIFACT- III, AVF ABNORMAL ECG COMPARED TO ECG 09/04/2022 15:44:24 INCOMPLETE LEFT BUNDLE BRANCH BLOCK NOW PRESENT Electronically Signed On 10-14-2022 7:56:07 CDT by Fitz Delacruz D.O.
[2022-10-13 22:24] LABS: Basophils Percent Auto 0.1 % (0.2-1.2); Eosinophils Percent Auto 0.3 % (0-4.4); Immature Granulocyte Absolute 0.07 K/mm3 (0.00-0.031); Lymphocytes Absolute Auto 0.36 K/mm3 (0.9-3.2); Lymphocytes Percent Auto 4.9 % (18.3-44.2); Mean Corpuscular HGB Conc 28.3 g/dl (32-36); Mean Corpuscular Hemoglobin 25.9 pg (26-34); Mean Corpuscular Volume 91.5 fl (80-100); Mean Platelet Volume 8.5 fl (7.4-10.4); Monocytes Absolute Auto 0.6 K/mm3 (0.1-0.6); Monocytes Percent Auto 8.8 % (2.6-8.5); Neutrophils Absolute Auto 6.2 K/mm3 (1.3-6.7); Neutrophils Percent Auto 84.9 % (45.5-73.1); Nucleated Red Blood Cells Absolute Auto 0.2 K/mm3 (0.0-0.012); Nucleated Red Blood Cells Perc 3.2 % (0.0-0.2); Platelet Count Result 637 k/mm3 (150-375); Red Blood Count 2.01 M/mm3 (4.2-5.4); Red Cell Distribution Width 20.2 % (11.5-14.5); White Blood Count 7.3 K/mm3 (4.5-10.0)
[2022-10-13 22:34] LABS: Alanine Aminotransferase 18 U/L (6-35); Albumin Level 3.4 g/dL (3.5-5.1); Alkaline Phosphatase 134 U/L (38-126); Anion Gap 12 mmol/L (8-16); Aspartate Amino Transferase 18 U/L (14-36); Bilirubin,Total 0.5 mg/dL (0.2-1.3); Blood Urea Nitrogen 86 mg/dL (7-17); Calcium 7.7 mg/dL (8.4-10.2); Carbon Dioxide 26 mmol/L (22-30); Chloride 89 mmol/L (98-107); Estimated CRCL calculation 10 ml/min; Estimated Glomerular Filt Rate 10; Glucose 92 mg/dL (65-110); Lipase 242 U/L (23-300); Potassium 5.4 mmol/L (3.4-5.0); Sodium 127 mmol/L (137-145)
[2022-10-13 22:41] LABS: Hemoglobin 5.2 g/dL (12.0-15.0)
[2022-10-13 22:42] LABS: Hematocrit 18.4 % (37.0-47.0); Platelet Estimate Increased (Adequate)
[2022-10-13 22:43] LABS: Anisocytosis 1+ (NORMAL); Hypochromasia 1+ (NORMAL); Ovalocytes 1+ (NORMAL); Schistocytes None Seen (NORMAL); Target Cells 1+ (NORMAL)
[2022-10-13 22:56] LABS: Appearance Urine Clear (Clear); Bacteria Urine None Seen /hpf; Bilirubin Urine Negative (Negative); Blood Urine Negative (Negative); Color Urine Yellow (Yellow); Glucose Urine UA Negative (Negative); Ketones Urine Negative (Negative); Leukocyte Esterase Ur 1+ LEU/UL (Negative); Need Manual Microscopic Reviewed; Nitrate Urine Negative (Negative); Protein Urine 1+ mg/dL (Negative); RBC Urine 0-2 /hpf (0-2); Specific Grav Ur 1.015 (1.001-1.035); Squamous Epithelial Cell Urine Occasional /hpf (Few); Urobilinogen Urine 0.2 mg/dL (<2.0)
[2022-10-13 22:57] LABS: Add Urine Microscopic? YES
[2022-10-13] MEDS: SODIUM CHLORIDE 0.9% IV 1,000 ML 999 ML IV CONT ×2 (23:04→23:38)
[2022-10-14] VITALS (42 sets, daily range): BP systolic 46–134; BP diastolic 29–80; PULSE 60–94; RESP 11–28; TEMP 33–36.5; O2SAT 92–100; BMI 32.3
[2022-10-14] MEDS: SODIUM CHLORIDE 0.9% IV 200 ML 30 ML IV CONT (00:30)
[2022-10-14] MEDS: TUBING, BLOOD SET 1 EACH XX ×2 (01:55)
--- NOTE | 2022-10-14 02:28 | ED.GENADULT ---
HPI - General Adult General Chief complaint: Recheck/Abnormal Lab/Rx Stated complaint: ABD PAIN & ABNORMAL LABS Time Seen by Provider: 10/13/22 22:42 History of Present Illness HPI narrative: Patient is a 72-year-old female who presents to the emergency department with chief complaint of abnormal labs. Patient was recently admitted to the hospital for atrial fibrillation and had laboratory studies done while she was at the skilled nursing that showed her to have acute kidney injury and also a significant anemia. The patient does reports generalized weakness Related Data Home Medications Medication Instructions Recorded Confirmed apixaban 5 mg tablet (Eliquis) 5 mg PO BID 07/03/21 10/14/22 acetaminophen 500 mg tablet 1,000 mg PO Q8H PRN Pain (Scale 04/28/22 10/14/22 (Tylenol Extra Strength) Score 1-3) buspirone 7.5 mg tablet 7.5 mg PO BID 10/14/22 10/14/22 sacubitril 24 mg-valsartan 26 mg 1 tablet PO BID 10/14/22 10/14/22 tablet (Entresto) Allergies Allergy/AdvReac Type Severity Reaction Status Date / Time prednisone AdvReac Palpitation Verified 08/18/22 14:10 s Review of Systems Review of Systems: A 10 system review of systems was completed on the patient and is negative except for what is stated in the HPI. Nursing and ancillary documentation was reviewed. [facility] Past Medical History Medical History A-fib Acute on chronic combined systolic and diastolic CHF (congestive heart failure) Aortic stenosis, moderate BMI 34.0-34.9,adult BMI 35.0-35.9,adult BMI 36.0-36.9,adult BMI 38.0-38.9,adult BMI 39.0-39.9,adult Bruises easily Chronic edema COVID-19 CVA (cerebral vascular accident) Diverticulosis of large intestine without hemorrhage Encounter for Medicare annual wellness exam Encounter to establish care Essential (primary) hypertension Follow up [place], bilateral Hypertension Impaired functional mobility, balance, gait, and endurance Iron deficiency anemia Iron deficiency anemia Low serum potassium level Low serum sodium Lymphedema Osteoporosis Paroxysmal atrial fibrillation Paroxysmal atrial flutter Peripheral neuropathy Personal history of COVID-19 Right shoulder pain Violaceous color toes Vitamin B deficiency Surgical History Surgical History History of ankle surgery History of colonoscopy History of left hip replacement Presence of unspecified artificial knee joint Family History Family History Mother Family history of diabetes mellitus in first degree relative Sibling Family history of diabetes mellitus in first degree relative Father Pancreatic cancer Social History Social History Smoking status: Never smoker Second hand tobacco smoke exposure: No Alcohol intake: never Substance use: never Substance use type: does not use Lack of Transportation: No Lack of Food: Never True Current Housing: I Have Housing Concerned About Future Housing: No Difficulty Paying Gas/Electric Bills: No Difficulty Paying for Meds: No Currently Unemployed: No Education: High School Diploma/GED Difficulty w/ Childcare or Family Care: No Gender identity (if verbalized by the patient): Female Spiritual care concerns: No Exam Narrative: GENERAL: Ill-appearing, well-nourished, and in no acute distress. HEAD: Normocephalic, atraumatic. EYES: PERRLA and EOMI. ENT: Nares clear, no rhinorrhea or epistaxis. Mucous membranes moist. NECK: Supple. CHEST: Clear to auscultation. No respiratory distress. HEART: Regular rate and rhythm. No murmur heard. Normal peripheral pulses. ABDOMEN: Soft, diffuse mild tenderness, nondistended, normal active bowel sounds. EXTREMITIES: Normal range of motion. No edema. SKIN: Warm, dry, no r
[2022-10-14 02:32] LABS: Hematocrit 26.9 % (37.0-47.0); Hemoglobin 8.1 g/dL (12.0-15.0)
[2022-10-14] MEDS: SODIUM CHLORIDE 0.9% IV 1,000 ML 999 ML IV CONT (04:37)
--- NOTE | 2022-10-14 05:41 | ADMGEN ---
This patient, Lyndsey Mclean, was admitted to Intensive Care Unit-4. Patient/family oriented to hospital policies and general routines including ID bracelet, bed and alarms, visiting hours, pain management, procedures, bathroom and other care routines, personal items, smoking policy, room service/diet, and visiting hours. Information on how to activate the Rapid Response Team has been discussed. Patient/Family are encouraged to report perceived risks to care and to ask questions if they do not understand what they are told or what they should do.
[2022-10-14] MEDS: NOREPINEPHRINE 8 MG/D5W 250 ML 8 MG/250 ML BAG 9.38 MG IV CONT (06:50)
[2022-10-14] MEDS: SODIUM CHLORIDE 0.9% IV 1,000 ML 125 ML IV CONT (07:36)
--- NOTE | 2022-10-14 10:21 | WPDCNINT ---
Assessment and Plan Assessment and plan (1) Acute on chronic renal failure: Code(s): N17.9 - Acute kidney failure, unspecified; N18.9 - Chronic kidney disease, unspecified Status: Acute Assessment and Plan: On discharge recent creatinine was 1.7 and today she presented with 4.2 She was receiving diuretics at the [facility] at this could be secondary to hypotension and hypovolemia Treatment of hyperkalemia as below She is receiving PRBC and IV fluids Consult nephrology Check CK level Monitor in output electrolytes and creatinine Hold diuretics and blood pressure medication (2) Hyperkalemia: Code(s): E87.5 - Hyperkalemia Status: Acute Assessment and Plan: Secondary to JANINA, patient was also on potassium supplementation and Aldactone at [facility] All on hold Patient is doing IV fluid Lokelma ordered I will recheck BMP at this time and treat accordingly (3) Shock: Code(s): R57.9 - Shock, unspecified Status: Acute Assessment and Plan: Likely multifactorial shock as patient has cardiomyopathy, aortic stenosis, hypovolemia and questionable sepsis UA suggestive of UTI no other objective evidence of infection Check procalcitonin level Cultures have been sent and are pending Empiric vancomycin and cefepime at this time Continue IV fluids but at cautious rate. Will decrease to 75 mL/hour Continue Levophed titration to maintain mean arterial pressure (4) Anemia: Code(s): D64.9 - Anemia, unspecified Status: Acute Assessment and Plan: Patient presented with hemoglobin 5.2. He had a positive guaiac stool on last admission and was seen by GI but no procedure was done at that time as patient critically ill. Patient is on anticoagulation for her AFib. Patient is unable to provide any meaningful history whether she has had melena or hematochezia. Patient likely has multifactorial anemia in the form of anemia of chronic kidney disease, iron deficiency and possible GI blood loss She has received 3 units of PRBC. Monitor hemoglobin Check stool for Hemoccult IV PPI q.12 hours Hold Eliquis Consult GI (5) GI bleed: Code(s): K92.2 - Gastrointestinal hemorrhage, unspecified Status: Acute Assessment and Plan: See above (6) Cardiomyopathy: Qualifiers: Cardiomyopathy type: other Qualified Code(s): I42.8 - Other cardiomyopathies Code(s): I42.9 - Cardiomyopathy, unspecified Status: Acute (7) Paroxysmal atrial fibrillation: Code(s): I48.0 - Paroxysmal atrial fibrillation Status: Acute Assessment and Plan: Currently rate controlled Continue p.o. amiodarone Hold anticoagulation at this time (8) CHF (congestive heart failure): Code(s): I50.9 - Heart failure, unspecified Status: Acute Assessment and Plan: Recent ECHO Summary ? 1. Left ventricular chamber dimension is moderately enlarged. ? 2. Definity contrast administered improved wall motion interpretation. ? 3. Left ventricular systolic function is moderately globally reduced, estimated at 35-40%. ? 4. The left ventricular diastolic function is normal. ? 5. E/e' 9 is minimally elevated. ? 6. Left atrial chamber dimension is moderately enlarged. ? 7. Right atrial chamber dimension is mildly enlarged. ? 8. The aortic valve is not well visualized. Cannot determine number of aortic valve leaflets. ? 9. There is moderate aortic valve sclerosis. ? 10. There is moderate to severe aortic valve stenosis based on a peak velocity of 279.27 cm/s, mean gradient of 19 mmHg, and aortic valve area of 0.91 cm2. ? 11. There is moderate aortic valve regurgitation. ? 12. The mitral valve has mildly thickened leaflets and moderately calcified annulus. ? 13. There is moderate mitral valve regurgitation. ? 14. There is mild tricuspid valve regurgitation. ? 15. Moderate pulmonary hypertension, estimated pulmonary arterial systolic pressure is 51 mmHg. ? 16. Small at
[2022-10-14] MEDS: ACETAMINOPHEN 325 MG TABLET 650 MG PO (10:34)
[2022-10-14] MEDS: SODIUM ZIRCONIUM CYCLOSILICATE 10 GM POWD.PACK PO (10:34)
[2022-10-14] MEDS: TOLNAFTATE 1% POWDER 45 GM BTL 1 APPLIC TOPICAL ×2 (10:47→20:21)
[2022-10-14] MEDS: CEFEPIME 0.5 GM in DEXTROSE 5% IN WATER 50 ML IVPB (10:47)
--- NOTE | 2022-10-14 11:04 | P.CONNP_ITS ---
Assessment and Plan Assessment and plan (1) Acute kidney injury: Code(s): N17.9 - Acute kidney failure, unspecified Status: Acute Assessment and Plan: * multifactorial: * hypotension * hypovolemia * severe anemia * ongoing diuretic use [employer]OR [employer] * use of Entresto/BP meds [employer] * evaluation to date: * CT scan with cortical thinning of kidneys but no obstruction * urine electrolytes/eosinophils pending * CPK okay * holding diuretics and BP meds for now * follow repeat labs and UOP (2) Stage 3b chronic kidney disease: Code(s): N18.32 - Chronic kidney disease, stage 3b Status: Acute Assessment and Plan: * baseline creatinine seems to run 1.5 - 1.7mg/d from last hospitalization * due to chronic systolic/diastolic heart failure, valvular heart disease, HTN and need for aggressive diuretic therapy (3) Hyperkalemia: Code(s): E87.5 - Hyperkalemia Status: Acute Assessment and Plan: * due to JANINA, K+ supplements, aldactone, and entresto * lokelma PRN * follow trend of K+ (4) Hyponatremia: Code(s): E87.1 - Hypo-osmolality and hyponatremia Status: Acute Assessment and Plan: * likely secondary to JANINA, dehydration and hypovolemia * follow trend with interventions (5) Shock: Code(s): R57.9 - Shock, unspecified Status: Acute Assessment and Plan: * several ongoing issues responsible: * hypovolemia * anemia * cardiomyopathy/CHF * valvular heart disease * possible sepsis(?) * follow culture data * UA suggestive of UTI (but no other source noted) * empiric antibiotics * vasopressor therapy to maintain MAP * careful with IVFs given known history of CHF * follow trend of hemodynamics (6) Anemia: Code(s): D64.9 - Anemia, unspecified Status: Acute Assessment and Plan: * low H/H on admission * complicated by ongoing anticoagulation for Afib * known to be guaiac positive from last hospitalization but no GI procedures due to her acute illness/state * likely due to JANINA, CKD, iron deficiency and suspected GI loss * s/p PRBC with improvement in H/h * IV PPI * GI consulted * follow trend of H/H (7) CHF (congestive heart failure): Code(s): I50.9 - Heart failure, unspecified Status: Acute Assessment and Plan: * known chronic systolic + diastolic dysfunction * holding diuretics and BP medications at this time * appears compensated at this time * follow volume status closely (8) Paroxysmal atrial fibrillation: Code(s): I48.0 - Paroxysmal atrial fibrillation Status: Acute Assessment and Plan: * rate controlled * on amiodarone * off anticoagulation at this time History of Present Illness Reason for Consult Consult date: 10/14/22 Reason for consult: acute renal failure (on chronic kidney disease) Chief Complaint Chief complaint: Acute Anemia,Acute Kidney Injury,Hypotension History of Present Illness Narrative: Most of the information I have obtained is from review of the electronic medical record as well as my previous involvement with the patient on her previous ho spitalization as the patient is unable to provide much information due to her being a poor historian. The patient is a 72-year-old female with a past medical history as outlined below who presented to [facility] Emergency room for further evaluation of abnormal labs. Apparently, labs that she had done the day prior
--- NOTE | 2022-10-14 11:04 | PM.CNNEP ---
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 to date: CT scan with cortical thinning of kidneys but no obstruction urine electrolytes/eosinophils pending CPK okay holding diuretics and BP meds for now follow repeat labs and UOP (2) Stage 3b chronic kidney disease: Code(s): N18.32 - Chronic kidney disease, stage 3b Status: Acute Assessment and Plan: baseline creatinine seems to run 1.5 - 1.7mg/d from last hospitalization due to chronic systolic/diastolic heart failure, valvular heart disease, HTN and need for aggressive diuretic therapy (3) Hyperkalemia: Code(s): E87.5 - Hyperkalemia Status: Acute Assessment and Plan: due to JANINA, K+ supplements, aldactone, and entresto lokelma PRN follow trend of K+ (4) Hyponatremia: Code(s): E87.1 - Hypo-osmolality and hyponatremia Status: Acute Assessment and Plan: likely secondary to JANINA, dehydration and hypovolemia follow trend with interventions (5) Shock: Code(s): R57.9 - Shock, unspecified Status: Acute Assessment and Plan: several ongoing issues responsible: hypovolemia anemia cardiomyopathy/CHF valvular heart disease possible sepsis(?) follow culture data UA suggestive of UTI (but no other source noted) empiric antibiotics vasopressor therapy to maintain MAP careful with IVFs given known history of CHF follow trend of hemodynamics (6) Anemia: Code(s): D64.9 - Anemia, unspecified Status: Acute Assessment and Plan: low H/H on admission complicated by ongoing anticoagulation for Afib known to be guaiac positive from last hospitalization but no GI procedures due to her acute illness/state likely due to JANINA, CKD, iron deficiency and suspected GI loss s/p PRBC with improvement in H/h IV PPI GI consulted follow trend of H/H (7) CHF (congestive heart failure): Code(s): I50.9 - Heart failure, unspecified Status: Acute Assessment and Plan: known chronic systolic + diastolic dysfunction holding diuretics and BP medications at this time appears compensated at this time follow volume status closely (8) Paroxysmal atrial fibrillation: Code(s): I48.0 - Paroxysmal atrial fibrillation Status: Acute Assessment and Plan: rate controlled on amiodarone off anticoagulation at this time History of Present Illness Reason for Consult Consult date: 10/14/22 Reason for consult: acute renal failure (on chronic kidney disease) Chief Complaint Chief complaint: Acute Anemia,Acute Kidney Injury,Hypotension History of Present Illness Narrative: Most of the information I have obtained is from review of the electronic medical record as well as my previous involvement with the patient on her previous hospitalization as the patient is unable to provide much information due to her being a poor historian. The patient is a 72-year-old female with a past medical history as outlined below who presented to [facility] Emergency room for further evaluation of abnormal labs. Apparently, labs that she had done the day prior to presentation/admission to the hospital demonstrated a marked decline in her renal function with a creatinine of 3.36 and a potassium of 5.7. I am unclear if the patient had any other symptoms or issues at her nursing facility aside from the aforementioned laboratory abnormalities. Workup and evaluation in the emergency room demonstrated the patient to be hypotensive and acutely confused. She was given aggressive IV fluid resuscitation for her hypotension but did not respond to this intervention. A central line was placed a
[2022-10-14 11:07] LABS: Hematocrit 30.9 % (37.0-47.0); Hemoglobin 9.8 g/dL (12.0-15.0)
[2022-10-14 11:27] LABS: Anion Gap 10 mmol/L (8-16); Blood Urea Nitrogen 72 mg/dL (7-17); Carbon Dioxide 22 mmol/L (22-30); Chloride 100 mmol/L (98-107); Estimated CRCL calculation 13 ml/min; Estimated Glomerular Filt Rate 14; Glucose 89 mg/dL (65-110); Potassium 4.9 mmol/L (3.4-5.0); Sodium 132 mmol/L (137-145)
[2022-10-14 11:28] LABS: Creatine Kinase 32 U/L (30-135)
--- NOTE | 2022-10-14 11:37 | PM.IMHP ---
H&P: HPI History of Present Illness Date/Time: 10/14/22 11:37 Chief Complaint: Abnormal labs Narrative: 72-year-old female with past medical history significant for atrial fibrillation, cardiomyopathy, aortic stenosis, pulmonary hypertension, heart failure, chronic hyponatremia, chronic anticoagulation with Coumadin, chronic kidney disease and anemia is presenting from a assisted facility for abnormal labs. She was discharged from [facility] on September 22 after prolonged hospitalization for respiratory failure, shock and renal failure requiring intubation and vasopressors. 10/13 she was found to have an elevated creatinine and hyperkalemia and was sent to the ER. In the ER, she was found to be anemic with a hemoglobin of 5.2 and given 3 units of packed red blood cells. She was noted to be significantly hypotensive requiring a central venous catheter placement and Levophed titration. She was then admitted to the ICU for supportive care. Review of Systems Review of Systems: 12 point review of systems was assessed and was negative except as noted in the HPI [facility] Past Medical History Medical History A-fib Acute on chronic combined systolic and diastolic CHF (congestive heart failure) Aortic stenosis, moderate BMI 34.0-34.9,adult BMI 35.0-35.9,adult BMI 36.0-36.9,adult BMI 38.0-38.9,adult BMI 39.0-39.9,adult Bruises easily Chronic edema COVID-19 CVA (cerebral vascular accident) Diverticulosis of large intestine without hemorrhage Encounter for Medicare annual wellness exam Encounter to establish care Essential (primary) hypertension Follow up [place], bilateral Hypertension Impaired functional mobility, balance, gait, and endurance Iron deficiency anemia Iron deficiency anemia Low serum potassium level Low serum sodium Lymphedema Osteoporosis Paroxysmal atrial fibrillation Paroxysmal atrial flutter Peripheral neuropathy Personal history of COVID-19 Right shoulder pain Violaceous color toes Vitamin B deficiency Surgical History Surgical History History of ankle surgery History of colonoscopy History of left hip replacement Presence of unspecified artificial knee joint Family History Family History Mother Family history of diabetes mellitus in first degree relative Sibling Family history of diabetes mellitus in first degree relative Father Pancreatic cancer Social History Social History Smoking status: Never smoker Second hand tobacco smoke exposure: No Alcohol intake: never Substance use: never Substance use type: does not use Lack of Transportation: No Lack of Food: Never True Current Housing: I Have Housing Concerned About Future Housing: No Difficulty Paying Gas/Electric Bills: No Difficulty Paying for Meds: No Currently Unemployed: No Education: High School Diploma/GED Difficulty w/ Childcare or Family Care: No Gender identity (if verbalized by the patient): Female Spiritual care concerns: No Meds Home Medications and Allergies Home Medications Medication Instructions Recorded Confirmed Type apixaban 5 mg tablet (Eliquis) 5 mg PO BID 07/03/21 10/14/22 History acetaminophen 500 mg tablet 1,000 mg PO Q8H PRN Pain (Scale 04/28/22 10/14/22 History (Tylenol Extra Strength) Score 1-3) nystatin 100,000 unit/gram topical 1 applic topical BID PRN rash #60 06/02/22 10/14/22 Rx powder grams furosemide 40 mg tablet (Lasix) 40 mg PO QAM #30 tabs 08/18/22 10/14/22 Rx meclizine 25 mg tablet 25 mg PO TID PRN dizziness #30 tabs 08/18/22 10/14/22 Rx potassium chloride 10 mEq 10 meq PO DAILY #30 tabs 08/18/22 10/14/22 Rx tablet,extended release(part/cryst) (Klor-Con M) acetazolamide 250 mg tablet 250
[2022-10-14 11:48] LABS: Procalcitonin 0.2 ng/mL
[2022-10-14] MEDS: CENTRAL LINE FLUSH 10 ML IV PUSH ×3 (14:00→20:20)
[2022-10-14 14:53] LABS: Hematocrit 31.3 % (37.0-47.0); Hemoglobin 10.1 g/dL (12.0-15.0)
--- NOTE | 2022-10-14 16:31 | PCSTNOTE ---
Please refer to the Bedside Swallow Evaluation in the EMR. Please note, silent aspiration cannot be ruled out at bedside.
--- NOTE | 2022-10-14 16:41 | WPDGICN ---
Assessment and Plan Assessment and plan (1) Anemia: Code(s): D64.9 - Anemia, unspecified Status: Acute Assessment and Plan: She has been anemic since last year. She never sees evidence of blood in her stools but she had a drop her hemoglobin last month from 8.4-7 and now again has significant drop in her hemoglobin this time to 5.2. She has been given 3 units of blood so far (2) GI bleed: Code(s): K92.2 - Gastrointestinal hemorrhage, unspecified Status: Acute Assessment and Plan: Stool is Hemoccult positive. She was too ill to consider endoscopic examination during her last hospitalization. She may be up to it in a couple of days. (3) Acute on chronic renal failure: Code(s): N17.9 - Acute kidney failure, unspecified; N18.9 - Chronic kidney disease, unspecified Status: Acute Assessment and Plan: He appears that the rise in her BUN creatinine was due to dehydration. She had had vigorous diuresis in the shelter. (4) Hyperkalemia: Code(s): E87.5 - Hyperkalemia Status: Acute Assessment and Plan: This has been corrected (5) A-fib: Code(s): I48.91 - Unspecified atrial fibrillation Status: Acute Assessment and Plan: She has chronic arrhythmia. Her last EKG is read as atrial flutter and tachycardia. There are notes in the chart that she takes warfarin but she actually has been on apixaban lately (6) Fecal impaction: Code(s): K56.41 - Fecal impaction Status: Acute Assessment and Plan: Is quite uncomfortable with a fecal impaction. She was just recently given an enema and has had great results and much relief with that. Plan She passed her swallow evaluation today and therefore has been placed on small bites of food. I agree with that. Perhaps in a couple of days we can consider endoscopy if she is able to tolerate a prep for colonoscopy. Until then apixaban will be held. GI Consult Note Consult date/time: 10/14/22 16:41 HPI: Lyndsey Mclean is a 72 year old female resident of [facility]. She was recently hospitalized for about 30 days having had respiratory failure, she was intubated and found to be anemic. She is known to have aortic stenosis. Her ejection fraction is around 35%. She was in the shelter the last couple weeks and according to her family member she was given quite a bit of Lasix. She had blood work done yesterday that showed an elevation of her creatinine and hyperkalemia as well. She came to the emergency room where she was found to have a hemoglobin of 5.2. Subsequently, she has received 3 units of packed red blood cells she has had been admitted to intensive care unit and has a central venous catheter placed. She states that she was eating well. She has not seen blood in her stools but her blood counts are significant lower now. I had seen her last year in the office regarding anemia and she declined colonoscopy at that time, electing to do a Cologuard instead. From what I can tell it never was done. Her creatinine last admission was 1.7. Now 3 weeks later is 3.2. Likewise BUN increased from 32-72. Was 86 yesterday. Review of Systems Review of Systems: All systems reviewed & are unremarkable except as noted in HPI and below PMFSH Past Medical History Medical History A-fib Acute on chronic combined systolic and diastolic CHF (congestive heart failure) Aortic stenosis, moderate BMI 34.0-34.9,adult BMI 35.0-35.9,adult BMI 36.0-36.9,adult BMI 38.0-38.9,adult BMI 39.0-39.9,adult Bruises easily Chronic edema COVID-19 CVA (cerebral vascular accident) Diverticulosis of large intestine without hemorrhage Encounter for Medicare annual wellness exam Encounter to establish care Essential (primary) hypertension Follow up Mary, bilateral Hypertension Impaired functional mobility, balance, gait, and endura
[2022-10-14] MEDS: SODIUM CHLORIDE 0.9% IV 1,000 ML 75 ML IV CONT (20:18)
[2022-10-14 20:21] LABS: Hematocrit 30.8 % (37.0-47.0); Hemoglobin 9.7 g/dL (12.0-15.0)
[2022-10-14] MEDS: SENNA/DOCUSATE SODIUM TABLET 1 TAB PO (20:22)
[2022-10-14] MEDS: PANTOPRAZOLE SODIUM IV 40 MG VIAL IV PUSH (20:22)
[2022-10-14 20:41] LABS: IFOB Positive Control Positive
[2022-10-14 20:43] LABS: Immunochemical Fecal Occult Bl Positive (N)
[2022-10-15] VITALS (29 sets, daily range): BP systolic 66–204; BP diastolic 43–190; PULSE 61–89; RESP 14–23; TEMP 34.8–36.4; O2SAT 95–98
[2022-10-15] MEDS: NOREPINEPHRINE 8 MG/D5W 250 ML 8 MG/250 ML BAG 15 MG IV CONT (04:01)
[2022-10-15] MEDS: CENTRAL LINE FLUSH 10 ML IV PUSH ×4 (04:41→20:01)
[2022-10-15 04:46] LABS: Hematocrit 30.8 % (37.0-47.0); Hemoglobin 9.6 g/dL (12.0-15.0); Mean Corpuscular HGB Conc 31.2 g/dl (32-36); Mean Corpuscular Hemoglobin 26.5 pg (26-34); Mean Corpuscular Volume 85.1 fl (80-100); Mean Platelet Volume 8.1 fl (7.4-10.4); Platelet Count Result 492 k/mm3 (150-375); Red Blood Count 3.62 M/mm3 (4.2-5.4); Red Cell Distribution Width 19.2 % (11.5-14.5); White Blood Count 10.4 K/mm3 (4.5-10.0)
[2022-10-15 04:51] LABS: Alanine Aminotransferase 18 U/L (6-35); Albumin Level 3.3 g/dL (3.5-5.1); Alkaline Phosphatase 136 U/L (38-126); Anion Gap 9 mmol/L (8-16); Aspartate Amino Transferase 20 U/L (14-36); Bilirubin,Total 0.5 mg/dL (0.2-1.3); Blood Urea Nitrogen 64 mg/dL (7-17); Calcium 7.4 mg/dL (8.4-10.2); Carbon Dioxide 23 mmol/L (22-30); Chloride 102 mmol/L (98-107); Estimated CRCL calculation 16 ml/min; Estimated Glomerular Filt Rate 18; Glucose 114 mg/dL (65-110); Magnesium 2.1 mg/dL (1.6-2.3); Phosphorus 6.5 mg/dL (2.5-4.5); Potassium 4.3 mmol/L (3.4-5.0); Sodium 134 mmol/L (137-145)
[2022-10-15] MEDS: AMIODARONE HCL 200 MG TABLET PO (08:43)
[2022-10-15] MEDS: PANTOPRAZOLE SODIUM IV 40 MG VIAL IV PUSH ×2 (08:43→19:59)
[2022-10-15] MEDS: TOLNAFTATE 1% POWDER 45 GM BTL 1 APPLIC TOPICAL ×2 (08:43→19:59)
[2022-10-15] MEDS: polyethylene glycoL 3350 17 GM POWD.PACK PO (08:43)
--- NOTE | 2022-10-15 09:12 | WPDINTPN ---
Progress Note: A&P Assessment and Plan (1) Acute on chronic renal failure: Code(s): N17.9 - Acute kidney failure, unspecified; N18.9 - Chronic kidney disease, unspecified Status: Acute Assessment and Plan: On discharge recent creatinine was 1.7 and today she presented with 4.2 She was receiving diuretics at the correction at this could be secondary to hypotension and hypovolemia Treatment of hyperkalemia as below She also received PRBC and IV fluids Normal cK level Creatinine is improving at 2.6 Nephrology following Monitor in output electrolytes and creatinine Continue to hold diuretics and blood pressure medication Continue cautious amount of IV fluids (2) Hyperkalemia: Code(s): E87.5 - Hyperkalemia Status: Acute Assessment and Plan: Secondary to JANINA, patient was also on potassium supplementation and Aldactone at correction All on hold Improved with IV fluids and Lokelma (3) Shock: Code(s): R57.9 - Shock, unspecified Status: Acute Assessment and Plan: Likely multifactorial shock as patient has cardiomyopathy, aortic stenosis, hypovolemia and questionable sepsis UA mildly suggestive of UTI but no other objective evidence of infection Her procalcitonin level was low at 0.2 suggesting against systemic infection Cultures have been sent and urine cultures growing Enterococcus Empiric vancomycin and cefepime at this time Continue cautious amount of IV fluids Add hydrocortisone Continue Levophed titration to maintain mean arterial pressure (4) Anemia: Code(s): D64.9 - Anemia, unspecified Status: Acute Assessment and Plan: Patient presented with hemoglobin 5.2. He had a positive guaiac stool on last admission and was seen by GI but no procedure was done at that time as patient critically ill. Patient is on anticoagulation for her AFib. Patient is unable to provide any meaningful history whether she has had melena or hematochezia. Patient likely has multifactorial anemia in the form of anemia of chronic kidney disease, iron deficiency and possible GI blood loss She has received 3 units of PRBC. Hemoglobin has been stable since that monitor hemoglobin Positive stool for Hemoccult IV PPI q.12 hours Hold Eliquis GI following and planning to do EGD and colonoscopy (5) GI bleed: Code(s): K92.2 - Gastrointestinal hemorrhage, unspecified Status: Acute Assessment and Plan: See above (6) CHF (congestive heart failure): Code(s): I50.9 - Heart failure, unspecified Status: Acute Assessment and Plan: Recent ECHO Summary ? 1. Left ventricular chamber dimension is moderately enlarged. ? 2. Definity contrast administered improved wall motion interpretation. ? 3. Left ventricular systolic function is moderately globally reduced, estimated at 35-40%. ? 4. The left ventricular diastolic function is normal. ? 5. E/e' 9 is minimally elevated. ? 6. Left atrial chamber dimension is moderately enlarged. ? 7. Right atrial chamber dimension is mildly enlarged. ? 8. The aortic valve is not well visualized. Cannot determine number of aortic valve leaflets. ? 9. There is moderate aortic valve sclerosis. ? 10. There is moderate to severe aortic valve stenosis based on a peak velocity of 279.27 cm/s, mean gradient of 19 mmHg, and aortic valve area of 0.91 cm2. ? 11. There is moderate aortic valve regurgitation. ? 12. The mitral valve has mildly thickened leaflets and moderately calcified annulus. ? 13. There is moderate mitral valve regurgitation. ? 14. There is mild tricuspid valve regurgitation. ? 15. Moderate pulmonary hypertension, estimated pulmonary arterial systolic pressure is 51 mmHg. ? 16. Small atheroma in anterior and posterior aortic root. ? 17. Dilated inferior vena cava with <50% collapse upon inspiration consistent with significantly elevated right atrial pressure, 15 mmHg. (7) Cardiomyopathy: Qualifiers: Cardiomyopathy ty
--- NOTE | 2022-10-15 11:03 | PCFNICU ---
ICU Rounding Note: Pt current nutrition is Soft and Bite Sized, Level 6. Last recorded weight is 75.9 kg. Bowel Motility: No BM reported at this time. Labs Reviewed:PO4 6.5, Alb 3.3,GFR 18, BUN 64, Cr 2.6 Meds Noted:Protonix, Miralax, Senokot Skin: Bilateral buttock-friction Additional Notes: Patient had MBS on 10/14-recommending Soft and Bite Sized, Level 6. Tolerating diet today. Plans for NPO after midnight for EGD/colonoscopy on 10/16. Agree with diet orders. Monitor speech eval, diet orders, tolerance, wt, labs, skin. Follow up in 5 days and round daily in ICU.
[2022-10-15] MEDS: BISACODYL 5 MG TABLET EC 10 MG PO ×3 (12:33→20:00)
--- NOTE | 2022-10-15 12:39 | P.PNNP_ITS ---
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 * use of Entresto/BP meds DANCE CRITIC * evaluation to date: * CT scan with cortical thinning of kidneys but no obstruction * urine electrolytes/eosinophils pending * CPK okay * holding diuretics and BP meds for now * follow repeat labs and UOP (2) Stage 3b chronic kidney disease: Code(s): N18.32 - Chronic kidney disease, stage 3b Status: Acute Assessment and Plan: * baseline creatinine seems to run 1.5 - 1.7mg/d from last hospitalization * due to chronic systolic/diastolic heart failure, valvular heart disease, HTN and need for aggressive diuretic therapy to maintain volume status (3) Hyperkalemia: Code(s): E87.5 - Hyperkalemia Status: Acute Assessment and Plan: * resolved * due to JANINA, K+ supplements, aldactone, and entresto * lokelma PRN * follow trend of K+ (4) Hyponatremia: Code(s): E87.1 - Hypo-osmolality and hyponatremia Status: Acute Assessment and Plan: * stable if not improving * likely secondary to JANINA, dehydration and hypovolemia * follow trend with interventions (5) Shock: Code(s): R57.9 - Shock, unspecified Status: Acute Assessment and Plan: * several ongoing issues responsible: * hypovolemia * anemia * cardiomyopathy/CHF * valvular heart disease * possible sepsis(?) * follow culture data * UA suggestive of UTI (but no other source noted) * empiric antibiotics * vasopressor therapy to maintain MAP * careful with IVFs given known history of CHF * follow trend of hemodynamics (6) Anemia: Code(s): D64.9 - Anemia, unspecified Status: Acute Assessment and Plan: * low H/H on admission * complicated by ongoing anticoagulation for Afib * known to be guaiac positive from last hospitalization but no GI procedures due to her acute illness/state * likely due to JANINA, CKD, iron deficiency and suspected GI loss * s/p PRBC with improvement in H/h * IV PPI * GI following -- possible colonoscopy as condition improved * follow trend of H/H (7) CHF (congestive heart failure): Code(s): I50.9 - Heart failure, unspecified Status: Acute Assessment and Plan: * known chronic systolic + diastolic dysfunction * holding diuretics and BP medications at this time * appears compensated at this time * follow volume status closely (8) Paroxysmal atrial fibrillation: Code(s): I48.0 - Paroxysmal atrial fibrillation Status: Acute Assessment and Plan: * rate controlled * on amiodarone * off anticoagulation at this time Will continue to follow. Subjective Date/time seen: 10/15/22 12:39 Appears to be doing a bit better today; remains on IVF as well as vasopressor therapy; better urine output noted along with improvement in renal function; major complaint is that of chronic bilateral foot pain along with generalized weakness/fatigue; no apparent distress noted; no issues or problems overnight or earlier this morning. Exam Narrative: General: chronically ill-appearing female in NAD Heart: IRRR, normal S1 and S2; no rub Lungs: coarse breath sounds with a few crackles at the bases Abdomen: soft,
--- NOTE | 2022-10-15 12:39 | PM.PNNEP ---
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 evaluation to date: CT scan with cortical thinning of kidneys but no obstruction urine electrolytes/eosinophils pending CPK okay holding diuretics and BP meds for now follow repeat labs and UOP (2) Stage 3b chronic kidney disease: Code(s): N18.32 - Chronic kidney disease, stage 3b Status: Acute Assessment and Plan: baseline creatinine seems to run 1.5 - 1.7mg/d from last hospitalization due to chronic systolic/diastolic heart failure, valvular heart disease, HTN and need for aggressive diuretic therapy to maintain volume status (3) Hyperkalemia: Code(s): E87.5 - Hyperkalemia Status: Acute Assessment and Plan: resolved due to JANINA, K+ supplements, aldactone, and entresto lokelma PRN follow trend of K+ (4) Hyponatremia: Code(s): E87.1 - Hypo-osmolality and hyponatremia Status: Acute Assessment and Plan: stable if not improving likely secondary to JANINA, dehydration and hypovolemia follow trend with interventions (5) Shock: Code(s): R57.9 - Shock, unspecified Status: Acute Assessment and Plan: several ongoing issues responsible: hypovolemia anemia cardiomyopathy/CHF valvular heart disease possible sepsis(?) follow culture data UA suggestive of UTI (but no other source noted) empiric antibiotics vasopressor therapy to maintain MAP careful with IVFs given known history of CHF follow trend of hemodynamics (6) Anemia: Code(s): D64.9 - Anemia, unspecified Status: Acute Assessment and Plan: low H/H on admission complicated by ongoing anticoagulation for Afib known to be guaiac positive from last hospitalization but no GI procedures due to her acute illness/state likely due to JANINA, CKD, iron deficiency and suspected GI loss s/p PRBC with improvement in H/h IV PPI GI following -- possible colonoscopy as condition improved follow trend of H/H (7) CHF (congestive heart failure): Code(s): I50.9 - Heart failure, unspecified Status: Acute Assessment and Plan: known chronic systolic + diastolic dysfunction holding diuretics and BP medications at this time appears compensated at this time follow volume status closely (8) Paroxysmal atrial fibrillation: Code(s): I48.0 - Paroxysmal atrial fibrillation Status: Acute Assessment and Plan: rate controlled on amiodarone off anticoagulation at this time Will continue to follow. Subjective Date/time seen: 10/15/22 12:39 Appears to be doing a bit better today; remains on IVF as well as vasopressor therapy; better urine output noted along with improvement in renal function; major complaint is that of chronic bilateral foot pain along with generalized weakness/fatigue; no apparent distress noted; no issues or problems overnight or earlier this morning. Exam Narrative: General: chronically ill-appearing female in NAD Heart: IRRR, normal S1 and S2; no rub Lungs: coarse breath sounds with a few crackles at the bases Abdomen: soft, nontender, nondistended, positive bowel sounds Extremities: no cyanosis or clubbing; trace edema Skin: mottling of bilateral feet Objective Data Vital Signs Vital Signs: Vital Signs Temp Pulse Resp BP Pulse Ox O2 Del Method O2 Flow Rate 10/15/22 12:00 68 10/15/22 10:00 61 10/15/22 12:00 96.8 F L 75 18 97/56 L 97 10/15/22 10:00 61 22 H 76/54 L 98 10/15/22 08:00 94.6 F L 80 19 99/85 L 98 10/15/22 12:00 97 Nasal Cannula 2 10/15/22 10:15 70 84/50 L 10/15/22 09:49 70 73/46 L
[2022-10-15] MEDS: SENNA/DOCUSATE SODIUM TABLET 1 TAB PO (19:59)
[2022-10-15] MEDS: DAPTOmycin 750 MG in SODIUM CHLORIDE 0.9% IV 50 ML 100 MG IVPB (20:45)
[2022-10-15] MEDS: NOREPINEPHRINE 8 MG/D5W 250 ML 8 MG/250 ML BAG 9.38 MG IV CONT (21:56)
[2022-10-15] MEDS: CALCIUM CARBONATE (TUMS) 500 MG (200 MG ELEMENTAL) PO (22:38)
[2022-10-16] VITALS (24 sets, daily range): BP systolic 70–182; BP diastolic 45–160; PULSE 66–91; RESP 10–20; TEMP 35.7–36.4; O2SAT 93–98
[2022-10-16] MEDS: CENTRAL LINE FLUSH 10 ML IV PUSH ×4 (05:40→21:22)
[2022-10-16 05:44] LABS: Hematocrit 32.3 % (37.0-47.0); Hemoglobin 9.8 g/dL (12.0-15.0); Mean Corpuscular HGB Conc 30.3 g/dl (32-36); Mean Corpuscular Hemoglobin 26.9 pg (26-34); Mean Corpuscular Volume 88.7 fl (80-100); Mean Platelet Volume 7.8 fl (7.4-10.4); Platelet Count Result 421 k/mm3 (150-375); Red Blood Count 3.64 M/mm3 (4.2-5.4); Red Cell Distribution Width 19.4 % (11.5-14.5); White Blood Count 9.6 K/mm3 (4.5-10.0)
[2022-10-16 06:05] LABS: Alanine Aminotransferase 17 U/L (6-35); Albumin Level 3.2 g/dL (3.5-5.1); Alkaline Phosphatase 138 U/L (38-126); Anion Gap 6 mmol/L (8-16); Aspartate Amino Transferase 19 U/L (14-36); Bilirubin,Total 0.5 mg/dL (0.2-1.3); Blood Urea Nitrogen 51 mg/dL (7-17); Calcium 7.8 mg/dL (8.4-10.2); Carbon Dioxide 24 mmol/L (22-30); Chloride 104 mmol/L (98-107); Estimated CRCL calculation 22 ml/min; Estimated Glomerular Filt Rate 26; Glucose 114 mg/dL (65-110); Potassium 3.7 mmol/L (3.4-5.0); Sodium 134 mmol/L (137-145)
[2022-10-16] MEDS: NOREPINEPHRINE 8 MG/D5W 250 ML 8 MG/250 ML BAG 3.75 MG IV CONT (08:37)
[2022-10-16] MEDS: AMIODARONE HCL 200 MG TABLET PO (08:42)
[2022-10-16] MEDS: TOLNAFTATE 1% POWDER 45 GM BTL 1 APPLIC TOPICAL ×2 (08:42→20:04)
[2022-10-16] MEDS: PANTOPRAZOLE SODIUM IV 40 MG VIAL IV PUSH ×2 (08:43→20:04)
[2022-10-16] MEDS: BISACODYL 10 MG SUPPOSITORY RECTAL (08:43)
[2022-10-16] MEDS: polyethylene glycoL 3350 17 GM POWD.PACK PO (08:43)
[2022-10-16] MEDS: CALCIUM GLUC 2,000 MG/NS 100ML 2,000 MG/100 ML BAG 100 MG IVPB (09:18)
--- NOTE | 2022-10-16 09:32 | WPDINTPN ---
Progress Note: A&P Assessment and Plan (1) Acute on chronic renal failure: Code(s): N17.9 - Acute kidney failure, unspecified; N18.9 - Chronic kidney disease, unspecified Status: Acute Assessment and Plan: On discharge recent creatinine was 1.7 and today she presented with 4.2 She was receiving diuretics at the long term at this could be secondary to hypotension and hypovolemia Treatment of hyperkalemia as below She also received PRBC and IV fluids Normal cK level Creatinine is improving and down to 1.9 today Nephrology following Monitor in output electrolytes and creatinine Continue to hold diuretics and blood pressure medication Hold further crystalloids. I will give some albumin (2) Hyperkalemia: Code(s): E87.5 - Hyperkalemia Status: Acute Assessment and Plan: Secondary to JANINA, patient was also on potassium supplementation and Aldactone at long term All on hold Improved with IV fluids and Lokelma (3) Shock: Code(s): R57.9 - Shock, unspecified Status: Acute Assessment and Plan: Likely multifactorial shock as patient has cardiomyopathy, aortic stenosis, hypovolemia and questionable sepsis UA mildly suggestive of UTI but no other objective evidence of infection Her procalcitonin level was low at 0.2 suggesting against systemic infection Cultures have been sent and urine cultures growing VRE Empiric cefepime. Vancomycin was changed to to daptomycin cover for VRE 10/15 Patient continues to require low-dose of Levophed. She is off IV fluids now. Good urine output Add hydrocortisone Add albumin Continue Levophed titration to maintain mean arterial pressure (4) Anemia: Code(s): D64.9 - Anemia, unspecified Status: Acute Assessment and Plan: Patient presented with hemoglobin 5.2. He had a positive guaiac stool on last admission and was seen by GI but no procedure was done at that time as patient critically ill. Patient is on anticoagulation for her AFib. Patient is unable to provide any meaningful history whether she has had melena or hematochezia. Patient likely has multifactorial anemia in the form of anemia of chronic kidney disease, iron deficiency and possible GI blood loss She has received 3 units of PRBC. Hemoglobin has been stable since that monitor hemoglobin Positive stool for Hemoccult IV PPI q.12 hours Continue to hold Eliquis GI following and planning to do EGD and colonoscopy (5) GI bleed: Code(s): K92.2 - Gastrointestinal hemorrhage, unspecified Status: Acute Assessment and Plan: See above (6) CHF (congestive heart failure): Code(s): I50.9 - Heart failure, unspecified Status: Acute Assessment and Plan: Recent ECHO Summary ? 1. Left ventricular chamber dimension is moderately enlarged. ? 2. Definity contrast administered improved wall motion interpretation. ? 3. Left ventricular systolic function is moderately globally reduced, estimated at 35-40%. ? 4. The left ventricular diastolic function is normal. ? 5. E/e' 9 is minimally elevated. ? 6. Left atrial chamber dimension is moderately enlarged. ? 7. Right atrial chamber dimension is mildly enlarged. ? 8. The aortic valve is not well visualized. Cannot determine number of aortic valve leaflets. ? 9. There is moderate aortic valve sclerosis. ? 10. There is moderate to severe aortic valve stenosis based on a peak velocity of 279.27 cm/s, mean gradient of 19 mmHg, and aortic valve area of 0.91 cm2. ? 11. There is moderate aortic valve regurgitation. ? 12. The mitral valve has mildly thickened leaflets and moderately calcified annulus. ? 13. There is moderate mitral valve regurgitation. ? 14. There is mild tricuspid valve regurgitation. ? 15. Moderate pulmonary hypertension, estimated pulmonary arterial systolic pressure is 51 mmHg. ? 16. Small atheroma in anterior and posterior aortic root. ? 17. Dilated inferior vena cava with <50% collapse upon inspiration
--- NOTE | 2022-10-16 11:18 | PCFNICU ---
ICU Rounding Note: Pt current nutrition is Soft and Bite Sized, Level 6/Heart Healthy. Last recorded weight is 72.6 kg. Bowel Motility:No BM reported. Labs Reviewed: Cr 1.9, GFR 26, Alb 3.2 Meds Noted:Senokot,Miralax, Protonix Skin: WNL Additional Notes: Patient on low dose of Levo. Plans for EGD tomorrow. Oral Intake greater than 50% of meals. Agree with diet orders. Monitor: diet ordes, tolerance, wt, labs, skin. Follow up in 5 days and round daily in ICU.
[2022-10-16] MEDS: ALBUMIN HUMAN 25% 25 GM/100 ML 100 ML IVPB ×3 (11:23→23:28)
--- NOTE | 2022-10-16 12:30 | P.PNNP_ITS ---
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 * evaluation to date: * CT scan with cortical thinning of kidneys but no obstruction * urine electrolytes/eosinophils pending * CPK okay * holding diuretics and BP meds for now * follow repeat labs and UOP (2) Stage 3b chronic kidney disease: Code(s): N18.32 - Chronic kidney disease, stage 3b Status: Acute Assessment and Plan: * baseline creatinine seems to run 1.5 - 1.7mg/d from last hospitalization * due to chronic systolic/diastolic heart failure, valvular heart disease, HTN and need for aggressive diuretic therapy to maintain volume status (3) Hyperkalemia: Code(s): E87.5 - Hyperkalemia Status: Acute Assessment and Plan: * resolved * due to JANINA, K+ supplements, aldactone, and entresto * lokelma PRN * follow trend of K+ (4) Hyponatremia: Code(s): E87.1 - Hypo-osmolality and hyponatremia Status: Acute Assessment and Plan: * stable if not improving * likely secondary to JANINA, dehydration and hypovolemia * follow trend with interventions (5) Shock: Code(s): R57.9 - Shock, unspecified Status: Acute Assessment and Plan: * several ongoing issues responsible: * hypovolemia * anemia * cardiomyopathy/CHF * valvular heart disease * possible sepsis(?) * follow culture data * UA suggestive of UTI (but no other source noted) * empiric antibiotics * vasopressor therapy to maintain MAP * careful with IVFs given known history of CHF * follow trend of hemodynamics (6) Anemia: Code(s): D64.9 - Anemia, unspecified Status: Acute Assessment and Plan: * low H/H on admission * complicated by ongoing anticoagulation for Afib * known to be guaiac positive from last hospitalization but no GI procedures due to her acute illness/state * likely due to JANINA, CKD, iron deficiency and suspected GI loss * s/p PRBC with improvement in H/h * IV PPI * GI following -- possible colonoscopy as condition improved * follow trend of H/H (7) CHF (congestive heart failure): Code(s): I50.9 - Heart failure, unspecified Status: Acute Assessment and Plan: * known chronic systolic + diastolic dysfunction * holding diuretics and BP medications at this time * appears compensated at this time * follow volume status closely (8) Paroxysmal atrial fibrillation: Code(s): I48.0 - Paroxysmal atrial fibrillation Status: Acute Assessment and Plan: * rate controlled * on amiodarone * off anticoagulation at this time Will continue to follow. Subjective Date/time seen: 10/16/22 12:30 No new issues/events overnight or earlier this morning; off IVFs but still remains on low dose vasopressor therapy; renal function as well as urine output continue to improve; still with complaints of bilateal feet pain; still feels weak/fatigued but not worse than yesterday. Exam Narrative: General: chronically ill-appearing female in NAD Heart: IRRR, normal S1 and S2; no rub Lungs: coarse breath sounds with a few crackles at the bases Abdomen: soft, nontender, nondistended, positive bowel sounds Extremitie
--- NOTE | 2022-10-16 12:30 | PM.PNNEP ---
Progress Note: A&P Assessment and Plan (1) Acute kidney injury: Code(s): N17.9 - Acute kidney failure, unspecified Status: Acute Assessment and Plan: improving multifactorial: hypotension hypovolemia severe anemia ongoing diuretic use CRTS use of Entresto/BP meds CRTS evaluation to date: CT scan with cortical thinning of kidneys but no obstruction urine electrolytes/eosinophils pending CPK okay holding diuretics and BP meds for now follow repeat labs and UOP (2) Stage 3b chronic kidney disease: Code(s): N18.32 - Chronic kidney disease, stage 3b Status: Acute Assessment and Plan: baseline creatinine seems to run 1.5 - 1.7mg/d from last hospitalization due to chronic systolic/diastolic heart failure, valvular heart disease, HTN and need for aggressive diuretic therapy to maintain volume status (3) Hyperkalemia: Code(s): E87.5 - Hyperkalemia Status: Acute Assessment and Plan: resolved due to JANINA, K+ supplements, aldactone, and entresto lokelma PRN follow trend of K+ (4) Hyponatremia: Code(s): E87.1 - Hypo-osmolality and hyponatremia Status: Acute Assessment and Plan: stable if not improving likely secondary to JANINA, dehydration and hypovolemia follow trend with interventions (5) Shock: Code(s): R57.9 - Shock, unspecified Status: Acute Assessment and Plan: several ongoing issues responsible: hypovolemia anemia cardiomyopathy/CHF valvular heart disease possible sepsis(?) follow culture data UA suggestive of UTI (but no other source noted) empiric antibiotics vasopressor therapy to maintain MAP careful with IVFs given known history of CHF follow trend of hemodynamics (6) Anemia: Code(s): D64.9 - Anemia, unspecified Status: Acute Assessment and Plan: low H/H on admission complicated by ongoing anticoagulation for Afib known to be guaiac positive from last hospitalization but no GI procedures due to her acute illness/state likely due to JANINA, CKD, iron deficiency and suspected GI loss s/p PRBC with improvement in H/h IV PPI GI following -- possible colonoscopy as condition improved follow trend of H/H (7) CHF (congestive heart failure): Code(s): I50.9 - Heart failure, unspecified Status: Acute Assessment and Plan: known chronic systolic + diastolic dysfunction holding diuretics and BP medications at this time appears compensated at this time follow volume status closely (8) Paroxysmal atrial fibrillation: Code(s): I48.0 - Paroxysmal atrial fibrillation Status: Acute Assessment and Plan: rate controlled on amiodarone off anticoagulation at this time Will continue to follow. Subjective Date/time seen: 10/16/22 12:30 No new issues/events overnight or earlier this morning; off IVFs but still remains on low dose vasopressor therapy; renal function as well as urine output continue to improve; still with complaints of bilateal feet pain; still feels weak/fatigued but not worse than yesterday. Exam Narrative: General: chronically ill-appearing female in NAD Heart: IRRR, normal S1 and S2; no rub Lungs: coarse breath sounds with a few crackles at the bases Abdomen: soft, nontender, nondistended, positive bowel sounds Extremities: no cyanosis or clubbing; trace edema Skin: mottling of bilateral feet Objective Data Vital Signs Vital Signs: Vital Signs Temp Pulse Resp BP Pulse Ox O2 Del Method O2 Flow Rate 10/16/22 12:00 80 10/16/22 12:00 96.2 F L 91 18 88/57 L 97 10/16/22 12:00 97 Nasal Cannula 2 10/16/22 11:22 79 107/64 10/16/22 10:00 72 16 106/64 96 10/16/22 08:00 96.3 F L 74 17 110/75 98 10/16/22 10:00 72 10/16/22 08:00 78 10/16/22 10:38 79 103/78 10/16/22 08:00 98 Nasal Cannula
[2022-10-16] MEDS: HYDROCORTISONE SODIUM SUCCINATE 100 MG/2 ML VIAL IV PUSH ×2 (14:26→21:21)
[2022-10-16] MEDS: GABAPENTIN 100 MG CAPSULE PO ×2 (14:26→17:17)
--- NOTE | 2022-10-16 14:51 | WPDGIPROGNO ---
Progress Note: A&P Assessment and Plan (1) Anemia: Code(s): D64.9 - Anemia, unspecified Status: Acute Assessment and Plan: She has been anemic since last year. She never sees evidence of blood in her stools but she had a drop her hemoglobin last month from 8.4-7 and now again has significant drop in her hemoglobin this time to 5.2. She has been given 3 units of blood so far 10/16/2022 hemoglobin is stable, 9.8 today (2) GI bleed: Code(s): K92.2 - Gastrointestinal hemorrhage, unspecified Status: Acute Assessment and Plan: Stool is Hemoccult positive. She was too ill to consider endoscopic examination during her last hospitalization. She may be up to it in a couple of days. 10/16/2022 after being given Dulcolax and an enema she did finally have a bowel movement today. She will not be able to start a prep for colonoscopy today or even in the next few days. (3) Acute on chronic renal failure: Code(s): N17.9 - Acute kidney failure, unspecified; N18.9 - Chronic kidney disease, unspecified Status: Acute Assessment and Plan: He appears that the rise in her BUN creatinine was due to dehydration. She had [facility]. (4) Hyperkalemia: Code(s): E87.5 - Hyperkalemia Status: Acute Assessment and Plan: This has been corrected (5) A-fib: Code(s): I48.91 - Unspecified atrial fibrillation Status: Acute Assessment and Plan: She has chronic arrhythmia. Her last EKG is read as atrial flutter and tachycardia. There are notes in the chart that she takes warfarin but she actually has been on apixaban lately apixaban remains on (6) Fecal impaction: Code(s): K56.41 - Fecal impaction Status: Acute Assessment and Plan: Is quite uncomfortable with a fecal impaction. She was just recently given an enema and has had great results and much relief with that. Plan She passed her swallow evaluation today and therefore has been placed on small bites of food. I agree with that. Perhaps in a couple of days we can consider endoscopy if she is able to tolerate a prep for colonoscopy. Until then apixaban will be held. her oral intake is minimal. She has not stable enough to think about endoscopy or particularly a colonoscopy prep at this time. Will continue to follow her Subjective Date/time seen: 10/16/22 14:51 after receiving an enema today the patient did have 1 bowel movement. There was no blood in the stool. She remains tired. Her oral intake has been minimal. She is finally off pressors. She has been receiving calcium intravenously. She also remains on cefepime, daptomycin, pantoprazole intravenously. She is drowsy and tired appearing today Exam Const: General: awake, tired appearing and average body habitus Nutritional Appearance: average body habitus Orientation/consciousness: patient oriented x3 Eyes: Conjunctivae: conjunctival abnormality bilateral pallor Resp: Auscultation: clear to auscultation bilaterally Cardio: Rhythm: regular rhythm GI: Inspection: normal to inspection GI Palp: No Tenderness to palpation present (GI), No Guarding due to palpation present (GI) and Yes No hepatosplenomegaly present Auscultation: normal bowel sounds Neuro: General: patient oriented x3 Objective Data Vital Signs Vital Signs: Vital Signs - 24 hr 10/15/22 16:17 10/15/22 16:00 10/15/22 16:00 Temperature Pulse Rate 74 Respiratory Rate Blood Pressure Pulse Oximetry 97 97 Oxygen Delivery Nasal Cannula Nasal Cannula Oxygen Flow Rate 2 2 Fraction of Inspired Oxygen 28 10/15/22 16:00 10/15/22 18:00 10/15/22 16:00 Temperature 36.4 C L Pulse Rate 69 80 74 Respiratory Rate 21 H Blood Pressure 112/95 H 102/70 Pulse Oximetry 98 Oxygen Delivery Oxygen Flow Rate Fraction of Inspired Oxygen 10/15/22 17:53 10/15/22 18:00 10/15/22 18:40 Temperature P
--- NOTE | 2022-10-16 19:41 | PM.IMPN ---
Progress Note: A&P Assessment and Plan (1) Shock: Code(s): R57.9 - Shock, unspecified Status: Acute Assessment and Plan: Shock likely multifactorial as patient has cardiomyopathy, aortic stenosis, hypovolemia but mostly concerned for sepsis form positive BCx and UCx. Her procalcitonin level was low at 0.2 suggesting against systemic infection. UCx growing VRE and BCx (aerobic only) in 1 bottle growing GPC in clusters. Could be VRE or contaminate. Continue cefepime. Vancomycin was changed to to daptomycin cover for VRE 10/15 Patient weaned off Levophed. She is off IV fluids now. Good urine output Continue hydrocortisone and albumin (2) Acute on chronic renal failure: Code(s): N17.9 - Acute kidney failure, unspecified; N18.9 - Chronic kidney disease, unspecified Status: Acute Assessment and Plan: On discharge recent creatinine was 1.7 and she presented with a Cr of 4.2 [facility] this could be secondary to hypotension and hypovolemia Treatment of hyperkalemia as below She also received PRBC and IV fluids Normal CK level Creatinine is improving and down to 1.9 today Nephrology following Monitor in output electrolytes and creatinine Continue to hold diuretics and blood pressure medication As above (3) Hyperkalemia: Code(s): E87.5 - Hyperkalemia Status: Acute Assessment and Plan: Secondary to JANINA, patient was also on potassium supplementation and Aldactone [facility] All on hold Improved with IV fluids and Lokelma (4) Anemia: Code(s): D64.9 - Anemia, unspecified Status: Acute Assessment and Plan: Patient presented with hemoglobin 5.2. He had a positive guaiac stool on last admission and was seen by GI but no procedure was done at that time as patient was critically ill. Patient is on anticoagulation for her AFib. Patient is unable to provide any meaningful history whether she has had melena or hematochezia. Patient likely has multifactorial anemia from anticoagulation, anemia of chronic kidney disease, iron deficiency and possible GI blood loss. She received 3 units of PRBC. Hemoglobin has been stable in the 9-10 range since Positive stool for Hemoccult IV PPI q.12 hours Continue to hold anticoagulation GI following and planning to do EGD and colonoscopy (5) GI bleed: Code(s): K92.2 - Gastrointestinal hemorrhage, unspecified Status: Acute Assessment and Plan: See above (6) CHF (congestive heart failure): Code(s): I50.9 - Heart failure, unspecified Status: Acute Assessment and Plan: Recent Echo showing EF 35-40%, normal diastolic fucntion and moderate to severe . Also with moderate pulmonary HTN. Monitor fluid status closely. (7) Paroxysmal atrial fibrillation: Code(s): I48.0 - Paroxysmal atrial fibrillation Status: Acute Assessment and Plan: Patient with Afib/Flutter. Currently rate controlled Continue p.o. amiodarone Hold anticoagulation at this time (8) Hyponatremia: Code(s): E87.1 - Hypo-osmolality and hyponatremia Status: Acute Assessment and Plan: Secondary to JANINA, dehydration and hypovolemia Improved with IV fluids (9) Abdominal pain: Code(s): R10.9 - Unspecified abdominal pain Status: Acute Assessment and Plan: Left lower quadrant abdominal pain likely from fecal impaction. CT scan confirms stool distending the rectum Patient does not remember when her last bowel movement was. Laxatives and enemas ordered GI planning for colonoscopy (10) Neuropathic pain: Code(s): M79.2 - Neuralgia and neuritis, unspecified Status: Acute Assessment and Plan: Continue low-dose gabapentin Plan DVT prophylaxis -hold anticoagulation due to possible GI bleed. Stress ulcer prophylaxis -PPI Nutrition -modified diet ordered Code Status -patient is DNR DNI
[2022-10-16] MEDS: SENNA/DOCUSATE SODIUM TABLET 1 TAB PO (20:04)
[2022-10-16] MEDS: NOREPINEPHRINE 8 MG/D5W 250 ML 8 MG/250 ML BAG 9.38 MG IV CONT (20:27)
[2022-10-17] VITALS (19 sets, daily range): BP systolic 82–136; BP diastolic 51–89; PULSE 62–90; RESP 12–23; TEMP 35–36.6; O2SAT 93–98
[2022-10-17 03:59] LABS: Hematocrit 30.2 % (37.0-47.0); Hemoglobin 8.9 g/dL (12.0-15.0); Mean Corpuscular HGB Conc 29.5 g/dl (32-36); Mean Corpuscular Hemoglobin 26.9 pg (26-34); Mean Corpuscular Volume 91.2 fl (80-100); Mean Platelet Volume 7.8 fl (7.4-10.4); Platelet Count Result 355 k/mm3 (150-375); Red Blood Count 3.31 M/mm3 (4.2-5.4); Red Cell Distribution Width 19.9 % (11.5-14.5); White Blood Count 6.8 K/mm3 (4.5-10.0)
[2022-10-17 04:11] LABS: Alanine Aminotransferase 16 U/L (6-35); Albumin Level 4.2 g/dL (3.5-5.1); Alkaline Phosphatase 125 U/L (38-126); Anion Gap 11 mmol/L (8-16); Aspartate Amino Transferase 16 U/L (14-36); Bilirubin,Total 0.6 mg/dL (0.2-1.3); Blood Urea Nitrogen 44 mg/dL (7-17); Calcium 8.4 mg/dL (8.4-10.2); Carbon Dioxide 25 mmol/L (22-30); Chloride 101 mmol/L (98-107); Estimated CRCL calculation 26 ml/min; Estimated Glomerular Filt Rate 32; Glucose 141 mg/dL (65-110); Magnesium 2.2 mg/dL (1.6-2.3); Phosphorus 5.3 mg/dL (2.5-4.5); Potassium 3.9 mmol/L (3.4-5.0); Sodium 137 mmol/L (137-145)
[2022-10-17] MEDS: ALBUMIN HUMAN 25% 25 GM/100 ML 100 ML IVPB (05:29)
[2022-10-17] MEDS: HYDROCORTISONE SODIUM SUCCINATE 100 MG/2 ML VIAL IV PUSH ×2 (05:29→12:54)
[2022-10-17] MEDS: CENTRAL LINE FLUSH 10 ML IV PUSH ×2 (05:31→12:54)
[2022-10-17] MEDS: AMIODARONE HCL 200 MG TABLET PO (08:11)
[2022-10-17] MEDS: TOLNAFTATE 1% POWDER 45 GM BTL 1 APPLIC TOPICAL (08:12)
[2022-10-17] MEDS: GABAPENTIN 100 MG CAPSULE PO (08:12)
[2022-10-17] MEDS: PANTOPRAZOLE SODIUM IV 40 MG VIAL IV PUSH (08:12)
[2022-10-17] MEDS: polyethylene glycoL 3350 17 GM POWD.PACK PO (08:12)
--- NOTE | 2022-10-17 08:48 | WPDINTPN ---
Progress Note: A&P Assessment and Plan (1) Acute on chronic renal failure: Code(s): N17.9 - Acute kidney failure, unspecified; N18.9 - Chronic kidney disease, unspecified Status: Acute Assessment and Plan: On discharge recent creatinine was 1.7 and today she presented with 4.2 She was receiving [facility]tics [facility] the [facility] at this could be secondary to hypotension and hypovolemia Treatment of hyperkalemia as below She also received PRBC and IV fluids Normal CK level Creatinine is improving and down to 1.6 today Nephrology following Monitor in output electrolytes and creatinine Continue to hold diuretics and blood pressure medication Hold further IV fluids (2) Hyperkalemia: Code(s): E87.5 - Hyperkalemia Status: Acute Assessment and Plan: Secondary to JANINA, patient was also on potassium supplementation and Aldactone at [facility] All on hold Improved with IV fluids and Lokelma (3) Shock: Code(s): R57.9 - Shock, unspecified Status: Acute Assessment and Plan: Likely multifactorial shock as patient has cardiomyopathy, aortic stenosis, hypovolemia and questionable sepsis UA mildly suggestive of UTI but no other objective evidence of infection Her procalcitonin level was low at 0.2 suggesting against systemic infection Cultures have been sent and urine cultures growing VRE Empiric cefepime. Vancomycin was changed to to daptomycin cover for VRE 10/15 Blood culture 07/21 is growing Gram-positive cocci. Could be a contaminant will wait for identification and susceptibility. She is on daptomycin for coverage. Patient continues to require low-dose of Levophed. She is off IV fluids now. Good urine output Continue hydrocortisone Will discontinue albumin Continue Levophed titration to maintain mean arterial pressure (4) Anemia: Code(s): D64.9 - Anemia, unspecified Status: Acute Assessment and Plan: Patient presented with hemoglobin 5.2. He had a positive guaiac stool on last admission and was seen by GI but no procedure was done at that time as patient critically ill. Patient is on anticoagulation for her AFib. Patient is unable to provide any meaningful history whether she has had melena or hematochezia. Patient likely has multifactorial anemia in the form of anemia of chronic kidney disease, iron deficiency and possible GI blood loss She has received 3 units of PRBC. Hemoglobin has been stable since that monitor hemoglobin Positive stool for Hemoccult IV PPI q.12 hours Continue to hold [employer] GI following and planning to do colonoscopy eventually but per Dr. Armas bleed the patient is too unstable at this time for procedure (5) GI bleed: Code(s): K92.2 - Gastrointestinal hemorrhage, unspecified Status: Acute Assessment and Plan: See above (6) CHF (congestive heart failure): Code(s): I50.9 - Heart failure, unspecified Status: Acute Assessment and Plan: Recent ECHO Summary ? 1. Left ventricular chamber dimension is moderately enlarged. ? 2. Definity contrast administered improved wall motion interpretation. ? 3. Left ventricular systolic function is moderately globally reduced, estimated at 35-40%. ? 4. The left ventricular diastolic function is normal. ? 5. E/e' 9 is minimally elevated. ? 6. Left atrial chamber dimension is moderately enlarged. ? 7. Right atrial chamber dimension is mildly enlarged. ? 8. The aortic valve is not well visualized. Cannot determine number of aortic valve leaflets. ? 9. There is moderate aortic valve sclerosis. ? 10. There is moderate to severe aortic valve stenosis based on a peak velocity of 279.27 cm/s, mean gradient of 19 mmHg, and aortic valve area of 0.91 cm2. ? 11. There is moderate aortic valve regurgitation. ? 12. The mitral valve has mildly thickened leaflets and moderately calcified annulus. ? 13. There is moderate mitral valve regurgitation. ? 14. There is mild tricuspid valve regurgitation.
[2022-10-17] MEDS: MIDODRINE HCL 10 MG TABLET PO ×2 (09:59→12:54)
--- NOTE | 2022-10-17 10:35 | PM.PNNEP ---
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 use of Entresto/BP meds UROLOGY PHYSICIAN evaluation to date: CT scan with cortical thinning of kidneys but no obstruction urine electrolytes/eosinophils pending CPK okay holding diuretics and BP meds for now follow repeat labs and UOP (2) Stage 3b chronic kidney disease: Code(s): N18.32 - Chronic kidney disease, stage 3b Status: Acute Assessment and Plan: baseline creatinine seems to run 1.5 - 1.7mg/d from last hospitalization due to chronic systolic/diastolic heart failure, valvular heart disease, HTN and need for aggressive diuretic therapy to maintain volume status (3) Hyperkalemia: Code(s): E87.5 - Hyperkalemia Status: Acute Assessment and Plan: resolved due to JANINA, K+ supplements, aldactone, and entresto lokelma PRN follow trend of K+ (4) Hyponatremia: Code(s): E87.1 - Hypo-osmolality and hyponatremia Status: Acute Assessment and Plan: stable if not resolved likely secondary to JANINA, dehydration and hypovolemia follow trend with interventions (5) Shock: Code(s): R57.9 - Shock, unspecified Status: Acute Assessment and Plan: several ongoing issues responsible: hypovolemia anemia cardiomyopathy/CHF valvular heart disease possible sepsis(?) follow culture data UA suggestive of UTI (but no other source noted) on antibiotics off vasopressor therapy and IVFs follow trend of hemodynamics (6) Anemia: Code(s): D64.9 - Anemia, unspecified Status: Acute Assessment and Plan: low H/H on admission complicated by ongoing anticoagulation for Afib known to be guaiac positive from last hospitalization but no GI procedures due to her acute illness/state likely due to JANINA, CKD, iron deficiency and suspected GI loss s/p PRBC with improvement in H/H IV PPI GI following -- possible colonoscopy as condition improved follow trend of H/H (7) CHF (congestive heart failure): Code(s): I50.9 - Heart failure, unspecified Status: Acute Assessment and Plan: known chronic systolic + diastolic dysfunction holding diuretics and BP medications at this time appears compensated at this time follow volume status closely (8) Paroxysmal atrial fibrillation: Code(s): I48.0 - Paroxysmal atrial fibrillation Status: Acute Assessment and Plan: rate controlled on amiodarone off anticoagulation at this time Will continue to follow. Subjective Date/time seen: 10/17/22 10:35 Weaned off levophed gtt yesterday but was briefly back on it overnight; has since been weaned off of it again; stable hemodynamics noted; no other issues or concerns voiced at this time; no events overnight or earlier this morning; no apparent distress noted. Exam Narrative: General: chronically ill-appearing female in NAD Heart: IRRR, normal S1 and S2; no rub Lungs: coarse breath sounds with a few crackles at the bases Abdomen: soft, nontender, nondistended, positive bowel sounds Extremities: no cyanosis or clubbing; trace edema Skin: mottling of bilateral feet Objective Data Vital Signs Vital Signs: Vital Signs Temp Pulse Resp BP Pulse Ox O2 Del Method O2 Flow Rate 10/17/22 10:00 76 20 92/65 L 96 10/17/22 10:00 76 10/17/22 08:00 78 23 H 98 Nasal Cannula 2 10/17/22 08:00 97.7 F 78 23 H 82/64 L 98 10/17/22 08:00 78 10/17/22 08:11 86 10/17/22 07:29 76 96/75 L 10/17/22 06:38 76 105/67 10/17/22 06:00 97.8 F 90 22 H 97/76 L 95 10/17/22 06:00 90 10/17/22 05:51 83 95/75 L 10/17/22 0
--- NOTE | 2022-10-17 10:35 | P.PNNP_ITS ---
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 * evaluation to date: * CT scan with cortical thinning of kidneys but no obstruction * urine electrolytes/eosinophils pending * CPK okay * holding diuretics and BP meds for now * follow repeat labs and UOP (2) Stage 3b chronic kidney disease: Code(s): N18.32 - Chronic kidney disease, stage 3b Status: Acute Assessment and Plan: * baseline creatinine seems to run 1.5 - 1.7mg/d from last hospitalization * due to chronic systolic/diastolic heart failure, valvular heart disease, HTN and need for aggressive diuretic therapy to maintain volume status (3) Hyperkalemia: Code(s): E87.5 - Hyperkalemia Status: Acute Assessment and Plan: * resolved * due to JANINA, K+ supplements, aldactone, and entresto * lokelma PRN * follow trend of K+ (4) Hyponatremia: Code(s): E87.1 - Hypo-osmolality and hyponatremia Status: Acute Assessment and Plan: * stable if not resolved * likely secondary to JANINA, dehydration and hypovolemia * follow trend with interventions (5) Shock: Code(s): R57.9 - Shock, unspecified Status: Acute Assessment and Plan: * several ongoing issues responsible: * hypovolemia * anemia * cardiomyopathy/CHF * valvular heart disease * possible sepsis(?) * follow culture data * UA suggestive of UTI (but no other source noted) * on antibiotics * off vasopressor therapy and IVFs * follow trend of hemodynamics (6) Anemia: Code(s): D64.9 - Anemia, unspecified Status: Acute Assessment and Plan: * low H/H on admission * complicated by ongoing anticoagulation for Afib * known to be guaiac positive from last hospitalization but no GI procedures due to her acute illness/state * likely due to JANINA, CKD, iron deficiency and suspected GI loss * s/p PRBC with improvement in H/H * IV PPI * GI following -- possible colonoscopy as condition improved * follow trend of H/H (7) CHF (congestive heart failure): Code(s): I50.9 - Heart failure, unspecified Status: Acute Assessment and Plan: * known chronic systolic + diastolic dysfunction * holding diuretics and BP medications at this time * appears compensated at this time * follow volume status closely (8) Paroxysmal atrial fibrillation: Code(s): I48.0 - Paroxysmal atrial fibrillation Status: Acute Assessment and Plan: * rate controlled * on amiodarone * off anticoagulation at this time Will continue to follow. Subjective Date/time seen: 10/17/22 10:35 Weaned off levophed gtt yesterday but was briefly back on it overnight; has since been weaned off of it again; stable hemodynamics noted; no other issues or concerns voiced at this time; no events overnight or earlier this morning; no apparent distress noted. Exam Narrative: General: chronically ill-appearing female in NAD Heart: IRRR, normal S1 and S2; no rub Lungs: coarse breath sounds with a few crackles at the bases Abdomen: soft, nontender, nondistended, positive bowel sounds Extremities: no cyanosis or clubbing; trace edema Skin
--- NOTE | 2022-10-17 10:48 | PCNFU ---
Nutrition Follow-Up Complete: Inadequate energy intake related to diet order as evidenced by NPO status Goal: Meet estimated needs Patient will continue with current goal. Pt current nutrition is Soft and Bite Sized, Level 6/Heart Healthy. Last recorded weight is 76.3 kg. Bowel Motility:+Bm reported 10/16 Labs Reviewed:PO4 5.3,Cr 1.6,BUN 44, Glu 141, Hct 30.2,Hgb 8.9 Meds Noted:Protonix, Miralax Skin: Bilateral Buttock-friction Additional Notes: Patient remains on oral diet of Soft and Bite Sized, Level 6. Oral intake is being tolerated, 50-75% of meals. Agree with diet orders. No plans for EGD today. Will monitor in ICU rounds and reassess, diet orders, tolerance, wt, labs, skin. Follow up in 5 days.
--- NOTE | 2022-10-17 12:14 | WPDGIPROGNO ---
Progress Note: A&P Assessment and Plan (1) Anemia: Code(s): D64.9 - Anemia, unspecified Status: Acute Assessment and Plan: She has been anemic since last year. She never sees evidence of blood in her stools but she had a drop her hemoglobin last month from 8.4-7 and now again has significant drop in her hemoglobin this time to 5.2. She has been given 3 units of blood so far 10/16/2022 hemoglobin is stable, 9.8 today 10/17/2022 hemoglobin 8.9 today. (2) GI bleed: Code(s): K92.2 - Gastrointestinal hemorrhage, unspecified Status: Acute Assessment and Plan: Stool is Hemoccult positive. She was too ill to consider endoscopic examination during her last hospitalization. She may be up to it in a couple of days. 10/16/2022 after being given Dulcolax and an enema she did finally have a bowel movement today. She will not be able to start a prep for colonoscopy today or even in the next few days. (3) Acute on chronic renal failure: Code(s): N17.9 - Acute kidney failure, unspecified; N18.9 - Chronic kidney disease, unspecified Status: Acute Assessment and Plan: It appears that the rise in her BUN creatinine was due to dehydration. She had had vigorous diuresis in the half-way. BUN is down to 44 and creatinine down to 1.6. (4) Hyperkalemia: Code(s): E87.5 - Hyperkalemia Status: Acute Assessment and Plan: This has been corrected (5) A-fib: Code(s): I48.91 - Unspecified atrial fibrillation Status: Acute Assessment and Plan: She has chronic arrhythmia. Her last EKG is read as atrial flutter and tachycardia. There are notes in the chart that she takes warfarin but she actually has been on apixaban lately apixaban remains on (6) Fecal impaction: Code(s): K56.41 - Fecal impaction Status: Acute Assessment and Plan: Is quite uncomfortable with a fecal impaction. She was just recently given an enema and has had great results and much relief with that. Plan She passed her swallow evaluation today and therefore has been placed on small bites of food. I agree with that. Perhaps in a couple of days we can consider endoscopy if she is able to tolerate a prep for colonoscopy. Until then apixaban will be held. her oral intake is minimal. She has not stable enough to think about endoscopy or particularly a colonoscopy prep at this time. Will continue to follow her Subjective Date/time seen: 10/17/22 12:14 she has been extubated has come off Levophed. Her blood pressure still soft. She is awake but does not respond verbally. She appears very tired and passive. A food tray has just arrived and her told her and me that he will try feeding her because she loves mashed potatoes I discussed with them the fact that we were hoping to do a colonoscopy at some point but it is clear that at least in her status today she would not be able to start a prep just yet Exam Const: General: awake, tired appearing and average body habitus Nutritional Appearance: average body habitus Orientation/consciousness: lethargic Eyes: Conjunctivae: conjunctival abnormality bilateral pallor Resp: Auscultation: clear to auscultation bilaterally Cardio: Rhythm: regular rhythm GI: Inspection: normal to inspection GI Palp: No Tenderness to palpation present (GI), No Guarding due to palpation present (GI) and Yes No hepatosplenomegaly present Auscultation: normal bowel sounds Neuro: General: patient oriented x3 Objective Data Vital Signs Vital Signs: Vital Signs - 24 hr 10/16/22 14:00 10/16/22 14:00 10/16/22 16:00 Temperature Pulse Rate 70 70 79 Respiratory Rate 11 L Blood Pressure 89/61 L Pulse Oximetry 98 Oxygen Delivery Oxygen Flow Rate 10/16/22 16:00 10/16/22 16:00 10/16/22 18:00 Temperature 35.7 C L Pulse Rate 72 72 Respiratory Rate 20 Blood Pressure 90/52 L Pulse Oximetry 96 97 Oxy
--- NOTE | 2022-10-17 13:47 | PM.IMPN ---
Progress Note: A&P Assessment and Plan (1) Shock: Code(s): R57.9 - Shock, unspecified Status: Acute Assessment and Plan: Shock likely multifactorial as patient has cardiomyopathy, aortic stenosis, hypovolemia and/or sepsis form positive BCx and UCx. Her procalcitonin level was low at 0.2 suggesting against systemic infection. UCx growing VRE and BCx (aerobic only) in 1 bottle growing Staph Epi. Suspect BCx is a contaminate. Continue cefepime. Vancomycin was changed to to daptomycin to cover for VRE 10/15 Patient weaned off Levophed. She is off IV fluids now. Good urine output. Continue hydrocortisone and albumin. Midodrine added (2) Acute on chronic renal failure: Code(s): N17.9 - Acute kidney failure, unspecified; N18.9 - Chronic kidney disease, unspecified Status: Acute Assessment and Plan: On discharge recent creatinine was 1.7 and she presented with a Cr of 4.2. Nephrology following She was receiving [facility]tics [facility] the [facility] at this could be secondary to hypotension and hypovolemia Treatment of hyperkalemia as below She also received 3U PRBC and IV fluids Normal CK level Creatinine is improving and down to 1.6 today Monitor in output electrolytes and creatinine Continue to hold diuretics and blood pressure medication As above (3) Hyperkalemia: Code(s): E87.5 - Hyperkalemia Status: Acute Assessment and Plan: Secondary to JANIAN. Patient was also on potassium supplementation and Aldactone at [facility] All on hold potassium improved with IV fluids and Lokelma (4) Anemia: Code(s): D64.9 - Anemia, unspecified Status: Acute Assessment and Plan: Patient presented with hemoglobin 5.2. She had a positive guaiac stool on last admission and was seen by GI but no procedure was done at that time as patient was critically ill. Patient is on anticoagulation for her AFib. Patient is unable to provide any meaningful history whether she has had melena or hematochezia. Patient likely has multifactorial anemia from anticoagulation, anemia of chronic kidney disease, iron deficiency and possible GI blood loss. She received 3U of PRBC. Hemoglobin has been stable in the 9-10 range since Positive stool for Hemoccult IV PPI q.12 hours Continue to hold anticoagulation GI following and planning to do EGD and colonoscopy when stable (5) GI bleed: Code(s): K92.2 - Gastrointestinal hemorrhage, unspecified Status: Acute Assessment and Plan: See above (6) CHF (congestive heart failure): Code(s): I50.9 - Heart failure, unspecified Status: Acute Assessment and Plan: Recent Echo showing EF 35-40%, normal diastolic fucntion and moderate to severe . Also with moderate pulmonary HTN. Monitor fluid status closely. (7) Paroxysmal atrial fibrillation: Code(s): I48.0 - Paroxysmal atrial fibrillation Status: Acute Assessment and Plan: Patient with Afib/Flutter. Currently rate controlled Continue p.o. amiodarone Hold anticoagulation at this time (8) Hyponatremia: Code(s): E87.1 - Hypo-osmolality and hyponatremia Status: Acute Assessment and Plan: Secondary to JANINA, dehydration and hypovolemia Improved with IV fluids (9) Abdominal pain: Code(s): R10.9 - Unspecified abdominal pain Status: Acute Assessment and Plan: Left lower quadrant abdominal pain likely from fecal impaction. CT scan confirms stool distending the rectum Patient does not remember when her last bowel movement was. Laxatives and enemas ordered GI planning for colonoscopy (10) Neuropathic pain: Code(s): M79.2 - Neuralgia and neuritis, unspecified Status: Acute Assessment and Plan: Continue low-dose gabapentin Plan DVT prophylaxis - hold anticoagulation due to possible GI bleed. Stress ulcer prophylaxis - PPI Nutrition - modified diet ordered Code Status -
[2022-10-17 15:58] LABS: Alveolar/Arterial O2 Gradient 15.3 mmHg; Base Excess ABG -6.9 mEq/l (+/-2.0); Carboxyhemoglobin 0.2 % THb (0-2.0); Fractional Inspired Oxygen 28 %; HCO3 ABG 23.6 mEq/l (22.0-26.0); Methemoglobin ABG 0.4 %THb (0-1.5); Oxygen Content ABG 13.6 %vol (16.0-22.0); Oxygen Saturation ABG 92.9 % (95.0-100.0); PO2 ABG 90.3 mmHg (80.0-100.0); PO2 FiO2 Ratio Arterial Blood 3.23 %; Reduced Hemoglobin 4.4 %THb (0-5.0); Total Hemoglobin 10.1 g/dL (12.0-18.0)
[2022-10-17 16:00] LABS: PCO2 ABG 79.7 mmHg (35.0-45.0)
[2022-10-17 16:01] LABS: Device NASAL CANNULA; Modified Allen's Test Pass; Site Drawn RIGHT RADIAL
[2022-10-18 08:00] VITALS: BP 77/64; PULSE 84; RESP 20; TEMP 36.3; O2SAT 97
[2022-10-18 08:52] LABS: Basophils Percent Auto 0.1 % (0.2-1.2); Hematocrit 28.2 % (37.0-47.0); Hemoglobin 8.5 g/dL (12.0-15.0); Immature Granulocyte Percent A 2.8 % (0-0.5); Lymphocytes Absolute Auto 0.25 K/mm3 (0.9-3.2); Lymphocytes Percent Auto 3.5 % (18.3-44.2); Mean Corpuscular HGB Conc 30.1 g/dl (32-36); Mean Corpuscular Hemoglobin 26.9 pg (26-34); Mean Corpuscular Volume 89.2 fl (80-100); Mean Platelet Volume 8.3 fl (7.4-10.4); Monocytes Absolute Auto 0.8 K/mm3 (0.1-0.6); Monocytes Percent Auto 10.7 % (2.6-8.5); Neutrophils Percent Auto 82.9 % (45.5-73.1); Nucleated Red Blood Cells Absolute Auto 0.2 K/mm3 (0.0-0.012); Nucleated Red Blood Cells Perc 3.3 % (0.0-0.2); Platelet Count Result 331 k/mm3 (150-375); Red Blood Count 3.16 M/mm3 (4.2-5.4); Red Cell Distribution Width 19.9 % (11.5-14.5); White Blood Count 7.2 K/mm3 (4.5-10.0)
[2022-10-18 09:07] LABS: Alanine Aminotransferase 16 U/L (6-35); Alkaline Phosphatase 114 U/L (38-126); Anion Gap 12 mmol/L (8-16); Aspartate Amino Transferase 18 U/L (14-36); Bilirubin,Total 0.6 mg/dL (0.2-1.3); Blood Urea Nitrogen 51 mg/dL (7-17); Calcium 8.4 mg/dL (8.4-10.2); Carbon Dioxide 22 mmol/L (22-30); Chloride 102 mmol/L (98-107); Estimated CRCL calculation 22 ml/min; Estimated Glomerular Filt Rate 26; Glucose 87 mg/dL (65-110); Potassium 4.3 mmol/L (3.4-5.0); Sodium 136 mmol/L (137-145)
[2022-10-18] MEDS: MORPHINE SULFATE (*CRX) 2 MG/ML INJ 4 MG IV PUSH ×2 (09:15→14:19)
[2022-10-18 09:21] LABS: Anisocytosis 1+ (NORMAL); Hypochromasia 1+ (NORMAL); Platelet Estimate Adequate (Adequate)
[2022-10-18 09:22] LABS: Schistocytes None Seen (NORMAL)
--- NOTE | 2022-10-18 14:10 | WPDGIPROGNO ---
Progress Note: A&P Assessment and Plan (1) Shock: Code(s): R57.9 - Shock, unspecified Status: Acute Assessment and Plan: worsening mental status family and primary decided comfort measures (2) GI bleed: Code(s): K92.2 - Gastrointestinal hemorrhage, unspecified Status: Acute Assessment and Plan: she is on comfort measures will sign off (3) Acute on chronic renal failure: Code(s): N17.9 - Acute kidney failure, unspecified; N18.9 - Chronic kidney disease, unspecified Status: Acute (4) Anasarca: Code(s): R60.1 - Generalized edema Status: Acute (5) Altered mental status: Code(s): R41.82 - Altered mental status, unspecified Status: Acute Assessment and Plan: noted generalized edema Subjective Date/time seen: 10/18/22 14:10 Interval history: patient now is lethargic and was placed on comfort measures, several family members at bedside Review of Systems Review of Systems: All systems reviewed & are unremarkable except as noted in HPI and below Exam Const: General: tired appearing Orientation/consciousness: lethargic Other: looks sick, obtunded HENMT: Face/Nose/Sinus: Normal nares present Eyes: Conjunctivae: conjunctival abnormality bilateral pallor Neck: Neck: supple Resp: Auscultation: clear to auscultation bilaterally Cardio: Rhythm: abnormal rhythm GI: GI Palp: No Tenderness to palpation present (GI) and No Guarding due to palpation present (GI) Auscultation: normal bowel sounds Neuro: Other: lethargic Extrem: General: edema bilateral Objective Data Vital Signs Vital Signs: Vital Signs - 24 hr 10/17/22 16:00 10/17/22 20:00 10/17/22 23:31 Temperature 95 F L 96.7 F L Pulse Rate 63 62 80 Respiratory Rate 19 15 16 Blood Pressure 82/51 L 136/89 Pulse Oximetry 96 97 93 Oxygen Delivery Nasal Cannula Oxygen Flow Rate 2 10/18/22 08:00 Temperature 97.3 F L Pulse Rate 84 Respiratory Rate 20 Blood Pressure 77/64 L Pulse Oximetry 97 Oxygen Delivery Oxygen Flow Rate Intake/Output Intake/Output: Intake & Output 10/15/22 10/16/22 10/17/22 10/18/22 23:59 23:59 23:59 23:59 Intake Total 2860 1250 450 Output Total 8735 1580 305 50 Balance 535 -330 145 -50 Meds/Results Medications: Active Medications Generic Name Dose Route Start Last Admin Trade Name Lauren PRN Reason Stop Dose Admin Acetaminophen 650 mg 10/14/22 09:04 10/14/22 10:34 Acetaminophen 325 Mg Tablet PO 650 mg Q4H PRN Administration Headache, Fever, Mild Pain Atropine Sulfate 1 - 2 drop 10/17/22 16:42 Atropine Sulfate 1% Ophth Soln 5 Ml Bottle SUBLINGUAL Q4H PRN Secretions Lorazepam 2 mg 10/17/22 16:42 Lorazepam Inj (*Crx) 2 Mg/Ml Vial IV PUSH Q2H PRN Anxiety/Comfort Morphine Sulfate 4 mg 10/17/22 16:42 10/18/22 09:15 Morphine Sulfate (*Crx) 2 Mg/Ml Inj IV PUSH 4 mg Q30M PRN Administration COMFORT Radiology Results: ITS Impressions Abdomen/Pelvis CT 10/14/22 05:14 IMPRESSION: 1. Diffuse lung disease, consistent with mild pulmonary edema and/or chronic lung disease. 2. Small pleural effusions. 3. Large sliding hiatal hernia. 4. Stool distends the rectum. Labs Labs: Laboratory Results - last 24 hr 10/17/22 10/18/22 10/18/22 15:46 08:44 08:44 WBC 7.2 RBC 3.16 L Hgb 8.5 L Hct 28.2 L MCV 89.2 MCH 26.9 MCHC 30.1 L RDW 19.9 H Plt Count 331 MPV 8.3 Immature Gran % (Auto) 2.8 H Neut % (Auto) 82.9 H Lymph % (Auto) 3.5 L [place] % (Auto) 10.7 H Eos % (Auto) 0.0 Baso % (Auto) 0.1 L Lymph # (Auto) 0.25 L [place] # (Auto) 0.8 H Eos # (Auto) 0.0 Baso # (Auto) 0.0 Abs Immat Gran (auto) 0.20 H Absolute Neuts (auto) 6.0 Absolute Nucleated RBC 0.2 H Nucleated RBC % 3.3 H Platelet Estimate Adequate Hypochromasia 1+ Anisocytosis 1+ Schistocytes None see
--- NOTE | 2022-10-18 14:52 | PM.IMPN ---
Progress Note: A&P Assessment and Plan (1) Shock: Code(s): R57.9 - Shock, unspecified Status: Acute Assessment and Plan: Shock likely multifactorial as patient has cardiomyopathy, aortic stenosis, hypovolemia and/or sepsis form positive BCx and UCx. Her procalcitonin level was low at 0.2 suggesting against systemic infection. UCx growing VRE and BCx (aerobic only) in 1 bottle growing Staph Epi. Suspect BCx is a contaminate. Continue cefepime. Vancomycin was changed to to daptomycin to cover for VRE 10/15 Patient weaned off Levophed. She is off IV fluids now. Good urine output. Continue hydrocortisone and albumin. Midodrine added (2) Acute on chronic renal failure: Code(s): N17.9 - Acute kidney failure, unspecified; N18.9 - Chronic kidney disease, unspecified Status: Acute Assessment and Plan: On discharge recent creatinine was 1.7 and she presented with a Cr of 4.2. Nephrology following She was receiving diuretics at the [facility] at this could be secondary to hypotension and hypovolemia Treatment of hyperkalemia as below She also received 3U PRBC and IV fluids Normal CK level Creatinine is improving and down to 1.6 today Monitor in output electrolytes and creatinine Continue to hold diuretics and blood pressure medication As above (3) Hyperkalemia: Code(s): E87.5 - Hyperkalemia Status: Acute Assessment and Plan: Secondary to JANINA. Patient was also on potassium supplementation and Aldactone at [facility] All on hold potassium improved with IV fluids and Lokelma (4) Anemia: Code(s): D64.9 - Anemia, unspecified Status: Acute Assessment and Plan: Patient presented with hemoglobin 5.2. She had a positive guaiac stool on last admission and was seen by GI but no procedure was done at that time as patient was critically ill. Patient is on anticoagulation for her AFib. Patient is unable to provide any meaningful history whether she has had melena or hematochezia. Patient likely has multifactorial anemia from anticoagulation, anemia of chronic kidney disease, iron deficiency and possible GI blood loss. She received 3U of PRBC. Hemoglobin has been stable in the 9-10 range since Positive stool for Hemoccult IV PPI q.12 hours Continue to hold anticoagulation GI following and planning to do EGD and colonoscopy when stable (5) GI bleed: Code(s): K92.2 - Gastrointestinal hemorrhage, unspecified Status: Acute Assessment and Plan: See above (6) CHF (congestive heart failure): Code(s): I50.9 - Heart failure, unspecified Status: Acute Assessment and Plan: Recent Echo showing EF 35-40%, normal diastolic fucntion and moderate to severe . Also with moderate pulmonary HTN. Monitor fluid status closely. (7) Paroxysmal atrial fibrillation: Code(s): I48.0 - Paroxysmal atrial fibrillation Status: Acute Assessment and Plan: Patient with Afib/Flutter. Currently rate controlled Continue p.o. amiodarone Hold anticoagulation at this time (8) Hyponatremia: Code(s): E87.1 - Hypo-osmolality and hyponatremia Status: Acute Assessment and Plan: Secondary to JANINA, dehydration and hypovolemia Improved with IV fluids (9) Abdominal pain: Code(s): R10.9 - Unspecified abdominal pain Status: Acute Assessment and Plan: Left lower quadrant abdominal pain likely from fecal impaction. CT scan confirms stool distending the rectum Patient does not remember when her last bowel movement was. Laxatives and enemas ordered GI planning for colonoscopy (10) Neuropathic pain: Code(s): M79.2 - Neuralgia and neuritis, unspecified Status: Acute Assessment and Plan: Continue low-dose gabapentin Plan Family opted for comfort care. Comfort measures in place. DVT prophylaxis - hold anticoagulation due to possible GI bleed. Stress ulcer prophyl
[2022-10-18 20:00] VITALS: PULSE 86; RESP 16; O2SAT 94
[2022-10-18 20:09] VITALS: BP 91/54; PULSE 86; RESP 16; TEMP 35.7; O2SAT 94
[2022-10-19 08:00] VITALS: BP 102/52; PULSE 81; RESP 20; TEMP 35.6; O2SAT 94
[2022-10-19] MEDS: MORPHINE SULFATE (*CRX) 2 MG/ML INJ 4 MG IV PUSH (10:53)
--- NOTE | 2022-10-19 12:56 | P.PNIM_ITS ---
Progress Note: A&P Assessment and Plan (1) Shock: Code(s): R57.9 - Shock, unspecified Status: Acute Assessment and Plan: Shock likely multifactorial as patient has cardiomyopathy, aortic stenosis, hypovolemia and/or sepsis form positive BCx and UCx. Her procalcitonin level was low at 0.2 suggesting against systemic infection. UCx growing VRE and BCx (aerobic only) in 1 bottle growing Staph Epi. Suspect BCx is a contaminate. Continue cefepime. Vancomycin was changed to to daptomycin to cover for VRE 10/15 Patient weaned off Levophed. She is off IV fluids now. Good urine output. Continue hydrocortisone and albumin. Midodrine added (2) Acute on chronic renal failure: Code(s): N17.9 - Acute kidney failure, unspecified; N18.9 - Chronic kidney disease, unspecified Status: Acute Assessment and Plan: On discharge recent creatinine was 1.7 and she presented with a Cr of 4.2. Nephrology following She was receiving [facility] this could be secondary to hypotension and hypovolemia Treatment of hyperkalemia as below She also received 3U PRBC and IV fluids Normal CK level Creatinine is improving and down to 1.6 today Monitor in output electrolytes and creatinine Continue to hold diuretics and blood pressure medication As above (3) Hyperkalemia: Code(s): E87.5 - Hyperkalemia Status: Acute Assessment and Plan: Secondary to JANINA. Patient was also on potassium supplementation and Aldactone at [facility] All on hold potassium improved with IV fluids and Lokelma (4) Anemia: Code(s): D64.9 - Anemia, unspecified Status: Acute Assessment and Plan: Patient presented with hemoglobin 5.2. She had a positive guaiac stool on last admission and was seen by GI but no procedure was done at that time as patient was critically ill. Patient is on anticoagulation for her AFib. Patient is unable to provide any meaningful history whether she has had melena or hematochezia. Patient likely has multifactorial anemia from anticoagulation, anemia of chronic kidney disease, iron deficiency and possible GI blood loss. She received 3U of PRBC. Hemoglobin has been stable in the 9-10 range since Positive stool for Hemoccult IV PPI q.12 hours Continue to hold anticoagulation GI following and planning to do EGD and colonoscopy when stable (5) GI bleed: Code(s): K92.2 - Gastrointestinal hemorrhage, unspecified Status: Acute Assessment and Plan: See above (6) CHF (congestive heart failure): Code(s): I50.9 - Heart failure, unspecified Status: Acute Assessment and Plan: Recent Echo showing EF 35-40%, normal diastolic fucntion and moderate to severe . Also with moderate pulmonary HTN. Monitor fluid status closely. (7) Paroxysmal atrial fibrillation: Code(s): I48.0 - Paroxysmal atrial fibrillation Status: Acute Assessment and Plan: Patient with Afib/Flutter. Currently rate controlled Continue p.o. amiodarone Hold anticoagulation at this time (8) Hyponatremia: Code(s): E87.1 - Hypo-osmolality and hyponatremia Status: Acute Assessment and Plan: Secondary to JANINA, dehydration and hypovolemia Improved with IV fluids (9) Abdominal pain: Code(s): R10.9 - Unspecified abdominal pain Status: Acute Assessment and Plan: Left lower quadrant abdominal pain likely from fecal impaction. CT scan confirms stool distending the rectum Patient does not remember
[2022-10-19 20:00] VITALS: BP 100/51; PULSE 94; RESP 16; TEMP 36.3; O2SAT 94
[2022-10-20] MEDS: MORPHINE SULFATE (*CRX) 2 MG/ML INJ 4 MG IV PUSH ×5 (05:45→22:15)
[2022-10-20 08:00] VITALS: BP 100/45; PULSE 69; RESP 14; TEMP 36.5; O2SAT 94; O2SAT 98
--- NOTE | 2022-10-20 10:55 | PM.IMPN ---
Progress Note: A&P Assessment and Plan (1) Shock: Code(s): R57.9 - Shock, unspecified Status: Acute Assessment and Plan: Comfort care measures only (2) Acute on chronic renal failure: Code(s): N17.9 - Acute kidney failure, unspecified; N18.9 - Chronic kidney disease, unspecified Status: Acute (3) Hyperkalemia: Code(s): E87.5 - Hyperkalemia Status: Acute (4) Anemia: Code(s): D64.9 - Anemia, unspecified Status: Acute (5) GI bleed: Code(s): K92.2 - Gastrointestinal hemorrhage, unspecified Status: Acute (6) CHF (congestive heart failure): Code(s): I50.9 - Heart failure, unspecified Status: Acute (7) Paroxysmal atrial fibrillation: Code(s): I48.0 - Paroxysmal atrial fibrillation Status: Acute (8) Hyponatremia: Code(s): E87.1 - Hypo-osmolality and hyponatremia Status: Acute (9) Abdominal pain: Code(s): R10.9 - Unspecified abdominal pain Status: Acute (10) Neuropathic pain: Code(s): M79.2 - Neuralgia and neuritis, unspecified Status: Acute Plan Family opted for comfort care. Comfort measures in place. Code Status - patient is DNR DNI Subjective Date/time seen: 10/20/22 10:55 Interval history: 72yo female with AFib, cardiomyopathy, aortic stenosis, pHTN, CHF, chronic hyponatremia, CKD and anemia [facility].?? Patient resting comfortably, no family at bedside today. No overnight events, no grimacing noted. Review of Systems Review of Systems: ROS unobtainable: Yes unobtainable due to mental status Exam Narrative: General: Unresponsive, agonal breathing noted HEENT: Atraumatic, normocephalic, mucous membranes moist CV: Irregularly irregular, S1, S2 Lungs: Unlabored, shallow Abdomen: nondistended Objective Data Vital Signs Vital Signs: Vital Signs - 24 hr 10/19/22 20:00 10/19/22 20:00 10/20/22 08:00 Temperature 97.4 F L 97.7 F Pulse Rate 94 94 69 Respiratory Rate 16 16 14 Blood Pressure 100/51 L 100/45 L Pulse Oximetry 94 94 98 Oxygen Delivery Nasal Cannula Oxygen Flow Rate 2 Fraction of Inspired Oxygen 10/20/22 08:00 Temperature Pulse Rate Respiratory Rate Blood Pressure Pulse Oximetry 94 Oxygen Delivery Nasal Cannula Oxygen Flow Rate 2 Fraction of Inspired Oxygen Intake/Output Intake/Output: Intake & Output 10/17/22 10/18/22 10/19/22 10/20/22 23:59 23:59 23:59 23:59 Intake Total 450 Output Total 305 150 175 150 Balance 145 -150 -175 -150 Meds/Results Medications: Active Medications Generic Name Dose Route Start Last Admin Trade Name Freq PRN Reason Stop Dose Admin Acetaminophen 650 mg 10/14/22 09:04 10/14/22 10:34 Acetaminophen 325 Mg Tablet PO 650 mg Q4H PRN Administration Headache, Fever, Mild Pain Atropine Sulfate 1 - 2 drop 10/17/22 16:42 Atropine Sulfate 1% Ophth Soln 5 Ml Bottle SUBLINGUAL Q4H PRN Secretions Lorazepam 2 mg 10/17/22 16:42 Lorazepam Inj (*Crx) 2 Mg/Ml Vial IV PUSH Q2H PRN Anxiety/Comfort Morphine Sulfate 4 mg 10/17/22 16:42 10/20/22 08:27 Morphine Sulfate (*Crx) 2 Mg/Ml Inj IV PUSH 4 mg Q30M PRN Administration COMFORT Radiology Results: ITS Impressions Abdomen/Pelvis CT 10/14/22 05:14 IMPRESSION: 1. Diffuse lung disease, consistent with mild pulmonary edema and/or chronic lung disease. 2. Small pleural effusions. 3. Large sliding hiatal hernia. 4. Stool distends the rectum.
[2022-10-20 20:00] VITALS: BP 98/50; PULSE 90; RESP 16; TEMP 36.2; O2SAT 97
[2022-10-21] MEDS: MORPHINE SULFATE (*CRX) 2 MG/ML INJ 4 MG IV PUSH ×2 (03:17→15:17)
[2022-10-21] MEDS: LORazepam INJ (*CRX) 2 MG/ML VIAL IV PUSH (05:49)
[2022-10-21 08:00] VITALS: BP 91/45; PULSE 73; RESP 16; TEMP 36.2; O2SAT 95
[2022-10-21 08:20] VITALS: O2SAT 94
[2022-10-21 09:15] VITALS: O2SAT 94
--- NOTE | 2022-10-21 16:28 | PM.IMPN ---
Progress Note: A&P Assessment and Plan (1) Shock: Code(s): R57.9 - Shock, unspecified Status: Acute Assessment and Plan: Comfort care measures only (2) Acute on chronic renal failure: Code(s): N17.9 - Acute kidney failure, unspecified; N18.9 - Chronic kidney disease, unspecified Status: Acute (3) Hyperkalemia: Code(s): E87.5 - Hyperkalemia Status: Acute (4) Anemia: Code(s): D64.9 - Anemia, unspecified Status: Acute (5) GI bleed: Code(s): K92.2 - Gastrointestinal hemorrhage, unspecified Status: Acute (6) CHF (congestive heart failure): Code(s): I50.9 - Heart failure, unspecified Status: Acute (7) Paroxysmal atrial fibrillation: Code(s): I48.0 - Paroxysmal atrial fibrillation Status: Acute (8) Hyponatremia: Code(s): E87.1 - Hypo-osmolality and hyponatremia Status: Acute (9) Abdominal pain: Code(s): R10.9 - Unspecified abdominal pain Status: Acute (10) Neuropathic pain: Code(s): M79.2 - Neuralgia and neuritis, unspecified Status: Acute Plan Family opted for comfort care. Comfort measures in place. Code Status - patient is DNR DNI Subjective Date/time seen: 10/21/22 16:28 Interval history: 72yo female with AFib, cardiomyopathy, aortic stenosis, pHTN, CHF, chronic hyponatremia, CKD and anemia presented from a residential facility for abnormal labs.?? Patient resting comfortably, no family at bedside today. No overnight events, no grimacing noted. Review of Systems Review of Systems: ROS unobtainable: Yes unobtainable due to mental status Exam Narrative: General: Unresponsive, agonal breathing noted HEENT: Atraumatic, normocephalic, mucous membranes moist CV: Irregularly irregular, S1, S2 Lungs: Unlabored, shallow Abdomen: nondistended Objective Data Vital Signs Vital Signs: Vital Signs - 24 hr 10/20/22 20:00 10/20/22 20:00 10/21/22 08:00 Temperature 97.1 F L 97.1 F L Pulse Rate 90 90 73 Respiratory Rate 16 16 16 Blood Pressure 98/50 L 91/45 L Pulse Oximetry 97 97 95 Oxygen Delivery Nasal Cannula Oxygen Flow Rate 2 Fraction of Inspired Oxygen 10/21/22 08:20 10/21/22 09:15 Temperature Pulse Rate Respiratory Rate Blood Pressure Pulse Oximetry 94 94 Oxygen Delivery Nasal Cannula Nasal Cannula Oxygen Flow Rate 2 2 Fraction of Inspired Oxygen Intake/Output Intake/Output: Intake & Output 10/18/22 10/19/22 10/20/22 10/21/22 23:59 23:59 23:59 23:59 Output Total 150 175 300 350 Balance -150 -175 -300 -350 Meds/Results Medications: Active Medications Generic Name Dose Route Start Last Admin Trade Name Freq PRN Reason Stop Dose Admin Acetaminophen 650 mg 10/14/22 09:04 10/14/22 10:34 Acetaminophen 325 Mg Tablet PO 650 mg Q4H PRN Administration Headache, Fever, Mild Pain Atropine Sulfate 1 - 2 drop 10/17/22 16:42 Atropine Sulfate 1% Ophth Soln 5 Ml Bottle SUBLINGUAL Q4H PRN Secretions Lorazepam 2 mg 10/17/22 16:42 10/21/22 05:49 Lorazepam Inj (*Crx) 2 Mg/Ml Vial IV PUSH 2 mg Q2H PRN Administration Anxiety/Comfort Morphine Sulfate 4 mg 10/17/22 16:42 10/21/22 15:17 Morphine Sulfate (*Crx) 2 Mg/Ml Inj IV PUSH 4 mg Q30M PRN Administration COMFORT Radiology Results: ITS Impressions Abdomen/Pelvis CT 10/14/22 05:14 IMPRESSION: 1. Diffuse lung disease, consistent with mild pulmonary edema and/or chronic lung disease. 2. Small pleural effusions. 3. Large sliding hiatal hernia. 4. Stool distends the rectum.
[2022-10-21 20:00] VITALS: PULSE 75; RESP 14; O2SAT 97
[2022-10-21 20:06] VITALS: BP 102/59; PULSE 75; RESP 14; TEMP 36.3; O2SAT 97
[2022-10-22] MEDS: MORPHINE SULFATE (*CRX) 2 MG/ML INJ 4 MG IV PUSH (00:45)
[2022-10-22] MEDS: ATROPINE SULFATE 1% OPHTH SOLN 5 ML BOTTLE SUBLINGUAL (00:46)
[2022-10-22] MEDS: LORazepam INJ (*CRX) 2 MG/ML VIAL IV PUSH (01:16)
--- NOTE | 2022-10-22 08:05 | P.DN_ITS ---
Discharge Summary Date and Time Date of : 10/22/22 Time of : 08:08 Probable Cause of Probable Cause of : shock Summary Hospital Course: 72yo female with AFib, cardiomyopathy, aortic stenosis, pHTN, CHF, chronic hyponatremia, CKD and anemia [facility] for abnormal labs. Recent Echo showing EF 35-40%, normal diastolic fucntion and moderate to severe . Also with moderate pulmonary HTN. Patient presented with hemoglobin 5.2. She had a positive guaiac stool on last admission and was seen by GI but no procedure was done at that time as patient was critically ill.? Patient is on anticoagulation for her AFib.? Patient is unable to provide any meaningful history whether she has had melena or hematoche ivan. Patient likely has multifactorial anemia from anticoagulation, anemia of chronic kidney disease, iron deficiency and possible GI blood loss. She received 3U of PRBC.? Hemoglobin has been stable in the 9-10 range since? Positive stool for Hemoccult On discharge recent creatinine was 1.7 and she presented with a Cr of 4.2. Nephrology following She [facility] this could be secondary to hypotension and hypovolemia Treatment of hyperkalemia as below She also received 3U PRBC and IV fluids Shock likely multifactorial as patient has cardiomyopathy, aortic stenosis, hypovolemia and/or sepsis form positive BCx and UCx. Her procalcitonin level was low at 0.2 suggesting against systemic infection. UCx growing VRE and BCx (aerobic only) in 1 bottle growing Staph Epi. Suspect BCx is a contaminate. Continue cefepime.? Vancomycin was changed to to daptomycin to cover for VRE 10/15 Family opted for comfort care. Comfort measures in place. Patient 10/22/22.
--- NOTE | 2022-10-22 09:49 | PC.NURSE ---
Pt this morning at 0755. Family notified.
== END 2022-10-22 07:55 | disposition expired | DRG 871 ==
LOC: ANHED 10-14 02:29 → ANHICU 10-14 05:30 → ANH3MED 10-17 22:17
PROVIDERS: Internal Medicine; Internal Medicine Nephrology; Admitting Provider Internal Medicine; Emergency Provider Emergency Medicine; PCP Internal Medicine; Visit Provider Student in an Organized Health Care Education/Training Program
DX: A41.9 Sepsis, unspecified organism (principal); I50.43 Acute on chronic combined systolic (congestive) and diastolic (congestive) heart failure; R65.21 Severe sepsis with septic shock; Z16.21 Resistance to vancomycin; N17.9 Acute kidney failure, unspecified; I13.0 Hypertensive heart and chronic kidney disease with heart failure and stage 1 through stage 4 chronic kidney disease, or unspecified chronic kidney disease; I43 Cardiomyopathy in diseases classified elsewhere; K92.2 Gastrointestinal hemorrhage, unspecified; E87.1 Hypo-osmolality and hyponatremia; D62 Acute posthemorrhagic anemia; R57.1 Hypovolemic shock; D63.1 Anemia in chronic kidney disease; E86.0 Dehydration; E53.9 Vitamin B deficiency, unspecified; E87.5 Hyperkalemia; E86.1 Hypovolemia; G62.9 Polyneuropathy, unspecified; I95.9 Hypotension, unspecified; I35.0 Nonrheumatic aortic (valve) stenosis; I48.0 Paroxysmal atrial fibrillation; I27.20 Pulmonary hypertension, unspecified; K56.41 Fecal impaction; M81.0 Age-related osteoporosis without current pathological fracture; N18.32 Chronic kidney disease, stage 3b; Z66 Do not resuscitate; Z79.01 Long term (current) use of anticoagulants; Z86.16 Personal history of COVID-19; Z96.642 Presence of left artificial hip joint; Z86.73 Personal history of transient ischemic attack (TIA), and cerebral infarction without residual deficits
CPT/HCPCS: 36415; 36430; 36600; 74176; 80048; 80053; 81001; 82274; 82375; 82550; 82805; 83050; 83690; 83735; 84100; 84145; 85014; 85018; 85025; 85027; 86850; 86900; 86901; 86923; 87040; 87086; 87147; 87181; 87186; 92610; 93005; 96361; 96365; 96366; 99285; A9270; C1751; C9113; G0378; J0612; J0692; J0878; J1720; J2060; J2270; J3370; J7030; P9016; P9047